=== PATIENT | female | born 1990 | race Caucasian/White ===

== ENCOUNTER 2024-09-04 14:05 | Emergency (ER) | payer OTHER, MEDICAID, SELFPAY ==
[2024-09-04 14:10] VITALS: BP 117/69; PULSE 92; RESP 18; TEMP 37.2; O2SAT 100; BMI 25.0
--- NOTE | 2024-09-04 14:12 | ED.RN ---
SPOKE WITH OB THEY SAID TO RULE OUT AND IF NEEDED SEND DOWN
--- NOTE | 2024-09-04 14:30 | EX.ED.DYSGE1 ---
HPI <JAZZY Early - Last Filed: 09/04/24 15:21> History of Present Illness Chief Complaint: Chest Other Narrative Narrative: Patient is a 34-year-old female with no significant medical history, patient is currently 28 weeks , this is her first . Patient states over the last week, she is having pain to the left upper abdomen. She did see her [facility] [employer] [employer] [facility] at [facility], they state that there was more of a muscle pain. Patient states there is pain with movement, coughing and sneezing. She states that when she puts pressure on her left upper abdomen she feels better. She is not having shortness of breath, chest pain, patient denies any abdominal pain, vaginal bleeding, she still feeling the baby move. [facility] <JAZZY Early - Last Filed: 09/04/24 15:21> [facility] Medical History (Updated 09/04/24 @ 15:20 by JAZZY Early) Adenocarcinoma Medical History no medical history Home Medications ?Medication ?Instructions ?Recorded ?Last Taken ?Type aspirin 81 mg tablet,delayed 81 mg PO DAILY 09/04/24 Unknown History release (Adult Aspirin Regimen) Allergy/AdvReac Type Severity Reaction Status Date / Time No Known Allergies Allergy Verified 09/04/24 14:10 Family History no significant family his Surgical History no surgical history Social History Smoking Status: Light Smoker (<10/day) ROS <JAZZY Early - Last Filed: 09/04/24 15:21> ROS ED ROS Narrative Constitutional: Negative for fever, chills, weight loss, weakness Eyes: Negative for vision loss, vision change, double vision ENT: Negative for any sore throat, ear pain, congestion Cardiovascular: Negative for any chest pain, tightness, palpitations Respiratory: Negative for any cough, sputum production, hemoptysis, dyspnea, dyspnea on exertion, orthopnea Gastrointestinal: Negative for any nausea, vomiting, diarrhea, constipation, blood in stool, blood in vomit. Positive for left upper abdominal pain : Negative for any urinary frequency, dysuria, retention, blood in urine Muscle skeletal: Negative for any neck pain, back pain Neurological: Negative for any headache, syncope, dizziness Skin: Negative for any rashes, itching, abrasions, lacerations Psychiatric: Negative for any depression, anxiety, stress, suicidal ideation, homicidal ideation Hematologic: Negative for any excessive bruising, easy bleeding EXAM <JAZZY Early - Last Filed: 09/04/24 15:21> Physical Exam Narrative Exam Narrative: Vital signs reviewed. HEET: Head normocephalic atraumatic, TMs clear bilaterally. Posterior pharynx is clear, moist mucous membranes. Nares clear bilaterally. Neck: Supple with no lymphadenopathy or tenderness. No signs of meningismus. Cardiac: Regular rate and rhythm no murmurs gallops or rubs, equal peripheral pulses bilaterally. Respiratory: Lungs clear to auscultation bilaterally. No chest tenderness. Abdomen: Soft, nontender, nondistended. No abdominal bruit or pulsatile masses. No hepatosplenomegaly Extremities: No peripheral edema, no signs of gross trauma or deformity. Active full range of motion of all extremities. Neuro: Cranial nerves II through XII intact, no focal neurological deficits. Skin: Clean dry and intact with no rash, purpura, petechiae, vesicles or pustules. Backs/flank: No CVA tenderness, no midline spinal tenderness, no deformity. Psych: Normal mood and affect. No SI, HI or acute psychosis. Const Vital Signs: 09/04/24 14:10 09/04/24 15:34 Temperature 98.9 F 98.9 F Temperature Source Oral Pulse Rate 92 92 Respiratory Rate 18 18 Blood Pressure 117/69 117/69 Blood Pressure Mean 85 85 Pulse Ox 100 100 Oxygen Delivery Method Room Air Positive well nourished and well developed General Appearance ED: well developed <Dr. Jeremy Resendiz DO - Last Filed: 09/04/24 15:49> Physical Exam Const Vital Signs: 09/04/24 14:10 09/04/24 15:34 Temperature 98.9 F 98.9 F Temperature Source Oral Pulse Rate 92 92 Respiratory Rate 18 18 Blood Pressure 117/69 117/69 Blood Pressure Mean 85 85 Pulse Ox 100 100 Oxygen Delivery Method Room Air MDM <JAZZY Early - Last Filed: 09/04/24 15:21> MDM Treatment and Re-Evaluation :: Differential diagnosis includes however is not limited to: Pneumonia, abdominal muscle wall strain, acute pancreatitis, chest wall strain Patient appears generally well, vital signs are stable, patient is nontoxic-appearing. Presenting to the emergency department for ongoing pain to her left upper abdomen just underneath left rib. Patient appears to be in no obvious distress. This seems to be more left upper abdomen than chest. Patient is no shortness of breath. heart tones will be obtained. heart tones within normal limits. At this time, patient be diagnosed with abdominal muscle strain. Patient continue using Tylenol, generally stretching, warm compresses. She is happy with the plan of care, she is happy to return for any worsening symptoms. All questions answered, stable for discharge <Dr. Jeremy Resendiz DO - Last Filed: 09/04/24 15:49> [facility] Treatment and Re-Evaluation :: Differential diagnosis includes however is not limited to: Pneumonia, abdominal muscle wall strain, acute pancreatitis, chest wall strain Patient appears generally well, vital signs are stable, patient is nontoxic-appearing. Presenting to the emergency department for ongoing pain to her left upper abdomen just underneath left rib. Patient appears to be in no obvious distress. This seems to be more left upper abdomen than chest. Patient is no shortness of breath. heart tones will be obtained. heart tones within normal limits. At this time, patient be diagnosed with abdominal muscle strain. Patient continue using Tylenol, generally stretching, warm compresses. She is happy with the plan of care, she is happy to return for any worsening symptoms. All questions answered, stable for discharge Attending note: I have personally performed a face to face assessment of the patient and have reviewed the [place] note. I personally made/approved the management plan and take responsibility for the patient management. I performed a substantive portion of the visit including all aspects of the following. My wagoner findings include: 28 weeks gestation presents evaluation 5-day history noting pain left upper abdomen worse when she gets up and moves around. Denies trauma. Denies nausea or vomiting. Denies any pain with fluids. Normal bowel moods. No urinary symptoms. No respiratory symptoms. She saw her OB team 4 days ago discussed musculoskeletal versus rib strain. Has been using Tylenol. Symptoms worsened today. Evaluation reproducible pain rectus abdominis muscle on the left side when I had patient perform half crunch. Exam consistent with musculoskeletal she is reassured. No symptoms with bowel movements no symptoms with meals. She will continue Tylenol she will monitor symptoms outpatient follow-up. heart tones obtained and normal at 140. Discharge Plan Triage Chief Complaint: Chest Other ED Midlevel Provider: Cameron Talavera ED Provider: Jeremy Resendiz Dx/Rx/DC Orders Clinical Impression: Third trimester , Strain of abdominal muscle Instructions: ED Muscle Strain, Abdomen Prescriptions: No Action aspirin [Adult Aspirin Regimen] 81 mg tablet,delayed release (DR/EC) 81 mg PO DAILY Primary Care Provider: Omid Grijalva Referrals: Omid Grijalva MD [Primary Care Provider] - Activity Restrictions/Additional Instructions: We believe you have a abdominal wall muscle strain. Please continue to perform gentle stretching, usual warm compress, Tylenol. Print Language: Bulgarian Disposition Disposition: Home, Self Care Discharge Date/Time: 09/04/24 15:45
[2024-09-04 15:34] VITALS: BP 117/69; PULSE 92; RESP 18; TEMP 37.2; O2SAT 100
== END 2024-09-04 15:45 | disposition home or self-care (01) ==
PROVIDERS: Emergency Provider Emergency Medicine; PCP Internal Medicine; Visit Provider Emergency Medicine
DX: O9A.213 Injury, poisoning and certain other consequences of external causes complicating pregnancy, third trimester (principal); O99.333 Smoking (tobacco) complicating pregnancy, third trimester; F17.200 Nicotine dependence, unspecified, uncomplicated; S39.011A Strain of muscle, fascia and tendon of abdomen, initial encounter; Z3A.28 28 weeks gestation of pregnancy; Z79.82 Long term (current) use of aspirin; X58.XXXA Exposure to other specified factors, initial encounter
CPT/HCPCS: 99282

== ENCOUNTER 2024-11-26 19:15 | Inpatient (IN) | payer OTHER, MEDICAID, SELFPAY ==
[2024-11-26 19:14] VITALS: BMI 27.2
[2024-11-26 19:40] VITALS: BP 111/66; PULSE 70; RESP 16; TEMP 36.7; O2SAT 98
--- OUTSIDE RECORDS SUMMARY | 2024-11-26 19:45 | XMS RPT_ITS | CCD ---
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 in ; Translations: [Unspecified infection of urinary tract in , unspecified trimester] Onset: 05-28-2024 05-28-2024 Episodic Other complications of (2 sources) Unspecified infection of urinary tract in , unspecified trimester; Translations: [UTI (urinary tract infection) in , antepartum (HCC)] Onset: 05-28-2024 Episodic Other complications of (1 source) Supervision of with insufficient care, second trimester; Translations: [Late care affecting in second trimester] Onset: 05-26-2024 Episodic Other complications of (1 source) Maternal care for other abnormalities of cervix, second trimester; Translations: [History of loop electrosurgical excision procedure (LEEP) of cervix affecting in second trimester] Onset: 05-26-2024 Episodic Other connective tissue disease (4 sources) Pain in left leg; Translations: [Pain in left leg] Onset: 07-14-2023 Episodic Other female genital disorders (11 sources) Dysplasia of cervix; Translations: [Dysplasia of cervix, unspecified] Onset: 07-14-2023 Resolved: 07-14-2023 07-14-2023 Episodic Other female genital disorders (1 source) Other specified noninflammatory disorders of cervix uteri; Translations: [Other specified noninflammatory disorders of cervix uteri] Onset: 05-17-2022 Episodic Other injuries and conditions due to external causes (4 sources) Personal history of (healed) traumatic fracture; Translations: [Personal history of (healed) traumatic fracture] Onset: 07-14-2023 Episodic Other and delivery including normal (9 sources) test positive; Translations: [Encounter for test, result positive] Onset: 04-02-2024 04-02-2024 Episodic Residual codes; unclassified (20 sources) Nicotine-filled electronic cigarette user; Translations: [Tobacco use] Onset: 05-26-2024 05-26-2024 Episodic Residual codes; unclassified (1 source) Other specified postprocedural states; Translations: [History of loop electrosurgical excision procedure (LEEP) of cervix affecting in second trimester] Onset: 05-26-2024 Episodic Residual codes; unclassified (1 source) Tobacco use; Translations: [Current every day nicotine vaping] Onset: 05-26-2024 Episodic Substance-related disorders (20 sources) Marijuana user; Translations: [Drug use complicating , unspecified trimester] Onset: 05-26-2024 05-26-2024 Episodic Unclassified (8 sources) Finding of menstrual bleeding; Translations: [Menstruation] Comment on above: Onset age 14 years; Unclassified (3 sources) Onset: 07-14-2023 07-14-2023 NEGATED: Highlighted row has been ruled out!Other infections; including parasitic (1 source) History of sexually transmitted disease; Translations: [Personal history of other infectious and parasitic diseases] Episodic Results Test Name Value Interpretation Reference Range Facility URINE OB DIP B/Oon 5 Glucose Ql (U) Negative Neg mg/dL [facility] Interpretation and review of laboratory results Normal [facility] Protein.monoclonal (U) [Mass/Vol] Negative Neg mg/dL [facility] URINE OB DIP B/Oon 5 Glucose Ql (U) Negative Neg mg/dL [facility] Interpretation and review of laboratory results Normal [facility] Protein.monoclonal (U) [Mass/Vol] Negative Neg mg/dL [facility] Examination level ultrasound on 11-02-2024 [facility] Radiology Study observation (narrative) [facility] ROUTINE, GROUP B ST REPTOCOCCUS BY PCRon 11-02-2024 ROUTINE, GROUP B STREPTOCOCCUS BY PCR Not detected Normal [facility] Comment on above: Performed By: #### G BPCR #### [facility] CLIA [id number] [address] [place] [address] [place] CBC panel Auto (Bld)on 10-21 Erythrocyte distribution width (RBC) [Ratio] 12.5 % Normal 11.5-15.0 [facility] Comment on above: Order Comment: Speci men Type: BLOOD SPECIMENOrdering Facility: [facility] Address: [address] [place] [address] Performed By: #### 5 8410-2 ####[facility] MILLWNCLIA [id number] [place] [address] [place] Hematocrit (Bld) [Volume fraction] 32.3 % Low 36.0-46.0 [facility] Comment on above: Order Comment: Speci men Type: BLOOD SPECIMENOrdering Facility: [facility] Address: [address] [place] [address] Performed By: #### 5 8410-2 ####[facility] [id number] [place] [address] [place] Hemoglobin (Bld) [Mass/Vol] 10.9 g/dL Low 11.5-15.5 [facility] Comment on above: Order Comment: Speci men Type: BLOOD SPECIMENOrdering Facility: [facility] Address: [address] [place] [address] Performed By: #### 5 8410-2 ####[facility]ITAL[facility] [id number] [place] [address] [place] MCH (RBC) [Entitic mass] 31.5 pg Normal 26.0-34.0 [facility] Comment on above: Order Comment: Speci men Type: BLOOD SPECIMENOrdering Facility: [facility] Address: [address] [place] [address] Performed By: #### 5 8410-2 ####[facility]ENTERLIA [id number] [place] [address] [place] MCHC (RBC) [Mass/Vol] 33.7 g/dL Normal 30.5-36.0 [facility] Comment on above: Order Comment: Speci men Type: BLOOD SPECIMENOrdering Facility: [facility] Address: [address] [place] [address] Performed By: #### 5 8410-2 ####[facility]ENTERLIA [id number] [place] [address] [place] MCV (RBC) [Entitic vol] 93.4 fL Normal 80.0-100.0 [facility] Comment on above: Order Comment: Speci men Type: BLOOD SPECIMENOrdering Facility: [facility] Address: [address] [place] [address] Performed By: #### 5 8410-2 ####[facility] HOSPITALIsidro [id number] [place] [address] [place] Nucleated RBC (Bld) [#/Vol] 10*3/uL Normal <0.01 [facility] Comment on above: Order Comment: Speci men Type: BLOOD SPECIMENOrdering Facility: [facility] Address: [address] [place] [address] Performed By: #### 5 8410-2 ####[facility]ITALNCUIN[facility] [id number] [place] [address] [place] Platelet mean volume (Bld) [Entitic vol] 9.5 fL Normal 9.0-12.7 [facility] Comment on above: Order Comment: Speci men Type: BLOOD SPECIMENOrdering Facility: [facility] Address: [address] [place] [address] Performed By: #### 5 8410-2 ####[facility]ITALNCLIA [id number] [place] [address] [place] Platelets (Bld) [#/Vol] 473 10*3/uL High 150-400 [facility] Comment on above: Order Comment: Speci men Type: BLOOD SPECIMENOrdering Facility: [facility] Address: [address] [place] [address] Performed By: #### 5 8410-2 ####[facility]ITALNCLIA [id number] [place] [address] [place] RBC (Bld) [#/Vol] 3.46 10*6/uL Low 3.90-5.20 [facility] Comment on above: Order Comment: Speci men Type: BLOOD SPECIMENOrdering Facility: [facility] Address: [address] [place] [address] Performed By: #### 5 8410-2 ####[facility] [id number] [place] [address] [place] WBC (Bld) [#/Vol] 14.21 10*3/uL High 3.70-11.00 [facility] Comment on above: Order Comment: Speci men Type: BLOOD SPECIMENOrdering Facility: [facility] Address: [address] [place] [address] Performed By: #### 5 8410-2 ####[facility]ITALNCUIN[facility] [id number] [place] [address] [place] URINE OB DIP B/Oon 5 Glucose Ql (U) Negative Neg mg/dL [facility] Interpretation and review of laboratory results Normal [facility] Protein.monoclonal (U) [Mass/Vol] Negative Neg mg/dL [facility] URINE OB DIP B/OOrdered By: Beatriz Mendez on 10-07-2024 Glucose Ql (U) Negative Neg mg/dL [facility] Interpretation and review of laboratory results Normal [facility] Protein.monoclonal (U) [Mass/Vol] trace Neg mg/dL [facility] Bacteria Ur Culton 5 Bacteria identified Cx Nom (U) ORGANISM ID: 1 10,000 -<50,000 CFU/ml Normal urogenital cecelia Normal [facility] Comment on above: Performed By: #### 6 30-4 ####[facility] LABCLIA [id number] [place] [address] [place] CBC W Auto Differential pane l (Bld)on 09-07-2024 Basophils (Bld) [#/Vol] 0.05 10*3/uL Normal <0.11 [facility] Comment on above: Order Comment: Speci men Type: BLOOD SPECIMENOrdering Facility: [facility] Address: [address] [place] [address] Performed By: #### 5 7021-8 ####[facility] MACIEJWNCLIA [id number] [place] [address] [place] Basophils/100 WBC (Bld) 0.3 % Normal [facility] Comment on above: Order Comment: Speci men Type: BLOOD SPECIMENOrdering Facility: [facility] Address: [address] [place] [address] Performed By: #### 5 7021-8 ####[facility]ITALNCLIA [id number] [place] [address] [place] Differential cell count method Nom (Bld) Auto Normal [facility] Comment on above: Order Comment: Speci men Type: BLOOD SPECIMENOrdering Facility: [facility] Address: [address] [place] [address] Performed By: #### 5 7021-8 ####[facility]ITALNCLIA [id number] [place] [address] [place] Eosinophils (Bld) [#/Vol] 0.19 10*3/uL Normal <0.46 [facility] Comment on above: Order Comment: Speci men Type: BLOOD SPECIMENOrdering Facility: [facility] Address: [address] [place] [address] Performed By: #### 5 7021-8 ####[facility] MILLTOWNCLIA [id number] [place] [address] [place] Eosinophils/100 WBC (Bld) 1.3 % Normal [facility] Comment on above: Order Comment: Speci men Type: BLOOD SPECIMENOrdering Facility: [facility] Address: [address] [place] [address] Performed By: #### 5 7021-8 ####[facility]ENTERLIA [id number] [place] [address] [place] Erythrocyte distribution width (RBC) [Ratio] 12.5 % Normal 11.5-15.0 [facility] Comment on above: Order Comment: Speci men Type: BLOOD SPECIMENOrdering Facility: [facility] Address: [address] [place] [address] Performed By: #### 5 7021-8 ####[facility]OSPITALMING [id number] [place] [address] [place] Hematocrit (Bld) [Volume fraction] 31.3 % Low 36.0-46.0 [facility] Comment on above: Order Comment: Speci men Type: BLOOD SPECIMENOrdering Facility: [facility] Address: [address] [place] [address] Performed By: #### 5 7021-8 ####[facility]ITALSTERLINGIsidro [id number] [place] [address] [place] Hemoglobin (Bld) [Mass/Vol] 10.4 g/dL Low 11.5-15.5 [facility] Comment on above: Order Comment: Speci men Type: BLOOD SPECIMENOrdering Facility: [facility] Address: [address] [place] [address] Performed By: #### 5 7021-8 ####[facility] MACIEJCOOKMING [id number] [place] [address] [place] Immature granulocytes (Bld) [#/Vol] 0.08 10*3/uL Normal <0.10 [facility] Comment on above: Order Comment: Speci men Type: BLOOD SPECIMENOrdering Facility: [facility] Address: [address] [place] [address] Performed By: #### 5 7021-8 ####[facility]ITALNCLI [id number] [place] [address] [place] Immature granulocytes/100 WBC (Bld) 0.6 % Normal [facility] Comment on above: Order Comment: Speci men Type: BLOOD SPECIMENOrdering Facility: [facility] Address: [address] [place] [address] Performed By: #### 5 7021-8 ####[facility]ITALNCUIN[facility] [id number] [place] [address] [place] Lymphocytes (Bld) [#/Vol] 1.50 10*3/uL Normal 1.00-4.00 [facility] Comment on above: Order Comment: Speci men Type: BLOOD SPECIMENOrdering Facility: [facility] Address: [address] [place] [address] Performed By: #### 5 7021-8 ####[facility] [id number] [place] [address] [place] Lymphocytes/100 WBC (Bld) 10.4 % Normal [facility] Comment on above: Order Comment: Speci men Type: BLOOD SPECIMENOrdering Facility: [facility] Address: [address] [place] [address] Performed By: #### 5 7021-8 ####[facility] [id number] [place] [address] [place] MCH (RBC) [Entitic mass] 31.2 pg Normal 26.0-34.0 [facility] Comment on above: Order Comment: Speci men Type: BLOOD SPECIMENOrdering Facility: [facility] Address: [address] [place] [address] Performed By: #### 5 7021-8 ####[facility] [id number] [place] [address] [place] MCHC (RBC) [Mass/Vol] 33.2 g/dL Normal 30.5-36.0 [facility] Comment on above: Order Comment: Speci men Type: BLOOD SPECIMENOrdering Facility: [facility] Address: [address] [place] [address] Performed By: #### 5 7021-8 ####[facility] MACIEJCOOKMING [id number] [place] [address] [place] MCV (RBC) [Entitic vol] 94.0 fL Normal 80.0-100.0 [facility] Comment on above: Order Comment: Speci men Type: BLOOD SPECIMENOrdering Facility: [facility] Address: [address] [place] [address] Performed By: #### 5 7021-8 ####[facility]OSPITALNCIsidro [id number] [place] [address] [place] Monocytes (Bld) [#/Vol] 0.65 10*3/uL Normal <0.87 [facility] Comment on above: Order Comment: Speci men Type: BLOOD SPECIMENOrdering Facility: [facility] Address: [address] [place] [address] Performed By: #### 5 7021-8 ####[facility] HOSPITALNCA [id number] [place] [address] [place] Monocytes/100 WBC (Bld) 4.5 % Normal [facility] Comment on above: Order Comment: Speci men Type: BLOOD SPECIMENOrdering Facility: [facility] Address: [address] [place] [address] Performed By: #### 5 7021-8 ####[facility]ITALNCLIA [id number] [place] [address] [place] Neutrophils (Bld) [#/Vol] 11.89 10*3/uL High 1.45-7.50 [facility] Comment on above: Order Comment: Speci men Type: BLOOD SPECIMENOrdering Facility: [facility] Address: [address] [place] [address] Performed By: #### 5 7021-8 ####[facility] MACIEJCOOKSTERLINGLIA [id number] [place] [address] [place] Neutrophils/100 WBC (Bld) 82.9 % Normal [facility] Comment on above: Order Comment: Speci men Type: BLOOD SPECIMENOrdering Facility: [facility] Address: [address] [place] [address] Performed By: #### 5 7021-8 ####[facility] [id number] [place] [address] [place] Nucleated RBC (Bld) [#/Vol] 10*3/uL Normal <0.01 [facility] Comment on above: Order Comment: Speci men Type: BLOOD SPECIMENOrdering Facility: [facility] Address: [address] [place] [address] Performed By: #### 5 7021-8 ####[facility] [id number] [place] [address] [place] Nucleated RBC/100 WBC (Bld) [Ratio] 0.0 /100 WBC Normal [facility] Comment on above: Order Comment: Speci men Type: BLOOD SPECIMENOrdering Facility: [facility] Address: [address] [place] [address] Performed By: #### 5 7021-8 ####[facility]ENTERLI [id number] [place] [address] [place] Platelet mean volume (Bld) [Entitic vol] 9.4 fL Normal 9.0-12.7 [facility] Comment on above: Order Comment: Speci men Type: BLOOD SPECIMENOrdering Facility: [facility] Address: [address] [place] [address] Performed By: #### 5 7021-8 ####[facility]ITALNCLI [id number] [place] [address] [place] Platelets (Bld) [#/Vol] 405 10*3/uL High 150-400 [facility] Comment on above: Order Comment: Speci men Type: BLOOD SPECIMENOrdering Facility: [facility] Address: [address] [place] [address] Performed By: #### 5 7021-8 ####[facility]ITALNCLIA [id number] [place] [address] [place] RBC (Bld) [#/Vol] 3.33 10*6/uL Low 3.90-5.20 [facility] Comment on above: Order Comment: Speci men Type: BLOOD SPECIMENOrdering Facility: [facility] Address: [address] [place] [address] Performed By: #### 5 7021-8 ####[facility] HOSPITALNCA [id number] [place] [address] [place] WBC (Bld) [#/Vol] 14.36 10*3/uL High 3.70-11.00 [facility] Comment on above: Order Comment: Speci men Type: BLOOD SPECIMENOrdering Facility: [facility] Address: [address] [place] [address] Performed By: #### 5 7021-8 ####[facility]ITALNCLIA [id number] [place] [address] [place] Ferritin SerPl-mCncon 2024 Ferritin [Mass/Vol] 44.5 ng/mL Normal 14.7-205.1 [facility] Comment on above: Order Comment: Speci men Type: BLOOD SPECIMENOrdering Facility: [facility] Address: [address] [place] [address] Performed By: #### 5 0190-8, 2276-4 ####[facility] LABCLIA [id number] [place] [address] [place] GESTATIONAL GLUCOSE SCREEN, 1-HOUR, 50 GRAM, NON-FASTINGon 09-07-2024 Glucose [Mass/Vol] 92 mg/dL Normal 74-134 [facility] Comment on above: Order Comment: Jaye barragan Type: BLOOD SPECIMENOrdering Facility: [facility] Address: [address] [place] [address] Result Comment: [facility] Congress of Obstetricians and Gynecologists (Chapo/Mari) guidelines state a gestational diabetes mellitus positive screen is made, in women not previously diagnosed with overt diabetes, when the 1 hr plasma glucose level is equal to or above 140 mg/dL. [facility] Continuous Mining Operator and [facility] recommends a 135 mg/dL cutoff. Performed By: #### G LTGST ####[facility] [id number] [place] [address] [place] Iron and Iron binding capaci ty panelon 09-07-2024 Iron [Mass/Vol] 46 ug/dL Normal 41-186 [facility] Comment on above: Order Comment: Jaye barragan Type: BLOOD SPECIMENOrdering Facility: [facility] Address: [address] [place] [address] Performed By: #### 5 0190-8, 6-4 ####[facility] LABIA [id number] [place] [address] [place] Iron binding capacity [Mass/Vol] 404 ug/dL High 232-386 [facility] Comment on above: Order Comment: Jaye barragan Type: BLOOD SPECIMENOrdering Facility: [facility] Address: [address] [place] [address] Performed By: #### 5 0190-8, 6-4 ####[facility] LABIA [id number] [place] [id number] [place] Iron/TIBC [Molar ratio] 11.4 % Low 15.0-57.0 [facility] Comment on above: Order Comment: Jaye barragan Type: BLOOD SPECIMENOrdering Facility: [facility] Address: [address] [place] [address] Performed By: #### 5 0190-8, 2276-4 ####[facility] LABIA [id number] [address] [place] Reagin and Treponema pallidu m IgG and IgM [Interp]on 09-07-2024 T. pallidum IgG+IgM IA Ql (S) Non-Reactive Normal Nonreactive [facility] Comment on above: Order Comment: Speci men Type: BLOOD SPECIMENOrdering Facility: [facility] Address: [address] [place] [address] Performed By: #### 7 3752-8 ####[facility]ENTERIA [id number] [address] [place] Reagin+T pallidum IgG+IgM Se rPl-Impon 09-07-2024 Reagin and Treponema pallidum IgG and IgM [Interp] Cannot exclude recent Treponemal infection if specimen collected within 7-10 days after appearance of suspect lesions or 2-3 weeks after an exposure. Clinical correlation is required. Normal [facility] Comment on above: Order Comment: Speci men Type: BLOOD SPECIMENOrdering Facility: [facility] Address: [address] [place] [address] Performed By: #### 7 3752-8 ####[facility] MEDICAL CENTERIA [id number] [address] OF [facility] CNPAbbie 09-06-2024 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 - aspirin, enteric coated (ECOTRIN LOW STRENGTH) 81 mg EC tablet Take 1 tablet by mouth once daily. - PNV no.95/ferrous fum/folic ac ( ORAL) Take by mouth. - acetaminophen (TYLENOL EXTRA STRENGTH) 500 mg tablet Take 2 tablets by mouth every 8 hours as needed for pain. Problem List As Of Date 09/06/2024 Noted Resolved Encounter for supervision of high risk pregnanc*05/26/2024 Late care affecting in secon*05/26/2024 History of loop electrosurgical excision proced*05/26/2024 Nausea and vomiting during [O21.9] 05/26/2024 Current every day nicotine vaping [Z72.0] 05/26/2024 Marijuana use during [O99.320, F12.90]05/26/2024 Anemia complicating , first trimester *05/27/2024 UTI (urinary tract infection) in , ant*05/28/2024 Encounter Status:Closed by ISABEL GRANADOS on 09/06/24 Normal [facility] Emergency Department Summary on 09-04-2024 Emergency Department Summary [facility] Medical Records Department [address] [place] [address] Emergency Department Summary 09/04/24 MR#: [id number] Acct: [id number] Name: PERLITA THAKKAR Rep #: [id number] : 1990 34 From: [place] [employer]ala[employer]OMOT[employer]SDori PCP: Dr. Omid Benites MD Status:DEP ER Location: ED HPI History of Present Illness Chief Complaint: Chest Other Narrative Narrative: Patient is a 34-year-old female with no significant medical history, patient is currently 28 weeks , this is her first . Patient states over the last week, she is having pain to the left upper abdomen. 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 Patient states there is pain with movement, coughing and sneezing. She states that when she puts pressure on her left upper abdomen she feels better. She is not having shortness of breath, chest pain, patient denies any abdominal pain, vaginal bleeding, she still feeling the baby move. [facility] Medical History (Updated 09/04/24 @ 15:20 by JAZZY Early) Adenocarcinoma Medical History no medical history Home Medications ???Medication ???Instructions ???Recorded ???Last Taken ???Type aspirin 81 mg tablet,delayed 81 mg PO DAILY 09/04/24 Unknown Hi story release (Adult Aspirin Regimen) Allergy/AdvReac Type Severity Reaction Status Date / Time No Known Allergies Allergy Verified 09/04/24 14:10 Family History no significant family his Surgical History no surgical history Social History Smoking Status: Light Smoker (<10/day) ROS ROS ED ROS Narrative Constitutional: Negative for fever, chills, weight loss, weakness Eyes: Negative for vision loss, vision change, double vision ENT: Negative for any sore throat, ear pain, congestion Cardiovascular: Negative for any chest pain, tightness, palpitations Respiratory: Negative for any cough, sputum production, hemoptysis, dyspnea, dyspnea on exertion, orthopnea Gastrointestinal: Negative for any nausea, vomiting, diarrhea, constipation, blood in stool, blood in vomit. Positive for left upper abdominal pain : Negative for any urinary frequency, dysuria, retention, blood in urine Muscle skeletal: Negative for any neck pain, back pain Neurological: Negative for any headache, syncope, dizziness Skin: Negative for any rashes, itching, abrasions, lacerations Psychiatric: Negative for any depression, anxiety, stress, suicidal ideation, homicidal ideation Hematologic: Negative for any excessive bruising, easy bleeding EXAM Physical Exam Narrative Exam Narrative: Vital signs reviewed. HEET: Head normocephalic atraumatic, TMs clear bilaterally. Posterior pharynx is clear, moist mucous membranes. Nares clear bilaterally. Neck: Supple with no lymphadenopathy or tenderness. No signs of meningismus. Cardiac: Regular rate and rhythm no murmurs gallops or rubs, equal peripheral pulses bilaterally. Respiratory: Lungs clear to auscultation bilaterally. No chest tenderness. Abdomen: Soft, nontender, nondistended. No abdominal bruit or pulsatile masses. No hepatosplenomegaly Extremities: No peripheral edema, no signs of gross trauma or deformity. Active full range of motion of all extremities. Neuro: Cranial nerves II through XII intact, no focal neurological deficits. Skin: Clean dry and intact with no rash, purpura, petechiae, vesicles or pustules. Backs/flank: No CVA tenderness, no midline spinal tenderness, no deformity. Psych: Normal mood and affect. No SI, HI or acute psychosis. Const Vital Signs: 09/04/24 14:10 09/04/24 15:34 Temperature 98.9 F 98.9 F Temperature Source Oral Pulse Rate 92 92 Respiratory Rate 18 18 Blood Pressure 117/69 117/69 Blood Pressure Mean 85 85 Pulse Ox 100 100 Oxygen Delivery Method Room Air Positive well nourished and well developed General Appearance ED: well developed Physical Exam Const Vital Signs: 09/04/24 14:10 09/04/24 15:34 Temperature 98.9 F 98.9 F Temperature Source Oral Pulse Rate 92 92 Respiratory Rate 18 18 Blood Pressure 117/69 117/69 Blood Pressure Mean 85 85 Pulse Ox 100 100 Oxygen Delivery Method Room Air [facility]DM [facility] Treatment and Re-Evaluation :: Differential diagnosis includes however is not limited to: Pneumonia, abdominal muscle wall strain, acute pancreatitis, chest wall strain Patient appears generally well, vital signs are stable, patient is nontoxic-appearing. Presenting to the emergency department for ongoing pain to her left upper abdomen just underneath left rib. Patient appears to be in no obvious distress. This seems to be more left upper abdomen than chest. Patient is no shortness of breath. heart tones will be obtained. hea (more content not included)... Normal [facility] 08-31-2024 [facility] Telephone (OBGYWM) PERLITA THAKKAR ([id number]) 1990 F Date Time Provider Department 08/31/24 MIGUELINA HERRERA During your visit today, we recorded the following information about you: Fe Hoffmann RN 08/31/2024 9:54 AM Signed Patient 27w4d calling with complaints of Left upper abdominal, directly under her breast pain. Pain has been occurring for 2 days now. Pain is a constant dull ache with an occasional sharp pain. Currently rates pain at a 6-7 out of 10. Pain improves when bending forward, but has not noticed that anything makes the pain worse. Patient did take Tylenol last night and this morning but has not noticed any improvement with the medication. Denies any abdominal cramping, bleeding or leaking of fluid. Baby is active. Last seen in the office on 08/10, next appointment on 09/07. Please advise. KIRSTEN rOozco Jennifer, MD 08/31/2024 10:56 AM Signed If she is having that much pain she needs to be seen Baldo Carvajal RN 08/31/2024 11:48 AM Signed This RN spoke to and no open appointment spots available today. Therefore, approved for Pt to be placed on RR schedule at 4pm today. Pt notified and scheduled. Advised Pt that if she begins with severe abdominal pain, vaginal bleeding, decreased movement to call office/or go to ER. Pt voiced understanding. Baldo Carvajal RN Allergies As of Date: 08/31/2024 (No Known Allergies) Date Reviewed: 08/10/2024 Reviewed by: Jalil Carmen MA - Fully Assessed Reason for Visit: OB-Abdominal pain [Other] Prescriptions as of 08/31/2024 - Ferrous Sulfate 134 mg (27 mg iron) tab - vitamin B comp and vit C no.6 (VITAMIN B COMP WITH VIT C NO.6 ORAL) Take by mouth. - aspirin, enteric coated (ECOTRIN LOW STRENGTH) 81 mg EC tablet Take 1 tablet by mouth once daily. - PNV no.95/ferrous fum/folic ac ( ORAL) Take by mouth. - acetaminophen (TYLENOL EXTRA STRENGTH) 500 mg tablet Take 2 tablets by mouth every 8 hours as needed for pain. Problem List As Of Date 08/31/2024 Noted Resolved Encounter for supervision of high risk pregnanc*05/26/2024 Late care affecting in secon*05/26/2024 History of loop electrosurgical excision proced*05/26/2024 Nausea and vomiting during [O21.9] 05/26/2024 Current every day nicotine vaping [Z72.0] 05/26/2024 Marijuana use during [O99.320, F12.90]05/26/2024 Anemia complicating , first trimester *05/27/2024 UTI (urinary tract infection) in , ant*05/28/2024 Encounter Status:Closed by BALDO CARVAJAL on 08/31/24 Normal [facility] CBC W Auto Differential pane l (Bld)on 08-04-2024 Basophils (Bld) [#/Vol] 0.03 10*3/uL Normal <0.11 [facility] Comment on above: Order Comment: Speci men Type: BLOOD SPECIMENOrdering Facility: [facility] Address: [address] [place] [address] Performed By: #### 6 30-4 #### [facility] CLIA [id number] [address] [place] [address] [place] Basophils/100 WBC (Bld) 0.2 % Normal [facility] Comment on above: Order Comment: Speci men Type: BLOOD SPECIMENOrdering Facility: [facility] Address: [address] [place] [address] Performed By: #### 6 30-4 #### [facility] CLIA [id number] [address] [place] [address] [place] Differential cell count method Nom (Bld) Auto Normal [facility] Comment on above: Order Comment: Speci men Type: BLOOD SPECIMENOrdering Facility: [facility] Address: [address] [place] [address] Performed By: #### 6 30-4 #### [facility] CLIA [id number] [address] [place] [address] [place] Eosinophils (Bld) [#/Vol] 0.17 10*3/uL Normal <0.46 [facility] Comment on above: Order Comment: Speci men Type: BLOOD SPECIMENOrdering Facility: [facility] Address: [address] [place] [address] Performed By: #### 6 30-4 #### [facility] CLIA [id number] [address] [place] [address] [place] Eosinophils/100 WBC (Bld) 1.3 % Normal [facility] Comment on above: Order Comment: Speci men Type: BLOOD SPECIMENOrdering Facility: [facility] Address: [address] [place] [address] Performed By: #### 6 30-4 #### [facility] CLIA [id number] [address] [place] [address] [place] Erythrocyte distribution width (RBC) [Ratio] 12.8 % Normal 11.5-15.0 [facility] Comment on above: Order Comment: Speci men Type: BLOOD SPECIMENOrdering Facility: [facility] Address: [address] [place] [address] Performed By: #### 6 30-4 #### [facility] CLIA [id number] [address] [place] [address] [place] Hematocrit (Bld) [Volume fraction] 32.5 % Low 36.0-46.0 [facility] Comment on above: Order Comment: Speci men Type: BLOOD SPECIMENOrdering Facility: [facility] Address: [address] [place] [address] Performed By: #### 6 30-4 #### [facility] CLIA [id number] [address] [place] [address] [place] Hemoglobin (Bld) [Mass/Vol] 11.0 g/dL Low 11.5-15.5 [facility] Comment on above: Order Comment: Speci men Type: BLOOD SPECIMENOrdering Facility: [facility] Address: [address] [place] [address] Performed By: #### 6 30-4 #### [facility] CLIA [id number] [address] [place] [address] [place] Immature granulocytes (Bld) [#/Vol] 0.18 10*3/uL High <0.10 [facility] Comment on above: Order Comment: Speci men Type: BLOOD SPECIMENOrdering Facility: [facility] Address: [address] [place] [address] Performed By: #### 6 30-4 #### [facility] CLIA [id number] [address] [place] [address] [place] Immature granulocytes/100 WBC (Bld) 1.4 % Normal [facility] Comment on above: Order Comment: Speci men Type: BLOOD SPECIMENOrdering Facility: [facility] Address: [address] [place] [address] Performed By: #### 6 30-4 #### [facility] CLIA [id number] [address] [place] [address] [place] Lymphocytes (Bld) [#/Vol] 2.41 10*3/uL Normal 1.00-4.00 [facility] Comment on above: Order Comment: Speci men Type: BLOOD SPECIMENOrdering Facility: [facility] Address: [address] [place] [address] Performed By: #### 6 30-4 #### [facility] CLIA [id number] [address] [place] [address] [place] Lymphocytes/100 WBC (Bld) 18.4 % Normal [facility] Comment on above: Order Comment: Speci men Type: BLOOD SPECIMENOrdering Facility: [facility] Address: [address] [place] [address] Performed By: #### 6 30-4 #### [facility] CLIA [id number] [address] [place] [address] [place] MCH (RBC) [Entitic mass] 31.5 pg Normal 26.0-34.0 [facility] Comment on above: Order Comment: Speci men Type: BLOOD SPECIMENOrdering Facility: [facility] Address: [address] [place] [address] Performed By: #### 6 30-4 #### [facility] CLIA [id number] [address] [place] [address] [place] MCHC (RBC) [Mass/Vol] 33.8 g/dL Normal 30.5-36.0 [facility] Comment on above: Order Comment: Speci men Type: BLOOD SPECIMENOrdering Facility: [facility] Address: [address] [place] [address] Performed By: #### 6 30-4 #### [facility] CLIA [id number] [address] [place] [address] [place] MCV (RBC) [Entitic vol] 93.1 fL Normal 80.0-100.0 [facility] Comment on above: Order Comment: Speci men Type: BLOOD SPECIMENOrdering Facility: [facility] Address: [address] [place] [address] Performed By: #### 6 30-4 #### [facility] CLIA [id number] [address] [place] [address] [place] Monocytes (Bld) [#/Vol] 0.57 10*3/uL Normal <0.87 [facility] Comment on above: Order Comment: Speci men Type: BLOOD SPECIMENOrdering Facility: [facility] Address: [address] [place] [address] Performed By: #### 6 30-4 #### [facility] CLIA [id number] [address] [place] [address] [place] Monocytes/100 WBC (Bld) 4.3 % Normal [facility] Comment on above: Order Comment: Speci men Type: BLOOD SPECIMENOrdering Facility: [facility] Address: [address] [place] [address] Performed By: #### 6 30-4 #### [facility] CLIA [id number] [address] [place] [address] [place] Neutrophils (Bld) [#/Vol] 9.75 10*3/uL High 1.45-7.50 [facility] Comment on above: Order Comment: Speci men Type: BLOOD SPECIMENOrdering Facility: [facility] Address: [address] [place] [address] Performed By: #### 6 30-4 #### [facility] CLIA [id number] [address] [place] [address] [place] Neutrophils/100 WBC (Bld) 74.4 % Normal [facility] Comment on above: Order Comment: Speci men Type: BLOOD SPECIMENOrdering Facility: [facility] Address: [address] [place] [address] Performed By: #### 6 30-4 #### [facility] CLIA [id number] [address] [place] [address] [place] Nucleated RBC (Bld) [#/Vol] 10*3/uL Normal <0.01 [facility] Comment on above: Order Comment: Speci men Type: BLOOD SPECIMENOrdering Facility: [facility] Address: [address] [place] [address] Performed By: #### 6 30-4 #### [facility] CLIA [id number] [address] [place] [address] [place] Nucleated RBC/100 WBC (Bld) [Ratio] 0.0 /100 WBC Normal [facility] Comment on above: Order Comment: Speci men Type: BLOOD SPECIMENOrdering Facility: [facility] Address: [address] [place] [address] Performed By: #### 6 30-4 #### [facility] CLIA [id number] [address] [place] [address] [place] Platelet mean volume (Bld) [Entitic vol] 9.0 fL Normal 9.0-12.7 [facility] Comment on above: Order Comment: Speci men Type: BLOOD SPECIMENOrdering Facility: [facility] Address: [address] [place] [address] Performed By: #### 6 30-4 #### [facility] CLIA [id number] [address] [place] [address] [place] Platelets (Bld) [#/Vol] 395 10*3/uL Normal 150-400 [facility] Comment on above: Order Comment: Speci men Type: BLOOD SPECIMENOrdering Facility: [facility] Address: [address] [place] [address] Performed By: #### 6 30-4 #### [facility] CLIA [id number] [address] [place] [address] [place] RBC (Bld) [#/Vol] 3.49 10*6/uL Low 3.90-5.20 [facility] Comment on above: Order Comment: Speci men Type: BLOOD SPECIMENOrdering Facility: [facility] Address: [address] [place] [address] Performed By: #### 6 30-4 #### [facility] CLIA [id number] [address] [place] [address] [place] WBC (Bld) [#/Vol] 13.11 10*3/uL High 3.70-11.00 [facility] Comment on above: Order Comment: Speci men Type: BLOOD SPECIMENOrdering Facility: [facility] Address: [address] [place] [address] Performed By: #### 6 30-4 #### [facility] CLIA [id number] [address] [place] [address] [place] Examination level ultrasound on 08-04-2024 Indication Hx LEEP Impression - The patient presents for TVS for cervical length measurement to assess the patient's risk for . - Single, live, intrauterine . - The cervical length measures 34 mm with no evidence of funneling or other dynamic changes. Recommendations Additional follow-up as clinically indicated. Maternal Assessment Height 160 cm Height (ft) 5 ft Height (in) 3 in Physical Exam Initial weight (lb) 125 lb Initial BMI 22.14 kg/m Growth Overview Exam date GA BPD (mm) HC (mm) AC (mm) FL (mm) HL (mm) EFW (g) 06/21/2024 17w 3d 38.1 59% 141.1 43% 118.4 53% 23.9 51% 23.8 57% 191 38% 07/12/2024 20w 3d 48.3 57% 176.5 41% 156.5 57% 32.8 57% 30.5 37% 356 46% Method Transabdominal and transvaginal ultrasound examination Maher . Number of fetuses: 1 Dating LMP on: 02/20/2024 GA by LMP 23 w + 5 d THA by LMP: 11/26/2024 GA by prior assessment 23 w + 5 d THA by prior assessment: 11/26/2024 Assigned: based on stated THA, selected on 07/12/2024 Assigned GA 23 w + 5 d Assigned THA: 11/26/2024 General Evaluation Cardiac activity present. FHR 145 bpm. movements: present. Presentation: oblique Placenta: Placental site: anterior, fundal Umbilical cord: Cord vessels: 3 vessel cord Amniotic fluid: Amount of AF: normal amount. MVP 5.2 cm Maternal Structures Uterus / Cervix Cervix: Visualized Approach: Transvaginal Cervical length 34.0 mm Performed By: Wen Pacheco RDMS Read By: Munira Gomez M.D. MATERNAL MEDICINE [facility] Radiology Study observation (narrative) [facility] Ferritin SerPl-mCncon 2024 Ferritin [Mass/Vol] 94.5 ng/mL Normal 14.7-205.1 [facility] Comment on above: Order Comment: Speci men Type: BLOOD SPECIMENOrdering Facility: [facility] Address: [address] [place] [id number] Performed By: #### 2 276-4, 01088-7 ####[facility]ORYCLIA [id number] [place] [id number] [facility] Iron and Iron binding capaci ty panelon 08-04-2024 Iron [Mass/Vol] 140 ug/dL Normal 41-186 [facility] Comment on above: Order Comment: Speci men Type: BLOOD SPECIMENOrdering Facility: [facility] Address: [address] [place] [address] Performed By: #### 2 276-4, 48878-2 ####[facility]ORYCLIA [id number] [address] Iron binding capacity [Mass/Vol] 378 ug/dL Normal 232-386 [facility] Comment on above: Order Comment: Speci men Type: BLOOD SPECIMENOrdering Facility: [facility] Address: [facility] [place] [address] Performed By: #### 2 276-4, 11094-7 ####[facility]ORYCLIA [id number] [address] Iron saturation [Mass fraction] 37.0 % Normal 15.0-57.0 [facility] Comment on above: Order Comment: Speci men Type: BLOOD SPECIMENOrdering Facility: [facility] Address: [address] [place] [address] Performed By: #### 2 276-4, 64710-8 ####[facility]ORYCLIA [id number] [address] CNPAbbie 07-13-2024 CNPN Telephone ([facility]WE) PERLITA [id number]) 1990 F Date Time Provider Department 07/13/24 NURSE [employer]ARD [employer] [facility] [facility] During your visit today, we recorded the following information about you: Isabel Granados, RN 07/13/2024 8:38 AM Signed 2nd risk assessment form submitted 07/13/24 Isabel Granados RN Allergies As of Date: 07/13/2024 (No Known Allergies) Date Reviewed: 07/12/2024 Reviewed by: Fam Krause MA - Fully Assessed Reason for Visit: PRAF [4193] Prescriptions as of 07/13/2024 - aspirin, enteric coated (ECOTRIN LOW STRENGTH) 81 mg EC tablet Take 1 tablet by mouth once daily. - PNV no.95/ferrous fum/folic ac ( ORAL) Take by mouth. - acetaminophen (TYLENOL EXTRA STRENGTH) 500 mg tablet Take 2 tablets by mouth every 8 hours as needed for pain. Problem List As Of Date 07/13/2024 Noted Resolved Encounter for supervision of high risk pregnanc*05/26/2024 Late care affecting in secon*05/26/2024 History of loop electrosurgical excision proced*05/26/2024 Nausea and vomiting during [O21.9] 05/26/2024 Current every day nicotine vaping [Z72.0] 05/26/2024 Marijuana use during [O99.320, F12.90]05/26/2024 Anemia complicating , first trimester *05/27/2024 UTI (urinary tract infection) in , ant*05/28/2024 Encounter Status:Closed by ISABEL GRANADOS on 07/13/24 Normal [facility] Bacteria Ur Culton Bacteria identified Cx Nom (U) ORGANISM ID: 1 10,000 -<50,000 CFU/ml Normal urogenital cecelia Normal [facility] Comment on above: Performed By: #### 6 30-4 ####[facility] LAB[facility]IA [id number] [place] [address] [place] Examination level ultrasound on 07-12-2024 Indication anatomic survey Late care, History of LEEP Impression REMOTE READ The patient is referred for a standard anatomic survey. - Single, live, intrauterine . - biometry is consistent with the established gestational age. - No malformations were visualized on a complete standard anatomic survey. - The amniotic fluid volume is normal amount. - The placenta is anterior, fundal. - The Transvaginal cervical length measures 32.3 mm with no evidence of funneling or other dynamic changes. - Not all structural malformations can be detected by ultrasound examination. Recommendations Additional follow-up as clinically indicated. Maternal Assessment Height 160 cm Height (ft) 5 ft Height (in) 3 in Physical Exam Initial weight (lb) 125 lb Initial BMI 22.14 kg/m Maternal assessment other: 1 Para 0 Method Transabdominal and transvaginal ultrasound examination. View: Adequate visualization Maher . Number of fetuses: 1 Dating GA by prior assessment 20 w + 3 d THA by prior assessment: 11/26/2024 Ultrasound examination on: 07/12/2024 GA by U/S based upon: AC, BPD, Femur, HC GA by U/S 20 w + 4 d THA by U/S: 11/25/2024 Assigned: based on stated THA, selected on 07/12/2024 Assigned GA 20 w + 3 d Assigned THA: 11/26/2024 General Evaluation Cardiac activity present. FHR 139 bpm. movements: present. Presentation: cephalic Placenta: Placental site: anterior, fundal Umbilical cord: Cord vessels: 3 vessel cord Amniotic fluid: Amount of AF: normal amount. MVP 4.6 cm Growth Overview Exam date GA BPD (mm) HC (mm) AC (mm) FL (mm) HL (mm) EFW (g) 06/21/2024 17w 3d 38.1 59% 141.1 43% 118.4 53% 23.9 51% 23.8 57% 191 38% 07/12/2024 20w 3d 48.3 57% 176.5 41% 156.5 57% 32.8 57% 30.5 37% 356 46% Biometry Standard BPD 48.3 mm 20w 4d 57% Hadlock OFD 61.5 mm 19w 6d 42% Nicolaides HC 176.5 mm 20w 1d 41% Dustin Cerebellum tr 20.3 mm 19w 3d 36% Hill Nuchal fold 3.0 mm AC 156.5 mm 20w 6d 57% Hadlock Femur 32.8 mm 20w 3d 57% Dustin Humerus 30.5 mm 20w 0d 37% Dustin EFW 356 g 20w 3d 46% Hadlock EFW (lb) 0 lb EFW (oz) 13 oz EFW by: Hadlock (HC-AC-FL) Extended Java Engineer 5.2 mm CM 4.3 mm 23% Nicolaides Extremities / Bony Struc FL / HC 0.19 55% Hadlock Other Structures FHR 139 bpm Anatomy Cranium: normal Lateral ventricles: normal Choroid plexus: normal Midline falx: normal Cavum septi pellucidi: normal Cerebellum: normal Cisterna magna: normal Head / Neck Vermis: normal Neck: normal Nuchal fold: normal Lips: normal Profile: normal Nose: normal Face Maxilla: normal Mandible: normal Orbits: normal Lens: normal 4-chamber view: normal RVOT view: normal LVOT view: normal 3-vessel view: normal [id number] view: normal Heart / Thorax Situs: situs solitus (normal) Aortic arch view: normal SVC: normal IVC: normal Cardiac axis: normal Rt lung: normal Lt lung: normal Diaphragm: normal Cord insertion: normal Stomach: normal Kidneys: normal Bladder: normal Genitals: normal Abdomen Abdom. wall: normal Cervical spine: normal Thoracic spine: normal Lumbar spine: normal Sacral spine: normal Arms: normal Legs: normal Rt upper arm: normal Rt forearm: normal Rt hand: normal Rt fingers: normal Lt upper arm: normal Lt forearm: normal Lt hand: normal Lt fingers: normal Rt upper leg: normal Rt lower leg: normal Rt foot: normal Lt upper leg: normal Lt lower leg: normal Lt foot: normal sex: female Wants to know sex: yes Maternal Structures Uterus / Cervix Uterus: Visualized Cervix: Visualized Approach: Transvaginal Cervical length 32.3 mm Ovaries / Tubes / Adnexa Rt ovary: Not visualized Lt ovary: Visualized Performed By: Fe Hernandez RDMS, RVT Read By: Munira Gomez M.D. MATERNAL MEDICINE [facility] Radiology Study observation (narrative) [facility] Examination level ultrasound on 06-21-2024 Indication Early anatomic survey, Cervical length late care, dating, History of LEEP Impression REMOTE READ The patient is referred for an early anatomic survey because of identified risk factors. - Single, live, intrauterine . - biometry is consistent with the established gestational age. - No malformations were visualized on a complete early anatomic assessment. - The amniotic fluid volume is normal amount. - The placenta is anterior. - A detailed anatomic survey at 20 weeks is indicated secondary to increased risk. - Not all structural malformations can be detected by ultrasound examination. -The cervical length measures 35.1 mm with no evidence of funneling or other dynamic changes. Recommendations - Serial biweekly TVS cervical length measurements starting at 16 week until 23w6d. - A detailed exam at 20 weeks for increased risk. Maternal Assessment Height 160 cm Height (ft) 5 ft Height (in) 3 in Physical Exam Initial weight (lb) 125 lb Initial BMI 22.14 kg/m Maternal assessment other: 1 Para 0 Method Transabdominal and transvaginal ultrasound examination Maher . Number of fetuses: 1 Dating GA by prior assessment 17 w + 3 d THA by prior assessment: 11/26/2024 Ultrasound examination on: 06/21/2024 GA by U/S based upon: AC, BPD, Femur, HC GA by U/S 17 w + 3 d THA by U/S: 11/26/2024 Assigned: based on stated THA, selected on 06/21/2024 Assigned GA 17 w + 3 d Assigned THA: 11/26/2024 General Evaluation Cardiac activity present. FHR 141 bpm. movements: present. Presentation: cephalic Placenta: Placental site: anterior Umbilical cord: Cord vessels: 3 vessel cord Amniotic fluid: Amount of AF: normal amount Biometry Standard BPD 38.1 mm 17w 4d 59% Hadlock OFD 48.9 mm 16w 5d 37% Nicolaides HC 141.1 mm 17w 2d 43% Dustin Cerebellum tr 17.7 mm 17w 5d 61% Hill Nuchal fold 2.5 mm AC 118.4 mm 17w 4d 53% Hadlock Femur 23.9 mm 17w 2d 51% Dustin Humerus 23.8 mm 17w 3d 57% Dustin EFW 191 g 17w 2d 38% Hadlock EFW (lb) 0 lb EFW (oz) 7 oz EFW by: Hadlock (HC-AC-FL) Extended Java Engineer 6.1 mm CM 3.2 mm 14% Nicolaides Extremities / Bony Struc FL / HC 0.17 44% Hadlock Other Structures FHR 141 bpm Anatomy Cranium: normal Lateral ventricles: normal Choroid plexus: normal Midline falx: normal Cavum septi pellucidi: normal Cerebellum: normal Cisterna magna: normal Lips: normal 4-chamber view: normal RVOT view: normal LVOT view: normal 3-vessel view: normal 5-xhznaf-tgpzhco view: normal Heart / Thorax Situs: situs solitus (normal) Diaphragm: normal Cord insertion: normal Stomach: normal Kidneys: normal Bladder: normal Cervical spine: normal Thoracic spine: normal Lumbar spine: normal Sacral spine: normal Arms: normal Legs: normal Rt upper arm: normal Rt forearm: normal Rt hand: normal Lt upper arm: normal Lt forearm: normal Lt hand: normal Rt upper leg: normal Rt lower leg: normal Rt foot: normal Lt upper leg: normal Lt lower leg: normal Lt foot: normal sex: female Wants to know sex: yes Maternal Structures Uterus / Cervix Uterus: Visualized Approach: Transvaginal Cervical length 35.1 mm Ovaries / Tubes / Adnexa Rt ovary: Not visualized Lt ovary: Visualized Performed By: Fe Hernandez RDMS, RVT Read By: Arley Byrd M.D. MATERNAL MEDICINE [facility] Radiology Study observation (narrative) [facility] aHile 05-28-2024 CNPSydnie Telephone (OBGYWM) PERLITA THAKKAR ([id number]) 1990 F Date Time Provider Department 05/28/24 ISMAEL ARCINIEGA OBMILY During your visit today, we recorded the following information about you: Ismael Arciniega APRN.CASE FINISHER 05/28/2024 6:59 AM Signed Please notify patient: + UTI Rx for Keflex sent Push fluids To notify if symptoms worsening/not improving Ismael Arciniega APRN.Beth Gee RN 05/28/2024 10:09 AM Signed Patient notified. Beth Samaniego RN The following approved medication requests have been transmitted electronically. Requested Prescriptions Signed Prescriptions Disp Refills cephALEXin (KEFLEX) 500 mg capsule 28 capsule 0 Sig: Take 1 capsule by mouth four times daily for 7 days. Authorizing Provider: ISMAEL ARCINIEGA Pharmacy Information Pharmacy Address Telephone [facility] [address] [place] [address] Allergies As of Date: 05/28/2024 (No Known Allergies) Date Reviewed: 05/26/2024 Reviewed by: Ismael Arciniega APRN.CASE FINISHER - Fully Assessed Reason for Visit: Results [95] Primary Visit Diagnosis:UTI (urinary tract infection) in , antepartum [O23.40] Order(s):cephALEXin (KEFLEX) 500 mg capsuleTake 1 capsule by mouth four times daily for 7 days.Disp: 28 capsuleRfl: 0 Prescriptions as of 05/28/2024 - cephALEXin (KEFLEX) 500 mg capsule Take 1 capsule by mouth four times daily for 7 days. - aspirin, enteric coated (ECOTRIN LOW STRENGTH) 81 mg EC tablet Take 1 tablet by mouth once daily. - PNV no.95/ferrous fum/folic ac ( ORAL) Take by mouth. - acetaminophen (TYLENOL EXTRA STRENGTH) 500 mg tablet Take 2 tablets by mouth every 8 hours as needed for pain. Problem List As Of Date 05/28/2024 Noted Resolved Encounter for supervision of high risk pregnanc*05/26/2024 Late care affecting in secon*05/26/2024 History of loop electrosurgical excision proced*05/26/2024 Nausea and vomiting during [O21.9] 05/26/2024 Current every day nicotine vaping [Z72.0] 05/26/2024 Marijuana use during [O99.320, F12.90]05/26/2024 Anemia complicating , first trimester *05/27/2024 UTI (urinary tract infection) in , ant*05/28/2024 Prescriptions ordered this encounter Disp Refills Start End CEPHALEXIN 500 MG CAPSULE 28 c* 0 05/28/2024 06/04/2024 Route: ORAL Sig: Take 1 capsule by mouth four times daily for 7 days. Encounter Status:Closed by BETH SAMANIEGO on 05/28/24 [facility] CNPN Telephone (OGFVWE) TEAGANPERLITA ([id number]) 1990 F Date Time Provider Department 05/27/24 MIGUELINA ESTRADA OGFVWE During your visit today, we recorded the following information about you: Miguelina Estrada RN 05/27/2024 3:20 PM Signed 1st risk assessment form submitted 06/06/2024. 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 - PNV no.95/ferrous fum/folic ac ( ORAL) Take by mouth. - acetaminophen (TYLENOL EXTRA STRENGTH) 500 mg tablet Take 2 tablets by mouth every 8 hours as needed for pain. Problem List As Of Date 05/27/2024 Noted Resolved Encounter for supervision of high risk pregnanc*05/26/2024 Late care affecting in secon*05/26/2024 History of loop electrosurgical excision proced*05/26/2024 Nausea and vomiting during [O21.9] 05/26/2024 Current every day nicotine vaping [Z72.0] 05/26/2024 Marijuana use during [O99.320, F12.90]05/26/2024 Anemia complicating , first trimester *05/27/2024 Encounter Status:Closed by MIGUELINA ESTRADA on 05/27/24 Normal [facility] Bacteria Ur Culton 4 Bacteria identified Cx Nom (U) ORGANISM ID: 1 >=100,000 CFU/ml Escherichia coli ORGANISM ID: 1 (ESCHERICHIA COLI) --------- ANTIBIOTIC INTERPRETATION AASHISH STATUS REFERENCE RANGE --------- Ampicillin S <=2 F Susceptible <=8 , Intermediate >8 , Resistant >16 Cefazolin S <=4 F Susceptible 0-16 , Intermediate <0 or >16 , Resistant >16 For uncomplicated urinary tract infections, cefazolin results can be used to predict susceptibility or resistance to cephalexin. Ceftriaxone S <=1 F Susceptible <=1 , Intermediate >1 , Resistant >=4 Cefepime S <=1 F Susceptible <=2 , Susceptible-Dose Dependent >2 , Resistant >=16 Ertapenem S <=0.5 F Susceptible <=0.5 , Intermediate >.5 , Resistant >1 Meropenem S <=0.25 F Susceptible <=1 , Intermediate >1 , Resistant >2 Ampicillin/Sulbact S <=2 F Susceptible <=8 , Intermediate >8 , Resistant >16 Piperacillin/Tazobac S <=4 F Susceptible <16 , Susceptible-Dose Dependent >=16 , Resistant >=32 Gentamicin S <=1 F Susceptible <=2 , Intermediate >2 , Resistant >=8 Tobramycin S <=1 F Susceptible <4 , Intermediate >=4 , Resistant >=8 Trimeth sulfameth S <=20 F Susceptible <=40 , Resistant >40 Ciprofloxacin R >=4 F Susceptible <0.5 , Intermediate >=.5 , Resistant >=1 Nitrofurantoin I 64 F Susceptible <=32 , Intermediate >32 , Resistant >64 Abnormal [facility] Comment on above: Performed By: #### 6 30-4 #### [facility] CLIA [id number] [address] [place] [address] [place] C. trachomatis+N. gonorrhoea e DNA CHRIS+probe Ql (Unsp spec)on 05-26-2024 C. trachomatis rRNA CHRIS+probe Ql (Unsp spec) Not detected Normal Not detected [facility] Comment on above: Order Comment: Speci men Type: SWABOrdering Facility: [facility] Address: [address] [place] [address] Performed By: #### 3 6902-5 ####[facility] [id number] [address] [place] N. gonorrhoeae rRNA CHRIS+probe Ql (Unsp spec) Not detected Normal Not detected [facility] Comment on above: Order Comment: Speci men Type: SWABOrdering Facility: [facility] Address: [address] [place] [address] Performed By: #### 3 6902-5 ####[facility] [id number] [place] [address] [place] CARRIER SCREEN, STANDARDon 1 07-27-2023 CARRIER SCREEN RESULTS View results in Scanned Documents link when available. Normal [facility] Comment on above: Order Comment: Speci men Type: BLOOD SPECIMENOrdering Facility: [facility] Address: [address] [place] [address] Performed By: #### C RRSCN ####[facility] [id number] [place] [address] CBC W Auto Diff Bldon 2023 Erythrocyte distribution width (RBC) [Ratio] 12.3 % Normal 11.5-15.0 [facility] Comment on above: Order Comment: Speci men Type: BLOOD SPECIMENOrdering Facility: [facility] Address: [address] [place] [address] Performed By: #### 6 30-4 #### [facility] CLIA [id number] [address] [place] [address] [place] Performed By: #### L [id number] ####[facility] [id number] [place] [address] [place] CBC W Auto Differential pane l (Bld)on 05-26-2024 Basophils (Bld) [#/Vol] 0.03 10*3/uL Normal <0.11 [facility] Comment on above: Order Comment: Speci men Type: BLOOD SPECIMENOrdering Facility: [facility] Address: [address] [place] [address] Performed By: #### 6 30-4 #### [facility] CLIA [id number] [address] [place] [address] [place] Basophils/100 WBC (Bld) 0.4 % Normal [facility] Comment on above: Order Comment: Speci men Type: BLOOD SPECIMENOrdering Facility: [facility] Address: [address] [place] [address] Performed By: #### 6 30-4 #### [facility] CLIA [id number] [address] [place] [address] [place] Differential cell count method Nom (Bld) Auto Normal [facility] Comment on above: Order Comment: Speci men Type: BLOOD SPECIMENOrdering Facility: [facility] Address: [address] [place] [address] Performed By: #### 6 30-4 #### [facility] CLIA [id number] [address] [place] [address] [place] Eosinophils (Bld) [#/Vol] 0.11 10*3/uL Normal <0.46 [facility] Comment on above: Order Comment: Speci men Type: BLOOD SPECIMENOrdering Facility: [facility] Address: [address] [place] [address] Performed By: #### 6 30-4 #### [facility] CLIA [id number] [address] [place] [address] [place] Eosinophils/100 WBC (Bld) 1.4 % Normal [facility] Comment on above: Order Comment: Speci men Type: BLOOD SPECIMENOrdering Facility: [facility] Address: [address] [place] [address] Performed By: #### 6 30-4 #### [facility] CLIA [id number] [address] [place] [address] [place] Hematocrit (Bld) [Volume fraction] 32.4 % Low 36.0-46.0 [facility] Comment on above: Order Comment: Speci men Type: BLOOD SPECIMENOrdering Facility: [facility] Address: [address] [place] [address] Performed By: #### 6 30-4 #### [facility] CLIA [id number] [address] [place] [address] [place] Hemoglobin (Bld) [Mass/Vol] 11.0 g/dL Low 11.5-15.5 [facility] Comment on above: Order Comment: Speci men Type: BLOOD SPECIMENOrdering Facility: [facility] Address: [address] [place] [address] Performed By: #### 6 30-4 #### [facility] CLIA [id number] [address] [place] [address] [place] Immature granulocytes (Bld) [#/Vol] 0.04 10*3/uL Normal <0.10 [facility] Comment on above: Order Comment: Speci men Type: BLOOD SPECIMENOrdering Facility: [facility] Address: [address] [place] [address] Performed By: #### 6 30-4 #### [facility] CLIA [id number] [address] [place] [address] [place] Immature granulocytes/100 WBC (Bld) 0.5 % Normal [facility] Comment on above: Order Comment: Speci men Type: BLOOD SPECIMENOrdering Facility: [facility] Address: [address] [place] [address] Performed By: #### 6 30-4 #### [facility] CLIA [id number] [address] [place] [address] [place] Lymphocytes (Bld) [#/Vol] 1.01 10*3/uL Normal 1.00-4.00 [facility] Comment on above: Order Comment: Speci men Type: BLOOD SPECIMENOrdering Facility: [facility] Address: [address] [place] [address] Performed By: #### 6 30-4 #### [facility] CLIA [id number] [address] [place] [address] [place] Lymphocytes/100 WBC (Bld) 12.5 % Normal [facility] Comment on above: Order Comment: Speci men Type: BLOOD SPECIMENOrdering Facility: [facility] Address: [address] [place] [address] Performed By: #### 6 30-4 #### [facility] CLIA [id number] [address] [place] [address] [place] MCH (RBC) [Entitic mass] 31.3 pg Normal 26.0-34.0 [facility] Comment on above: Order Comment: Speci men Type: BLOOD SPECIMENOrdering Facility: [facility] Address: [address] [place] [address] Performed By: #### 6 30-4 #### [facility] CLIA [id number] [address] [place] [address] [place] MCHC (RBC) [Mass/Vol] 34.0 g/dL Normal 30.5-36.0 [facility] Comment on above: Order Comment: Speci men Type: BLOOD SPECIMENOrdering Facility: [facility] Address: [address] [place] [address] Performed By: #### 6 30-4 #### [facility] CLIA [id number] [address] [place] [address] [place] MCV (RBC) [Entitic vol] 92.3 fL Normal 80.0-100.0 [facility] Comment on above: Order Comment: Speci men Type: BLOOD SPECIMENOrdering Facility: [facility] Address: [address] [place] [address] Performed By: #### 6 30-4 #### [facility] CLIA [id number] [address] [place] [address] [place] Monocytes (Bld) [#/Vol] 0.77 10*3/uL Normal <0.87 [facility] Comment on above: Order Comment: Speci men Type: BLOOD SPECIMENOrdering Facility: [facility] Address: [address] [place] [address] Performed By: #### 6 30-4 #### [facility] CLIA [id number] [address] [place] [address] [place] Monocytes/100 WBC (Bld) 9.6 % Normal [facility] Comment on above: Order Comment: Speci men Type: BLOOD SPECIMENOrdering Facility: [facility] Address: [address] [place] [address] Performed By: #### 6 30-4 #### [facility] CLIA [id number] [address] [place] [address] [place] Neutrophils (Bld) [#/Vol] 6.10 10*3/uL Normal 1.45-7.50 [facility] Comment on above: Order Comment: Speci men Type: BLOOD SPECIMENOrdering Facility: [facility] Address: [address] [place] [address] Performed By: #### 6 30-4 #### [facility] CLIA [id number] [address] [place] [address] [place] Neutrophils/100 WBC (Bld) 75.6 % Normal [facility] Comment on above: Order Comment: Speci men Type: BLOOD SPECIMENOrdering Facility: [facility] Address: [address] [place] [address] Performed By: #### 6 30-4 #### [facility] CLIA [id number] [address] [place] [address] [place] Nucleated RBC (Bld) [#/Vol] 10*3/uL Normal <0.01 [facility] Comment on above: Order Comment: Speci men Type: BLOOD SPECIMENOrdering Facility: [facility] Address: [address] [place] [address] Performed By: #### 6 30-4 #### [facility] CLIA [id number] [address] [place] [address] [place] Nucleated RBC/100 WBC (Bld) [Ratio] 0.0 /100 WBC Normal [facility] Comment on above: Order Comment: Speci men Type: BLOOD SPECIMENOrdering Facility: [facility] Address: [address] [place] [address] Performed By: #### 6 30-4 #### [facility] CLIA [id number] [address] [place] [address] [place] Platelet mean volume (Bld) [Entitic vol] 9.7 fL Normal 9.0-12.7 [facility] Comment on above: Order Comment: Speci men Type: BLOOD SPECIMENOrdering Facility: [facility] Address: [address] [place] [address] Performed By: #### 6 30-4 #### [facility] CLIA [id number] [address] [place] [address] [place] Platelets (Bld) [#/Vol] 311 10*3/uL Normal 150-400 [facility] Comment on above: Order Comment: Speci men Type: BLOOD SPECIMENOrdering Facility: [facility] Address: [address] [place] [address] Performed By: #### 6 30-4 #### [facility] CLIA [id number] [address] [place] [address] [place] RBC (Bld) [#/Vol] 3.51 10*6/uL Low 3.90-5.20 [facility] Comment on above: Order Comment: Speci men Type: BLOOD SPECIMENOrdering Facility: [facility] Address: [address] [place] [address] Performed By: #### 6 30-4 #### [facility] CLIA [id number] [address] [place] [address] [place] WBC (Bld) [#/Vol] 8.06 10*3/uL Normal 3.70-11.00 [facility] Comment on above: Order Comment: Speci men Type: BLOOD SPECIMENOrdering Facility: [facility] Address: [address] [place] [address] Performed By: #### 6 30-4 #### [facility] CLIA [id number] [address] [place] [address] [place] HBV surface Ag Ser Qlon 05-09 HBV surface Ag Ql (S) Negative Normal Negative [facility] Comment on above: Order Comment: Speci men Type: BLOOD SPECIMENOrdering Facility: [facility] Address: [address] [place] [address] Performed By: #### 6 30-4 #### [facility] CLIA [id number] [address] [place] [address] [place] HCV Ab Ser Qlon 05-26-2024 HCV Ab Ql (S) Negative Normal Negative [facility] Comment on above: Order Comment: Speci men Type: BLOOD SPECIMENOrdering Facility: [facility] Address: [address] [place] [address] Result Comment: The result suggests no evidence of active infection with Hepatitis C virus. Should recent infection be suspected, repeat testing may be considered 4-6 weeks after this draw. Performed By: #### 1 6128-1 ####[facility] [id number] [place] [address] [place] HGB ELECTROPHORESIS FOR EVAL (LAB ORDER)on 05-26-2024 Hemoglobin A (Bld) [Mass fraction] 97.2 % Normal 96.2-98.0 [facility] Comment on above: Order Comment: Speci men Type: BLOOD SPECIMENOrdering Facility: [facility] Address: [address] [place] [address] Performed By: #### L [id number], HGBELEV ####[facility] [id number] [place] [address] [place] Hemoglobin A2 (Bld) [Mass fraction] 2.8 % Normal 2.0-3.1 [facility] Comment on above: Order Comment: Speci men Type: BLOOD SPECIMENOrdering Facility: [facility] Address: [address] [place] [address] Performed By: #### L [id number], HGBELEV ####[facility] [id number] [place] [address] [place] Hemoglobin Unsp Elph (Bld) [Mass fraction] No abnormal hemoglobin identified. Normal No abnormal hemoglobin identified. [facility] Comment on above: Order Comment: Speci men Type: BLOOD SPECIMENOrdering Facility: [facility] Address: [address] [place] [address] Performed By: #### L [id number], HGBELEV ####[facility] [id number] [place] [address] [place] HGB EVALUATION CASCADE INTER Mick 05-26-2024 Hemoglobin pattern (Bld) [Interp] Reviewed by Kiersten López MD Normal [facility] Comment on above: Order Comment: Speci men Type: BLOOD SPECIMENOrdering Facility: [facility] Address: [address] [place] [address] Performed By: #### L [id number], HGBELEV ####[facility] [id number] [place] [address] [place] INTERPRETATION (HGB EVAL) Normal [facility] Comment on above: Order Comment: Speci men Type: BLOOD SPECIMENOrdering Facility: [facility] Address: [address] [place] [address] Result Comment: Hemo globins were analyzed by capillary electrophoresis and CBC red cell parameters were reviewed. No abnormal hemoglobin is identified. There is a normal hemoglobin capillary electrophoresis pattern. Performed By: #### L [id number], HGBELEV ####[facility] [id number] [place] [address] [place] HIGH RISK HUMAN P[place] HANNAH (HPV), PCR FOR DETECTION AND GENOTYPINGon 05-26-2024 HPV 16 Ag Ql (Unsp spec) Not detected Normal Not detected [facility] Comment on above: Order Comment: Speci men Type: FLUID SPECIMENOrdering Facility: [facility] Address: [address] [place] [address] Performed By: #### 6 30-4 #### [facility] CLIA [id number] [address] [place] [address] [place] HPV 18 Ag Ql (Unsp spec) Not detected Normal Not detected [facility] Comment on above: Order Comment: Speci men Type: FLUID SPECIMENOrdering Facility: [facility] Address: [address] [place] [address] Performed By: #### 6 30-4 #### [facility] CLIA [id number] [address] [place] [address] [place] HPV 31+33+35+39+45+51+ 52+56+58+59+66+68 DNA CHRIS+probe Ql (Cvx) Not detected Normal Not detected [facility] Comment on above: Order Comment: Speci men Type: FLUID SPECIMENOrdering Facility: [facility] Address: [address] [place] [address] Result Comment: High Risk HPV Other Type includes HPV types 31, 33, 35, 39, 45, 51, 52, 56, 58, 59, 66 and 68. Performed By: #### 6 30-4 #### [facility] CLIA [id number] [address] [place] [address] [place] HIV 1+2 Ab IA Qlon 4 HIV 1 and 2 Ab IA.rapid Nom (S/P/Bld) Normal [facility] Comment on above: Order Comment: Speci men Type: BLOOD SPECIMENOrdering Facility: [facility] Address: [address] [place] [address] Result Comment: Test not indicated. Performed By: #### 6 30-4 #### [facility] CLIA [id number] [address] [place] [address] [place] HIV 1+2 Ab+HIV1 p24 Ag IA Ql Non-Reactive Normal Nonreactive [facility] Comment on above: Order Comment: Speci men Type: BLOOD SPECIMENOrdering Facility: [facility] Address: [address] [place] [address] Performed By: #### 6 30-4 #### [facility] CLIA [id number] [address] [place] [address] [place] HIV immunoassay testing algorithm interpretation (S/P/Bld) [Interp] Normal [facility] Comment on above: Order Comment: Speci men Type: BLOOD SPECIMENOrdering Facility: [facility] Address: [address] [place] [address] Result Comment: No e vidence of HIV-1 or HIV-2 infection. Should recent infection be suspected, repeat testing may be considered 2-3 weeks after this draw. [place] Rev. Code 3701.243(E): This information has been disclosed to you from confidential records protected from disclosure by state law. ???You shall make no further disclosure of this information without the specific, written, and informed release of the individual to whom it pertains or as otherwise permitted by state law. A general authorization for the release of medical or other information is not sufficient for the purpose of the release of HIV test results or diagnoses. Performed By: #### 6 30-4 #### [facility] CLIA [id number] [address] [place] [address] [place] HbA1c (Bld)on 05-26-2024 Average glucose Estimated from glycated hemoglobin (Bld) [Mass/Vol] 94 mg/dL Normal [facility] Comment on above: Order Comment: Speci men Type: BLOOD SPECIMENOrdering Facility: [facility] Address: [address] [place] [address] Result Comment: eAG: (Estimated average glucose) is a calculated value from HgbA1c and is career services representative of the average blood glucose level in the last 2-3 month period. Performed By: #### 6 30-4 #### [facility] CLIA [id number] [address] [place] [address] [place] HbA1c (Bld) [Mass fraction] 4.9 % Normal 4.3-5.6 [facility] Comment on above: Order Comment: Speci men Type: BLOOD SPECIMENOrdering Facility: [facility] Address: [address] [place] [address] Result Comment: Amer ican Diabetes Association guidelines indicate that patients with HgbA1c in the range 5.7-6.4% are at increased risk for development of diabetes, and intervention by lifestyle modification may be beneficial. HgbA1c greater or equal to 6.5% is considered diagnostic of diabetes. Performed By: #### 6 30-4 #### [facility] CLIA [id number] [address] [place] [address] [place] [id number] PLUSon 05-26-2024 Cell-free DNA./Cell-sulema e DNA.total Dosage of chromosome-specifi c cfDNA (cfDNA) [Molar fraction] 29% Normal [facility] Comment on above: Order Comment: Speci men Type: BLOOD SPECIMENOrdering Facility: [facility] Address: [address] [place] [address] Performed By: #### 6 30-4 #### [facility] CLIA [id number] [address] [place] [address] [place] Chr 13+18+21+X+Y aneuploidy Dosage of chromosome-specifi c cfDNA Ql (cfDNA) Negative Normal [facility] Comment on above: Order Comment: Speci men Type: BLOOD SPECIMENOrdering Facility: [facility] Address: [address] [place] [address] Performed By: #### 6 30-4 #### [facility] CLIA [id number] [address] [place] [address] [place] Chr 21 trisomy Dosage of chromosome-specifi c cfDNA Ql (cfDNA) Negative Normal [facility] Comment on above: Order Comment: Speci men Type: BLOOD SPECIMENOrdering Facility: [facility] Address: [address] [place] [address] Performed By: #### 6 30-4 #### [facility] CLIA [id number] [address] [place] [address] [place] Chr X and Y aneuploidy risk Sequencing Ql (cfDNA) [Interp] Not detected Normal [facility] Comment on above: Order Comment: Speci men Type: BLOOD SPECIMENOrdering Facility: [facility] Address: [address] [place] [address] Result Comment: Not Detected Not Detected Performed By: #### 6 30-4 #### [facility] CLIA [id number] [address] [place] [address] [place] Citation Chandra (Reference lab test) Comment Normal [facility] Comment on above: Order Comment: Speci men Type: BLOOD SPECIMENOrdering Facility: [facility] Address: [address] [place] [address] Result Comment: 1. P gertrudis HAMMONDS, et al. Alexa Med. 2012;14(3):296-305. 2. Demarcus SOLOMON, et al. Prenat Diag. 2013;33(6):591-597. 3. Velazco C, et al. Clin Chem. 2015 Apr;61(4):608-616. 4. Sterling HAMMONDS et al. Alexa Med. 2011;13(11):913-920. 5. ACOG/[facility] Practice Bulletin No. 226, Mar 2020. Performed By: #### 6 30-4 #### [facility] CLIA [id number] [address] [place] [address] [place] Gestational age Estimated from conception date Maher Normal [facility] Comment on above: Order Comment: Speci men Type: BLOOD SPECIMENOrdering Facility: [facility] Address: [address] [place] [address] Performed By: #### 6 30-4 #### [facility] CLIA [id number] [address] [place] [address] OF [facility] GESTATIONALAGE AGE > OR = 9W Yes Normal [facility] Comment on above: Order Comment: Speci men Type: BLOOD SPECIMENOrdering Facility: [facility] Address: [address] [place] [address] Performed By: #### 6 30-4 #### [facility] CLIA [id number] [address] [place] [address] [place] Laboratory comment Chandra (Report) Comment Normal [facility] Comment on above: Order Comment: Speci men Type: BLOOD SPECIMENOrdering Facility: [facility] Address: [address] [place] [address] Result Comment: The MaterniT(R) 21 PLUS laboratory-developed test (LDT) analyzes circulating cell-free DNA from a maternal blood sample. This test is used for screening purposes and not diagnostic. Clinical correlation is recommended. Validation data on twin pregnancies is limited and the ability of this test to detect aneuploidy in higher multiple gestations has not yet been validated. Performed By: #### 6 30-4 #### [facility] CLIA [id number] [address] [place] [address] [place] director of business continuity name Nom (Provider) Comment Normal [facility] Comment on above: Order Comment: Speci men Type: BLOOD SPECIMENOrdering Facility: [facility] Address: [address] [place] [address] Result Comment: This specimen showed an expected representation of chromosome 21, 18 and 13 material. Clinical correlation is suggested. Comment Mt Johnson MD, PhD, Director, [employer] Performed By: #### 6 30-4 #### [facility] CLIA [id number] [address] [place] [address] OF [facility] LIMITATIONS OF THE TEST Comment Normal [facility] Comment on above: Order Comment: Speci laurel Type: BLOOD SPECIMENOrdering Facility: [facility] Address: [address] [place] [address] Result Comment: Margi harris the results of these tests are highly reliable, discordant results, including inaccurate sex prediction, may occur due to placental, maternal, or mosaicism or neoplasm; vanishing twin; prior maternal organ transplant; or other causes. These tests are screening tests and not diagnostic; they do not replace the accuracy and precision of diagnosis with CVS or amniocentesis. A patient with a positive test result should be referred for genetic counseling and offered invasive diagnosis for confirmation of test results.[5] The results of this testing, including the benefits and limitations, should be discussed with a qualified healthcare provider. management decisions, including termination of the , should not be based on the results of these tests alone. The healthcare provider is responsible for the use of this information in the management of their patient. Sex chromosomal aneuploidies are not reportable for known multiple gestations. A negative result does not ensure an unaffected nor does it exclude the possibility of other chromosomal abnormalities or defects which are not a part of these tests. An uninformative result may be reported, the causes of which may include, but are not limited to, insufficient sequencing coverage, noise or artifacts in the region, amplification or sequencing bias, or insufficient fraction. These tests are not intended to identify pregnancies at risk for neural tube defects or ventral wall defects. Testing for whole chromosome abnormalities (including sex chromosomes) and for subchromosomal abnormalities could lead to the potential discovery of both and maternal genomic abnormalities that could have major, minor, or no, clinical significance. Evaluating the significance of a positive or a non-reportable result may involve both invasive testing and additional studies on the mother. Such investigations may lead to a diagnosis of maternal chromosomal or subchromosomal abnormalities, which on occasion may be associated with benign or malignant maternal neoplasms. These tests may not accurately identify triploidy, balanced rearrangements, or the precise location of subchromosomal duplications or deletions; these may be detected by diagnosis with CVS or amniocentesis. The ability to report results may be impacted by maternal BMI, maternal weight, maternal systemic lupus erythematosus (SLE) and/or by certain pharmaceutical agents such as low molecular weight heparin (for example: Lovenox(R), Xaparin(R), Clexane(R) and Fragmin(R)). Performed By: #### 6 30-4 #### [facility] CLIA [id number] [address] [place] [address] Monosomy X risk Dosage of chromosome-specifi c cfDNA Ql (Plasma cell-free+WBC DNA) [Interp] Not detected Normal [facility] Comment on above: Order Comment: Speci men Type: BLOOD SPECIMENOrdering Facility: [facility] Address: [address] [place] [address] Performed By: #### 6 30-4 #### [facility] CLIA [id number] [address] [place] [address] STATES [facility] NEGATIVE PREDICTIVE VALUE Note Normal [facility] Comment on above: Order Comment: Jaye barragan Type: BLOOD SPECIMENOrdering Facility: [facility] Address: [address] [place] [address] Result Comment: The Negative Predictive Value (NPV) for trisomy 21, 18, and 13 is greater than 99%. The NPV for SCA and ESS cannot be calculated as SCA and ESS are only reported when an abnormality is detected. Performed By: #### 6 30-4 #### [facility] CLIA [id number] [address] [place] [address] [place] NOTE Comment Normal [facility] Comment on above: Order Comment: Jaye men Type: BLOOD SPECIMENOrdering Facility: [facility] Address: [address] [place] [address] Result Comment: See Notes [employer] is a subsidiary of [employer], using the brand [employer]. This test was developed and its performance characteristics determined by [employer]. It has not been cleared or approved by the Food and Drug Administration. This laboratory is certified under the Clinical Laboratory Improvement Amendments (CLIA) as qualified to perform high complexity clinical laboratory testing and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 Erythrocyte distribution width (RBC) [Ratio] 12.6 % Normal 11.5-14.5 [facility] Comment on above: Performed By: #### 5 7021-8 #### ELGIN Bell ([id number]) [facility] ([facility]) [address] [place] [address] 61084 Hematocrit (Bld) [Volume fraction] 42.9 % Normal 36.0-46.0 [facility] Comment on above: Performed By: #### 5 7021-8 #### ELGIN Bell ([id number]) [facility] ([facility]) [address] [place] [address] 65836 Hemoglobin (Bld) [Mass/Vol] 14.7 g/dL Normal 12.0-16.0 [facility] Comment on above: Performed By: #### 5 7021-8 #### ELGIN Bell ([id number]) [facility] ([facility]) [address] [place] [address] 20491 Immature granulocytes (Bld) [#/Vol] 0.04 x10*3/uL Normal 0.00-0.70 [facility] Comment on above: Performed By: #### 5 7021-8 #### ELGIN Bell ([id number]) [facility] ([facility]) [address] [place] [address] 94687 Immature granulocytes/100 WBC (Bld) 0.3 % Normal 0.0-0.9 [facility] Comment on above: Result Comment: Denise ture Granulocyte Count (IG) includes promyelocytes, myelocytes and metamyelocytes but does not include bands. Percent differential counts (%) should be interpreted in the context of the absolute cell counts (cells/UL). Performed By: #### 5 7021-8 #### ELGIN Bell ([id number]) [facility] ([facility]) [address] [place] [address] 31196 Lymphocytes (Bld) [#/Vol] 2.27 x10*3/uL Normal 1.20-4.80 [facility] Comment on above: Performed By: #### 5 7021-8 #### ELGIN Bell ([id number]) [facility] ([facility]) [address] [place] [address] 07232 Lymphocytes/100 WBC (Bld) 19.4 % Normal 13.0-44.0 [facility] Comment on above: Performed By: #### 5 7021-8 #### ELGIN Bell ([id number]) [facility] ([facility]) [address] [place] [address] 82879 MCH (RBC) [Entitic mass] 32.8 pg Normal 26.0-34.0 [facility] Comment on above: Performed By: #### 5 7021-8 #### ELGIN Bell ([id number]) [facility] ([facility]) [address] [place] [address] 17834 MCHC (RBC) [Mass/Vol] 34.3 g/dL Normal 32.0-36.0 [facility] Comment on above: Performed By: #### 5 7021-8 #### ELGIN Bell ([id number]) [facility] ([facility]) [address] [place] [address] 06116 MCV (RBC) [Entitic vol] 96 fL Normal 80-100 [facility] Comment on above: Performed By: #### 5 7021-8 #### ELGIN Bell ([id number]) [facility] ([facility]) [address] [place] [address] 87815 Monocytes (Bld) [#/Vol] 0.69 x10*3/uL Normal 0.10-1.00 [facility] Comment on above: Performed By: #### 5 7021-8 #### ELGIN Bell ([id number]) [facility] ([facility]) [address] [place] [address] 97594 Monocytes/100 WBC (Bld) 5.9 % Normal 2.0-10.0 [facility] Comment on above: Performed By: #### 5 7021-8 #### ELGIN Bell ([id number]) [facility] ([facility]) [address] [place] [address] 29694 Neutrophils (Bld) [#/Vol] 8.25 x10*3/uL High 1.20-7.70 [facility] Comment on above: Result Comment: Perc ent differential counts (%) should be interpreted in the context of the absolute cell counts (cells/uL). Performed By: #### 5 7021-8 #### ELGIN Bell ([id number]) [facility] ([facility]) [address] [place] [address] 71566 Neutrophils/100 WBC (Bld) 70.6 % Normal 40.0-80.0 [facility] Comment on above: Performed By: #### 5 7021-8 #### ELGIN Bell ([id number]) [facility] ([facility]) [address] [place] [address] 49440 Nucleated RBC/100 WBC (Bld) [Ratio] 0.0 /100 WBCs Normal 0.0-0.0 [facility] Comment on above: Performed By: #### 5 7021-8 #### ELGIN Bell ([id number]) [facility] ([facility]) [address] [place] [address] 86006 Platelets (Bld) [#/Vol] 413 x10*3/uL Normal 150-450 [facility] Comment on above: Performed By: #### 5 7021-8 #### ELGIN Bell ([id number]) [facility] ([facility]) [address] [place] [address] 70392 RBC (Bld) [#/Vol] 4.48 x10*6/uL Normal 4.00-5.20 [facility] Comment on above: Performed By: #### 5 7021-8 #### ELGIN Bell ([id number]) [facility] ([facility]) [address] [place], [place] [address] WBC (Bld) [#/Vol] 11.7 x10*3/uL High 4.4-11.3 [facility] Comment on above: Performed By: #### 5 7021-8 #### ELGIN Bell ([id number]) [facility] ([facility]) [address] [place], [place] [address] Cobalaminson 07-15-2023 Cobalamin (Vitamin B12) [Mass/Vol] 175 pg/mL Low 211-911 [facility] Comment on above: Performed By: #### 2 132-9 #### ELGIN Bell ([id number]) [facility] ([facility]) [address] [place], [place] [address] Comprehensive metabolic 2000 panelon 07-15-2023 Albumin BCP dye [Mass/Vol] 4.5 g/dL Normal 3.4-5.0 [facility] Comment on above: Performed By: #### 2 4323-8 #### ELGIN Bell (94309) [facility] ([facility]) [address] [place] [address] 67654 ALP [Catalytic activity/Vol] 55 U/L Normal 33-110 [facility] Comment on above: Performed By: #### 2 4323-8 #### ELGIN Bell ([id number]) [facility] ([facility]) [address] [place] [address] 41998 ALT With P-5'-P [Catalytic activity/Vol] 8 U/L Normal 7-45 [facility] Comment on above: Result Comment: Altagracia ents treated with Sulfasalazine may generate falsely decreased results for ALT. Performed By: #### 2 4323-8 #### ELGIN Bell ([id number]) [facility] ([facility]) [address] [place] [address] 16978 Anion gap [Moles/Vol] 12 mmol/L Normal 10-20 [facility] Comment on above: Performed By: #### 2 4323-8 #### ELGIN Bell ([id number]) [facility] ([facility]) [address] [place] [address] AST With P-5'-P [Catalytic activity/Vol] 10 U/L Normal 9-39 [facility] Comment on above: Performed By: #### 2 4323-8 #### ELGIN Bell ([id number]) [facility] ([facility]) [address] [place] [address] 59517 Bilirubin [Mass/Vol] 0.4 mg/dL Normal 0.0-1.2 [facility] Comment on above: Performed By: #### 2 4323-8 #### ELGIN Bell (97214) [facility] ([facility]) [address] [place] [address] 36343 Calcium [Mass/Vol] 9.7 mg/dL Normal 8.6-10.6 [facility] Comment on above: Performed By: #### 2 4323-8 #### ELGIN Bell ([id number]) [facility] ([facility]) [address] [place] [address] 70607 Chloride [Moles/Vol] 103 mmol/L Normal 98-107 [facility] Comment on above: Performed By: #### 2 4323-8 #### ELGIN Bell ([id number]) [facility] ([facility]) [address] [place] [address] 04481 CO2 [Moles/Vol] 30 mmol/L Normal 21-[address] [facility] Comment on above: Performed By: #### 2 4323-8 #### ELGIN Bell (92832) [facility] ([facility]) [address] [place] [address] 23126 Creatinine [Mass/Vol] 0.80 mg/dL Normal 0.50-1.05 [facility] Comment on above: Performed By: #### 2 4323-8 #### ELGIN Bell (99900) [facility] ([facility]) [address] [place] [address] 56183 GFR/1.73 sq M.predicted MDRD (S/P/Bld) [Vol rate/Area] mL/min/{1.73_m2} Normal >60 [facility] Comment on above: Result Comment: Calc ulations of estimated GFR are performed using the 2020 CKD-EPI Study Refit equation without the race variable for the IDMS-Traceable creatinine methods. https://jasn.asnjournals.org/content/early/ASN.169666863 8 Performed By: #### 2 4323-8 #### ELGIN Bell (36645) [facility] ([facility]) [address] [place] [address] 36328 Glucose [Mass/Vol] 99 mg/dL Normal 74-99 [facility] Comment on above: Performed By: #### 2 4323-8 #### ELGIN QUESADA L ([id number]) [facility] ([facility]) [address] [place] [address] 11888 Potassium [Moles/Vol] 4.0 mmol/L Normal 3.5-5.3 [facility] Comment on above: Performed By: #### 2 4323-8 #### ELGIN QUESADA L ([id number]) [facility] ([facility]) [address] [place] [address] 22268 Protein [Mass/Vol] 6.6 g/dL Normal 6.4-8.2 [facility] Comment on above: Performed By: #### 2 4323-8 #### ELGIN QUESADA L (60462) [facility] ([facility]) [address] [place] [address] 39592 Sodium [Moles/Vol] 141 mmol/L Normal 136-145 [facility] Comment on above: Performed By: #### 2 4323-8 #### ELGIN QUESADA L ([id number]) [facility] ([facility]) [address] [place] [address] [place] [address] Urea nitrogen [Mass/Vol] 9 mg/dL Normal 6-23 [facility] Comment on above: Performed By: #### 2 4323-8 #### ELGIN Bell ([id number]) [facility] ([facility]) [address] [place] [address] 46027 Ferritinon 07-15-2023 Ferritin [Mass/Vol] 44 ng/mL Normal 8-150 [facility] Comment on above: Performed By: #### 2 276-4 #### ELGIN Bell (71072) [facility] ([facility]) [address] [place] [address] 36705 Folateon 07-15-2023 Folate [Mass/Vol] 15.6 ng/mL Normal >5.0 [facility] Comment on above: Order Comment: Low < 3.4 Borderline 3.4-5.0 Normal >5.0 Patients receiving more than 5 mg/day of biotin may have interference in test results. A sample should be taken no sooner than eight hours after previous dose. Contact the testing laboratory for additional information. Performed By: #### 2 284-8 #### ELGIN Bell (03460) [facility] ([facility]) [address] [place] [address] 78087 Iron and Iron binding capaci ty panelon 07-15-2023 Iron [Mass/Vol] 69 ug/dL Normal 35-[address] [facility] Comment on above: Performed By: #### 5 0190-8 #### ELGIN Bell (19586) [facility] ([facility]) [address] [place] [address] 47931 Iron binding capacity [Mass/Vol] 310 ug/dL Normal 240-445 [facility] Comment on above: Performed By: #### 5 0190-8 #### ELGIN Bell ([id number]) [facility] ([facility]) [address] [place] [address] Iron binding capacity.unsaturat ed [Mass/Vol] 241 ug/dL Normal 110-370 [facility] Comment on above: Performed By: #### 5 0190-8 #### ELGIN Bell ([id number]) [facility] ([facility]) [address] [place] [address] Iron saturation [Mass fraction] 22 % Low 25-45 [facility] Comment on above: Performed By: #### 5 0190-8 #### ELGIN Bell ([id number]) [facility] ([facility]) [id number] [place] [address] Lipid 1996 panelon 4 Cholesterol [Mass/Vol] 135 mg/dL Normal 0-199 [facility] Comment on above: Result Comment: Age Desirable Borderline High High 0-19 Y 0 - 169 170 - 199 >/= 200 20-24 Y 0 - 189 190 - 224 >/= 225 >24 Y 0 - 199 200 - 239 >/= 240 All ranges are based on fasting samples. Specific therapeutic targets will vary based on patient-specific cardiac risk. Pediatric guidelines reference:Pediatrics 2011, 128(S5).Adult guidelines reference: NCEP ATPIII Guidelines,MOLLY 2001, 258:2486-97 Venipuncture immediately after or during the administration of Metamizole may lead to falsely low results. Testing should be performed immediately prior to Metamizole dosing. Performed By: #### 2 4331-1 #### ELGIN Bell ([id number]) [facility] ([facility]) [address] [place] [address]25 Cholesterol in HDL [Mass/Vol] 45.3 mg/dL Normal [facility] Comment on above: Result Comment: Age Very Low Low Normal High 0-19 Y < 35 < 40 40-45 ---- 20-24 Y ---- < 40 >45 ---- >24 Y ---- < 40 40-60 >60 Performed By: #### 2 4331-1 #### ELGIN Bell ([id number]) [facility] ([facility]) [address] [place] [address] Cholesterol in LDL [Mass/Vol] 77 mg/dL Normal <=99 [facility] Comment on above: Result Comment: Near Borderline AGE Desirable Optimal High High Very High 0-19 Y 0 - 109 --- 110-129 >/= 130 ---- 20-24 Y 0 - 119 --- 120-159 >/= 160 ---- >24 Y 0 - 99 100-129 130-159 160-189 >/=190 Performed By: #### 2 4331-1 #### ELGIN Bell ([id number]) [facility] ([facility]) [address] [place] [address]53 Cholesterol in VLDL [Mass/Vol] 13 mg/dL Normal 0-40 [facility] Comment on above: Performed By: #### 2 4331-1 #### ELGIN Bell ([id number]) [facility] ([facility]) [id number] [place] [address]12[address] CHOLESTEROL/HDL RATIO 3.0 Normal [facility] Comment on above: Result Comment: Ref Values Desirable < 3.4 High Risk > 5.0 Performed By: #### 2 4331-1 #### ELGIN Bell ([id number]) [facility] ([facility]) [id number] [place] [address] 63853 NON HDL CHOLESTEROL 90 mg/dL Normal 0-149 [facility] Comment on above: Result Comment: Age Desirable Borderline High High Very High 0-19 Y 0 - 119 120 - 144 >/= 145 >/= 160 20-24 Y 0 - 149 150 - 189 >/= 190 ---- >24 Y 30 mg/dL above LDL Cholesterol goal Performed By: #### 2 4331-1 #### ELGIN Bell ([id number]) [facility] ([facility]) [address] [place] [address]304 Triglyceride [Mass/Vol] 66 mg/dL Normal 0-149 [facility] Comment on above: Result Comment: Age Desirable Borderline High High Very High 0 D-90 D 19 - 174 ---- ---- ---- 91 D- 9 Y 0 - 74 75 - 99 >/= 100 ---- 10-19 Y 0 - 89 90 - 129 >/= 130 ---- 20-24 Y 0 - 114 115 - 149 >/= 150 ---- >24 Y 0 - 149 150 - 199 200- 499 >/= 500 Venipuncture immediately after or during the administration of Metamizole may lead to falsely low results. Testing should be performed immediately prior to Metamizole dosing. Performed By: #### 2 4331-1 #### ELGIN Bell ([id number]) [facility] ([facility]) [address] [place] [address] Methylmalonateon 07-15-2023 Methylmalonate [Moles/Vol] 0.14 umol/L Normal 0.00-0.40 [facility] Comment on above: Result Comment: INTE RPRETIVE INFORMATION: MMA Serum/Plasma, Vitamin B12 Status This test was developed and its performance characteristics determined by [employer]. It has not been cleared or approved by the US Food and Drug Administration. This test was performed in a CLIA certified laboratory and is intended for clinical purposes. Performed By: [employer] [address] [place] [address] Water Resources Technical Officer: Shawn Gonzalez MD, PhD CLIA Number: [id number] Performed By: #### T HYDS #### ELGIN Bell ([id number]) [facility] ([facility]) [address] [place] [address] 93484 TSH WITH REFLEX TO FREE T4 I F ABNORMALon 07-15-2023 TSH Qn 0.37 m[IU]/L Low 0.44-3.98 [facility] Comment on above: Order Comment: TSH t esting is performed using different testing methodology at [facility] than at other [facility]. Direct result comparisons should only be made within the same method. Performed By: #### T HYDS #### ELGIN Bell ([id number]) [facility] ([facility]) [address] [place] [address]35 Thyroxine.freeon 07-15-2023 Free T4 [Mass/Vol] 1.13 ng/dL Normal 0.78-1.48 [facility] Comment on above: Order Comment: Thyro xine Free testing is performed using different testing methodology at [facility] than at other [facility]. Direct result comparisons should only be made within the same method. Performed By: #### 3 024-7 #### ELGIN Bell ([id number]) [facility] ([facility]) [address] [place] [address] XR TIBIA FIBULA LEFT 2 VIEWS on 07-15-2023 XR TIBIA FIBULA LEFT 2 VIEWS Interpreted By: Serjio Mcleod, STUDY: XR TIBIA FIBULA LEFT 2 VIEWS; ; 07/15/2023 10:31 am INDICATION: Signs/Symptoms:PAIN. COMPARISON: May 31, 2014 radiographs ACCESSION NUMBER(S): [id number] ORDERING CLINICIAN: OMID BENITES FINDINGS: Two views are submitted. The patient is status post intramedullary deepak for tibial fracture with interval fracture healing with residual proximal tibial bony deformity. There is chronic deformity involving the fibula compatible with old healed fracture. Perihardware lucency along the his borderline prominent along the 2nd proximal screw lateral view. No stress response or new bone formation identified. No acute fracture. Joint spaces are preserved. IMPRESSION: Borderline prominent perihardware lucency along the proximal 2nd screw. Attention to this region recommended on clinical assessment. Otherwise expected postoperative appearance with residual proximal tibial and fibular deformities. MACRO: None Signed by: Serjio Mcleod 07/16/2023 11:23 AM Dictation workstation: [id number] [facility] XR Tibia and Fibula - left 2 Viewson 07-15-2023 Radiology Study observation (narrative) [facility] Work Phone: Phone Note - Heme Onc-test r esultson 12-03-2022 Phone Note - Heme Onc-test results Phone Call Information: Patient Demographics: Name: PERLITA THAKKAR Date: 1990 Address: [address] [place] [address] Caller Information: call to Call To: patient Primary Phone Number: [phone] Reason for Call: Reason for Calltest results Message: Message: 12/03/22 @ 1150: Call to pt regarding neg PAP/ECC/HPV. Left VM on identified VM with results and recommendation for f/u in 6m to repeat PAP/colpo. Coordinators to call with appt details. Outpatient Medication Profile: * No Current Medications as of 17-May-2022 13:21 documented in Structured Notes Allergies: No Known Allergies: Lab Results: Results CBC date/time WBC HGB HCT PLT Neut 30-Nov-2021 14:29 10.3 11.8(L) 33.9(L) 333 8.10(H) BMP date/time NA K CL CO2 BUN CREAT 30-Nov-2021 14:29 137 3.9 107 N/A 9 0.75 Hepatic date/time T Pro T Bili AST ALT ALKP ALB 30-Nov-2021 14:29 6.8 0.4 N/A 134(H) 124(H) 4.1 Electronic Signatures: Viry Carson (RN) (Signed 03-Dec-2022 11:51) Authored: Phone Call Information, Allergies, Results Last Updated: 03-Dec-2022 11:51 by Viry Carson (KIRSTEN) [facility] 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 Cervical cancer screening history as below: LEEP for High grade dysplasia in 2018 with no report of follow up 08/2021 - LSIL 09/2021 - Colposcopy with AIS on ECC and CIN2-3 on 10 o'clock biopsy AIS Treatment history: 10/15/2021 - CKC with findings of AIS in all four quadrants and close margin of less than 1.5mm at the deep margin from 12-3 and 9-12 oclock, along with 1.5mm endocervical margin 12-3 oclock and ectocervical margin of 3mm at 12-3 oclock. 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 Current smoker (1 ppd/10yrs). Occasional EtOH use. Denie drug use. FAMHx: Denies any family history of breast, ovary, uterine, or colon cancer Screening: -Pap as above -Mammo: NA -[place]: NA Allergies and Outpatient Medication Profile: Allergies: No Known Allergies: Active Outpatient Medication Profile: * No Current Medications as of 17-May-2022 13:21 documented in Structured Notes Interval History, ROS and Problem List: Interval History and ROS: Interval History and ROS Overall feeling well, no concerns or complaints. Has not been sexually active since 05/2022. Did have some irregular spotting with her menstrual cycle in 06/2022 and 07/2022 but all subsequent menstrual cycles were normal. No intermenstrual bleeding, improved pain. Not currently using contraception. She denies vaginal bleeding, fever, chills, chest pain, SOB, nausea, vomiting, diarrhea, constipation, dysuria, or any other concerning signs or symptoms. A >10 point review of systems was performed and was negative unless mentioned in the Interval History above.. Problem List: Medical History: Encounter for smoking cessation counseling: ICD-10: Z71.6, Status: Active Smoker: ICD-10: F17.200, Status: Active Carcinoma in situ of cervix: ICD-10: D06.9, Status: Active Physical Exam: Constitutional: Well developed, AAOx3, NAD Here alone Eyes: PERRL, EOMI, clear sclera ENMT: mucous membranes moist Head/Neck: NC/AT Respiratory/Thorax: Normal effort ORA, symmetric chest expansion, CTAB Cardiovascular: RRR no murmurs Gastrointestinal: Abdomen soft, nontender, nondistended Genitourinary: Normal external female genitalia without lesions or masses Speculum exam: smooth vagina, normal appearing cervix with significant scarring of external cervical os c/w history of CKC and difficult to penetrate with the ECC Colpo: A speculum was inserted in the vagina. HPV test was performed. A 3 to 5% acetic acid solution was applied to the cervix The transformation zone could not be visualized secondary to scarring. No cetowhite lesions noted. No punctation, white, or other concerning findings. Hemostasis was achieved with pressure. ECC was performed A moderate amount of force was applied to break the scar tissue, and when the currette was inserted a moderate amount of old blood and mucous was noted to pass from the cervix. The patient tolerated the procedure well. Musculoskeletal: Strength grossly intact Extremities: Warm and well perfused, no lesions Neurological: alert and oriented x3, normal strength Psychological: Appropriate mood and behavior Skin: Warm and dry, no lesions or rashes noted Social History: Smoking: Smoking Statuscurrent smoker (smoked within past 30 days) Number of cigarettes per pxz10-10 Use of other tobacco/nicotine productsnone Currently living with another [place] Tobacco Cessation Counseling Givenyes Time spent counseling>10 minutes Living Environment: Lives with: alone Living Environment: house Transportation: car, family or friend will provide Social: Substance History Alcohol Use: occasionally Drug Use: denies Results: Lab Results: Lab Results: Results: CBC date/time WBC HGB HCT PLT Neut 30-Nov-2021 14:29 10.3 11.8(L) 33.9(L) 333 8.10(H) BMP date/time NA K CL CO2 BUN CREAT 30-Nov-2021 14:29 137 3.9 107 N/A 9 0.75 Hepatic date/time T Pro T Bili AST ALT ALKP ALB 30-Nov-2021 14:29 6.8 0.4 N/A 134(H) 124(H) 4.1 (more content not included)... Normal [facility] Clinic Note - Intakeon 11-22 Clinic Note - Intake Patient Visit Information: Visit TypeFollow Up Visit Source of Informationpatient Admission Information: Admission Since Last VisitNo Vital Signs: Temp (degrees C)36.4 degrees C Temperatureskin Heart Rate (beats/min)80 beats per minute BP Systolic (mm Hg)110 mmHg BP Diastolic (mm Hg)71 mmHg BP Mean (mm Hg)84 mmHg Height in cm161.1 centimeter(s) Heightstanding Weight in kg67 kilogram(s) Weightstanding BMI (kg/m2)25.8 kg/M2 BSA (m2)1.73 M2 Pain Screening: Patient States Painno (0) Transaction Coordinator for intimate exam offered to patient: Patient hasdeclined Allergies: No Known Allergies: Active Outpatient Medication Profile: * No Current Medications as of 17-May-2022 13:21 documented in Structured Notes Notification: NotificationsAll annual screens currently due. Travel History: COVID-19 Screening Completedno exposure or symptoms Travel or ExposureNO travel to International locations in the past 30 days Falls: Have you fallen in the last 6 monthsno Do you have a fear of fallingno Do you feel you need assistanceno Is the patient using an assistive deviceno Spiritual/Procedural: Spiritual/cultural/religiou s practices important for us to knowno Adv Dir: Living Willno Healthcare POAno Declaration of Mental Health Treatmentno Living Will Formsdeclines more information Healthcare POA Formsdeclined more information Mental Health Formsdeclines more information Violence: Are you or have you been threatened or abused physically,emotionally or sexually abused by anyoneno Do you feel UNSAFE going back to the place you are livingno Depression: Past 2 wks: [place] down, depressed or hopelessno Past 2 wks: [place] little interest/pleasure doing thingsno Any Thoughts of Harming Othersno In the Past Month: Have you wished you were or could go to sleep and not wake upno In the Past Month: Have you had any actual thoughts of killing yourselfno Lifetime: Have you ever done, started to do, or prepared to do anything to end your lifeno Substance: How many times in the past year have you had 4 or more drinks within 24 hours0 How many times in past year have you used recreational or prescription drugs for non-medical reasons0 Nutrition/Learning: In the past month, was there any day when you or anyone in your family went hungry because you didn't have enough foodno Primary LanguageEnglish Do you, or others today, need extra help due to problems with hearing,speaking, seeing, moving around or learningno Electronic Signatures: Kelsie Avila) (Signed 22-Nov-2022 13:08) Authored: Patient Visit Information, Vital Signs, Transaction Coordinator, Allergies, Notification, Travel History, Falls, Spiritual/Procedural, Adv Dir, Violence, Depression, Substance, Nutrition/Learning Last Updated: 22-Nov-2022 13:08 by Kelsie Avila (CARLOS) Normal [facility] Surgical Pathology Depar tmenton 11-22-2022 [facility] Surgical Pathology Department Name PERLITA THAKKAR Pathologist: KODI REINA M.D. Date of Procedure: 11/22/2022 Date Received: 11/22/2022 Date Reported 12/02/2022 Submitting Physician: JONAS WOLFF MD Location: [facility] Copy To/Referring/Attending: MIGUELINA VILLAVICENCIO MD Other External # FINAL DIAGNOSIS A. ENDOCERVIX, CURETTAGE: -- SCANT CYTOLOGICALLY NORMAL SQUAMOUS AND GLANDULAR EPITHELIUM IN A BACKGROUND OF MUCUS WITH ABUNDANT NEUTROPHILS Electronically Signed Out By KODI REINA M.D./SXA By the signature on this report, the individual or group listed as making the Final Interpretation/Diagnosis certifies that they have reviewed this case. Diagnostic interpretation performed at [place] [address] Clinical History: AIS Specimens Submitted As: A: CERVICAL ECC Gross Description: Received in formalin on a brush, labeled with the patient's name and hospital number, is a scant amount of mucus, blood, and soft tissue aggregating to 0.8 x 0.4 x 0.1 cm. The specimen is submitted in toto in one cassette. The specimen may not survive processing. AE aey/11/27/2022 [facility] Department of Pathology [address] [place] [address] Normal [facility] Comment on above: Performed By: #### [facility] #### [facility] Surgical Pathology Department [address] [place] [address] Phone Note - Heme Onc-test r esultson 05-27-2022 Phone Note - Heme Onc-test results Phone Call Information: Patient Demographics: Name: PERLITA THAKKAR Date: 1990 Address: [address] [place] [address] Caller Information: call to Call To: patient Primary Phone Number: [phone] Reason for Call: Reason for Calltest results Message: Caller Informed Of: Pt notified of neg PAP/HPV. Dr Spivey recommends 6m f/u. Coordinators to call for scheduling. Pt aware Outpatient Medication Profile: * No Current Medications as of 17-May-2022 13:21 documented in Structured Notes Allergies: No Known Allergies: Lab Results: Results CBC date/time WBC HGB HCT PLT Neut 30-Nov-2021 14:29 10.3 11.8(L) 33.9(L) 333 8.10(H) BMP date/time NA K CL CO2 BUN CREAT 30-Nov-2021 14:29 137 3.9 107 N/A 9 0.75 Hepatic date/time T Pro T Bili AST ALT ALKP ALB 30-Nov-2021 14:29 6.8 0.4 N/A 134(H) 124(H) 4.1 Electronic Signatures: Viry Carson (RN) (Signed 27-May-2022 13:31) Authored: Phone Call Information, Allergies, Results Last Updated: 27-May-2022 13:31 by Viry Carson (KIRSTEN) [facility] Clinic 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 Cervical cancer screening history as below: LEEP for High grade dysplasia in 2018 with no report of follow up 08/2021 - LSIL 09/2021 - Colposcopy with AIS on ECC and CIN2-3 on 10 o'clock biopsy AIS Treatment history: 10/15/2021 - CKC with findings of AIS in all four quadrants and close margin of less than 1.5mm at the deep margin from 12-3 and 9-12 oclock, along with 1.5mm endocervical margin 12-3 oclock and ectocervical margin of 3mm at 12-3 oclock. 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 Current smoker (1 ppd/10yrs). Occasional EtOH use. Denie drug use. FAMHx: Denies any family history of breast, ovary, uterine, or colon cancer Screening: -Pap as above -Mammo: NA -[place]: NA Allergies and Outpatient Medication Profile: Allergies: No Known Allergies: Active Outpatient Medication Profile: * Patient Currently Takes Medications as of 01-Feb-2022 09:15 documented in Structured Notes benzonatate 100 mg oral capsule: 1-2 cap(s) orally every 8 hours, As Needed for cough, Start Date: 01-Feb-2022 albuterol 90 mcg/inh inhalation aerosol: 2 puff(s) inhaled every 4 hours, As Needed for wheezing or shortness of breath, Start Date: 31-Jan-2022 Interval History, ROS and Problem List: Problem List: Medical History: Encounter for smoking cessation counseling: ICD-10: Z71.6, Status: Active Smoker: ICD-10: F17.200, Status: Active Carcinoma in situ of cervix: ICD-10: D06.9, Status: Active Family History: Family History: No Family History items are recorded in the problem list. Physical Exam: Constitutional: Well developed, AAOx3, NAD Here alone Eyes: PERRL, EOMI, clear sclera ENMT: mucous membranes moist Head/Neck: NC/AT Respiratory/Thorax: Normal effort ORA, symmetric chest expansion, CTAB Cardiovascular: RRR no murmurs Gastrointestinal: Abdomen soft, nontender, nondistended Genitourinary: Normal external female genitalia without lesions or masses Speculum exam: smooth vagina, normal appearing cervix with scarring of external cervical os c/w history of CKC, Colpo: A speculum was inserted in the vagina. HPV test was performed. A 3 to 5% acetic acid solution was applied to the cervix The transformation zone could not be visualized secondary to scarring. A 4mm acetowhite lesion was noted at 2 o'clock and was biopsied. No other cites of punctation, white, or other concerning findings. Hemostasis was achieved with pressure. ECC was performed (UPT neg prior) by grasping the anterior lip of the cervix with a single tooth tenaculum and inserting the currette. A moderate amount of force was applied to break the scar tissue, and when the currette was inserted a moderate amount of old blood was noted to pass from the cervix. Tenaculum was removed. The patient tolerated the procedure well. Musculoskeletal: Strength grossly intact Extremities: Warm and well perfused, no lesions Neurological: alert and oriented x3, normal strength Psychological: Appropriate mood and behavior Skin: Warm and dry, no lesions or rashes noted Social History: Smoking: Smoking Statuscurrent smoker (smoked within past 30 days) Number of cigarettes per [id number] Use of other tobacco/nicotine productsnone Currently living with another [place] Tobacco Cessation Counseling Givenyes Time spent counseling>10 minutes Living Environment: Lives with: alone Living Environment: house Transportation: car, family or friend will provide Social: Substance History Alcohol Use: occasionally Drug Use: denies Results: Lab Results: Lab Results: Results: CBC date/time WBC HGB HCT PLT Neut 30-Nov-2021 14:29 10.3 11.8(L) 33.9(L) 333 8.10(H) BMP date/time NA K CL CO2 BUN CREAT 30-Nov-2021 14:29 137 3.9 107 N/A 9 0.75 Hepatic date/time T Pro T Bili AST ALT ALKP ALB 30-Nov-2021 14:29 6.8 0.4 N/A 134(H) 124(H) 4.1 Pathology Results: Results Surgical Pathology [Oct 26 2021 1:58PM] ([id number]) Specimens: CERVICAL COLD KNIFE CONE BIOPSY STITCH AT 12:00 /ECC (more content not included)... Normal [facility] Clinic Note - Intakeon 05-17 Clinic Note - Intake Patient Visit Information: Visit TypeFollow Up Visit Source of Informationpatient Admission Information: Admission Since Last VisitNo Vital Signs: Temp (degrees C)36.5 degrees C Temperatureskin Heart Rate (beats/min)90 beats per minute BP Systolic (mm Hg)104 mmHg BP Diastolic (mm Hg)71 mmHg BP Mean (mm Hg)82 mmHg Height in cm161.1 centimeter(s) Heightstanding Weight in kg60.5 kilogram(s) Weightstanding BMI (kg/m2)23.3 kg/M2 BSA (m2)1.64 M2 SpO2 (%)97 % SpO2 Patient Onroom air Pain Screening: Patient States Painno (0) Transaction Coordinator for intimate exam offered to patient: Patient hasdeclined Allergies: No Known Allergies: Active Outpatient Medication Profile: * No Current Medications as of 17-May-2022 13:21 documented in Structured Notes Notification: NotificationsAnnual Screens Due Dates ___ Advanced Directives: Sep 28, 2022 Family Violence: Sep 28, 2022 Depression (Due every 6 months for ONC only; all others use Annual date): Mar 27, 2022 Substance Use - Alcohol: Sep 28, 2022 Substance Use - Drugs: Sep 28, 2022 Nutrition: Sep 28, 2022 Learning: Sep 28, 2022 Travel History: COVID-19 Screening Completedno exposure or symptoms Travel or ExposureNO travel to International locations in the past 30 days Falls: Have you fallen in the last 6 monthsno Do you have a fear of fallingno Do you feel you need assistanceno Is the patient using an assistive deviceno Electronic Signatures: Kelsie Avila) (Signed 17-May-2022 13:24) Authored: Patient Visit Information, Vital Signs, Transaction Coordinator, Allergies, Notification, Travel History, Falls Last Updated: 17-May-2022 13:24 by Kelsie Avila) Normal [facility] Surgical Pathology Depar tmenton 05-17-2022 [facility] Surgical Pathology Department Name PERLITA THAKKAR Pathologist: NAHID CHACON MD Date of Procedure: 05/17/2022 Date Received: 05/17/2022 Date Reported 05/27/2022 Submitting Physician: AMARILYS SHERIFF MD Location: [facility] Copy To/Referring/Attending: MIGUELINA VILLAVICENCIO MD Other External # FINAL DIAGNOSIS A. CERVIX, 2 O'CLOCK, BIOPSY: -- SQUAMOUS MUCOSA WITH ACUTE AND CHRONIC INFLAMMATION. -- NO ENDOCERVICAL MUCOSA IDENTIFIED. B. ENDOCERVIX, CURETTAGE: -- FRAGMENTS OF BENIGN SQUAMOUS AND ENDOCERVICAL EPITHELIUM AND LOWER UTERINE SEGMENT ENDOMETRIUM. Electronically Signed Out By NAHID CHACON MD/SXR By the signature on this report, the individual or group listed as making the Final Interpretation/Diagnosis certifies that they have reviewed this case. Diagnostic interpretation performed at [address] [place] [address] Clinical History: History of AIS sp [facility] 10/2021 Specimens Submitted As: A: CERVIX BIOPSY AT 2 OCLOCK B: ENDOCERVICAL CURETTAGE Gross Description: A: Received in formalin, labeled with the patient's name and hospital number and A, is a crescent shaped fragment of mucosa covered soft tissue, measuring 0.3 x 0.2 x 0.2 cm. The specimen is submitted in toto in one cassette. SBS B: Received in formalin, labeled with the patient's name and hospital number and B, are multiple fragments of soft tissue admixed with mucus, aggregating to 0.7 x 0.6 x 0.2 cm. The specimen is submitted in toto in one cassette. The specimen may not survive processing. [facility]/05/20/2022 [facility] Department of Pathology [address] [place] [address] Normal [facility] Comment on above: Performed By: #### U [facility] #### [facility] Surgical Pathology Department [address] [place] [address] CORONAVIRUS 2019 BY PCRon SARS-CoV-2 (COVID-19) RNA CHRIS+probe Ql (Unsp spec) Detected Abnormal Not Detected [facility] Comment on above: Result Comment: . This assay is designed to detect the N, ORF1ab and/or S genes of SARS-CoV-2 via nucleic acid amplification. A Negative (NOT DETECTED) result does not preclude 2019-nCoV infection since the adequacy of sample collection and/or low viral burden may result in presence of viral nucleic acids below the clinical sensitivity of this test method. Negative (NOT DETECTED) result should not be used as the sole basis for treatment or other patient management decisions. Rather negative results should be combined with clinical observations, patient history, and epidemiological information to make patient management decisions. Fact sheet for providers: https://www.fda.gov/media/873920/download Fact sheet for patients: https://www.fda.gov/media/642818/download This test has received FDA Emergency Use Authorization (EUA) and has been verified by [facility] ([facility]). This test is only authorized for the duration of time that circumstances exist to justify the authorization of the emergency use of in vitro diagnostic tests for the detection of SARS-CoV-2 virus and/or diagnosis of COVID-19 infection under section 564(b)(1) of the Act, 21 U.S.C. 360bbb-3(b)(1), unless the authorization is terminated or revoked sooner. [facility] is certified under CLIA-88 as qualified to perform high complexity testing. Testing is performed in the [facility] laboratories located at [address] [place] [address]. Performed By: #### C #### [facility] Cytology [address] [place] [address] Covid 19 Resultson 2 SARS-CoV-2 (COVID-19) RNA CHRIS+probe Ql (Unsp spec) POSITIVE COVID-19 Test Coronaviruses are common world-wide and are the cause of many common colds. SARS-COV2 is a new coronavirus that began circulating worldwide in 2019 so we are calling it COVID-19. It has been estimated that four out of five patients with COVID-19 will recover at home without the need for medical attention. Symptoms of COVID-19 may include cough, fever, shortness of breath, loss of taste or smell and other flu-like symptoms including chills, sore muscles, sore throat, and headache. Severe illness is more common in older people and people with other health problems such as high blood pressure, obesity, and immune system problems. If the test is positive, you have COVID-19. You will be contacted by the ordering physicians office and instructed to remain on home isolation, in accordance with CDC guidelines. You may also be contacted by the [facility] to see if any of your close contacts may have been exposed to the virus and need to quarantine. If the test is negative, you likely do not have COVID-19 at this time, but you still may have a different illness that can spread to other people (like Influenza, or the Flu) and could still be at risk for getting COVID-19. We recommend that you stay away from other people to limit the spread of illness until your symptoms are improving and you are fever-free for 24 hours without the use of fever lowering medications such as acetaminophen or ibuprofen. No test is 100% accurate so if you are still concerned you may have COVID-19, talk to your doctor about the need to continue to stay away from others. Medicines Unless your provider told you not to use the following: Acetaminophen (Tylenol and others) is generally safe. Anti-inflammatory medications, such as Ibuprofen (Advil or Motrin) or Naproxen (Aleve) can also be used. Nhqk-kif-eyombzg cough and cold medicines can be used according to the instructions on the package. Some jtor-why-aaajklw medicines also contain acetaminophen. Make sure you are not taking more than your recommended dose. For those not hospitalized, there is no specific treatment available for this illness. Antibiotics do not treat Coronaviruses. Follow-Up Follow up with your doctor by scheduling a virtual visit or consider follow-up at one of our urgent care fever clinics. If you are having difficulty breathing, or are very weak and having difficulty standing, this is a medical emergency. Call 911 or have someone take you to the nearest emergency room immediately. If possible, wear a facemask. Additional guidance from the CDC for patients who tested POSITIVE for COVID-19 How to isolate: Isolate yourself in a specific room at home and limit your contact with others. Use a separate bathroom from other members of the household, when possible. Leave home only to get essential medical care. Do not go to work, school or public areas. Avoid using public transportation, ride-sharing, or taxis. Restrict contact with pets and other animals. If you must care for your pet or be around animals while you are sick, wash your hands before and after your interaction and wear a facemask. Make sure that shared spaces in the home have good airflow, such as by an air conditioner or an opened window, weather permitting. Personal Hygiene Procedures: Wear a face mask when in the same room as other people or pets. If a face mask interferes with your breathing, others should wear a mask when sharing space with you. Frequent hand-washing: wash your hands with soap and water for at least 20 seconds. If soap and water are not available, use alcohol-based hand seat installer. Avoid touching your eyes, nose, and mouth with unwashed hands. Household Hygiene Procedures: Avoid sharing personal household items such as dishes, glassware, cups, eating utensils, towels or bedding with other people or pets in your home. After use, these items should be washed with soap and hot water. Disinfect all high-touch surfaces every day with antibacterial cleaning solutions such as Lysol wipes, bleach, cleansers, etc. High-touch surfaces include tabletops, doorknobs, bathroom fixtures, toilets, phones, keyboards, tablets and bedside tables. Immediately clean any surfaces that may have blood, poop or body fluids on them, using antibacterial cleaning solutions such as Lysol wipes, bleach, cleansers, etc. If clothing or bedding come into contact with blood, poop or body fluids, they should be washed immediately. Follow the directions on the laundry detergent and clothing labels but hot water is recommended when possible. Stopping home isolation precautions: If possible, consult your doctor before stopping home isolation precautions. According to the CDC, you can discontinue home isolation precautions when you have met both of these criteria: Your fever and respiratory symptoms have been gone for 24 america (more content not included)... Normal [facility] CORONAVIRUS 2019 BY PCRon Lab Specimen Source Nasal, Nasopharyngeal Normal [facility] Comment on above: Performed By: #### C #### [facility] Cytology [address] [address] [place] [place] [facility] [address] Provider Note - ED v3on 01-08 Provider Note - ED v3 Provider Note: Chart Review HISTORY OF PRESENTING ILLNESS PERLITA is a 31 year old Female and was seen by me at 31-Jan-2022 10:34. The historian is the patient. Triage Information: Most recent Vital Sign Value Date PAST MEDICAL HISTORY ALLERGIES/INTOLERANCES: No Known Allergies HEALTH HISTORY: Medical History Name:Carcinoma in situ of cervix Code:D06.9 Name:Smoker Code:F17.200 Name:Encounter for smoking cessation counseling Code:Z71.6 No other known health issues. Has history of C. Diff with antibiotic use. Family history: no pertinent history. Social history: current smoker (1 PPD). Currently employed - works at [employer]. OUTPATIENT MEDICATIONS: Home Medications Review Status for Reconciliation: Complete Med Status: Patient Currently Takes Medications Drug Name: albuterol 90 mcg/inh inhalation aerosol Instructions: 2 puff(s) inhaled every 4 hours, As Needed for wheezing or shortness of breath SIGNIFICANT EVENTS: Clinical Events Description:Surgical Procedure Additional Notes:1. cervical cold knife cone biopsy Past Medical History Description:cervical cancer Has history of c-diff with antibiotic use. No other known significant events or other known past surgical history. AIR GUN OPERATOR: Is : no CRITICAL CARE RESULTS: Recent Lab Results: POCT urinalysis today showed small bili, 15 mg/dL ketones, trace blood, 30 mg/dL protein. SG 1.025. See flowsheet. Patient states has not had anything to eat for >24 hours. VITAL SIGNS: T PRBP SpO2O2(LPM) %FiO2 Method 31-Jan-2022 10:25:[id number]/56 99 MDM MDM/ED COURSE: This note was generated with voice recognition software and may contain errors including spelling, grammar, syntax, and misrecognization of what was dictated CHIEF COMPLAINT body aches, fever/chills HISTORY OF PRESENT ILLNESS Patient presents today with complaints of body aches, fevers/chills/sweats (Tmax 100.3f), and cold symptoms - sxs started yesterday AM. She reports also has fatigue, a stuffy nose (clear drainage), a scratchy throat, a dry cough with wheezing, and mild headaches. Reports she had a UTI ~1 month ago after a Cone procedure for treatment of precancerous cells on her cervix; reports she took antibiotics and sxs completely resolved without any further urinary or vaginal symptoms, but she googled this morning and is worried that maybe she now has a kidney infection d/t the body aches. She denies sinus tenderness, ear pain, abdominal pain, chest pain, shortness of breath, rashes, urinary/vaginal symptoms, nausea/vomiting, and diarrhea. Denies any lightheadedness or dizziness; no changes in mental status. No swelling in legs. Appetite is poor but is able to drink fluids without difficulty; denies any loss of sense of taste/smell. Reports feels like symptoms are getting a little worse since onset. Has been taking Ibuprofen without much relief (last dose was >6 hours ago); no other qshl-vfy-jsllzre medications or home remedies for symptom management. 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 Is a current smoker; no history of asthma. REVIEW OF SYSTEMS 10 systems reviewed negative with exception of history of present illness listed above PHYSICAL EXAMINATION General: Mildly ill-appearing, well nourished female; alert and oriented; in no acute distress. Sitting comfortably on exam table. Non-dyspneic. Eyes: Pupils equal, round and reactive to light. No conjunctival erythema; no scleral icterus. No photophobia. HENT: No frontal or maxillary sinus tenderness; + audible nasal congestion. Airway patent, TMs and ear canals clear bilaterally. Nasal mucosa mildly injected and edematous. Oral mucosa moist. Posterior pharynx pink but without vesicles or oropharyngeal exudate aside from PND. Uvula is midline. Managing oral secretions without difficulty. Neck: Supple. Mildly tender, mobile anterior cervical lymphadenopathy bilat. Trachea is midline. Respiratory: Respirations easy and unlabored, Breath sounds equal. Lungs are clear to auscultation; no wheezes, rhonchi, or rales; has good air movement throughout. Harsh, junky but non-productive cough noted. Non-dyspneic with ambulation; able to maintain SpO2. Cardiovascular: Normal rate, Regular rhythm. Normal S1S2. No m/r/g. No peripheral edema. Gastrointestinal: Soft, non-tender, non-distended; no palpable masses or organomegaly. Bowel sounds normoactive. mild L CVA tenderness. No suprapubic tenderness. Musculoskeletal: Grossly normal; appropriate for age. Ambulates and changes positions easily and without limitation. Integumentary: Oaks, warm, dry, and intact. No rashes or skin discoloration appreciated. Good skin turgor. Neurologic: Alert and oriented, no gross deficits. No meningeal signs. Cognition and Speech: (more content not included)... Normal [facility] URINE CULTURE,[facility] URINE CULTURE,BACTERIAL PATIENT: PERLITA THAKKAR LOCATION: [facility] BILL#: [id number] : 89 AGE: SEX: F ORDERED BY: LUCI SOLIS SOURCE: URINE COLLECTED: 01/31/22 11:10 ANTIBIOTICS AT ION.: RECEIVED : 02/01/22 00:20 SITE: Clean Catch/Voided R E S U L T S URINE CULTURE,BACTERIAL FINAL 02/01/22 16:47 NO SIGNIFICANT GROWTH. Normal [facility] Comment on above: Performed By: #### C #### [facility] Cytology [address] [address] [facility] [address] AIR GUN OPERATOR - Office Visiton 12-07 AIR GUN OPERATOR - Office Visit Diagnoses/Problems Assessed Adenocarcinoma of cervix (180.9) (C53.9) History of Cervical conization Encounter for preconception consultation (V26.49) (Z31.69) History of Loop electrosurgical excision procedure 01/10/2012 No illicit drug use Always uses seat belt Pets/Animals: Cat Tobacco use (305.1) (Z72.0) 1/2 pack per day Provider Impressions We discussed that women with a prior cold knife cone biopsy are at some increased risk for delivery and cervical insufficiency, as well as cervical stenosis, but there is no uniform recommendation for management in subsequent pregnancies. Women with a prior LEEP are at increased risk for late . I encouraged her to discuss with Dr. Stern, but I do not think there is any plan for radiation or chemo at this point, and no plan to remove her ovaries. She is aware that there is about a 13-15% chance of AIS recurrence and a 2% chance of malignancy if she does not have a hysterectomy now. The risks should be lowered with close surveillance as planned every 6 months. We discussed that a normal cervix is 2.5 to 6 cm in length so she should have residual cervical tissue remaining and there is a fair chance that she can successfully carry a . Would consider serial cervical length screening and a cerclage for a shortened cervix in a future . All questions were answered. Thank you for the referral. Chief Complaint An interactive audio and video telecommunication system which permits real time communications between the patient (at the originating site) and provider (at the distant site) was utilized to provide this telehealth service. MFM consult at the request of Dr. Saul and Dr. 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 She recently had a CKC that showed AIS with clear margins. The pathology on the cone specimen showed that it was 1.2 cm deep. She has also had a LEEP in the past. She is trying to decide whether to have a hysterectomy now and freeze her eggs and use a surrogate in the future or do close surveillance and have a hysterectomy after childbearing. She is not currently in a relationship. Active Problems Problems Adenocarcinoma of cervix (180.9) (C53.9) ASCUS with positive high risk HPV cervical (795.01,795.05) (R87.610,R87.810) Atypical glandular cells of undetermined significance (OTTO) on cervical Pap smear (795.00) (R87.619) Breast thickening (611.79) (N64.59) Cervical dysplasia (622.10) (N87.9) Current smoker (305.1) (F17.200) Encounter for preconception consultation (V26.49) (Z31.69) Fertility testing (V26.21) (Z31.41) Pap test, as part of routine gynecological examination (V76.2) (Z01.419) Screening for cervical cancer (V76.2) (Z12.4) Urine test negative (V72.41) (Z32.02) Past Medical History Problems Denied: History of sexually transmitted disease History of Menstruation Onset age 14 years Surgical History Problems History of Cervical conization History of Loop electrosurgical excision procedure 01/10/2012 Family History Mother No pertinent family history Father No pertinent family history Grandmother Family history of diabetes mellitus (V18.0) (Z83.3) Family history of malignant neoplasm of skin (V16.8) (Z80.8) Grandfather Family history of lung cancer (V16.1) (Z80.1) Social History Problems Always uses seat belt Consumes alcohol occasionally (V49.89) (Z78.9) Current smoker (305.1) (F17.200) No illicit drug use Pets/Animals: Cat Sexually active Tobacco use (305.1) (Z72.0) 1/2 pack per day Allergies Medication No Known Drug Allergies Recorded By: Miguelina Hernández; 08/17/2021 10:39:44 AM Current Meds Medication NameInstruction Varenicline Tartrate 0.5 MG Oral TabletTAKE 1 TABLET Daily Take 1 tablet daily on day 1 2 and 3. Take 1 tablet twice a day on day 4,5, 6 and 7 Varenicline Tartrate 1 MG Oral TabletTAKE 1 TABLET TWICE DAILY. Time Time spent with patient: 20 minutes of which greater than 50 percent was spent counseling and or coordinating care. Signatures Electronically signed by : Perlita Monsivais MD; Dec 24 2021 9:46AM EST (Author) Normal LOG607 BASIC METABOLIC PANELon - Anion gap [Moles/Vol] 10 mmol/L Normal 10 - 20 [facility] Comment on above: Performed By: #### B MP #### [address] [address] Calcium [Mass/Vol] 8.9 mg/dL Normal 8.6 - 10.3 [facility] Comment on above: Performed By: #### B MP #### [address] [address] Chloride [Moles/Vol] 107 mmol/L Normal 98 - 107 [facility] Comment on above: Performed By: #### B MP #### [address] [address] Creatinine [Mass/Vol] 0.75 mg/dL Normal 0.50 - 1.05 [facility] Comment on above: Performed By: #### B MP #### [address] [address] eGFR FEMALE >90 Normal >90 [facility] Comment on above: Result Comment: CALC ULATIONS OF ESTIMATED GFR ARE PERFORMED USING THE 2020 CKD-EPI STUDY REFIT EQUATION WITHOUT THE RACE VARIABLE FOR THE IDMS-TRACEABLE CREATININE METHODS. https://jasn.asnjournals.org/content//ASN.125651374 8 Performed By: #### B MP #### [address] [address] Glucose [Mass/Vol] 93 mg/dL Normal 74 - 99 [facility] Comment on above: Performed By: #### B MP #### [address] [address] HCO3 (Bld) [Moles/Vol] 24 mmol/L Normal 21 - 32 [facility] Comment on above: Performed By: #### B MP #### [address] [address] Potassium [Moles/Vol] 3.9 mmol/L Normal 3.5 - 5.3 [facility] Comment on above: Result Comment: MILD HEMOLYSIS DETECTED. The result may be falsely elevated due to hemolysis or other interferents. Clinical correlation is recommended. Repeat testing may be considered. Performed By: #### B MP #### [address] [address] Sodium [Moles/Vol] 137 mmol/L Normal 136 - 145 [facility] Comment on above: Performed By: #### B MP #### [address] [address] Urea nitrogen [Mass/Vol] 9 mg/dL Normal 6 - 23 [facility] Comment on above: Performed By: #### B MP #### [address] [address] CBC AND DIFFERENTIALon 11-30 Basophils (Bld) [#/Vol] 0.10 10*3/uL Normal 0.00 - 0.10 [facility] Comment on above: Performed By: #### C BCDF #### [address] [address] Basophils/100 WBC (Bld) 0.5 % Normal 0.0 - 2.0 [facility] Comment on above: Performed By: #### C BCDF #### [address] [address] Eosinophils (Bld) [#/Vol] 0.20 10*3/uL Normal 0.00 - 0.70 [facility] Comment on above: Performed By: #### C BCDF #### [address] [address] Eosinophils/100 WBC (Bld) 1.9 % Normal 0.0 - 6.0 [facility] Comment on above: Performed By: #### C BCDF #### [address] [address] Erythrocyte distribution width (RBC) [Ratio] 12.5 % Normal 11.5 - 14.5 [facility] Comment on above: Performed By: #### C BCDF #### [address] [address] Hematocrit (Bld) [Volume fraction] 33.9 % Low 36.0 - 46.0 [facility] Comment on above: Performed By: #### C BCDF #### [address] [address] Hemoglobin (Bld) [Mass/Vol] 11.8 g/dL Low 12.0 - 16.0 [facility] Comment on above: Performed By: #### C BCDF #### [address] [address] Lymphocytes (Bld) [#/Vol] 1.40 10*3/uL Normal 1.20 - 4.80 [facility] Comment on above: Performed By: #### C BCDF #### [address] [address] Lymphocytes/100 WBC (Bld) 13.5 % Normal 13.0 - 44.0 [facility] Comment on above: Performed By: #### C BCDF #### [address] [address] MCHC (RBC) [Mass/Vol] 34.9 g/dL Normal 32.0 - 36.0 [facility] Comment on above: Performed By: #### C BCDF #### [address] [address] MCV (RBC) [Entitic vol] 89 fL Normal 80 - 100 [facility] Comment on above: Performed By: #### C BCDF #### [address] [address] Monocytes (Bld) [#/Vol] 0.60 10*3/uL Normal 0.10 - 1.00 [facility] Comment on above: Performed By: #### C BCDF #### [address] [address] Monocytes/100 WBC (Bld) 5.9 % Normal 2.0 - 10.0 [facility] Comment on above: Performed By: #### C BCDF #### [address] [address] Neutrophils (Bld) [#/Vol] 8.10 10*3/uL High 1.20 - 7.70 [facility] Comment on above: Result Comment: Perc ent differential counts (%) should be interpreted in the context of the absolute cell counts (cells/L). Performed By: #### C BCDF #### [address] [address] Neutrophils/100 WBC (Bld) 78.2 % Normal 40.0 - 80.0 [facility] Comment on above: Performed By: #### C BCDF #### [address] [address] Platelets (Bld) [#/Vol] 333 10*3/uL Normal 150 - 450 [facility] Comment on above: Performed By: #### C BCDF #### [address] [address] RBC 3.79 x10E12/L Low 4.00 - 5.20 [facility] Comment on above: Performed By: #### C BCDF #### [address] [address] WBC (Bld) [#/Vol] 10.3 10*3/uL Normal 4.4 - 11.3 [facility] Comment on above: Performed By: #### C BCDF #### [address] [address] [address] ABDOMEN AND PELVIS W IV C [facility] 11-30-2021 CT ABDOMEN AND PELVIS W IV CONTRAST Patient Name: PERLITA THAKKAR STUDY: CT ABDOMEN AND PELVIS W IV CONTRAST; 11/30/2021 3:32 pm INDICATION: Lower abdominal pain. Diarrhea. Reported cold knife cone of the cervix in October 2021. COMPARISON: CT abdomen pelvis dated 12/24/2011. ACCESSION NUMBER(S): [id number] ORDERING CLINICIAN: NICKIE GALO TECHNIQUE: CT of the abdomen and pelvis was performed following administration of intravenous contrast medium. Standard contiguous axial images were obtained at 3 mm slice thickness through the abdomen and pelvis. Coronal and sagittal reconstructions at 3 mm slice thickness were performed. A total of 85 mL Omnipaque 350 intravenous contrast was administered. FINDINGS: LOWER CHEST: Lung bases are clear. ABDOMEN: LIVER: The liver is normal in size without evidence of focal liver lesions. BILE DUCTS: The intrahepatic and extrahepatic ducts are not dilated. GALLBLADDER: No calcified stones. No wall thickening. PANCREAS: The pancreas appears unremarkable without evidence of ductal dilatation or masses. SPLEEN: The spleen is normal in size without focal lesions. ADRENAL GLANDS: Bilateral adrenal glands appear normal. KIDNEYS AND URETERS: The kidneys are normal in size and enhance symmetrically. No hydroureteronephrosis or nephroureterolithiasis is identified. PELVIS: BLADDER: Within normal limits. REPRODUCTIVE ORGANS: Hypodensity within the uterine cavity is nonspecific and could reflect cyclical endometrial thickening or fluid. Ovaries are unremarkable for age. BOWEL: There is mild wall thickening and mucosal hyperenhancement within the rectal region (series 2, image 118, for example) that may reflect a component of proctitis. Sigmoid colonic diverticulosis with no evidence to suggest acute diverticulitis. The stomach and small bowel are normal in caliber and appearance. No evidence of obstruction. Normal appendix. VESSELS: The aorta and IVC appear normal. There are 2 retroaortic left renal veins. PERITONEUM/RETROPERITONEUM/ LYMPH NODES: Small amount of free fluid within the pelvis. No focal fluid collection. No pneumoperitoneum. No lymphadenopathy. BONES AND ABDOMINAL WALL: No suspicious osseous lesions are identified. No acute osseous abnormality. The abdominal wall soft tissues appear normal. IMPRESSION: Findings suggestive of proctitis, likely infectious/inflammatory in nature. Small amount of free fluid within the pelvis, likely reactive. There is indeterminate hypodensity/fluid within the uterine cavity; cervical stenosis cannot be excluded. Colonic diverticulosis. Electronically signed by: NOY SETH MD [facility] CT Abdomen and Pelvis with I V Contraston 11-30-2021 CT Abdomen and Pelvis W contrast IV Normal [facility] Work Phone: Complete Blood Count + Diffe rentialon 11-30-2021 Basophils/100 WBC (Bld) 0.5 % 0.0 - 2.0 [facility] Work Phone: Erythrocyte distribution width (RBC) [Ratio] 12.5 % See Below [facility] Work Phone: Comment on above: Reference Range: 11. 5 - 14.5 Hematocrit (Bld) [Volume fraction] 33.9 % below low threshold See Below [facility] Work Phone: Comment on above: Reference Range: 36. 0 - 46.0 Hemoglobin (Bld) [Mass/Vol] 11.8 g/dL below low threshold See Below [facility] Work Phone: Comment on above: Reference Range: 12. 0 - 16.0 Lymphocytes/100 WBC (Bld) 13.5 % See Below [facility] Work Phone: Comment on above: Reference Range: 13. 0 - 44.0 MCHC (RBC) [Mass/Vol] 34.9 g/dL See Below [facility] Work Phone: Comment on above: Reference Range: 32. 0 - 36.0 MCV (RBC) [Entitic vol] 89 fL 80 - 100 [facility] Work Phone: Monocytes/100 WBC (Bld) 5.9 % 2.0 - 10.0 [facility] Work Phone: Neutrophils/100 WBC (Bld) 78.2 % See Below [facility] Work Phone: Comment on above: Reference Range: 40. 0 - 80.0 Platelets (Bld) [#/Vol] 333 10*3/uL 150 - 450 [facility] Work Phone: RBC (Bld) [#/Vol] 3.79 {x10E12/L} below low threshold See Below [facility] Work Phone: Comment on above: Reference Range: 4.0 0 - 5.20 WBC (Bld) [#/Vol] 10.3 10*3/uL 4.4 - 11.3 [facility] Work Phone: Complete Blood Count + Differential 0.10 {x10E9/L} See Below [facility] Work Phone: Comment on above: Reference Range: 0.0 0 - 0.10 Complete Blood Count + Differential 0.20 {x10E9/L} See Below [facility] Work Phone: Comment on above: Reference Range: 0.0 0 - 0.70 Complete Blood Count + Differential 0.60 {x10E9/L} See Below [facility] Work Phone: Comment on above: Reference Range: 0.1 0 - 1.00 Complete Blood Count + Differential 1.40 {x10E9/L} See Below [facility] Work Phone: Comment on above: Reference Range: 1.2 0 - 4.80 Complete Blood Count + Differential 8.10 {x10E9/L} above high threshold See Below [facility] Work Phone: Comment on above: Reference Range: 1.2 0 - 7.70 Percent differential counts (%) should be interpreted in the context of the absolute cell counts (cells/L). Complete Blood Count + Differential 1.9 % 0.0 - 6.0 [facility] Work Phone: Cult, Urineon 11-30-2021 Bacteria identified Cx Nom (U) [facility] Work Phone: HCG,URINEon 11-30-2021 Beta HCG ( test) Ql (U) Negative Normal Negative [facility] Comment on above: Performed By: #### H CGU #### [place] [id number] HEPATIC FUNCTION PANELon Albumin [Mass/Vol] 4.1 g/dL Normal 3.4 - 5.0 [facility] Comment on above: Performed By: #### H EPFP ####[place] [id number] ALP [Catalytic activity/Vol] 124 U/L High 33 - 110 [facility] Comment on above: Performed By: #### H EPFP ####[address] [address] ALT [Catalytic activity/Vol] 134 U/L High 7 - 45 [facility] Comment on above: Result Comment: Altagracia ents treated with Sulfasalazine may generate falsely decreased results for ALT. Performed By: #### H EPFP ####[address] [address] AST [Catalytic activity/Vol] 72 U/L High 9 - 39 [facility] Comment on above: Result Comment: MILD HEMOLYSIS DETECTED. The result may be falsely elevated due to hemolysis or other interferents. Clinical correlation is recommended. Repeat testing may be considered. Performed By: #### H EPFP ####[address] [address] Bilirubin [Mass/Vol] 0.4 mg/dL Normal 0.0 - 1.2 [facility] Comment on above: Performed By: #### H EPFP ####[address] [address] Bilirubin.indirect [Mass/Vol] 0.1 mg/dL Normal 0.0 - 0.3 [facility] Comment on above: Result Comment: MILD HEMOLYSIS DETECTED. The result may be falsely decreased due to hemolysis or other interferents. Clinical correlation is recommended. Repeat testing may be considered. Performed By: #### H EPFP ####[place] [address] [place] [address] Protein [Mass/Vol] 6.8 g/dL Normal 6.4 - 8.2 [facility] Comment on above: Performed By: #### H EPFP ####[address] [address] Hepatic Function Panelon Albumin BCP dye [Mass/Vol] 4.1 g/dL 3.4 - 5.0 [facility] Work Phone: ALP [Catalytic activity/Vol] 124 U/L above high threshold 33 - 110 [facility] Work Phone: ALT With P-5'-P [Catalytic activity/Vol] 134 U/L above high threshold 7 - 45 [facility] Work Phone: Comment on above: Patients treated wit h Sulfasalazine may generate falsely decreased results for ALT. AST With P-5'-P [Catalytic activity/Vol] 72 U/L above high threshold 9 - 39 [facility] Work Phone: Comment on above: MILD HEMOLYSIS DETEC HAMIDA. The result may be falsely elevated due tohemolysis or other interferents. Clinical correlation is recommended.Repeat testing may be considered. Bilirubin [Mass/Vol] 0.4 mg/dL 0.0 - 1.2 [facility] Work Phone: Bilirubin.direct [Mass/Vol] 0.1 mg/dL 0.0 - 0.3 [facility] Work Phone: Comment on above: MILD HEMOLYSIS DETEC HAMIDA. The result may be falsely decreased due tohemolysis or other interferents. Clinical correlation is recommended.Repeat testing may be considered. Protein [Mass/Vol] 6.8 g/dL 6.4 - 8.2 [facility] Work Phone: LACTATEon 11-30-2021 Lactate [Moles/Vol] 0.7 mmol/L Normal 0.4 - 2.0 [facility] Comment on above: Result Comment: Agatha puncture immediately after or during the administration of Metamizole may lead to falsely low results. Testing should be performed immediately prior to Metamizole dosing. Performed By: #### L ACT #### [address] [address] LIPASEon 11-30-2021 Lipase [Catalytic activity/Vol] 16 U/L Normal 9 - 82 [facility] Comment on above: Result Comment: Agatha puncture immediately after or during the administration of Metamizole may lead to falsely low results. Testing should be performed immediately prior to Metamizole dosing. N-epzxex-v-benzoquinone imine (metabolite of Acetaminophen) will generate erroneously low results in samples for patients that have taken toxic doses of acetaminophen. Performed By: #### L IPAS #### [address] [address] Laboratory - Chemistry and C hemistry - challengeon 11-30-2021 Anion gap [Moles/Vol] 10 mmol/L 10 - 20 [facility] Work Phone: Calcium [Mass/Vol] 8.9 mg/dL 8.6 - 10.3 [facility] Work Phone: Chloride [Moles/Vol] 107 mmol/L 98 - 107 [facility] Work Phone: CO2 [Moles/Vol] 24 mmol/L 21 - 32 [facility] Work Phone: Creatinine [Mass/Vol] 0.75 mg/dL See Below [facility] Work Phone: Comment on above: Reference Range: 0.5 0 - 1.05 Glucose [Mass/Vol] 93 mg/dL 74 - 99 [facility] Work Phone: Potassium [Moles/Vol] 3.9 mmol/L 3.5 - 5.3 [facility] Work Phone: Comment on above: MILD HEMOLYSIS DETEC HAMIDA. The result may be falsely elevated due tohemolysis or other interferents. Clinical correlation is recommended.Repeat testing may be considered. Sodium [Moles/Vol] 137 mmol/L 136 - 145 [facility] Work Phone: Urea nitrogen [Mass/Vol] 9 mg/dL 6 - 23 [facility] Work Phone: Lactate, Levelon 11-30-2021 Lactate [Moles/Vol] 0.7 mmol/L 0.4 - 2.0 [facility] Work Phone: Comment on above: Venipuncture immedia tely after or during the administration of Metamizole may lead to falsely low results. Testing should be performed immediately prior to Metamizole dosing. Lipase, Serumon 11-30-2021 Lipase [Catalytic activity/Vol] 16 U/L 9 - 82 [facility] Work Phone: Comment on above: Venipuncture immedia tely after or during the administration of Metamizole may lead to falsely low results. Testing should be performed immediately prior to Metamizole dosing. Q-ujlvab-z-benzoquinone imine (metabolite of Acetaminophen) will generate erroneously low results in samples for patients that have taken toxic doses of acetaminophen. No Panel Informationon 11-30 >90 >90 [facility] Work Phone: Comment on above: CALCULATIONS OF EDWARD MATED GFR ARE PERFORMED USING THE 2020 CKD-EPI STUDY REFIT EQUATION WITHOUT THE RACE VARIABLE FOR THE IDMS-TRACEABLE CREATININE METHODS.https://jasn.asnjournals.org/content//ASN.2 274341177 Provider Note - ED v3on 11-08 Provider Note - ED v3 Provider Note: Chart Review: ED NOTES ED NOTES: ====HPI==== Patient is a 31-year-old female who presents to the emergency department for chief complaint of bilateral lower abdominal pain. She states that her symptoms started 2 days ago. She states that she woke up this morning and the pain has progressively worsened. She reports diarrhea. No nausea vomiting or fever. No urinary complaints. Patient recently had a cone procedure on October 18 for cervical cancer at [facility]. She denies any abnormal vaginal bleeding or discharge. PMHX: Denies Social HX: Denies TOBACCO Denies ETOH Denies DRUGS ====Review of Systems==== 10 point system review is negative except for those specifically mentioned in history of present illness ====Physical Exam==== Constitutional/General: Alert and oriented x3, well appearing, nontoxic, and in NAD. Head: Normocephalic and atraumatic. Eyes: PERRL, EOMI, conjunctive normal, sclera nonicteric, subconjunctival layer is pink. Mouth: Oropharynx clear, handling secretions, no trismus, no asymmetry of the posterior oropharynx or uvular edema Neck: Supple, full ROM, non tender to palpation in the midline, no stridor, no crepitus, no meningeal signs. Trachea at midline. Respiratory: Lungs clear to auscultation bilaterally, no wheezes, rales, or rhonchi, not in respiratory distress. Cardiovascular: Regular rate, regular rhythm, no murmurs, gallops, or rubs, 2+ distal pulses. Chest: normal chest wall movement GI: Abdomen soft, bilateral lower abdominal tenderness, nondistended, no organomegaly, no palpable masses, no rebound, guarding, or rigidity. Musculoskeletal: Moves all extremities x4, warm and well perfused, no clubbing, cyanosis, or edema, cap refill <3 seconds Integument: Skin warm and dry, no rashes. Neurologic: No focal deficits Psychiatric: Normal affect. ====ED Course and Medical Decision Making==== See MDM section for review of findings & plan of care. Portions of this note were dictated by speech recognition. An attempt at proof reading was made to minimize errors. Minor errors in life coach may be present. Please call if questions.. HISTORY OF PRESENTING ILLNESS PERLITA is a 31 year old Female and was seen by me at 30-Nov-2021 12:58 for a chief complaint of abdominal pain (patient had a comb procedure october 18 at [facility] for cervical cancer. Patient developed lower abdominal pain on friday that has continued. Patient spoke with who advised her to come in . Patient reports diarrhea, denies N/V/fever or any urinary difficulties. Finished antibiotics for kidney infection on friday. Has had history of c diff)(1). Triage Information: Most recent Vital Sign Value Date Temp (F): 98.6 11-30-2021 12:32 Temp (C): 37 11-30-2021 12:32 Heart Rate (beats/min): 104 11-30-2021 12:32 Respirations (breaths/min): 16 11-30-2021 12:32 SpO2 (%): 98 11-30-2021 12:32 BP Systolic (mm Hg): 123 11-30-2021 12:32 BP Diastolic (mm Hg): 75 11-30-2021 12:32 PAST MEDICAL HISTORY ALLERGIES/INTOLERANCES: No Known Allergies HEALTH HISTORY: Medical History Name:Carcinoma in situ of cervix Code:D06.9 Name:Smoker Code:F17.200 Name:Encounter for smoking cessation counseling Code:Z71.6 OUTPATIENT MEDICATIONS: Home Medications Review Status for Reconciliation: Complete Med Status: No Current Medications SIGNIFICANT EVENTS: Clinical Events Description:Surgical Procedure Additional Notes:1. cervical cold knife cone biopsy Past Medical History Description:cervical cancer CRITICAL CARE RESULTS: Recent Lab Results: I have reviewed these laboratory results: Urinalysis with Culture if Indicated 30-Nov-2021 14:30:00 ResultValue Color, Urine Yellow Reference Range: STRAW,YELLOW Appearance, Urine HAZY Specific [place], Urine 1.016 pH, Urine 5.0 Protein, Urine NEGATIVE Glucose, Urine NEGATIVE Blood, Urine SMALL(1+) A Ketones, Urine NEGATIVE Bilirubin, Urine NEGATIVE Urobilinogen, Urine <2.0 Nitrite, Urine Negative Leukocyte Esterase, Urine LARGE(3+) A Urinalysis, Microscopic 30-Nov-2021 14:30:00 ResultValue White Cells 3 Red Blood Cells 1 Epithelial Cells, Squamous 6 Bacteria, Urine 2+ A Mucous 1+ Hepatic Function Panel 30-Nov-2021 14:29:00 ResultValue Aspartate Transaminase, Serum 72 H ALB 4.1 T Bili 0.4 Bilirubin, Serum Direct - Conjugated 0.1 ALKP 124 H Alanine Aminotransferase, Serum 134 H T Pro 6.8 Complete Blood Count + Differential 30-Nov-2021 14:29:00 ResultValue White Blood Cell Count 10.3 Red Blood Cell Count 3.79 L HGB 11.8 L HCT 33.9 L MCV 89 MCHC 34.9 PLT 333 RDW-CV 12.5 Neutrophil % 78.2 Lymphocyte % 13.5 Monocyte % 5.9 Eosinophil % 1.9 Basophil % 0.5 Neutrophil Count 8.10 H Lymphocyte Count 1.40 Monocyte Count 0.60 Eosinophil Count 0.20 Basophil Count 0.10 Basic (more content not included)... Normal [facility] Risk Screen - Adult Emergenc yon 11-30-2021 Risk Screen - Adult Emergency Preferred Language: Preferred Language: Preferred Language for Discussing Health Care (patient/designee)Lithuanian Advanced Directives: Advance Directive/DNRno Family Violence Adult: Abuse Screen: Are you or have you been threatened or abused physically, emotionally, or sexually by anyoneno Learning Assessment (Patient): Learning Assessment (Patient): Patient is Able to be Assessed for Learningyes Factors Influencing Readiness to Learnnone Factors that Impact Ability to Learnnone Devices/Methods Used to Communicatenone Learning Preferenceswritten material; verbal instruction Cultural Considerationsnone Developmental Considerationsnone Advent Considerationsnone Learning Assessment (Other Learner): Learning Assessment (Other Learner): Other learner availableno Pressure Injury/TB/Substance: Pressure Injury: Do you have a coughno Smoking Statusheavy user (uses >30 cig/day, OR >1.5 ppd, OR >3 cans/pouches loose leaf tobacco per week, OR >1.5 vape pods per day) Tobacco Cessation Education (provide if tobacco use within the last 12 mos) patient declined Alcohol Useoccasionally Drug Usedenies Admission Risk Screen: Significant IndicatorsComplete CAGE: CAGE: Is this an injured patient at a Trauma Center ([facility]/[place]): no Electronic Signatures: Karol Piña (SUPV) (Signed 30-Nov-2021 12:38) Authored: Preferred Language, Advanced Directives, Family Violence Adult, Learning Assessment (Patient), Learning Assessment (Other Learner), Pressure Injury/TB/Substance, Pressure Injury, CAGE Last Updated: 30-Nov-2021 12:38 by Karol Piña (SUPV) [facility] Triage - EDon 11-30-2021 Triage - ED Quick Triage: Are You no Are You Currently Breastfeedingno Chart Review: ARRIVAL INFORMATION Mode of Arrival: private vehicle CHIEF COMPLAINT PERLITA THAKKAR is a Female patient with a chief complaint of abdominal pain (patient had a comb procedure october 18 at [facility] for cervical cancer. Patient developed lower abdominal pain on friday that has continued. Patient spoke with who advised her to come in . Patient reports diarrhea, denies N/V/fever or any urinary difficulties. Finished antibiotics for kidney infection on friday. Has had history of c diff). Triage Date/Time: 30-Nov-2021 12:32 CECILIA: 3 Pain Rating (0-10): 8 = Severe Pain location: abd Vital Signs: Temperature: 98.6F ( 37.0C) taken temporal Blood Pressure: 123/75 Mean: Heart Rate: 104 Respiratory Rate: 16 Pulse Oximetry: 98% on room air, no respiratory support. Height: 5 feet 4.00 inches. 162.5 CM Weight: 126.3 pounds. Calculated 57.3 kg. (stated) Calculated BMI (kg/m2): 21.699 Calculated BSA (m2) 1.61 Lelo Coma Scale: Best Eye Response: (E4) spontaneous Best Motor Response: (M6) obeys commands Best Verbal Response: (V5) oriented Lelo Score: 15 Allergies: no Last menstrual period: 24-Sep-2021 Patient has homicidal thoughts: no Symptoms Are POSITIVE For: diarrhea. Symptoms Are Negative For: anorexia, constipation, diaphoresis, distention, fever, nausea, rectal blood and vomiting. Risk Screens Suicide Risk Screen In the Past Month: Have you wished you were or wished you could go to sleep and not wake up no In the Past Month: Have you had any actual thoughts of killing yourself no In Your Lifetime: Have you ever done anything, started to do anything, or prepared to do anything to end your life no Astudillo Fall Scale Screening Has the patient fallen before (or is the patient in the ED as a result of a fall) has not had a fall Does the patient have an impaired gait does not have impaired gait Is the patient cognitively impaired not cognitively impaired Interventions: Astudillo Fall Interventions: LOW INTERVENTIONS: *patient oriented to surroundings and call system, * patient/family falls education completed and documented, *patients fall status communicated during bedside handoff, *whiteboard updated, *mode of toileting discussed with patient, *bed in low position with brakes locked, *call light in reach, * non-skid footwear TRAVEL HISTORY Travel History Coronavirus Screening: no exposure or symptoms Travel Exposure History: NO travel to International locations in the past 30 days PAIN Pain Scale Used: SAVITA Pain Rating (0-10): 8 = Severe Past Medical History: Past Medical History Reviewedyes cervical cancer: Past Medical History, Active Electronic Signatures: Karol Piña (SUPV) (Signed 30-Nov-2021 12:37) Entered: Risk Screens, Pain, Travel History, Chart Review, Scores, Past Medical History Authored: Quick Triage, Risk Screens, Pain, Travel History, Chart Review, Scores, Past Medical History Last Updated: 30-Nov-2021 12:37 by Karol Piña (SUPV) Normal [facility] UA MICROSCOPICon 11-30-2021 BACTERIA 2+ /HPF Abnormal [facility] Comment on above: Performed By: #### U AMIC ####[place] [address] Mucus Ql (Urine sed) 1+ /LPF Normal [facility] Comment on above: Performed By: #### U AMIC ####[place] [address] RBC 1 /HPF Normal 0-5 [facility] Comment on above: Performed By: #### U AMIC ####[place] [address] SQUAMOUS EPITH. CELLS 6 /HPF Normal [facility] Comment on above: Performed By: #### U AMIC ####[place] [address] WBC 3 /HPF Normal 0-5 [facility] Comment on above: Performed By: #### U AMIC ####[address] [address] URINALYSIS WITH CULTURE IF I NDICATEDon 11-30-2021 Appearance (U) HAZY Normal CLEAR [facility] Comment on above: Performed By: #### U ARFX #### [place] [address] Bilirubin Ql (U) Negative Normal NEGATIVE [facility] Comment on above: Performed By: #### U ARFX #### [place] [address] Color (U) Yellow Normal STRAW,YELLOW [facility] Comment on above: Performed By: #### U ARFX #### [place] [address] Glucose Ql (U) Negative Normal NEGATIVE [facility] Comment on above: Performed By: #### U ARFX #### [place] [address] Hemoglobin Ql (U) SMALL(1+) Abnormal NEGATIVE [facility] Comment on above: Performed By: #### U ARFX #### [place] [id number] Ketones Ql (U) Negative Normal NEGATIVE [facility] Comment on above: Performed By: #### U ARFX #### [place] [address] Leukocyte esterase Test strip Ql (U) LARGE(3+) Abnormal NEGATIVE [facility] Comment on above: Performed By: #### U ARFX #### [address] [address] Nitrite Ql (U) Negative Normal NEGATIVE [facility] Comment on above: Performed By: #### U ARFX #### [place] [id number] pH (U) 5.0 [pH] Normal 5.0 - 8.0 [facility] Comment on above: Performed By: #### U ARFX #### [address] [address] Protein Ql (U) Negative Normal NEGATIVE [facility] Comment on above: Performed By: #### U ARFX #### [address] [address] Specific gravity (U) [Rel density] 1.016 Normal 1.005 - 1.035 [facility] Comment on above: Performed By: #### U ARFX #### [address] [address] Urobilinogen (U) [Mass/Vol] mg/dL Normal 0.0 - 1.9 [facility] Comment on above: Performed By: #### U ARFX #### [place] [id number] Color (U) Yellow See Below [facility] Work Phone: Comment on above: Reference Range: STR AW,YELLOW Glucose Ql (U) Negative NEGATIVE [facility] Work Phone: Ketones Ql (U) Negative NEGATIVE [facility] Work Phone: Leukocyte esterase Test strip Ql (U) LARGE(3+) Abnormal NEGATIVE [facility] Work Phone: pH (U) 5.0 [pH] 5.0 - 8.0 [facility] Work Phone: Protein (U) [Mass/Vol] Negative NEGATIVE [facility] [facility] Work Phone: RBC (U) [#/Vol] SMALL(1+) Abnormal NEGATIVE [facility] Work Phone: Specific gravity (U) [Rel density] 1.016 1 See Below [facility] Work Phone: Comment on above: Reference Range: 1.0 05 - 1.035 URINALYSIS WITH CULTURE IF INDICATED Negative NEGATIVE [facility] Work Phone: URINALYSIS WITH CULTURE IF INDICATED <2.0 0.0 - 1.9 [facility] Work Phone: URINALYSIS WITH CULTURE IF INDICATED HAZY CLEAR [facility] Work Phone: URINE CULTURE,BACTERIALon URINE CULTURE,BACTERIAL PATIENT: PERLITA THAKKAR LOCATION[facility] [id number] : 89 AGE: SEX: F ORDERED BY: NICKIE GALO SOURCE: URINE COLLECTED: 11/30/21 14:30 ANTIBIOTICS AT ION.: RECEIVED : 12/01/21 17:48 SITE: R E S U L T S URINE CULTURE,BACTERIAL FINAL 12/02/21 10:05 NO GROWTH Normal [facility] Comment on above: Performed By: #### U [facility] #### [facility] [address] [place] [address] Urinalysis, Microscopicon Urinalysis, Microscopic 1+ [facility] Work Phone: Urinalysis, Microscopic 2+ Abnormal [facility] Work Phone: Urinalysis, Microscopic 6 {/HPF} [facility] Work Phone: Urinalysis, Microscopic 1 {/HPF} 0-5 [facility] Work Phone: Urinalysis, Microscopic 3 {/HPF} 0-5 [facility] Work Phone: Urine Teston 11-30 HCG ( test) Ql (U) Negative Negative [facility] Work Phone: Antithyroid Perox. Abon 11-07 TPO Ab Qn [IU]/mL [facility] [address] [place] Work Phone: [phone] Comment on above: Negative: <=60 U/mLP ositive: >60 U/mL Complete Blood Count + Diffe rentialon 11-19-2021 Basophils/100 WBC (Bld) 0.5 % 0.0 - 2.0 [facility] Work Phone: [phone] Erythrocyte distribution width (RBC) [Ratio] 12.5 % See Below [facility] Work Phone: [phone] Comment on above: Reference Range: 11. 5 - 14.5 Hematocrit (Bld) [Volume fraction] 36.6 % See Below [facility] Work Phone: [phone] Comment on above: Reference Range: 36. 0 - 46.0 Hemoglobin (Bld) [Mass/Vol] 12.1 g/dL See Below [facility] Work Phone: [phone] Comment on above: Reference Range: 12. 0 - 16.0 Lymphocytes/100 WBC (Bld) 28.6 % See Below [facility] Work Phone: [phone] Comment on above: Reference Range: 13. 0 - 44.0 MCHC (RBC) [Mass/Vol] 33.0 g/dL See Below [facility] Work Phone: [phone] Comment on above: Reference Range: 32. 0 - 36.0 MCV (RBC) [Entitic vol] 91 fL 80 - 100 [facility] Work Phone: [phone] Monocytes/100 WBC (Bld) 5.5 % 2.0 - 10.0 [facility] Work Phone: [phone] Neutrophils/100 WBC (Bld) 60.5 % See Below [facility] Work Phone: [phone] Comment on above: Reference Range: 40. 0 - 80.0 Platelets (Bld) [#/Vol] 343 10*3/uL 150 - 450 [facility] Work Phone: [phone] RBC (Bld) [#/Vol] 4.02 {x10E12/L} See Below [facility] Work Phone: [phone] Comment on above: Reference Range: 4.0 0 - 5.20 WBC (Bld) [#/Vol] 8.2 10*3/uL 4.4 - 11.3 [facility] Work Phone: [phone] Complete Blood Count + Differential 0.00 {x10E9/L} See Below [facility] Work Phone: [phone] Comment on above: Reference Range: 0.0 0 - 0.10 Complete Blood Count + Differential 0.40 {x10E9/L} See Below [facility] Work Phone: [phone] Comment on above: Reference Range: 0.0 0 - 0.70 Reference Range: 0.1 0 - 1.00 Complete Blood Count + Differential 2.40 {x10E9/L} See Below [facility] Work Phone: [phone] Comment on above: Reference Range: 1.2 0 - 4.80 Complete Blood Count + Differential 5.00 {x10E9/L} See Below [facility] Work Phone: [phone] Comment on above: Reference Range: 1.2 0 - 7.70 Percent differential counts (%) should be interpreted in the context of the absolute cell counts (cells/L). Complete Blood Count + Differential 4.9 % 0.0 - 6.0 [facility] Work Phone: [phone] Complete Blood Count + Differential 0.2 {/100_WBC} [facility] Work Phone: [phone] GC + Chlamydia By Amplified Detectionon 11-19-2021 C. trachomatis rRNA CHRIS+probe Ql (Unsp spec) Negative Negative [facility] [address] [place] Work Phone: Comment on above: The APTIMA Combo 2 a ssay is FDA-approved for Chlamydia trachomatis and Neisseria gonorrhoeae testing on female endocervical and vaginal swabs, ThinPrep liquid pap samples, male urine samples and urethral swabs. Performance characteristics for Chlamydia trachomatis and Neisseria gonorrhoeae testing on specific tde-SJK-wqszmzwy sample types (female urine samples) have been validated by [facility]. This laboratory is certified by CLIA to perform high complexity testing. Samples from all other sites are not validated for this method. N. gonorrhoeae rRNA CHRIS+probe Ql (Unsp spec) Negative Negative [facility] [address] [place] Work Phone: Comment on above: SOURCE: Urine The AP JAVAN Combo 2 assay is FDA-approved for Chlamydia trachomatis and Neisseria gonorrhoeae testing on female endocervical and vaginal swabs, ThinPrep liquid pap samples, male urine samples and urethral swabs. Performance characteristics for Chlamydia trachomatis and Neisseria gonorrhoeae testing on specific giz-LPE-issxphfv sample types (female urine samples) have been validated by [facility]. This laboratory is certified by CLIA to perform high complexity testing. Samples from all other sites are not validated for this method. HIV 1/2 ANTIGEN/ANTIBODY SCR EEN WITH REFLEX TO CONFIRMATIONon 11-19-2021 HIV 1+2 Ab Qn (S) Non-Reactive See Below [employer] TENDER-[facility] [address] [place] Work Phone: Comment on above: SOURCE: Reference Ra nge: NONREACTIVE HIV Ag/Ab screen is performed using the [employer] HIV Ag/Ab Combo assay which detects the presence of HIV p24 antigen as well as antibodies to HIV-1 (Group M and O) and HIV-2..No laboratory evidence of HIV infection. If acute HIV infection is suspected, consider testing for HIV RNA by PCR (viral load). Hepatitis B Surface Antigeno n 11-19-2021 Hepatitis B Surface Antigen Non-Reactive See Below [facility] [address] [place] Work Phone: Comment on above: Reference Range: NON REACTIVE Biotin interference may cause falsely decreased results. Patients taking a Biotin dose of up to 5 mg/day should refrain from taking Biotin for 24 hours before sample collection. Providers may contact their local laboratory for further information. Reference Range: NON REACTIVE Results from patients taking biotin supplements or receiving high-dose biotin therapy should be interpreted with caution due to possible interference with this test. Providers may contact their local laboratory for further information. Laboratory - Blood bankon ABO group Nom (Bld) A [facility] [address] [place] Work Phone: [phone] Blood group antibody screen Ql Negative [facility] [address] [place] Work Phone: [phone] Rh immune globulin screen (Bld) [Interp] Positive [facility] [address] [place] Work Phone: [phone] ABO group Nom (Bld) Canceled [facility] Work Phone: [phone] Blood group antibody screen Ql Canceled [facility] Work Phone: [phone] Rh immune globulin screen (Bld) [Interp] Canceled [facility] Work Phone: [phone] Laboratory - Chemistry and C hemistry - challengeon 11-19-2021 Albumin BCP dye [Mass/Vol] 4.1 g/dL 3.4 - 5.0 [facility] [address] [place] Work Phone: [phone] ALP [Catalytic activity/Vol] 60 U/L 33 - 110 [facility] [address] [place] Work Phone: [phone] ALT With P-5'-P [Catalytic activity/Vol] 8 U/L 7 - 45 [facility] [address] [place] Work Phone: [phone] Comment on above: Patients treated wit h Sulfasalazine may generate falsely decreased results for ALT. Anion gap [Moles/Vol] 9 mmol/L below low threshold 10 - 20 [facility] [address] [place] Work Phone: [phone] AST With P-5'-P [Catalytic activity/Vol] 11 U/L 9 - 39 [facility] [address] [place] Work Phone: Bilirubin [Mass/Vol] 0.3 mg/dL 0.0 - 1.2 [facility] [address] [place] Work Phone: [phone] Calcium [Mass/Vol] 8.6 mg/dL 8.6 - 10.3 [facility]N-[facility] [address] [place] Work Phone: Chloride [Moles/Vol] 109 mmol/L above high threshold 98 - 107 [facility] [address] [place] Work Phone: CO2 [Moles/Vol] 24 mmol/L 21 - 32 [facility] [address] [place] Work Phone: Creatinine [Mass/Vol] 0.82 mg/dL See Below [facility] [address] [place] Work Phone: Comment on above: Reference Range: 0.5 0 - 1.05 Glucose [Mass/Vol] 102 mg/dL above high threshold 74 - 99 [facility] [address] [place] Work Phone: Mullerian inhibiting substance [Mass/Vol] 2.31 ng/mL [facility] Work Phone: Comment on above: For assays employing antibodies, the possibility exists forinterference by heterophile antibodies in the samples.11.Abe [place] Interferences in Immunoassays - still a threat. Clin. Chem. 2000; 46: 8833-2370.This test was developed and its performance characteristicsdetermined by [employer]. It has not been cleared or approvedby the Food and Drug Administration.Reference Range:Females 31 - 35y: 0.66 - 8.75Median 3.00AMH concentrations of >= 1.06 ng/mL is correlated with abetter response to ovarian stimulation, produced moreretrievable oocytes and higher odds of live accordingto Eliot edward al. Fertility and Sterility. 2010:94:6665-3716. The current AMH test method correlates withthe study method with a slope of 0.94.Females at risk of ovarian hyperstimulation syndrome orpolycystic ovarian syndrome (PCOS) may exhibit elevatedserum AMH concentrations. AMH levels from PCOS patientsmay be 2 to 5 fold higher than age-appropriate referenceinterval values.Granulosa cell tumors of the ovary may secrete AMH alongwith other tumor markers. Elevated AMH is not specific formalignancy, and the assay should not be used exclusively todiagnose or exclude an AMH-secreting ovarian tumor. Potassium [Moles/Vol] 3.6 mmol/L 3.5 - 5.3 [facility] [address] [place] Work Phone: Protein [Mass/Vol] 6.7 g/dL 6.4 - 8.2 [facility] YN-[facility] [address] [place] Work Phone: Sodium [Moles/Vol] 138 mmol/L 136 - 145 [facility] YN-[facility] [address] [place] Work Phone: TSH Qn 0.64 m[IU]/L See Below [facility] [address] [place] Work Phone: Comment on above: Reference Range: 0.4 4 - 3.98 TSH testing is performed using different testing methodology at [facility] than at other [facility]. Direct result comparisons should only be made within the same method. Urea nitrogen [Mass/Vol] 16 mg/dL 6 - 23 [facility] [address] [place] Work Phone: No Panel Informationon 11-19 >90 >90 [facility] [address] [place] Work Phone: Comment on above: CALCULATIONS OF EDWARD MATED GFR ARE PERFORMED USING THE 2020 CKD-EPI STUDY REFIT EQUATION WITHOUT THE RACE VARIABLE FOR THE IDMS-TRACEABLE CREATININE METHODS.https://jasn.asnjournals.org/content//ASN.2 399424802 SYPHILIS SCREENING WITH REFL EXon 11-19-2021 T. pallidum IgG+IgM IA Ql (S) Non-Reactive See Below [facility] [address] [place] Work Phone: Comment on above: SOURCE: Reference Ra nge: NONREACTIVENo significant level of Treponema pallidum antibody detected. Repeat testing in 2 to 4 weeks may be considered if early infection or incubating syphilis infection is suspected. TYPE + SCREENon 11-19-2021 ABO TYPE A Normal [facility] Comment on above: Performed By: #### T +S #### [address] [address] RH TYPE Positive Normal [facility] Comment on above: Performed By: #### T +S #### [address] [address] AIR GUN OPERATOR - Office Visiton AIR GUN OPERATOR - Office Visit Diagnoses/Problems Assessed Fertility testing (V26.21) (Z31.41) Adenocarcinoma of cervix (180.9) (C53.9) Orders Maternal Medicine Referral Evaluation and Treatment Evaluate AND Treat Status: Hold For - Scheduling Requested for: 15Nov2021 Anti Mullerian Hormone; Status:Active; Requested for:15Nov2021; Antithyroid Perox. Ab; Status:Active; Requested for:15Nov2021; Complete Blood Count + Differential; Status:Active; Requested for:15Nov2021; Comprehensive Metabolic Panel; Status:Active; Requested for:15Nov2021; GC + Chlamydia By Amplified Detection; Status:Active; Requested for:15Nov2021; Hepatitis B Surface Antigen; Status:Active; Requested for:15Nov2021; Hepatitis C Antibody Test; Status:Active; Requested for:15Nov2021; HIV 1/2 ANTIGEN/ANTIBODY SCREEN WITH REFLEX TO CONFIRMATION; Status:Active; Requested for:15Nov2021; IO Ultrasound, pelvic complete; Status:Hold For - Scheduling; Requested for:15Nov2021; Radiologist to Determine Optimal Study : Y What are the patient's signs and symptoms? : fert test SYPHILIS SCREENING WITH REFLEX; Status:Active; Requested for:15Nov2021; TSH WITH REFLEX TO FREE T4 IF ABNORMAL; Status:Active; Requested for:15Nov2021; Type and Screen; Status:Active; Requested for:15Nov2021; Patient Discussion/Summary Perlita is a 31-year-old female who is referred today for fertility preservation counseling. 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 Counseling: The patient's history and proposed treatment plan were discussed at length, and all questions were answered to her and her partner's satisfaction. The impact on fertility of the proposed treatments were discussed at length, and she understands that this impact may be significant. Regarding treatment options, the risks, benefits, and details of oocyte and embryo freezing were discussed. She understands that on average, patients are given gonadotropins to stimulate follicular growth for approximately 10 to 12 days. Following this, oocyte retrieval is performed and there is no reason to delay moving onto treatment of her malignancy once this has occurred. The risks of this procedure were once again reviewed including risks of hyperstimulation, failure to stimulate or retrieve eggs, expected 4 to 10% chance of live per egg retrieved, risks of the retrieval itself (bleeding, infection, damage to abdominal/pelvic organs, risks of anesthesia), and risks associated with ICSI if egg cryopreservation is performed (potential association with epispadias and imprinting disorders). Additionally, pros and cons of cryopreservation of eggs versus embryos was discussed at length. The patient understands that the quality of any embryos or eggs that are frozen are expected to correlate with the age of the patient when the retrieval was performed. As such, we would expect any retrieved eggs to be of 31 year-old quality, regardless of when she desires to utilize them. The age-related decline in fertility was also briefly discussed at this point. Additionally, the patient does understand that malignancy can have a negative effect on a quality and the patient's ability to produce eggs during an IVF cycle as well. At this point, pelvic radiation may not be something that is expected to be a portion of this patient's treatment regimen, though it is possible that it may be necessary in the future. If this is the case, then the possibility of proceeding with ovarian transposition was discussed. If the patient proceeds with hysterectomy, and is expected for the ovaries to be left in situ, it would be reasonable for this to be performed at the time of that procedure. Risks, benefits, and details of ovarian transposition were reviewed at length. Should the patient's ovaries remain in situ and chemotherapy necessary in the future, the option of giving Depo-Lupron was also discussed. She understand that the data surrounding Lupron's ability to preserve fertility is quite controversial. Ovarian tissue cryopreservation was also briefly discussed, and the patient understands that this is an newer technique with limited data, and it is not offered at this facility. If the patient would like to proceed with ovarian tissue cryopreservation, we can make a referral to a facility that provides this service. Should the patient's ovaries be removed during her treatment, the risks of premature surgical menopause were discussed at length. She understands the patient is to get her menopause at an early age or at significant increased risk for early onset osteoporosis and heart disease. As such, the possibility of proceeding with hormone replacement therapy was briefly discussed. If the patient proceeds with hysterectomy prior to proceeding with childbearing, then the possibility of using her oocytes with a gestational carrier was reviewed. Gestational carrier process was briefly discussed, and all questions were answered (more content not included)... Normal LOG607 Tobacco Screening.on 022 Fall risk assessment a) No falls within the last year [facility] Work Phone: Last menstrual period start date 18Oct2021 [facility] Work Phone: [phone] Tobacco use status CPHS b) No [facility] Work Phone: [phone] Cult, Urineon 11-09-2021 Bacteria identified Cx Nom (U) Abnormal [facility] Work Phone: Urinalysison 11-09-2021 Color (U) YELLOW See Below [facility] Work Phone: [phone] Comment on above: Reference Range: STR AW,YELLOW Glucose Ql (U) Negative NEGATIVE [facility] Work Phone: [phone] Ketones Ql (U) Negative NEGATIVE [facility] Work Phone: [phone] Leukocyte esterase Test strip Ql (U) LARGE (3+) Abnormal NEGATIVE [facility] Work Phone: pH (U) 7.0 [pH] 5.0 - 8.0 [facility] Work Phone: [phone] Protein (U) [Mass/Vol] Negative NEGATIVE [facility] Work Phone: [phone] RBC (U) [#/Vol] SMALL (1+) Abnormal NEGATIVE [facility]- [facility] Work Phone: [phone] Specific gravity (U) [Rel density] 1.018 1 See Below [facility] Work Phone: [phone] Comment on above: Reference Range: 1.0 05 - 1.035 Urinalysis Negative NEGATIVE [facility] Work Phone: [phone] Urinalysis <2.0 0.0 - 1.9 [facility] Work Phone: [phone] Urinalysis HAZY CLEAR [facility] Work Phone: [phone] Urinalysis, Microscopicon Urinalysis, Microscopic 1+ [facility] Work Phone: [phone] Urinalysis, Microscopic 2+ Abnormal [facility] Work Phone: [phone] Urinalysis, Microscopic 9 {/HPF} [facility] Work Phone: [phone] Urinalysis, Microscopic 2 {/HPF} 0-5 [facility] Work Phone: [phone] Urinalysis, Microscopic 5 {/HPF} 0-5 [facility] Work Phone: [phone] IO HCG, Urine Test on 09-11-2021 HCG ( test) Ql (U) Negative Normal [employer] Work Phone: No Panel Informationon 09-11 [employer] Work Phone: AIR GUN OPERATOR - Procedure Visiton 0 09-11-2021 AIR GUN OPERATOR - Procedure Visit Diagnoses/Problems ASCUS with positive high risk HPV cervical (795.01,795.05) (R87.610,R87.810) Atypical glandular cells of undetermined significance (OTTO) on cervical Pap smear (795.00) (R87.619) Current smoker (305.1) (F17.200) Orders SocHx: Current smoker Start: Varenicline Tartrate 0.5 MG Oral Tablet; TAKE 1 TABLET Daily Take 1 tablet daily on day 1 2 and 3. Take 1 tablet twice a day on day 4,5, 6 and 7 Tobacco Use Screening; Status:Complete; Done: 11Sep2021 Start: Varenicline Tartrate 1 MG Oral Tablet; TAKE 1 TABLET TWICE DAILY Urine test negative IO HCG, Urine Test; Status:Complete; Done: 11Sep2021 09:51AM Provider Impressions Patient is a 31-year-old who comes in for an endometrial biopsy and a colposcopy secondary to an abnormal Pap smear. Biopsies were done. Suspect less than or equal to mild dysplasia. Will call patient with test results and confirm follow-up as indicated. Extensive discussion about her long history of cervical dysplasia. Discussed risk factors and lifestyle modifications. Discussed indications for treatment and treatment options. Patient is interested in quitting smoking will start chantix1 1 Amended By: Shwetha Mosher; Sep 11 2021 10:26 AM ESTChief Complaint Pt here today for Colpo and EMB. Pt has no questions at this time. History of Present IllnessPatient is a 31-year-old with a long history of cervical dysplasia. Patient has had a LEEP in the past. Patient is coming in for colposcopy secondary to low-grade SHAWANDA and atypical glandular cells on Pap. Patient does not use any contraception last coitus was 9 days ago. Active Problems Problems Breast thickening (611.79) (N64.59) Cervical dysplasia (622.10) (N87.9) Pap test, as part of routine gynecological examination (V76.2) (Z01.419) Screening for cervical cancer (V76.2) (Z12.4) Past Medical History Problems History of Menstruation Onset age 14 years Surgical History Problems History of Loop electrosurgical excision procedure 01/10/2012 Family History Mother No pertinent family history Father No pertinent family history Grandmother Family history of diabetes mellitus (V18.0) (Z83.3) Family history of malignant neoplasm of skin (V16.8) (Z80.8) Grandfather Family history of lung cancer (V16.1) (Z80.1) Social History Problems Consumes alcohol occasionally (V49.89) (Z78.9) Current smoker (305.1) (F17.200) No illicit drug use Sexually active Tobacco use (305.1) (Z72.0) 1/2 pack per day Allergies Medication No Known Drug Allergies Recorded By: Miguelina Hernández; 08/17/2021 10:39:44 AM Current Meds Medication NameInstruction No Reported Medications Vitals Vital Signs Recorded: 11Sep2021 09:49AM [id number] Eppnblokk42 Height5 ft 5 in Rkfued453 lb 0.62 oz BMI Izcoerkztr60.31 kg/m2 BSA Calculated1.67 Results/Data IO HCG, Urine [id number] 09:51AMShwetha Mosher MEDLINE HCG LOT [id number] EXP 2023-01-06 Test NameResultFlagReference IO Urine hCGNegative Procedure The patient was placed in the dorsolithotomy position the anterior lip of the cervix was grasped with a single-tooth tenaculum after the cervix had been cleaned with Betadine. The endometrial Pipelle was inserted into the uterus. 2 passes were done and retrieved endometrial tissue. We then removed the tenaculum from the anterior lip of the cervix. We then applied acetic acid to the cervix. There was mosaicism present at the 12 o'clock position. There were acetowhite changes at the 10 o'clock position. Application of Lugol's solution confirm the abnormalities previously noted. Biopsies were done at 12 and 10:00. Endocervical curettage was also done. Monsel solution was then applied and there was good hemostasis instruments were then removed from the patient's cervix and vagina Signatures Electronically signed by : Shwetha Mosher DO; Sep 11 2021 10:27AM EST (Author) Normal LOG607 DIGITAL DIAG MAMM BILAT WITH TOMOon 08-22-2021 DIGITAL DIAG MAMM BILAT WITH JERICHO Patient Name: PERLITA THAKKAR STUDY: Digital diagnostic mammogram bilateral with jericho; 08/22/2021 9:01 am ACCESSION NUMBER(S): [id number] ORDERING CLINICIAN: SHWETHA MOSHER INDICATION: Diagnostic mammogram. Breast thickening COMPARISON: No prior studies are available for comparison FINDINGS: CC and MLO 2D digital mammograms and digital breast tomosynthesis images were obtained of the bilateral breasts. 3-D volume images were reconstructed in 4 views at an independent workstation as 1 mm slices through the breasts in both the CC and MLO projections. The breast tissue is heterogeneously dense, which may obscure small masses. No discrete mass or focal asymmetry is identified. No suspicious microcalcifications or foci of architectural distortion are seen. This study was interpreted with CAD. IMPRESSION: No mammographic evidence of malignancy. BI-RADS CATEGORY: Category: 1 - Negative. Recommendation: 1 Year Screening. Electronically signed by: SERENITY SOMMERS MD [facility] Radiologyon 08-22-2021 MG Breast Diagnostic Normal [employer] [facility] [place] Work Phone: LMPon 08-17-2021 Last menstrual period start date 10Aug2021 [employer] [facility] [place] Work Phone: Laboratory - Cytologyon 08-07 Cytology report Cyto stain.thin prep Doc (Cvx/Vag) [facility] [place] Work Phone: AIR GUN OPERATOR - Office Visiton 08-07 AIR GUN OPERATOR - Office Visit Diagnoses/Problems Assessed Breast thickening (611.79) (N64.59) Cervical dysplasia (622.10) (N87.9) Pap test, as part of routine gynecological examination (V76.2) (Z01.419) Orders Mamm - Digital Diagnostic Mammogram Bilateral w/ Tomosynthesis; Status:Hold For - Scheduling; Requested for:17Aug2021; Radiologist to Determine Optimal Study : Y What are the patient's signs and symptoms? 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 Patient with a significant history of moderate dysplasia without follow-up. Pap smear with cotesting done today and will need to follow-up in 1 year Right breast thickening we will get a diagnostic mammogram. Contraception declined and will continue using condoms Chief Complaint Patient here today for yearly exam. She has no concerns. Last pap: more than 5 years ago. 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 Patient reports that she had cervical dysplasia with a LEEP in 2018 and has not had follow-up. Patient reports her periods are regular. Patient denies any abnormal discharge or bleeding. Patient is sexually active and only uses condoms. Review of Systems Constitutional: Denies any change in weight or temperature tolerance. Cardiovascular: Denies any chest pain or palpitations. Respiratory: Denies any shortness of breath or cough. Gastrointestinal: Denies any changes in bowel habits or abdominal pain. Genitourinary: as noted in HPI. Psychiatric: Denies any significant change in mood or her sleeping pattern. Active Problems Problems Breast thickening (611.79) (N64.59) Cervical dysplasia (622.10) (N87.9) Pap test, as part of routine gynecological examination (V76.2) (Z01.419) Past Medical History Problems History of Menstruation Onset age 14 years Surgical History Problems History of Loop electrosurgical excision procedure 01/10/2012 Family History Mother No pertinent family history Father No pertinent family history Grandmother Family history of diabetes mellitus (V18.0) (Z83.3) Family history of malignant neoplasm of skin (V16.8) (Z80.8) Grandfather Family history of lung cancer (V16.1) (Z80.1) Social History Problems Consumes alcohol occasionally (V49.89) (Z78.9) No illicit drug use Sexually active Tobacco use (305.1) (Z72.0) 1/2 pack per day Allergies Medication No Known Drug Allergies Recorded By: Miguelina Hernández; 08/17/2021 10:39:44 AM Current Meds Medication NameInstruction No Reported Medications Vitals Vital Signs Recorded: 17Aug2021 10:49AM [id number] Tlchmbgkw71 Height5 ft 5 in Gacyuw981 lb 2 oz BMI Szmwxlhwbv28.65 kg/m2 BSA Calculated1.68 [id number] Physical Exam Constitutional: Healthy-appearing female in no distress. Head and Face: No obvious lesions. Neck: Supple without adenopathy and no masses. Cardiovascular: Regular rate and rhythm. Pulmonary: Clear to auscultation. Chest: Right breast showed thickening in the lower aspect around the 6 o'clock position. Otherwise the breasts were symmetrical no discrete masses skin changes or abnormal discharge. Abdomen: Soft nontender no masses. External genitalia revealed no lesions the vagina had a thick brown benign-appearing discharge the cervix was nonfriable uterus and adnexa were normal size nontender Musculoskeletal: Good mobility of all extremities. Psychiatric: Appropriately oriented with normal mood and affect. Signatures Electronically signed by : Shwetha Mosher DO; Aug 17 2021 11:13AM EST (Author) Normal [id number] Provider Note - ED v3on 12-0 Provider Note - ED v3 Provider Note: Chart Review ED NOTES ED NOTES: Presents for evaluation of URI. Symptoms including cough, congestion, body aches, malaise, and headache have been present for the past 2 days and refractory to OTC meds. No fever, chills, loss of taste/smell, nausea, vomiting, abdominal pain, CP, or SOB. Time and acitivity are the only exacerbating factors. Pt states she tested positive No known COVID 19 exposure. HISTORY OF PRESENTING ILLNESS PERLITA is a 31 year old Female and was seen by me at 10-May-2021 12:07. Triage Information: Most recent Vital Sign Value Date PAST MEDICAL HISTORY ALLERGIES/INTOLERANCES: No Known Allergies HEALTH HISTORY: No documented data. OUTPATIENT MEDICATIONS: Home Medications Review Status for Reconciliation: Complete Med Status: Patient Currently Takes Medications Drug Name: dexamethasone 6 mg oral tablet Instructions: 1 tab(s) orally once a day Drug Name: albuterol 90 mcg/inh inhalation aerosol Instructions: 2 puff(s) inhaled 2 times a day as needed for cough SIGNIFICANT EVENTS: No documented data. AIR GUN OPERATOR: Is : no Is : no PHYSICAL EXAM CONSTITUTIONAL: Well appearing, well nourished, awake, alert, oriented to person, place, time/situation and in no apparent distress. HENMT: Airway patent, ears with clear tympanic membranes bilaterally. Nasal mucosa clear. Mouth with normal mucosa. Throat has no vesicles, no oropharyngeal exudates and uvula is midline. Face with no lymph node enlargement. EYES: Clear bilaterally, pupils equal, round and reactive to light. CARDIOVASCULAR: Normal rate, regular rhythm. Heart sounds S1, S2. No murmurs, rubs or gallops. PMI non-displaced. RESPIRATORY: Wheezes bilaterally NEUROLOGICAL: Alert and oriented, no focal deficits, no motor or sensory deficits. SKIN: Skin normal color for race, warm, dry and intact. No evidence of trauma. PSYCHIATRIC: Alert and oriented to person, place, time/situation. normal mood and affect. No apparent risk to self or others. CRITICAL CARE VITAL SIGNS: T PRBP SpO2O2(LPM) %FiO2 Method 10-May-2021 12:04:[id number]/75 97 MDM MDM/ED COURSE: Rx dexamethasone and albuterol inhaler. Nasal swab obtained for COVID 19 and influenza A&B. Advised to quarantine until results received . Patient's clinical presentation is otherwise unremarkable at this time. Patient is discharged with instructions to follow-up with primary care or seek emergency medical attention for worsening symptoms or any new concerns. DISPOSITION Diagnosis/Annotation: ED Dx Name:Acute upper respiratory infection Code:J06.9 Disposition: discharged Type: home CONSULT CRITICAL CARE TIME Is this a critically ill patient: no Electronic Signatures for Addendum Section: Karol Shields (CARLOS II) (Signed Addendum 11-May-2021 09:30) left message to return call for results Electronic Signatures: Fam Holt (WIRELESS CELLULAR TECHNICIAN-CASE FINISHER) (Signed 10-May-2021 12:34) Authored: ED Notes, HPI, PMH, PE, Results/Vital Signs, MDM/ED Course, Clinical Impression, Attestation, Chart Review, Scores Last Updated: 11-May-2021 09:30 by Karol Shields (CARLOS II) [facility] Vital Signs Date Time Vital Sign Value Performing Clinician Facility 11-23-2024 11:19-0400 Body mass index (BMI) [Ratio] 26.77 kg/m2 Gus Way MD Work Phone: [facility] 11-23-2024 11:19-0400 Body weight 69.[address] MD Work Phone: [facility] 11-23-2024 11:19-0400 Diastolic blood pressure 58 mm[Hg] Gus Way MD Work Phone: [facility] 11-23-2024 11:19-0400 Systolic blood pressure 100 mm[Hg] Gus Way MD Work Phone: [facility] 11-19-2024 11:06-0400 Body mass index (BMI) [Ratio] 26.6 kg/m2 Cristy Jain WIRELESS CELLULAR TECHNICIAN.CNM Work Phone: [facility] 11-19-2024 11:06-0400 Body weight 68.95 kg Cristy Jain WIRELESS CELLULAR TECHNICIAN.CNM Work Phone: [facility] 11-19-2024 11:06-0400 Diastolic blood pressure 60 mm[Hg] Cristy Jain WIRELESS CELLULAR TECHNICIAN.CNM Work Phone: [facility] 11-19-2024 11:06-0400 Systolic blood pressure 98 mm[Hg] Cristy Jain WIRELESS CELLULAR TECHNICIAN.CNM Work Phone: [facility] 11-11-2024 08:03-0400 Body mass index (BMI) [Ratio] 26.77 kg/m2 Brea Mirza WIRELESS CELLULAR TECHNICIAN.CNM Work Phone: [facility] 11-11-2024 08:03-0400 Body weight 69.4 kg Brea Mirza WIRELESS CELLULAR TECHNICIAN.CNM Work Phone: [facility] 11-11-2024 08:03-0400 Diastolic blood pressure 64 mm[Hg] Brea Plotts WIRELESS CELLULAR TECHNICIAN.CNM Work Phone: [facility] 11-11-2024 08:03-0400 Systolic blood pressure 108 mm[Hg] Brea Plotts WIRELESS CELLULAR TECHNICIAN.CNM Work Phone: [facility] 11-02-2024 13:42-0400 Body mass index (BMI) [Ratio] 27.3 kg/m2 Miguelina Herrera MD Work Phone: [facility] 11-02-2024 13:42-0400 Body weight 70.76 kg Miguelina Herrera MD Work Phone: [facility] 11-02-2024 13:42-0400 Diastolic blood pressure 60 mm[Hg] Miguelina Herrera MD Work Phone: [facility] 11-02-2024 13:42-0400 Systolic blood pressure 98 mm[Hg] Miguelina Herrera MD Work Phone: [facility] 10-21-2024 07:59-0400 Body mass index (BMI) [Ratio] 26.95 kg/m2 Brea Plotts WIRELESS CELLULAR TECHNICIAN.CNM Work Phone: [facility] 10-21-2024 07:59-0400 Body weight 69.85 kg Brea Plotts WIRELESS CELLULAR TECHNICIAN.CNM Work Phone: [facility] 10-21-2024 07:59-0400 Diastolic blood pressure 68 mm[Hg] Brea Plotts WIRELESS CELLULAR TECHNICIAN.CNM Work Phone: [facility] 10-21-2024 07:59-0400 Systolic blood pressure 104 mm[Hg] Brea Plotts WIRELESS CELLULAR TECHNICIAN.CNM Work Phone: [facility] 10-07-2024 07:59-0400 Body mass index (BMI) [Ratio] 26.07 kg/m2 Brea Plotts WIRELESS CELLULAR TECHNICIAN.CNM Work Phone: [facility] 10-07-2024 07:59-0400 Body weight 67.59 kg Brea Plotts WIRELESS CELLULAR TECHNICIAN.CNM Work Phone: [facility] 10-07-2024 07:59-0400 Diastolic blood pressure 62 mm[Hg] Brea Plotts WIRELESS CELLULAR TECHNICIAN.CNM Work Phone: [facility] 10-07-2024 07:59-0400 Systolic blood pressure 102 mm[Hg] Brea Plotts WIRELESS CELLULAR TECHNICIAN.CNM Work Phone: [facility] 09-22-2024 07:50-0400 Body mass index (BMI) [Ratio] 25.72 kg/m2 Brea Plotts WIRELESS CELLULAR TECHNICIAN.CNM Work Phone: [facility] 09-22-2024 07:50-0400 Body weight 66.68 kg Brea Plotts WIRELESS CELLULAR TECHNICIAN.CNM Work Phone: [facility] 09-22-2024 07:50-0400 Diastolic blood pressure 68 mm[Hg] Brea Plotts WIRELESS CELLULAR TECHNICIAN.CNM Work Phone: [facility] 09-22-2024 07:50-0400 Systolic blood pressure 104 mm[Hg] Brea Mirza APRN.CNM Work Phone: [facility] 09-07-2024 08:16-0400 Body mass index (BMI) [Ratio] 26.07 kg/m2 Annalee Blanc MD Work Phone: [facility] 09-07-2024 08:16-0400 Body weight 67.59 kg Annalee Blanc MD Work Phone: [facility] 09-07-2024 08:16-0400 Diastolic blood pressure 64 mm[Hg] Annalee Blanc MD Work Phone: [facility] 09-07-2024 08:16-0400 Systolic blood pressure 102 mm[Hg] Annalee Blacn MD Work Phone: [facility] 09-04-2024 15:34-0400 Body temperature 98.9 [degF] Dr. Omid Benites MD Work Phone: [facility] 09-04-2024 15:34-0400 Diastolic blood pressure 69 mm[Hg] Dr. Omid Benites MD Work Phone: [facility] 09-04-2024 15:34-0400 Heart rate 92 /min Dr. Omid Benites MD Work Phone: [facility] 09-04-2024 15:34-0400 Respiratory rate 18 /min Dr. Omid Benites MD Work Phone: [facility] 09-04-2024 15:34-0400 SaO2% (BldA) [Mass fraction] 100 % Dr. Omid Benites MD Work Phone: [facility] 09-04-2024 15:34-0400 Systolic blood pressure 117 mm[Hg] Dr. Omid Benites MD Work Phone: [facility] 09-04-2024 14:10-0400 Body height 162.[address] Omid Benites MD Work Phone: [facility] 09-04-2024 14:10-0400 Body mass index (BMI) [Ratio] 25 kg/m2 Dr. Omid Benites MD Work Phone: [facility] 09-04-2024 14:10-0400 Body weight 66.[address] Omid Benites MD Work Phone: [facility] 08-31-2024 15:59-0400 Body mass index (BMI) [Ratio] 25.69 kg/m2 Gus Way MD Work Phone: [facility] 08-31-2024 15:59-0400 Body weight 66.[address] MD Work Phone: [facility] 08-31-2024 15:59-0400 Diastolic blood pressure 60 mm[Hg] Gus Way MD Work Phone: [facility] 08-31-2024 15:59-0400 Systolic blood pressure 100 mm[Hg] Gus Way MD Work Phone: [facility] 08-10-2024 08:35-0500 Body mass index (BMI) [Ratio] 25.55 kg/m2 Annalee Blanc MD Work Phone: [facility] 08-10-2024 08:35-0500 Body weight 66.22 kg Annalee Blanc MD Work Phone: [facility] 08-10-2024 08:35-0500 Diastolic blood pressure 60 mm[Hg] Annalee Blanc MD Work Phone: [facility] 08-10-2024 08:35-0500 Systolic blood pressure 104 mm[Hg] Annalee Blanc MD Work Phone: [facility] 07-12-2024 09:34-0500 Body mass index (BMI) [Ratio] 24.85 kg/m2 Cristy Jain WIRELESS CELLULAR TECHNICIAN.CNM Work Phone: [facility] 07-12-2024 09:34-0500 Body weight 64.41 kg Cristy Jain WIRELESS CELLULAR TECHNICIAN.CNM Work Phone: [facility] 07-12-2024 09:34-0500 Diastolic blood pressure 60 mm[Hg] Cristy Jain WIRELESS CELLULAR TECHNICIAN.CNM Work Phone: [facility] 07-12-2024 09:34-0500 Systolic blood pressure 114 mm[Hg] Cristy Jain WIRELESS CELLULAR TECHNICIAN.CNM Work Phone: [facility] 06-21-2024 15:59-0500 Body mass index (BMI) [Ratio] 22.75 kg/m2 Rufina Albert MD Work Phone: [facility] 06-21-2024 15:59-0500 Body weight 58.97 kg Rufina Albert MD Work Phone: [facility] 06-21-2024 15:59-0500 Diastolic blood pressure 60 mm[Hg] Rufina Albert MD Work Phone: [facility] 06-21-2024 15:59-0500 Systolic blood pressure 100 mm[Hg] Rufina Albert MD Work Phone: [facility] 05-26-2024 13:51-0500 Body height 161 cm Ismael Arciniega APRN.CASE FINISHER Work Phone: [facility] 05-26-2024 13:51-0500 Body mass index (BMI) [Ratio] 21.87 kg/m2 Ismael Halaura WIRELESS CELLULAR TECHNICIAN.CASE FINISHER Work Phone: [facility] 05-26-2024 13:51-0500 Body weight 56.7 kg Ismael Arciniega WIRELESS CELLULAR TECHNICIAN.CASE FINISHER Work Phone: [facility] 05-26-2024 13:51-0500 Diastolic blood pressure 60 mm[Hg] Ismael Haury WIRELESS CELLULAR TECHNICIAN.CASE FINISHER Work Phone: [facility] 05-26-2024 13:51-0500 Systolic blood pressure 102 mm[Hg] Ismael Arciniega GEORGI Work Phone: [facility] 04-02-2024 14:53-0400 Body height 162.6 cm Jonas Wolff MD Work Phone: [facility] 04-02-2024 14:53-0400 Body mass index (BMI) [Ratio] 21.03 kg/m2 Jonas Wolff MD Work Phone: [facility] 04-02-2024 14:53-0400 Body temperature 98.6 [degF] Jonas Wolff MD Work Phone: [facility] 04-02-2024 14:53-0400 Body weight 55.6 kg Jonas Wolff MD Work Phone: [facility] 04-02-2024 14:53-0400 Diastolic blood pressure 68 mm[Hg] Jonas Wolff MD Work Phone: [facility] 04-02-2024 14:53-0400 Heart rate 83 /min Jonas Wolff MD Work Phone: [facility] 04-02-2024 14:53-0400 Respiratory rate 18 /min Jonas Wolff MD Work Phone: [facility] 04-02-2024 14:53-0400 SaO2% (BldA) [Mass fraction] 97 % Jonas Wolff MD Work Phone: [facility] 04-02-2024 14:53-0400 Systolic blood pressure 110 mm[Hg] Jonas Wolff MD Work Phone: [facility] 07-14-2023 16:09-0500 Body height 162.6 cm Omid Benites MD Work Phone: [facility] 07-14-2023 16:09-0500 Body mass index (BMI) [Ratio] 23.17 kg/m2 Omid Benites MD Work Phone: [facility] 07-14-2023 16:09-0500 Body weight 61.24 kg Omid Benites MD Work Phone: [facility] 07-14-2023 16:09-0500 Diastolic blood pressure 74 mm[Hg] Omid Benites MD Work Phone: [facility] 07-14-2023 16:09-0500 Heart rate 84 /min Omid Benites MD Work Phone: [facility] 07-14-2023 16:09-0500 Systolic blood pressure 115 mm[Hg] Omid Benites MD Work Phone: [facility] 01-31-2022 12:25-0400 Body height 162 cm No Pcp Required [facility] 01-31-2022 12:25-0400 Body temperature 98.06 [degF] No Pcp Required [facility] 01-31-2022 12:25-0400 Diastolic blood pressure 56 mm[Hg] No Pcp Required [facility] 01-31-2022 12:25-0400 Heart rate 95 /min No Pcp Required [facility] 01-31-2022 12:25-0400 SaO2% (BldA) [Mass fraction] 99 % No Pcp Required [facility] 01-31-2022 12:25-0400 Systolic blood pressure 117 mm[Hg] No Pcp Required [facility] 11-30-2021 20:17-0400 Diastolic blood pressure 67 mm[Hg] No Pcp Required [facility] 11-30-2021 20:17-0400 Heart rate 76 /min No Pcp Required [facility] 11-30-2021 20:17-0400 Respiratory rate 18 /min No Pcp Required [facility] 11-30-2021 20:17-0400 SaO2% (BldA) [Mass fraction] 98 % No Pcp Required [facility] 11-30-2021 20:17-0400 Systolic blood pressure 115 mm[Hg] No Pcp Required [facility] 11-30-2021 14:32-0400 Body height 162.5 cm No Pcp Required [facility] 11-30-2021 14:32-0400 Body temperature 98.6 [degF] No Pcp Required [facility] 11-30-2021 14:32-0400 Body weight 57.3 kg No Pcp Required [facility] 11-15-2021 10:14-0400 Body height 165.1 cm No PCP None [id number] [address] [facility] Work Phone: 11-15-2021 10:14-0400 Body mass index (BMI) [Ratio] 22.3 kg/m2 No PCP None [id number]-Mguczh [address] [facility] Work Phone: 11-15-2021 10:14-0400 Body surface area Derived from formula 1.67 m2 No PCP None XO-GBPUD-Tuxjqv [address] [facility] Work Phone: 11-15-2021 10:14-0400 Body weight 60.78 kg No PCP None SS-TRYDA-Bcfxff [address] [facility] Work Phone: 11-15-2021 10:140400 0 1 No PCP None DG-DYRYH-Pgjhfq 310 IVF Work Phone: Comment on above: [facility] 09-11-2021 09:49-0400 Body height 165.1 cm No PCP None [facility] [address] Work Phone: 09-11-2021 09:49-0400 Body mass index (BMI) [Ratio] 22.31 kg/m2 No PCP None [facility] [address] Work Phone: 09-11-2021 09:49-0400 Body surface area Derived from formula 1.67 m2 No PCP None [facility] [address] Work Phone: 09-11-2021 09:49-0400 Body weight 60.8 kg No PCP None [facility] [address] Work Phone: 09-11-2021 09:49-0400 Diastolic blood pressure 70 mm[Hg] No PCP None Don Diehl [address] Work Phone: 09-11-2021 09:49-0400 Systolic blood pressure 102 mm[Hg] No PCP None Don Diehl [place] Work Phone: 08-17-2021 10:49-0500 Body height 165.1 cm No PCP None Tammie Diehl [place] Work Phone: 08-17-2021 10:49-0500 Body mass index (BMI) [Ratio] 22.65 kg/m2 No PCP None Don Diehl [place] Work Phone: 08-17-2021 10:49-0500 Body surface area Derived from formula 1.68 m2 No PCP None Don Diehl [place] Work Phone: 08-17-2021 10:49-0500 Body weight 61.75 kg No PCP None Tammie Diehl [place] Work Phone: 08-17-2021 10:49-0500 Diastolic blood pressure 78 mm[Hg] No PCP None Don Diehl [place] Work Phone: 08-17-2021 10:49-0500 Systolic blood pressure 118 mm[Hg] No PCP None Don Diehl [place] Work Phone: 05-10-2021 14:04-0500 Body height 162.5 cm No Pcp Required [facility] 05-10-2021 14:04-0500 Body temperature 98.42 [degF] No Pcp Required [facility] 05-10-2021 14:04-0500 Diastolic blood pressure 75 mm[Hg] No Pcp Required [facility] 05-10-2021 14:04-0500 Heart rate 105 /min No Pcp Required [facility] 05-10-2021 14:04-0500 SaO2% (BldA) [Mass fraction] 97 % No Pcp Required [facility] 05-10-2021 14:04-0500 Systolic blood pressure 129 mm[Hg] No Pcp Required [facility] Encounters Encounter Date Encounter Type Care Provider Facility Start: 11-23-2024 End: 11-23-[address] MD Work Phone: OB/Gynecology Comment on above: Supervision of high risk in third trimester (HCC) (Primary Dx); Anemia complicating , third trimester (HCC); 39 weeks gestation of (HCC); Tinea versicolor; AMA (advanced maternal age) multigravida 35+, third trimester (HCC) Start: 11-23-2024 End: 11-23-2024 ambulatory OMID BENITES Facility:[facility] Start: 11-19-2024 End: 11-19-2024 Patient encounter procedure Cristy Jain APRN.CNM Work Phone: OB/Gynecology Comment on above: Supervision of high risk in third trimester (HCC) (Primary Dx); Anemia complicating , third trimester (HCC); 39 weeks gestation of (HCC); Tinea versicolor Start: 11-19-2024 End: 11-19-2024 ambulatory OMID BENITES Facility:[facility] Start: 11-12-2024 End: 11-12-2024 ambulatory Virginia Mark MA [facility] Start: 11-12-2024 End: 11-12-2024 Patient encounter procedure Virginia Mark MA [facility] Comment on above: Population Health Na vigation Outreach (Ob/peds) Start: 11-11-2024 End: 11-11-2024 Patient encounter procedure Brea Mirza APRN.CNM Work Phone: OB/Gynecology Comment on above: Uterine size-date di screpancy, third trimester (HCC) (Primary Dx); 37 weeks gestation of (HCC); Supervision of high risk in third trimester (HCC); Anemia complicating , third trimester (HCC); Heartburn during in third trimester (HCC); AMA (advanced maternal age) multigravida 35+, third trimester (HCC) Start: 11-11-2024 End: 11-11-2024 ambulatory OMIDBREE MERCHANTALLAEE Facility:[facility] Start: 11-02-2024 End: 11-02-2024 Patient encounter procedure i Tech 2 Showroom Salesperson [facility] Comment on above: Encounter for ultras ound to check growth (HCC) (Primary Dx); Uterine size-date discrepancy, third trimester (HCC); 36 weeks gestation of (HCC) Supervision of high risk in third trimester (HCC) (Primary Dx); Anemia complicating , third trimester (HCC); Heartburn during in third trimester (HCC); Uterine size-date discrepancy, third trimester (HCC); AMA (advanced maternal age) multigravida 35+, third trimester (HCC); 36 weeks gestation of (HCC) Start: 11-02-2024 End: 11-02-2024 ambulatory OMID OCHOAE Facility:[facility] Start: 10-21-2024 End: 10-21-2024 Patient encounter procedure Brea Mirza APRN.NEREYDA Work Phone: OB/Gynecology Comment on above: Supervision of high risk in third trimester (HCC) (Primary Dx); Anemia complicating , third trimester (HCC); 34 weeks gestation of (HCC); Heartburn during in third trimester (HCC); Uterine size-date discrepancy, third trimester (HCC) Start: 10-21-2024 End: 10-21-2024 ambulatory OMID OCHOAE Facility:[facility] Start: 10-07-2024 End: 10-07-2024 Patient encounter procedure Brea Mirza WIRELESS CELLULAR TECHNICIAN.NEREYDA Work Phone: OB/Gynecology Comment on above: Supervision of high risk in third trimester (HCC) (Primary Dx); Anemia complicating , third trimester (HCC); Nausea and vomiting, unspecified vomiting type; Heartburn during in third trimester (HCC); 32 weeks gestation of (HCC) Start: 10-07-2024 ambulatory OMID BENITES Fac ility:[facility] Start: 09-22-2024 End: 09-22-2024 Patient encounter procedure Brea Mirza WIRELESS CELLULAR TECHNICIAN.CNM Work Phone: OB/Gynecology Comment on above: Supervision of high risk in third trimester (HCC) (Primary Dx); Anemia complicating , third trimester (HCC); 30 weeks gestation of (HCC); AMA (advanced maternal age) multigravida 35+, third trimester (HCC); Nausea and vomiting, unspecified vomiting type; Heartburn during in third trimester (HCC); Anemia complicating , first trimester (HCC) Start: 09-22-2024 End: 09-22-2024 ambulatory OMID BENITES Facility:[facility] Start: 09-09-2024 End: 11-09-2024 Follow-up encounter Rufina Albert MD Work Phone: OB/Gynecology Start: 09-08-2024 End: 11-08-2024 Follow-up encounter Annalee Blanc MD Work Phone: OB/Gynecology Start: 09-07-2024 End: 09-07-2024 Patient encounter procedure Annalee Blanc MD Work Phone: OB/Gynecology Comment on above: Supervision of high risk in third trimester (HCC) (Primary Dx); Anemia complicating , third trimester (HCC); Need for vaccination; 28 weeks gestation of (HCC) Start: 09-07-2024 End: 09-07-2024 ambulatory OMID BENITES Facility:[facility] Start: 09-06-2024 End: 09-06-2024 Telephone encounter Nurse Showroom Salesperson Anisa Leary Work Phone: Obstetrics/Gynecology Comment on above: PRAF Start: 09-04-2024 End: 09-04-2024 Emergency department patient visit Dr. Omid Benites MD Work Phone: -Emergency Department Work Phone: Start: 08-31-2024 End: 08-31-2024 ambulatory OMID BENITES Facility:[facility] Start: 08-31-2024 End: 08-31-[address] procedure Gus [address] MD Work Phone: OB/Gynecology Comment on above: 27 weeks gestation o f (Primary Dx); Supervision of high risk in second trimester; Rib pain on left side Start: 08-31-2024 End: 08-31-2024 Telephone encounter Miguelina Herrera MD Work Phone: OB/Gynecology Comment on above: OB-Abdominal pain Start: 08-10-2024 End: 08-10-2024 ambulatory OMID M TAVALLAEE Facility:[facility] Start: 08-10-2024 End: 08-10-2024 Patient encounter procedure Annalee Blanc MD Work Phone: OB/Gynecology Comment on above: Supervision of high risk in second trimester (Primary Dx); 24 weeks gestation of ; Screening for diabetes mellitus Start: 08-04-2024 End: 08-05-2024 Follow-up encounter Cristy Jain APRN.CNM Work Phone: OB/Gynecology Start: 08-04-2024 End: 08-04-2024 ambulatory OMID M TAVALLAEE Facility:[facility] Start: 08-04-2024 End: 08-04-2024 Patient encounter procedure Whi Tech 1 Showroom Salesperson Mfm Wstr [facility] Maternal Medicine Comment on above: History of loop elec trosurgical excision procedure (LEEP) of cervix affecting in second trimester (Primary Dx); 23 weeks gestation of Start: 07-13-2024 End: 07-13-2024 Telephone encounter Nurse Showroom Salesperson Anisa Leary Work Phone: Obstetrics/Gynecology Comment on above: PRAF Start: 07-12-2024 End: 07-12-2024 ambulatory OMID M TAVALLAEE Facility:[facility] Start: 07-12-2024 End: 07-12-2024 Patient encounter procedure Whi Tech 1 Showroom Salesperson [facility] Maternal Medicine Comment on above: Encounter for anatomic survey (Primary Dx); 20 weeks gestation of ; History of loop electrosurgical excision procedure (LEEP) of cervix affecting in second trimester Supervision of high risk in second trimester (Primary Dx); 20 weeks gestation of ; Anemia complicating , first trimester; Current every day nicotine vaping; Marijuana use during ; UTI (urinary tract infection) in , antepartum; History of loop electrosurgical excision procedure (LEEP) of cervix affecting in second trimester Start: 06-21-2024 End: 06-21-2024 Patient encounter procedure Whi Tech 1 Showroom Salesperson M[facility] Maternal Medicine Comment on above: History of loop elec trosurgical excision procedure (LEEP) of cervix affecting in second trimester (Primary Dx); Supervision of high risk in second trimester; with uncertain dates in second trimester; 17 weeks gestation of Supervision of high risk in second trimester (Primary Dx); 17 weeks gestation of ; UTI (urinary tract infection) in , antepartum Start: 06-21-2024 End: 06-21-2024 ambulatory [facility] Facility:[facility] Start: 06-12-2024 End: 06-12-2024 Letter encounter [facility] Start: 05-28-2024 End: 05-28-2024 Telephone encounter Ismael Arciniega APRN.CNP Work Phone: OB/Gynecology Comment on above: Results Start: 05-27-2024 End: 05-27-2024 Telephone encounter Miguelina Estrada RN Obstetrics/Gynecolog y Comment on above: Wine Pasteurizer - O ther (PRAF) Start: 05-26-2024 End: 05-26-2024 ambulatory [facility] Facility:[facility] Start: 05-26-2024 End: 05-26-2024 Patient encounter procedure Ismael Arciniega APRN.CNP Work Phone: OB/Gynecology Comment on above: Supervision of high risk in second trimester (Primary Dx); with uncertain dates in second trimester; Late care affecting in second trimester; History of loop electrosurgical excision procedure (LEEP) of cervix affecting in second trimester; Nausea and vomiting during ; Marijuana use during ; Current every day nicotine vaping Start: 04-02-2024 End: 04-02-2024 Office outpatient visit 25 minutes Jonas Wolff MD Work Phone: [facility] Comment on above: 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); Current smoker; Positive test ([facility]) Start: 04-02-2024 End: 04-02-2024 ambulatory JONAS WOLFF [facility] Start: 03-07-2024 End: 03-07-2024 Letter encounter [facility] Start: 07-17-2023 End: 07-17-2023 Emergency department patient visit OMID BENITES Facility:[facility] Start: 07-15-2023 End: 07-15-2023 Encounter for general adult medical examination without abnormal findings [facility] Start: 07-15-2023 End: 07-15-2023 Subsequent hospital visit by physician Iliana Quintana103 X-Ray [facility] Comment on above: Left leg pain Start: 07-15-2023 End: 07-15-2023 ambulatory [facility] Start: 07-14-2023 End: 07-14-2023 ambulatory [facility] Start: 07-14-2023 End: 07-14-2023 Encounter for general adult medical examination without abnormal findings [facility] Start: 07-14-2023 End: 07-14-2023 Office outpatient new 45 minutes Omid Benites MD Work Phone: [facility] Internal Medicine Comment on above: Anemia, unspecified type (Primary Dx); Abnormal LFTs; Left leg pain; H/O fracture of tibia; Healthcare maintenance Start: 07-14-2023 End: 07-14-2023 Patient encounter status Omid Benites MD Work Phone: [facility] Work Phone: Start: 11-22-2022 ambulatory MD JONAS WOLFF Facility:[facility] Start: 11-22-2022 ambulatory MD JONAS WOLFF Facility:[facility] Start: 06-10-2022 Letter encounter Trish andrade Start: 05-17-[address] Amarilys Sheriff Facility:[facility] Start: 05-17-[address] Miguelina Villavicencio Fac ility:[facility] Start: 01-31-2022 End: 01-31-2022 Emergency department patient visit Luci Solis [facility] Start: 12-19-2021 Patient encounter procedure No PCP None [id number]-Copogdp 206B Imaging Work Phone: Start: 12-19-2021 Phys/qhp telephone evaluation 11-20 min No PCP None [id number] 1200 IMG Work Phone: Start: 12-19-[address] Perlita santos August Facility:[facility] Start: 11-30-2021 End: 11-30-2021 Emergency department patient visit Nickie Galo [facility] Emergency 05 Start: 11-21-2021 Chart Update No PCP None [facility]-OBGYN-M AC 1200 [place] Work Phone: Start: 11-19-2021 Chart Update No PCP None MG-OBGYN-R isman 310 IVF Work Phone: Start: 11-15-2021 Patient encounter procedure No PCP None VJ-XOCPR-Xravbk 310 IVF Work Phone: Start: 09-17-2021 AUDIT No PCP None [facility] [address] Work Phone: Start: 08-28-2021 Chart Update No PCP None [facility] [address] Work Phone: Start: 08-22-2021 Chart Update No PCP None [facility] [address] Work Phone: Start: 05-10-2021 End: 05-10-2021 Emergency department patient visit Fam Holt [facility] Start: 09-10-2020 End: 09-10-2020 Letter encounter [facility] Start: 03-05-2020 End: 03-05-2020 Letter encounter [facility] Encounter for gynecological examination (general) (routine) without abnormal findings No PCP None [facility] [address] Work Phone: Procedures Date Procedure Procedure Detail Performing Clinician Start: 11-19-2024 Urnls dip stick/tabl et rgnt non-auto w/o micrscp Cristy Jain WIRELESS CELLULAR TECHNICIAN.CNM Work Phone: Start: 11-11-2024 Urnls dip stick/tabl et rgnt non-auto w/o micrscp Brea Plotvinay WIRELESS CELLULAR TECHNICIAN.CNM Work Phone: Start: 11-02-2024 Us preg uterus after 1st trimest 1/1st gestation Brea Frederickvinay WIRELESS CELLULAR TECHNICIAN.CNM Work Phone: Start: 10-21-2024 Urnls dip stick/tabl et rgnt non-auto w/o micrscp Brea Plotviany WIRELESS CELLULAR TECHNICIAN.CNM Work Phone: Start: 10-07-2024 Urnls dip stick/tabl et rgnt non-auto w/o micrscp Brea Plotts WIRELESS CELLULAR TECHNICIAN.CNM Work Phone: Start: 08-04-2024 Us preg uterus after 1st trimest 1/1st gestation Cristy Jain WIRELESS CELLULAR TECHNICIAN.CNM Work Phone: Start: 07-12-2024 Us preg uterus after 1st trimest 1/1st gestation Rufina Albert MD Work Phone: Start: 06-21-2024 Us preg uterus after 1st trimest /1st gestation Ismael Arciniega WIRELESS CELLULAR TECHNICIAN.CASE FINISHER Work Phone: Start: 05-26-2024 Antibody screen OMID BENITES Comment on above: Order Comment: Speci men Type: BLOOD SPECIMENOrdering Facility: [facility] Address: [address] [place] [address] Performed By: #### T SPN ####CC MAIN BLOOD BANKCLIA [id number] [place] [address] [place] Start: 07-15-2023 CBC W Auto Different ial panel - Blood OMID BENITES Start: 07-15-2023 Comprehensive metabo lic 2000 panel - Serum or Plasma OMID TAVALLAEE Start: 07-15-2023 Cyanocobalamin vitamin b-12 OMID TAVALLAEE Start: 07-15-2023 Ferritin [Mass/volum e] in Serum or Plasma OMID TAVALLAEE Start: 07-15-2023 FOLATE OMID TA VALLAEE Start: 07-15-2023 IRON AND TIBC OMID T AVALLAEE Start: 07-15-2023 Lipid panel OMID TA VALLAEE Start: 07-15-2023 METHYLMALONIC ACID HUBER DAD TAVALLAEE Start: 07-15-2023 THYROXINE, FREE OMID TAVALLAEE Start: 07-15-2023 TSH WITH REFLEX TO F REE T4 IF ABNORMAL OMID TAVALLAEE Start: 07-15-2023 XR TIBIA FIBULA LEFT 2 VIEWS OMID TAVALLAEE Start: 07-15-2023 Radiologic examinati on tibia & fibula 2 views Omid Benites MD Work Phone: Start: 07-15-2023 Lipid 1996 panel - S bruno or Plasma [facility] Start: 11-22-2022 Microscopic observat ion [Identifier] in Cervix by Cyto stain Omid Benites MD Work Phone: Start: 11-19-2021 Antibody screen Comment on above: Performed By: #### T +S #### [place] [address] Cone biopsy of cervix No PCP None Loop electrosurgical excision procedure No PCP None Comment on above: 01/10/2012; Plan of Treatment Date Care Activity Detail Author Start: 2040 Shingles (RZV) Vacci ne (1 of 2) Shingles (RZV) Vaccine (1 of 2) [facility] Start: 2040 Zoster Vaccines (1 of 2) Zoste r Vaccines (1 of 2) [facility] Start: 09-07-2034 Urine microalbumin profile [facility] Start: 05-26-2029 Screening for malign ant neoplasm of cervix Cervical Cancer Screening [facility] Start: 02-06-2029 Lipid panel Lipid Panel [facility] Start: 11-22-2025 Screening for malign ant neoplasm of cervix [facility] Start: 02-07-2025 Influenza vaccination Influenz a Vaccine (Season Ended) [facility] Start: 01-13-2025 End: 01-13-2025 Patient encounter procedure 01/13/2025 10:10 AM EDT Office Visit OB/Gynecology [address] [place] [address] Rufina Albert MD [address] [place] [address] Post OB/Gynecology Comment on above: Post Start: 12-03-2024 End: 12-03-2024 Patient encounter procedure 12/03/2024 11:10 AM EDT Office Visit OB/Gynecology [address] [place] [address] Miguelina Herrera MD [address] [place] [address] Post OB/Gynecology Comment on above: Post Start: 11-23-2024 End: 11-23-2024 Patient encounter procedure 11/23/2024 11:10 AM EDT Routine Office Visit OB/Gynecology [address] [place] [address] MD [address] [place] [address] OB OB/Gynecology Comment on above: OB Start: 11-18-2024 End: 11-18-2024 Patient encounter procedure 11/18/2024 8:30 AM EDT Routine Office Visit OB/Gynecology [address] [place] [address] Rufina Albert MD [address] [place] [address] OB Routine OB/Gynecology Comment on above: OB Routine Start: 11-11-2024 End: 11-11-2024 Patient encounter procedure 11/11/2024 8:00 AM EDT Routine Office Visit OB/Gynecology [address] [place] [address] Brea Mirza APRN.CN [address] [place] [address] OB Routine OB/Gynecology Comment on above: OB Routine Start: 11-04-2024 End: 11-04-2024 Patient encounter procedure 11/04/2024 9:00 AM EDT Routine Office Visit OB/Gynecology [address] [place] [address] MD [address] [place] [address] OB Routine OB/Gynecology Comment on above: OB Routine Start: 11-02-2024 End: 11-02-2024 Patient encounter procedure Maternal Medicine Comment on above: Growth Growth/OB Start: 10-21-2024 End: 10-21-2024 Patient encounter procedure 10/21/2024 8:00 AM EDT Routine Office Visit OB/Gynecology [address] [place] [address] Brea Mirza APRN.CN [address] [place] [address] OB Routine OB/Gynecology Comment on above: OB Routine Start: 10-07-2024 End: 01-06-2025 CBC panel - Blood by Automated count COMPLETE BLOOD COUNT Lab Routine Anemia complicating , third trimester (HCC) Expected: 10/07/2024, Expires: 01/06/2025 [facility] Work Phone: Comment on above: Expected: 10/07/2024 , Expires: 01/06/2025 Start: 10-07-2024 End: 10-07-2024 Patient encounter procedure 10/07/2024 8:00 AM EDT Routine Office Visit OB/Gynecology [address] [place] [address] Brea Mirza APRN.CNM [address] [place] [address] OB Routine OB/Gynecology Comment on above: OB Routine Start: 09-22-2024 End: 09-22-2024 Patient encounter procedure 09/22/2024 8:00 AM EDT Routine Office Visit OB/Gynecology [address] [place] [address] Brea Mirza APRN.CNM [address] [place] [address] ob OB/Gynecology Comment on above: ob Start: 09-10-2024 End: 12-10-2024 ANEMIA REFLEX PANEL ANEMIA REFLEX PANEL Lab Routine Supervision of high risk in second trimester Expected: 09/10/2024, Expires: 12/10/2024 [facility] Comment on above: Expected: 09/10/2024 , Expires: 12/10/2024 Start: 09-10-2024 End: 08-10-2025 GESTATIONAL GLUCOSE SCREEN, 1-HOUR, 50 GRAM, NON-FASTING GESTATIONAL GLUCOSE SCREEN, 1-HOUR, 50 GRAM, NON-FASTING Lab Routine Screening for diabetes mellitus Expected: 09/10/2024, Expires: 08/10/2025 [facility] Work Phone: Comment on above: Expected: 09/10/2024 , Expires: 08/10/2025 Start: 09-10-2024 End: 08-10-2025 SYPHILIS TREPONEMAL W/REFLEX SYPHILIS TREPONEMAL W/REFLEX Lab Routine Supervision of high risk in second trimester Expected: 09/10/2024, Expires: 08/10/2025 [facility] Comment on above: Expected: 09/10/2024 , Expires: 08/10/2025 Start: 09-07-2024 End: 09-07-2024 Patient encounter procedure 09/07/2024 8:40 AM EDT Routine Office Visit OB/Gynecology [address] [place] [address] Annalee Jenkins MD [address] [place] [address] Glucose Test/OB OB/Gynecology Comment on above: Glucose Test/OB Start: 09-07-2024 End: 09-07-2024 ambulatory 09/07/2024 8:30 AM EDT Results Only [facility] [address] [place] [address] Glucose Test [facility] Comment on above: Glucose Test Start: 09-04-2024 [facility] Start: 08-10-2024 End: 08-10-2024 Patient encounter procedure Maternal Medicine Comment on above: CL OB Start: 07-27-2024 End: 07-27-2024 Patient encounter procedure 07/27/2024 8:30 AM EST Routine Office Visit Maternal Medicine [address] [place] [address] CL Maternal Medicine Comment on above: CL Start: 07-12-2024 End: 10-11-2024 CBC W Auto Differential panel - Blood COMPLETE BLOOD COUNT AND DIFFERENTIAL Lab Routine Anemia complicating , first trimester Expected: 07/12/2024, Expires: 10/11/2024 [facility] Comment on above: Expected: 07/12/2024 , Expires: 10/11/2024 Start: 07-12-2024 End: 10-11-2024 Ferritin [Mass/volume] in Serum or Plasma FERRITIN Lab Routine Anemia complicating , first trimester Expected: 07/12/2024, Expires: 10/11/2024 [facility] Comment on above: Expected: 07/12/2024 , Expires: 10/11/2024 Start: 07-12-2024 End: 10-11-2024 Iron and Iron binding capacity panel - Serum or Plasma IRON AND TIBC Lab Routine Anemia complicating , first trimester Expected: 07/12/2024, Expires: 10/11/2024 [facility] Comment on above: Expected: 07/12/2024 , Expires: 10/11/2024 Start: 07-12-2024 End: 07-12-2024 Patient encounter procedure Maternal Medicine Comment on above: follow up anatomy OB Start: 06-24-2024 End: 06-24-2024 Patient encounter procedure 06/24/2024 10:00 AM EST Routine Office Visit OB/Gynecology [address] [place] [place], [place] [address] Ana Cee MD [address] [employer], [place] [id number] ob LMP ?? referrred from [facility] pt has paperwork OB/Gynecology Comment on above: ob LMP ?? referrred from [facility] pt has paperwork Start: 06-21-2024 End: 06-21-2024 Patient encounter procedure Maternal Medicine Comment on above: Early anatomy anatomy/OB anatomy/OB - needs u rine ANGELA Start: 06-21-2024 End: 09-20-2024 Bacteria identified in Urine by Culture BACTERIAL CULTURE, URINE Microbiology Routine 17 weeks gestation of Supervision of high risk in second trimester UTI (urinary tract infection) in , antepartum Expected: 06/21/2024, Expires: 09/20/2024 [facility] Work Phone: Comment on above: Expected: 06/21/2024 , Expires: 09/20/2024 Start: 06-21-2024 End: 06-21-2025 OBSTETRIC ULTRASOUND WHI OBSTETRIC ULTRASOUND WHI Anc Imaging Routine 17 weeks gestation of Supervision of high risk in second trimester UTI (urinary tract infection) in , antepartum Expected: 06/21/2024, Expires: 06/21/2025 [facility] Comment on above: Expected: 06/21/2024 , Expires: 06/21/2025 Start: 05-26-2024 End: 08-25-2024 ANEMIA REFLEX PANEL [facility] Work Phone: Comment on above: Expected: 05/26/2024 , Expires: 08/25/2024 Start: 05-26-2024 End: 08-25-2024 CARRIER SCREEN, STANDARD [facility] Comment on above: Expected: 05/26/2024 , Expires: 08/25/2024 Start: 05-26-2024 End: 08-25-2024 Chromosome 21 trisomy [Presence] in Blood or Tissue by Cytogenetics [facility] Comment on above: Expected: 05/26/2024 , Expires: 08/25/2024 Start: 05-26-2024 End: 08-25-2024 Hemoglobin A1c in Blood [facility] Comment on above: Expected: 05/26/2024 , Expires: 08/25/2024 Start: 05-26-2024 End: 08-25-2024 HEMOGLOBIN EVALUATION CASCADE [facility] Comment on above: Expected: 05/26/2024 , Expires: 08/25/2024 Start: 05-26-2024 End: 08-25-2024 Hepatitis B virus surface Ag [Presence] in Serum [facility] Comment on above: Expected: 05/26/2024 , Expires: 08/25/2024 Start: 05-26-2024 End: 08-25-2024 Hepatitis C virus Ab [Presence] in Serum [facility] Comment on above: Expected: 05/26/2024 , Expires: 08/25/2024 Start: 05-26-2024 End: 08-25-2024 HIV 1+2 Ab [Presence] in Serum or Plasma by Immunoassay [facility] Comment on above: Expected: 05/26/2024 , Expires: 08/25/2024 Start: 05-26-2024 End: 05-26-2025 OBSTETRIC ULTRASOUND WHI OBSTETRIC ULTRASOUND WHI Anc Imaging Routine Supervision of high risk in second trimester with uncertain dates in second trimester Expected: 05/26/2024, Expires: 05/26/2025 [facility] Comment on above: Expected: 05/26/2024 , Expires: 05/26/2025 Start: 05-26-2024 End: 08-25-2024 RUBELLA IGG ANTIBODY [facility] Comment on above: Expected: 05/26/2024 , Expires: 08/25/2024 Start: 05-26-2024 End: 08-25-2024 SYPHILIS TREPONEMAL W/REFLEX [facility] Comment on above: Expected: 05/26/2024 , Expires: 08/25/2024 Start: 05-26-2024 End: 08-25-2024 Thyrotropin [Units/volume] in Serum or Plasma [facility] Comment on above: Expected: 05/26/2024 , Expires: 08/25/2024 Start: 05-26-2024 End: 08-25-2024 TYPE + SCREEN [facility] Comment on above: Expected: 05/26/2024 , Expires: 08/25/2024 Start: 04-02-2024 End: 04-02-2025 US Pelvis US pelvis Imaging Routine Positive test ([facility]) Expected: 04/02/2024, Expires: 04/02/2025 [facility] Service Area Work Phone: Comment on above: Expected: 04/02/2024 , Expires: 04/02/2025 Start: 02-08-2024 COVID-19 Vaccine ( season) COVID-19 Vaccine ( season) [facility] Start: 02-08-2024 COVID-19 Vaccine ( season) COVID-19 Vaccine ( season) [facility] Start: 02-08-2024 Covid-19 Vaccine ( season) Covid-19 Vaccine () [facility] Start: 02-08-2024 Influenza vaccination Influenza Vacc ine (#1) [facility] Start: 07-23-2023 End: 07-23-2023 Patient encounter procedure 07/23/2023 5:00 PM EST Office Visit [facility] Medicine [address] [place] [id number] Omid Benites MD [address] [place] [address] [facility] Start: 07-18-2023 End: 07-18-2023 Patient encounter procedure 07/18/2023 2:40 PM EST Office Visit [facility] [address] [place] [address] [facility] Start: 07-14-2023 End: 07-14-2024 CBC W Auto Differential panel - Blood CBC and Auto Differential Lab Routine Anemia, unspecified type Abnormal LFTs Left leg pain H/O fracture of tibia Healthcare maintenance Expected: 07/14/2023 (Approximate), Expires: 07/14/2024 [facility] Work Phone: Comment on above: Expected: 07/14/2023 (Approximate), Expires: 07/14/2024 Start: 07-14-2023 End: 07-14-2024 Cobalamin (Vitamin B12) [Mass/volume] in Serum or Plasma Vitamin B12 Lab Routine Anemia, unspecified type Expected: 07/14/2023 (Approximate), Expires: 07/14/2024 [facility] Work Phone: Comment on above: Expected: 07/14/2023 (Approximate), Expires: 07/14/2024 Start: 07-14-2023 End: 07-14-2024 Comprehensive metabolic 2000 panel - Serum or Plasma Comprehensive Metabolic Panel Lab Routine Anemia, unspecified type Abnormal LFTs Left leg pain H/O fracture of tibia Expected: 07/14/2023 (Approximate), Expires: 07/14/2024 [facility] Service Area Work Phone: Comment on above: Expected: 07/14/2023 (Approximate), Expires: 07/14/2024 Start: 07-14-2023 End: 07-14-2024 Ferritin [Mass/volume] in Serum or Plasma Ferritin Lab Routine Anemia, unspecified type Expected: 07/14/2023 (Approximate), Expires: 07/14/2024 [facility] Work Phone: Comment on above: Expected: 07/14/2023 (Approximate), Expires: 07/14/2024 Start: 07-14-2023 End: 07-14-2024 Folate [Mass/volume] in Serum or Plasma Folate Lab Routine Anemia, unspecified type Expected: 07/14/2023 (Approximate), Expires: 07/14/2024 [facility] Work Phone: Comment on above: Expected: 07/14/2023 (Approximate), Expires: 07/14/2024 Start: 07-14-2023 End: 07-14-2024 Iron and Iron binding capacity panel - Serum or Plasma Iron and TIBC Lab Routine Anemia, unspecified type Expected: 07/14/2023 (Approximate), Expires: 07/14/2024 [facility] Work Phone: Comment on above: Expected: 07/14/2023 (Approximate), Expires: 07/14/2024 Start: 07-14-2023 End: 07-14-2024 Lipid 1996 panel - Serum or Plasma Lipid Panel Lab Routine Healthcare maintenance Expected: 07/14/2023 (Approximate), Expires: 07/14/2024 [facility] Work Phone: Comment on above: Expected: 07/14/2023 (Approximate), Expires: 07/14/2024 Start: 07-14-2023 End: 07-14-2024 Methylmalonate [Moles/volume] in Serum or Plasma Methylmalonic Acid Lab Routine Anemia, unspecified type Expected: 07/14/2023 (Approximate), Expires: 07/14/2024 [facility] Work Phone: Comment on above: Expected: 07/14/2023 (Approximate), Expires: 07/14/2024 Start: 07-14-2023 End: 07-14-2024 TSH with reflex to Free T4 if abnormal TSH with reflex to Free T4 if abnormal Lab Routine Anemia, unspecified type Expected: 07/14/2023 (Approximate), Expires: 07/14/2024 [facility] Work Phone: Comment on above: Expected: 07/14/2023 (Approximate), Expires: 07/14/2024 Start: 07-14-2023 End: 07-14-2024 XR Tibia and Fibula - left 2 Views XR tibia fibula left 2 views Imaging Routine Left leg pain Expected: 07/14/2023, Expires: 07/14/2024 [facility] Work Phone: Comment on above: Expected: 07/14/2023 , Expires: 07/14/2024 Start: 02-07-2023 Influenza vaccination Influenza Vacc ine (#1) [facility] Start: 08-19-2022 Patient encounter procedure [facility] Start: 05-17-2022 Patient encounter procedure [facility] Start: 03-09-2022 Influenza vaccination Influenza Vacc ine (#1) [facility] Start: 12-19-2021 Patient encounter procedure [facility] [employer] Start: 03-09-2020 Influenza vaccination Influenza Vacc ine (#1) [facility] Start: 2017 HPV Vaccine (optiona l start 27-45 years) HPV Vaccine (optional start 27-45 years) [facility] Start: 2012 DTaP/Tdap/Td Vaccine s (1 - Tdap) DTaP/Tdap/Td Vaccines (1 - Tdap) [facility] Start: 2011 Screening for malign ant neoplasm of cervix [facility] Start: 2009 Hepatitis A (HAV) Vaccine (optional start 19+ years) Hepatitis A (HAV) Vaccine (optional start 19+ years) [facility] Start: 2009 Hepatitis B vaccination Hepati tis B (HBV) Vaccine (1 of 3 - 19+ 3-dose series) [facility] Start: 2009 Hepatitis B Vaccine (1 of 3 - 19+ 3-dose series) Hepatitis B Vaccine (1 of 3 - 19+ 3-dose series) [facility] Start: 2009 Hepatitis B Vaccines (1 of 3 - 19+ 3-dose series) Hepatitis B Vaccines (1 of 3 - 19+ 3-dose series) [facility] Start: 2009 Pneumococcal vaccination Pneum ococcal Vaccine (1 of 2 - PCV) [facility] Start: 2009 Urine microalbumin profile DTaP,Tdap,Td Vaccine (1 - Tdap) [facility] Start: 2008 Anxiety Screening Anxiety Screening [facility] Start: 2008 Depression Screening Depression Scre ening [facility] Start: 2008 Hepatitis C antibody , confirmatory test Hepatitis C Antibody [facility] Start: 2008 Hepatitis C screening Hepatitis C [facility] Start: 2008 HIV screening HIV Screening [facility] Start: 2008 Tetanus + diphtheria + acellular pertussis vaccine (product) Tdap Booster [facility] Start: 2005 HIV screening HIV Test [facility] Start: 2003 Varicella vaccination Varicell a Vaccines (1 of 2 - 13+ 2-dose series) [facility] Start: 02-22-2002 Hepatitis B Vaccine (2 of 3 - 3-dose series) Hepatitis B Vaccine (2 of 3 - 3-dose series) [facility] Start: 1996 Pneumococcal Vaccine : Pediatrics (0 to 5 Years) and At-Risk Patients (6 to 64 Years) (1 - PCV) Pneumococcal Vaccine: Pediatrics (0 to 5 Years) and At-Risk Patients (6 to 64 Years) (1 - PCV) [facility] Start: 1996 Pneumococcal Vaccine : Pediatrics (0 to 5 Years) and At-Risk Patients (6 to 64 Years) (1 of 2 - PCV) Pneumococcal Vaccine: Pediatrics (0 to 5 Years) and At-Risk Patients (6 to 64 Years) (1 of 2 - PCV) [facility] Start: 1991 MMR Vaccines (1 of 1 - Standard series) MMR Vaccines (1 of 1 - Standard series) [facility] Start: 1991 Varicella vaccination Varicell a Vaccines (1 of 2 - 2-dose childhood series) [facility] Start: 1990 COVID-19 Vaccine (#1) COVID-19 Vacci ne (#1) [facility] Start: 1990 Hepatitis B Vaccines (1 of 3 - 3-dose series) Hepatitis B Vaccines (1 of 3 - 3-dose series) [facility] Start: 1990 Lipid panel Lipid Panel [facility] Start: 1990 Yearly Adult Physical Yearly Adult P hysical [facility] Bacteria identified in Urine by Culture URINE CULTURE Microbiology Routine Supervision of high risk in second trimester with uncertain dates in second trimester 05/26/2024 2:44 PM [facility] Bacteria identified in Urine by Culture BACTERIAL CULTURE, URINE Microbiology Routine Supervision of high risk in second trimester 07/12/2024 9:54 AM [facility] Chlamydia trachomatis+Neisseria gonorrhoeae DNA [Presence] in Unspecified specimen by CHRIS with probe detection GONORRHEA/CHLAMYDIA NAAT Lab Routine Supervision of high risk in second trimester with uncertain dates in second trimester 05/26/2024 2:44 PM [facility] End: 10-05-2024 OBSTETRIC ULTRASOUND WHI OBSTETRIC ULTRASOUND WHI Anc Imaging Routine Supervision of high risk in second trimester Every other week for 2 Occurrences starting 07/12/2024 until 10/05/2024 [facility] Work Phone: Comment on above: Every other week for 2 Occurrences starting 07/12/2024 until 10/05/2024 End: 04-19-2025 OBSTETRIC ULTRASOUND WHI OBSTETRIC ULTRASOUND WHI Anc Imaging Routine Supervision of high risk in third trimester ([facility]) 34 weeks gestation of ([facility]) Uterine size-date discrepancy, third trimester ([facility]) Once per month for 5 Occurrences starting 10/21/2024 until 04/19/2025 [facility] Work Phone: Comment on above: Once per month for 5 Occurrences starting 10/21/2024 until 04/19/2025 PAP TEST PAP TEST Lab Hallie stewart Supervision of high risk in second trimester with uncertain dates in second trimester 05/26/2024 2:44 PM [facility] Patient Education ED Muscle Stra in, Abdomen [facility] Work Phone: Patient referral [facility] Work Phone: ROUTINE, GR OUP B STREPTOCOCCUS BY PCR ROUTINE, GROUP B STREPTOCOCCUS BY PCR Microbiology Routine Supervision of high risk in third trimester (HCC) Ordered: 11/02/2024 [facility] Comment on above: Ordered: 11/02/2024 URINE OB DIP B/O URINE OB DIP B/ O Lab Routine Supervision of high risk in third trimester (HCC) Anemia complicating , third trimester ([facility]) Heartburn during in third trimester (HCC) Uterine size-date discrepancy, third trimester ([facility]) AMA (advanced maternal age) multigravida 35+, third trimester ([facility]) 36 weeks gestation of (HCC) Ordered: 11/02/2024 [facility] Work Phone: Comment on above: Ordered: 11/02/2024 URINE OB DIP B/O URINE OB DIP B/ O Lab Routine Supervision of high risk in third trimester (HCC) Anemia complicating , third trimester (HCC) 39 weeks gestation of (HCC) Tinea versicolor AMA (advanced maternal age) multigravida 35+, third trimester (HCC) Ordered: 11/23/2024 [facility] Work Phone: Comment on above: Ordered: 11/23/2024 Immunizations Immunization Date Immunization Notes Care Provider Fa cheryl 09-07-2024 tetanus toxoid, redu margie diphtheria toxoid, and acellular pertussis vaccine, adsorbed Annalee Blanc MD Work Phone: [facility] Payers Date Payer Category Payer Self-pay 2024 Private Health Insurance [id number] 2024 Medicaid [id number] 2024 Unknown [id number] 2024 Managed Care (Private) [facility] [id number] 2024 Unknown [id number] 2023 Unknown [id number] 2023 Unknown 2023 Unknown [id number] 2014 Commercial Managed C [facility] [id number] 2014 Private Health Insurance [facility] HMO/POS [id number] 2014-Present HMO [id number] 2014 Private Health Insurance [id number] 1990 Unknown [id number] 356 1990 Unknown [id number]. 356 1990 Unknown [id number] 356 1990 Unknown [id number]. 356 1990 Unknown [id number] 356 1990 Unknown [id number] 1244 1990 Unknown [id number] [id number] 1244 1990 Unknown [id number]. 1245 1990 Unknown [id number]. 124 1990 Unknown [id number] 1245 Private Health Insurance KIRT PERES [id number] Unknown [id number] Unknown [id number] 462 Social History Date Type Detail Facility Start: 10-04-2014 End: 11-01-2014 Tobacco smoking status [facility]IS [facility] Start: 11-01-2014 End: 05-26-2024 Cigarettes smoked current (pack per day) - Reported [facility] Comment on above: 1/2 pack per day; Start: 11-01-2014 End: 05-26-2024 Tobacco use and exposure Never used [facility] Start: 10-04-2014 Tobacco Comment [facility] Start: 1990 Sex Assigned At Not [facility] Tobacco smoking consumption unknown [facility] History of tobacco use Current smoker [facility] Start: 07-14-2023 End: 05-26-2024 Tobacco smoking status [facility] Smokes tobacco daily [facility] Work Phone: History of tobacco use Passive smoker [facility] Work Phone: Start: 07-14-2023 End: 04-02-2024 Alcohol intake Current drinker of alcohol (finding) [facility] Work Phone: Start: 07-14-2023 End: 05-26-2024 Gender identity Not on file [facility] Work Phone: Start: 07-04-2023 End: 04-02-2024 Exposure to SARS-CoV-2 (event) Not sure [facility] Start: 05-26-2024 End: 11-23-2024 Alcoholic beverage intake Ex-drinker (finding) [facility] National Score (1-100), lower number is lower risk 64 [facility] Start: 03-05-2024 [facility] Start: 05-31-2014 End: 09-04-2024 Sex Female (finding) [facility] Start: 09-04-2024 [facility] Start: 1990 Sex Assigned At Female W [facility] Medical Equipment Procedure Code Equipment Code Equipment Origin al Text Equipment Identifier Dates Nail 10 X 315mm Cannulated Tibial Proximal Bend Expert Ti 04.034.443s - [id number] Start: 05-31-2014 Screw 5.0 X 54mm Self-Tapping Full Thread Locking T25 Star T 04.005.544 - [id number] Start: 05-31-2014 Screw 5.0 X 68mm Self-Tapping Full Thread Locking T25 Star T 04.005.558 - [id number] Start: 05-31-2014 Screw 5.0 X 74mm Self-Tapping Full Thread Locking T25 Star T 04.005.564 - [id number] Start: 05-31-2014 Screw 5.0 X 44mm Self-Tapping Full Thread Locking T25 Star T 04.005.534 - [id number] Start: 05-31-2014 Screw 5.0 X 40mm Self-Tapping Full Thread Locking T25 Star T 04.005.530 - [id number] Start: 05-31-2014 Goals Date Patient Goal Desired Activity /State Personal health goal Functional Status Date Assessment Result Facility 05-31-2014 Are you deaf, or do you have serious difficulty hearing No 05/31/2014 8:38 PM Miguelina Thrasher RN No [facility] 05-31-2014 Are you blind, or do you have serious difficulty seeing, even when wearing glasses No 05/31/2014 8:38 PM Miguelina Thrasher RN No [facility] 05-31-2014 Do you have serious difficulty walking or climbing stairs No 05/31/2014 8:38 PM Miguelina Thrasher RN No [facility] 05-31-2014 Do you have difficul ty dressing or bathing No 05/31/2014 8:38 PM Miguelina Thrasher RN No [facility] 05-31-2014 Because of a physica l, mental, or emotional condition, do you have difficulty doing errands alone such as visiting a physician's office or shopping No 05/31/2014 8:38 PM Miguelina Thrasher, RN No [facility] Mental Status Date Assessment Result Facility 09-04-2024 Cognitive function Voice/Name [facility] Work Phone: 05-31-2014 Because of a physica l, mental, or emotional condition, do you have serious difficulty concentrating, remembering, or making decisions No 05/31/2014 8:38 PM Miguelina Thrasher, KIRSTEN No [facility] Clinical Notes 11-15-2021 to 11-23-2024 Quick Notes - Gus Way MD - 11/23/2024 11:38 AM EDTPrenatal Quick Notes - Gus Way MD - 11/23/2024 11:38 AM EDTPatient InstructionsPatient Instructions Note Date & Type Note Facility 11-23-2024 Progress note Formatting of t his note might be different from the original. Attending Note I evaluated the patient and personally participated in the wagoner components. I agree with the resident's findings and plan as documented and have discussed the case and management of the patient's care with the resident. I saw patient and we discussed r/b/a to induction and would like to proceed. Signature: Gus Way MD Date: 11/23/2024 Time: 11:38 AM [facility] 11-23-2024 Miscellaneous Notes Attending Note I evaluated the patient and personally participated in the wagoner components. I agree with the resident's findings and plan as documented and have discussed the case and management of the patient's care with the resident. I saw patient and we discussed r/b/a to induction and would like to proceed. Signature: Gus Way MD Date: 11/23/2024 Time: 11:38 AM S: Denies leakage of fluid, vaginal bleeding, She reports good movement. Reports occasional contractions, pelvic cramping. Desires cervical exam O: BP 100/58 Wt 69.4 kg (153 lb) LMP 02/20/2024 BMI 26.77 kg/m BMI 26.77 kg/(m^2) See flowsheet for FH, FHR Participation of a fellow, resident, medical student, or advanced practice provider student in performing the sensitive examination was discussed with the patient or authorized career services representative. The patient or authorized career services representative has agreed to proceed with the sensitive examination. A/P: Perlita Thakkar is a 34 year old at 39w4d ASSESSMENT/PLAN: 1. Supervision of high risk in third trimester ([facility]) - ICD9: V23.9, ICD10: O09.93 (primary diagnosis) GBS negative Desires induction at 40 weeks if no spontaneous labor - URINE OB DIP B/O 2. Anemia complicating , third trimester ([facility]) - ICD9: 648.23, 285.9, ICD10: O99.013 Last hgb 10/21 10.9 On oral iron - URINE OB DIP B/O 3. 39 weeks gestation of ([facility]) - ICD9: V22.2, ICD10: Z3A.39 - URINE OB DIP B/O 6. AMA (advanced maternal age) multigravida 35+, third trimester ([facility]) - ICD9: 659.63, ICD10: O09.523 - URINE OB DIP B/O Ismael Foote MD 11/23/2024 11:25 AM documented in this encounter [facility] 11-23-2024 Progress note Formatting of t his note might be different from the original. S: Denies leakage of fluid, vaginal bleeding, She reports good movement. Reports occasional contractions, pelvic cramping. Desires cervical exam O: BP 100/58 Wt 69.4 kg (153 lb) LMP 02/20/2024 BMI 26.77 kg/m BMI 26.77 kg/(m^2) See flowsheet for FH, FHR Participation of a fellow, resident, medical student, or advanced practice provider student in performing the sensitive examination was discussed with the patient or authorized career services representative. The patient or authorized career services representative has agreed to proceed with the sensitive examination. A/P: Perlita Thakkar is a 34 year old at 39w4d ASSESSMENT/PLAN: 1. Supervision of high risk in third trimester ([facility]) - ICD9: V23.9, ICD10: O09.93 (primary diagnosis) GBS negative Desires induction at 40 weeks if no spontaneous labor - URINE OB DIP B/O 2. Anemia complicating , third trimester ([facility]) - ICD9: 648.23, 285.9, ICD10: O99.013 Last hgb 10/21 10.9 On oral iron - URINE OB DIP B/O 3. 39 weeks gestation of ([facility]) - ICD9: V22.2, ICD10: Z3A.39 - URINE OB DIP B/O 6. AMA (advanced maternal age) multigravida 35+, third trimester ([facility]) - ICD9: 659.63, ICD10: O09.523 - URINE OB DIP B/O Ismael Foote MD 11/23/2024 11:25 AM [facility] Work Phone: 11-23-2024 Instructions Anais Guerrero MA - 11/23/2024 11:12 AM EDT SEQUENTIAL SCREENINGS The [facility] offers sequential screenings for women who are interested in screenings for chromosomal abnormalities and certain defects during a . The sequential screen combines ultrasound and blood tests to determine the risk of chromosomal abnormalities, including Down's Syndrome (Trisomy 21) and Trisomy 18, as well as open neural tube defects including spina bifida. Ultrasound examination is performed between 11 weeks and 13 weeks gestational age. Blood tests are drawn after the ultrasound and again later in the between 15 and 21 weeks gestational age. Please let your physician know if you are interested in this testing. It will require an appointment with our industrial ecology technician. This is not an ultrasound performed by a physician in our office during a routine visit. SIGNS AND SYMPTOMS OF LABOR 1. Contractions every 10 minutes or more often 2. Clear, pink, or brownish fluid (water) leaking from vagina 3. Feeling that baby is pushing down, pressure 4. Low, dull backache 5. Cramps that feel like a period 6. Cramps with or without diarrhea If you notice any of the above symptoms, contact our office at [phone] and ask to speak with a nurse. After hours, you can call doctors registry at [phone] OR call [facility] at [phone] and ask to have the doctor cotton dispatcher paged. If you consider this an emergency, dial [phone]- or go to your nearest emergency department. NEED HELP? Are you dealing with a violent or abusive relationship? Are you a victim of rape or sexual assult? Call [facility] ([place]) 24 hour Crisis Hotline: 326.340.7394 or 885-019-9603. MANUAL Your Guide to a Healthy manual is now on-line. Visit [email or web address] ancyGuide to download your free copy documented in this encounter [facility] 11-19-2024 Miscellaneous Notes ANDREY-S: Perlita Thakkar is a 34 year old female who presents at 39w0d with THA: 11/26/2024, by Last Menstrual Period for a routine visit. Denies headache, visual changes, chest pain, shortness of breath, vaginal bleeding, leakage of fluid, or dysuria. Over the past week noticed a rash to upper chest, abdomen, shoulders. Does not itch and no complaints. Denies any new creams, lotions, or soaps. O: See flow sheet Gen: No apparent distress Abd: Gravid, nontender Rash to abdomen, chest, shoulders, upper back. Oaks/white patches, not raised ASSESSMENT/PLAN: 1. Supervision of high risk in second trimester 2. 39 weeks gestation of -Continue PNV and ASA 3. Anemia complicating , first trimester - Continue PO iron supplement 4. Current every day nicotine vaping - ICD9: 305.1, ICD10: Z72.0 - Cessation encouraged and reviewed risk to baby 5. Marijuana use during - ICD9: 648.40, 305.20, ICD10: O99.320, F12.90 - Recommend cessation and risk to baby 6. History of loop electrosurgical excision procedure (LEEP) of cervix affecting in second trimester 7. Tinea versicolor -Reviewed treatment with Selsun Blue and clotrimazole. Information in AVS PTL precautions reviewed and when to call RTO in 1 weeks Cristy Jain APRN.CNM documented in this encounter [facility] 11-19-2024 Progress note Formatting of t his note might be different from the original. ANDREY-S: Perlita Thakkar is a 34 year old female who presents at 39w0d with THA: 11/26/2024, by Last Menstrual Period for a routine visit. Denies headache, visual changes, chest pain, shortness of breath, vaginal bleeding, leakage of fluid, or dysuria. Over the past week noticed a rash to upper chest, abdomen, shoulders. Does not itch and no complaints. Denies any new creams, lotions, or soaps. O: See flow sheet Gen: No apparent distress Abd: Gravid, nontender Rash to abdomen, chest, shoulders, upper back. Oaks/white patches, not raised ASSESSMENT/PLAN: 1. Supervision of high risk in second trimester 2. 39 weeks gestation of -Continue PNV and ASA 3. Anemia complicating , first trimester - Continue PO iron supplement 4. Current every day nicotine vaping - ICD9: 305.1, ICD10: Z72.0 - Cessation encouraged and reviewed risk to baby 5. Marijuana use during - ICD9: 648.40, 305.20, ICD10: O99.320, F12.90 - Recommend cessation and risk to baby 6. History of loop electrosurgical excision procedure (LEEP) of cervix affecting in second trimester 7. Tinea versicolor -Reviewed treatment with Selsun Blue and clotrimazole. Information in AVS PTL precautions reviewed and when to call RTO in 1 weeks Cristy Jain APRN.CNM [facility] 11-19-2024 Instructions Cristy Jain APRN.CNM - 11/19/2024 11:09 AM EDT I have provided information below for treatment of tinea vesicolor. You can get this over the counter: Treatment Instructions 1. Apply Selsun (2.5% Selenium sulfide) shampoo as a lotion to your skin from the neck to the waist and arms. Leave on for about 20 minutes, and then take a shower. Shampoo your scalp with Selsun and leave lather on for 5 minutes. 2. Repeat #1 daily for one week. 3. Repeat #1 weekly during hot summer months to prevent recurrence. Repeat #1 monthly during cooler seasons. After shower or before bed you can also apply over the counter cream twice daily for 2 weeks to the areas where the rash is visible Clotrimazole (Lotrimin AF) cream or lotion SIGNS AND SYMPTOMS OF LABOR 1. Contractions every 10 minutes or more often 2. Clear, pink, or brownish fluid (water) leaking from vagina 3. Feeling that baby is pushing down, pressure 4. Low, dull backache 5. Cramps that feel like a period 6. Cramps with or without diarrhea If you notice any of the above symptoms, contact our office at [phone] and ask to speak with a nurse. After hours, you can call doctors registry at [phone] OR call [facility] at [phone] and ask to have the doctor cotton dispatcher paged. If you consider this an emergency, dial 9-1-1 or go to your nearest emergency department. NEED HELP? Are you dealing with a violent or abusive relationship? Are you a victim of rape or sexual assult? Call [facility] ([facility] 24 hour Crisis Hotline: 931.544.9800 or 525-420-1733. MANUAL Your Guide to a Healthy manual is now on-line. Visit [email or web address] ancyGuide to download your free copy Tinea versicolor Tinea versicolor is a common fungal infection of the skin. The fungus interferes with the normal pigmentation of the skin, resulting in small, discolored patches. These patches may be field health officer or darker in color than the surrounding skin and most commonly affect the trunk and shoulders. Tinea versicolor (TIN-ee-uh svq-qr-CHW-ur), occurs most frequently in teens and young adults. Sun exposure may make tinea versicolor more apparent. Tinea versicolor, which is also called pityriasis versicolor, is not painful or contagious. But it can lead to emotional distress or self-consciousness. Antifungal creams, lotions or shampoos can help treat tinea versicolor. But even after successful treatment, skin color may remain uneven for several weeks or months. Tinea versicolor often recurs, especially in warm, humid weather. Tinea versicolor signs and symptoms include: Patches of skin discoloration, usually on the back, chest, neck and upper arms, which may appear field health officer or darker than usual Mild itching Scaling When to see a doctor See your doctor if: Your skin doesn't improve with self-care measures The fungal infection returns The patches cover large areas of your body The fungus that causes tinea versicolor can be found on healthy skin. It only starts causing problems when the fungus overgrows. A number of factors may trigger this growth, including: Hot, humid weather Oily skin Hormonal changes Weakened immune system You're likely to start by first seeing your family doctor or a general practitioner. He or she may treat you or refer you to a specialist in skin disorders (paper reclaiming machine operator). What you can do Preparing a list of questions beforehand can help you make the most of your time with your doctor. For tinea versicolor, some basic questions to ask your doctor include: How did I get tinea versicolor? What are other possible causes? Do I need any tests? Is tinea versicolor temporary or long lasting? What treatments are available, and which do you recommend? What side effects can I expect from treatment? How long will it take for my skin to return to normal? Can I do anything to help, such as avoid the sun at certain times or wear a specific sunscreen? I have other health conditions. How can I best manage them together? Is there a generic alternative to the medicine you're prescribing me? Do you have brochures or other printed material I can take home? What websites do you recommend? What to expect from your doctor Your doctor is likely to ask you a number of questions, such as: How long have you had these discolored areas on your skin? Have your symptoms been continuous or occasional? Have you had this or a similar condition in the past? Do the affected areas itch? Does anything seem to improve your symptoms? What, if anything, appears to worsen your symptoms? Your doctor can diagnose tinea versicolor by looking at it. If there's any doubt, he or she may take skin scrapings from the infected area and view them under a microscope. If tinea versicolor is severe or doesn't respond to rkti-wfj-ufvjbli antifungal medicine, you may need a prescription-strength medication. Some of these medications are topical preparations that you rub on your skin. Others are drugs that you swallow. Examples include: Ciclopirox (Loprox, Penlac) cream, gel or shampoo Fluconazole (Diflucan) tablets or oral solution Itraconazole (Onmel, Sporanox) tablets, capsules or oral solution Ketoconazole (Ketoconazole, Nizoral, others) cream, gel or shampoo Even after successful treatment, your skin color may remain uneven for several weeks, or even months. Also, the infection may return in hot, humid weather. In persistent cases, you may need to take a medication once or twice a month to prevent the infection from recurring. For a mild case of tinea versicolor, you can apply an jiyt-yfs-yzahsqd antifungal lotion, cream, ointment or shampoo. Most fungal infections respond well to these topical agents, which include: Clotrimazole (Lotrimin AF) cream or lotion Miconazole (Micaderm) cream Selenium sulfide (Selsun Blue) 1 percent lotion Terbinafine (Lamisil AT) cream or gel Zinc pyrithione soap When using creams, ointments or lotions, wash and dry the affected area. Then apply a thin layer of the product once or twice a day for at least two weeks. If you're using shampoo, rinse it off after waiting five to 10 minutes. If you don't see an improvement after four weeks, see your doctor. You may need a stronger medication. It also helps to protect your skin from the sun and artificial sources of UV light. Usually, the skin tone evens out eventually. To help prevent tinea versicolor from returning, your doctor can prescribe a skin or oral treatment that you use once or twice a month. You may need to use these just during warm and humid months. Preventive treatments include: Selenium sulfide (Selsun) 2.5 percent lotion or shampoo Ketoconazole (Ketoconazole, Nizoral, others) cream, gel, shampoo Itraconazole (Onmel, Sporanox) tablets, capsules or oral solution Fluconazole (Diflucan) tablets or oral solution References 1.Trena CELAYA. Tinea versicolor. In: Trena's Clinical Advisor 2015: 5 Books in 1. Santhosh Tao.: [place] [employer]; 2015. https://www.Blueleaf. Accessed August 15, 2014. 2.Jose Antonio KIMBROUGH et al., eds. Yeast infections: Candidiasis, tinea (pityriasis) versicolor and malassezia (pityrosporum) folliculitis. In: Ade's Dermatology in General Medicine. 8th ed. [place] [employer]; 2011. http://www.[employer]. Accessed August 15, 2014. 3.Lucas Gonzalez et al. Interventions for the treatment of pityriasis versicolor. [employer]ero Database of Systematic Reviews. http://ovidsp.Wordinaire.ovid.com/sp-3.1 4.0b/ovidweb.cgi. Accessed August 15, 2014. 4.AskMayoExpert. Superficial fungal infections. [facility].: [employer] Education and Research; 2011. 5.Tinea versicolor. [employer]ermatology. www.aad.org/pmyjnlgmqxi-z-cn-z/d wulcrae-fmo-rnezskprff/q---t/tin ea-versicolor. Accessed August 15, 2014. 6.Tinea versicolor. The [employer] Manual Professional Edition. http://www.[employer].Capital Access Network/prof essional/dermatologic_disorders/ fungal_skin_infections/tinea_ver sicolor.html. Accessed August 15, 2014. Tinea versicolor is a superficial infection of the skin caused by a fungus that lives in the skin and hair follicles. Heat, humidity and sweating help the fungus to grow and spread. The fungus interferes with normal pigmentation of the skin. It will take many months for the normal pigment to return after the treatment is completed. documented in this encounter [facility] 11-18-2024 Note HNO ID: [id number] Author: VIRGINIA MARK MA Service: ? Author Type: Home Security Alarm Installer Type: Progress Notes Filed: 11/18/2024 15:16 Note Text: POPULATION HEALTH NAVIGATION OUTREACH Action/FYI Manufacturer Agent updated per MC response. Reason for Outreach Medicaid OB/Peds Care Gaps due: N/A Patient Contacted: Spoke to patient/parent/or legal guardian Patient identified by name and : Yes Medicaid OB/Peds actions taken: /Manufacturer Agent added Navigation Signature: Virginia Durand MA November 18, 2024 3:14 PM [facility] 11-12-2024 Note HNO ID: [id number] Author: VIRGINIA MARK MA Service: ? Author Type: Home Security Alarm Installer Type: Progress Notes Filed: 11/12/2024 14:35 Note Text: POPULATION HEALTH NAVIGATION OUTREACH Action/FYI Called and spoke with pt and states she will outreach back via . MC message sent. Reason for Outreach Medicaid OB/Peds Care Gaps due: N/A Patient Contacted: Spoke to patient/parent/or legal guardian Patient identified by name and : Yes Medicaid OB/Peds actions taken: Patient declined: Patient requested call back from navigator/ will call navigator back Navigation Signature: Virginia Durand MA November 12, 2024 12:55 PM [facility] 11-12-2024 History of Present illness Narrative POPULATION HEALTH NAVIGATION OUTREACH Action/FYI Called and spoke with pt and states she will outreach back via . MC message sent. Reason for Outreach Medicaid OB/Peds Care Gaps due: N/A Patient Contacted: Spoke to patient/parent/or legal guardian Patient identified by name and : Yes Medicaid OB/Peds actions taken: Patient declined: Patient requested call back from navigator/ will call navigator back Navigation Signature: Virginia Durand MA November 12, 2024 12:55 PM documented in this encounter [facility] 11-12-2024 Note Patient Outreach (MARY TEEAV) TEAGANPERLITA Jose ([id number]) 1990 F Date Time Provider Department 11/12/24 VIRGINIA MARK During your visit today, we recorded the following information about you: Virginia Mark MA 11/12/2024 2:35 PM Signed POPULATION HEALTH NAVIGATION OUTREACH Action/FYI Called and spoke with pt and states she will outreach back via . message sent. Reason for Outreach Medicaid OB/Peds Care Gaps due: N/A Patient Contacted: Spoke to patient/parent/or legal guardian Patient identified by name and : Yes Medicaid OB/Peds actions taken: Patient declined: Patient requested call back from navigator/ will call navigator back Navigation Signature: Virginia Durand MA November 12, 2024 12:55 PM Virginia Mark MA 11/18/2024 3:16 PM Signed POPULATION HEALTH NAVIGATION OUTREACH Action/FYI Manufacturer Agent updated per response. Reason for Outreach Medicaid OB/Peds Care Gaps due: N/A Patient Contacted: Spoke to patient/parent/or legal guardian Patient identified by name and : Yes Medicaid OB/Peds actions taken: /Manufacturer Agent added Navigation Signature: Virginia Durand MA November 18, 2024 3:14 PM Allergies As of Date: 11/12/2024 (No Known Allergies) Date Reviewed: 11/11/2024 Reviewed by: Fam Krause MA - Fully Assessed Reason for Visit: Population Health Navigation Outreach [3910] Cmt: Ob/peds Prescriptions as of 11/18/2024 - famotidine (PEPCID) 20 mg tablet Take 1 tablet by mouth two times a day. - ondansetron (ZOFRAN) 4 mg tablet Take 1 tablet by mouth every 8 hours as needed for nausea/vomiting. - Ferrous Sulfate 134 mg (27 mg iron) tab - vitamin B comp and vit C no.6 (VITAMIN B COMP WITH VIT C NO.6 ORAL) Take by mouth. - aspirin, enteric coated (ECOTRIN LOW STRENGTH) 81 mg EC tablet Take 1 tablet by mouth once daily. - PNV no.95/ferrous fum/folic ac ( ORAL) Take by mouth. - acetaminophen (TYLENOL EXTRA STRENGTH) 500 mg tablet Take 2 tablets by mouth every 8 hours as needed for pain. Problem List As Of Date 11/12/2024 Noted Resolved Late care affecting in secon*05/26/2024 History of loop electrosurgical excision proced*05/26/2024 Nausea and vomiting during [O21.9] 05/26/2024 Current every day nicotine vaping [Z72.0] 05/26/2024 Marijuana use during [O99.320, F12.90]05/26/2024 Anemia complicating , first trimester *05/27/2024 UTI (urinary tract infection) in , ant*05/28/2024 Heartburn during in third trimester (*09/22/2024 Uterine size-date discrepancy, third trimester *10/21/2024 Encounter Status:Closed by VIRGINIA MARK on 11/12/24 [facility] 11-11-2024 Progress note Formatting of t his note might be different from the original. S: Perlita Thakkar is a 34 year old female who presents at 37 weeks gestation for a routine visit. Denies headache, visual changes, chest pain, shortness of breath, vaginal bleeding, leakage of fluid, or dysuria. Feeling well, no complaints. Positive movements and occasional evgeny child contractions. O: See flow sheet Gen: No apparent distress Abd: Gravid, nontender ASSESSMENT/PLAN: 1. Uterine size-date discrepancy, third trimester 2. 37 weeks gestation of 3. Supervision of high risk in third trimester 4. Anemia complicating , third trimester 5. Heartburn during in third trimester 6. AMA (advanced maternal age) multigravida 35+, third trimester - GBS negative - Continue iron supplementation daily - Continue ASA/PNV daily - Reviewed timing of contractions and when to call office - RTO weekly visits Brea Plotts, WIRELESS CELLULAR TECHNICIAN.CNM [facility] 11-11-2024 Miscellaneous Notes S: Perlita Thakkar is a 34 year old female who presents at 37 weeks gestation for a routine visit. Denies headache, visual changes, chest pain, shortness of breath, vaginal bleeding, leakage of fluid, or dysuria. Feeling well, no complaints. Positive movements and occasional evgeny child contractions. O: See flow sheet Gen: No apparent distress Abd: Gravid, nontender ASSESSMENT/PLAN: 1. Uterine size-date discrepancy, third trimester 2. 37 weeks gestation of 3. Supervision of high risk in third trimester 4. Anemia complicating , third trimester 5. Heartburn during in third trimester 6. AMA (advanced maternal age) multigravida 35+, third trimester - GBS negative - Continue iron supplementation daily - Continue ASA/PNV daily - Reviewed timing of contractions and when to call office - RTO weekly visits Brea Mirza APRN.CNM documented in this encounter [facility] 11-11-2024 Instructions Fam Krause MA - 11/11/2024 7:59 AM EDT SEQUENTIAL SCREENINGS The [facility] offers sequential screenings for women who are interested in screenings for chromosomal abnormalities and certain defects during a . The sequential screen combines ultrasound and blood tests to determine the risk of chromosomal abnormalities, including Down's Syndrome (Trisomy 21) and Trisomy 18, as well as open neural tube defects including spina bifida. Ultrasound examination is performed between 11 weeks and 13 weeks gestational age. Blood tests are drawn after the ultrasound and again later in the between 15 and 21 weeks gestational age. Please let your physician know if you are interested in this testing. It will require an appointment with our industrial ecology technician. This is not an ultrasound performed by a physician in our office during a routine visit. SIGNS AND SYMPTOMS OF LABOR 1. Contractions every 10 minutes or more often 2. Clear, pink, or brownish fluid (water) leaking from vagina 3. Feeling that baby is pushing down, pressure 4. Low, dull backache 5. Cramps that feel like a period 6. Cramps with or without diarrhea If you notice any of the above symptoms, contact our office at [phone] and ask to speak with a nurse. After hours, you can call doctors registry at [phone] OR call [facility] at [phone] and ask to have the doctor cotton dispatcher paged. If you consider this an emergency, dial 91-0 or go to your nearest emergency department. NEED HELP? Are you dealing with a violent or abusive relationship? Are you a victim of rape or sexual assult? Call [facility] ([place]) 24 hour Crisis Hotline: 709.914.8025 or 389-697-8223. MANUAL Your Guide to a Healthy manual is now on-line. Visit [email or web address] ancyGuide to download your free copy documented in this encounter [facility] 11-02-2024 Progress note Formatting of t his note might be different from the original. S: Perlita Thakkar is a 34 year old female who presents at 11/26/2024, by Last Menstrual Period for a routine visit. Denies headache, visual changes, chest pain, shortness of breath, vaginal bleeding, leakage of fluid, or dysuria. Feeling well, no complaints. Good movement, No contractions O: See flow sheet Gen: No apparent distress Abd: Gravid, nontender EFW 40% MICHAEL 13.9 VTX ASSESSMENT/PLAN: 1. Supervision of high risk in third trimester ([facility]) - ICD9: V23.9, ICD10: O09.93 (primary diagnosis) - URINE OB DIP B/O - ROUTINE, GROUP B STREPTOCOCCUS BY PCR 2. Anemia complicating , third trimester ([facility]) - ICD9: 648.23, 285.9, ICD10: O99.013 Taking oral iron - URINE OB DIP B/O 3. Heartburn during in third trimester ([facility]) - ICD9: 646.83, 787.1, ICD10: O26.893, R12 pepcid - URINE OB DIP B/O 4. Uterine size-date discrepancy, third trimester ([facility]) - ICD9: 649.63, ICD10: O26.843 EFW 40% - URINE OB DIP B/O 5. AMA (advanced maternal age) multigravida 35+, third trimester ([facility]) - ICD9: 659.63, ICD10: O09.523 - URINE OB DIP B/O 6. 36 weeks gestation of ([facility]) - ICD9: V22.2, ICD10: Z3A.36 GBS today - URINE OB DIP B/O Miguelina Herrera MD [facility] 11-02-2024 Miscellaneous Notes S: Perlita Thakkar is a 34 year old female who presents at 11/26/2024, by Last Menstrual Period for a routine visit. Denies headache, visual changes, chest pain, shortness of breath, vaginal bleeding, leakage of fluid, or dysuria. Feeling well, no complaints. Good movement, No contractions O: See flow sheet Gen: No apparent distress Abd: Gravid, nontender EFW 40% MICHAEL 13.9 VTX ASSESSMENT/PLAN: 1. Supervision of high risk in third trimester ([facility]) - ICD9: V23.9, ICD10: O09.93 (primary diagnosis) - URINE OB DIP B/O - ROUTINE, GROUP B STREPTOCOCCUS BY PCR 2. Anemia complicating , third trimester ([facility]) - ICD9: 648.23, 285.9, ICD10: O99.013 Taking oral iron - URINE OB DIP B/O 3. Heartburn during in third trimester ([facility]) - ICD9: 646.83, 787.1, ICD10: O26.893, R12 pepcid - URINE OB DIP B/O 4. Uterine size-date discrepancy, third trimester ([facility]) - ICD9: 649.63, ICD10: O26.843 EFW 40% - URINE OB DIP B/O 5. AMA (advanced maternal age) multigravida 35+, third trimester ([facility]) - ICD9: 659.63, ICD10: O09.523 - URINE OB DIP B/O 6. 36 weeks gestation of ([facility]) - ICD9: V22.2, ICD10: Z3A.36 GBS today - URINE OB DIP B/O Miguelina Herrera MD documented in this encounter [facility] 11-02-2024 Note Indication Evaluation of growth. Discrepancy between uterine size and clinical dates. Hx LEEP Impression - Single, live, intrauterine . - presentation is cephalic. - The biometry is consistent with the assigned gestational dating. - The EFW is 2841 g, at the 40%. AC is at the 69%. - The amniotic fluid volume is normal amount with an MVP of 5.1 cm and an MICHAEL of 13.9 cm. - The placenta is anterior. - No malformations visualized on a limited survey as detailed below. Recommendations Additional follow-up as clinically indicated. Maternal Assessment Height 160 cm Height (ft) 5 ft Height (in) 3 in Physical Exam Initial weight (lb) 125 lb Initial BMI 22.14 kg/m Maternal assessment other: 1 Para 0 Method Transabdominal ultrasound examination, Color Doppler examination. View: Suboptimal view: limited by position Maher . Number of fetuses: 1 Dating LMP on: 02/20/2024 GA by LMP 36 w + 4 d THA by LMP: 11/26/2024 GA by prior assessment 36 w + 4 d THA by prior assessment: 11/26/2024 Ultrasound examination on: 11/02/2024 GA by U/S based upon: AC, BPD, Femur, HC GA by U/S 35 w + 1 d THA by U/S: 12/06/2024 Assigned: based on stated THA, selected on 07/12/2024 Assigned GA 36 w + 4 d Assigned THA: 11/26/2024 General Evaluation Cardiac activity present. FHR 136 bpm. movements: present. Presentation: cephalic Placenta: Placental site: anterior. Enlarged placenta Umbilical cord: Cord vessels: 3 vessel cord Amniotic fluid: Amount of AF: normal amount. MVP 5.1 cm. MICHAEL 13.9 cm. Q1 5.1 cm, Q2 4.0 cm, Q3 3.1 cm, Q4 1.8 cm Growth Overview Exam date GA BPD (mm) HC (mm) AC (mm) FL (mm) HL (mm) EFW (g) 06/21/2024 17w 3d 38.1 59% 141.1 43% 118.4 53% 23.9 51% 23.8 57% 191 38% 07/12/2024 20w 3d 48.3 57% 176.5 41% 156.5 57% 32.8 57% 30.5 37% 356 46% 11/02/2024 36w 4d 85.1 8% 319.2 28% 328.9 69% 68 34% 2841 40% Biometry Standard BPD 85.1 mm 34w 2d 8% Hadlock OFD 112.0 mm 34w 0d 31% Nicolaides HC 319.2 mm 35w 0d 28% Dustin AC 328.9 mm 36w 6d 69% Hadlock Femur 68.0 mm 34w 4d 34% Dustin EFW 2,841 g 36w 1d 40% Hadlock EFW (lb) 6 lb EFW (oz) 4 oz EFW by: Hadlock (HC-AC-FL) Extended Java Engineer 2.0 mm Extremities / Bony Struc FL / HC 0.21 Other Structures FHR 136 bpm Anatomy Lateral ventricles: normal Cavum septi pellucidi: normal Cerebellum: suboptimally visualized Cisterna magna: suboptimally visualized 4-chamber view: suboptimally visualized RVOT view: suboptimally visualized LVOT view: suboptimally visualized 3-vessel view: normal Heart / Thorax Situs: situs solitus (normal) Diaphragm: normal Stomach: normal Kidneys: normal Bladder: normal sex: female Wants to know sex: yes Performed By: Tahira Mancera RDMS Read By: Munira Gomez M.D. [facility] 11-02-2024 Instructions Jalil Carmen MA - 11/02/2024 1:14 PM EDT SEQUENTIAL SCREENINGS The [facility] offers sequential screenings for women who are interested in screenings for chromosomal abnormalities and certain defects during a . The sequential screen combines ultrasound and blood tests to determine the risk of chromosomal abnormalities, including Down's Syndrome (Trisomy 21) and Trisomy 18, as well as open neural tube defects including spina bifida. Ultrasound examination is performed between 11 weeks and 13 weeks gestational age. Blood tests are drawn after the ultrasound and again later in the between 15 and 21 weeks gestational age. Please let your physician know if you are interested in this testing. It will require an appointment with our industrial ecology technician. This is not an ultrasound performed by a physician in our office during a routine visit. SIGNS AND SYMPTOMS OF LABOR 1. Contractions every 10 minutes or more often 2. Clear, pink, or brownish fluid (water) leaking from vagina 3. Feeling that baby is pushing down, pressure 4. Low, dull backache 5. Cramps that feel like a period 6. Cramps with or without diarrhea If you notice any of the above symptoms, contact our office at [phone] and ask to speak with a nurse. After hours, you can call doctors registry at [phone] OR call [facility] at [phone] and ask to have the doctor cotton dispatcher paged. If you consider this an emergency, dial 9-6- or go to your nearest emergency department. NEED HELP? Are you dealing with a violent or abusive relationship? Are you a victim of rape or sexual assult? Call [facility] ([place]) 24 hour Crisis Hotline: 338.391.7422 or 460-772-4708. MANUAL Your Guide to a Healthy manual is now on-line. Visit [email or web address] ancyGuide to download your free copy documented in this encounter [facility] 10-21-2024 Progress note Formatting of t his note might be different from the original. S: Perlita Thakkar is a 34 year old female who presents at 34 weeks gestation for a routine visit. Positive movements. Denies headache, visual changes, chest pain, shortness of breath, vaginal bleeding, leakage of fluid, or dysuria. Feeling well, no complaints. O: See flow sheet Gen: No apparent distress Abd: Gravid, nontender S ASSESSMENT/PLAN: 1. Supervision of high risk in third trimester 2. Anemia complicating , third trimester 3. 34 weeks gestation of 4. Heartburn during in third trimester 5. Uterine size discrepancy SGrowth US ordered Repeat CBC today Continue Pepcid 20 mg PO BID Continue oral iron daily PTL precautions and kick counts reviewed RTO 2 weeks Brea Mirza APRN.CNM [facility] 10-21-2024 Miscellaneous Notes S: Perlita Thakkar is a 34 year old female who presents at 34 weeks gestation for a routine visit. Positive movements. Denies headache, visual changes, chest pain, shortness of breath, vaginal bleeding, leakage of fluid, or dysuria. Feeling well, no complaints. O: See flow sheet Gen: No apparent distress Abd: Gravid, nontender S<D, measuring 3 weeks behind ASSESSMENT/PLAN: 1. Supervision of high risk in third trimester 2. Anemia complicating , third trimester 3. 34 weeks gestation of 4. Heartburn during in third trimester 5. Uterine size discrepancy S<D, measuring 3 weeks behind Growth US ordered Repeat CBC today Continue Pepcid 20 mg PO BID Continue oral iron daily PTL precautions and kick counts reviewed RTO 2 weeks Brea Mirza APRN.CNM documented in this encounter [facility] 10-21-2024 Instructions Anais Guerrero MA - 10/21/2024 7:51 AM EDT SEQUENTIAL SCREENINGS The [facility] offers sequential screenings for women who are interested in screenings for chromosomal abnormalities and certain defects during a . The sequential screen combines ultrasound and blood tests to determine the risk of chromosomal abnormalities, including Down's Syndrome (Trisomy 21) and Trisomy 18, as well as open neural tube defects including spina bifida. Ultrasound examination is performed between 11 weeks and 13 weeks gestational age. Blood tests are drawn after the ultrasound and again later in the between 15 and 21 weeks gestational age. Please let your physician know if you are interested in this testing. It will require an appointment with our industrial ecology technician. This is not an ultrasound performed by a physician in our office during a routine visit. SIGNS AND SYMPTOMS OF LABOR 1. Contractions every 10 minutes or more often 2. Clear, pink, or brownish fluid (water) leaking from vagina 3. Feeling that baby is pushing down, pressure 4. Low, dull backache 5. Cramps that feel like a period 6. Cramps with or without diarrhea If you notice any of the above symptoms, contact our office at [phone] and ask to speak with a nurse. After hours, you can call doctors registry at [phone] OR call [facility] at [phone] and ask to have the doctor cotton dispatcher paged. If you consider this an emergency, dial 9-0-8 or go to your nearest emergency department. NEED HELP? Are you dealing with a violent or abusive relationship? Are you a victim of rape or sexual assult? Call [facility] ([place]) 24 hour Crisis Hotline: 589.592.8815 or 353-816-7921. MANUAL Your Guide to a Healthy manual is now on-line. Visit [email or web address] to download your free copy documented in this encounter [facility] 10-07-2024 Beatriz Aguilera LPN - 10/07/2024 7:58 AM EDT SEQUENTIAL SCREENINGS The [facility] offers sequential screenings for women who are interested in screenings for chromosomal abnormalities and certain defects during a . The sequential screen combines ultrasound and blood tests to determine the risk of chromosomal abnormalities, including Down's Syndrome (Trisomy 21) and Trisomy 18, as well as open neural tube defects including spina bifida. Ultrasound examination is performed between 11 weeks and 13 weeks gestational age. Blood tests are drawn after the ultrasound and again later in the between 15 and 21 weeks gestational age. Please let your physician know if you are interested in this testing. It will require an appointment with our industrial ecology technician. This is not an ultrasound performed by a physician in our office during a routine visit. SIGNS AND SYMPTOMS OF LABOR 1. Contractions every 10 minutes or more often 2. Clear, pink, or brownish fluid (water) leaking from vagina 3. Feeling that baby is pushing down, pressure 4. Low, dull backache 5. Cramps that feel like a period 6. Cramps with or without diarrhea If you notice any of the above symptoms, contact our office at [phone] and ask to speak with a nurse. After hours, you can call doctors registry at [phone] OR call [facility] at [phone] and ask to have the doctor cotton dispatcher paged. If you consider this an emergency, dial 91- or go to your nearest emergency department. NEED HELP? Are you dealing with a violent or abusive relationship? Are you a victim of rape or sexual assult? Call [facility] ([place]) 24 hour Crisis Hotline: 825.187.3834 or 344-587-9195. MANUAL Your Guide to a Healthy manual is now on-line. Visit [email or web address] to download your free copy documented in this encounter [facility] 10-07-2024 Progress note Formatting of t his note might be different from the original. S: Perlita Thakkar is a 34 year old female who presents at 32 weeks gestation for a routine visit. Denies headache, visual changes, chest pain, shortness of breath, vaginal bleeding, leakage of fluid, or dysuria. Heartburn improved with medications and no further nausea when taking Zofran. O: See flow sheet Gen: No apparent distress Abd: Gravid, non tender S ASSESSMENT/PLAN: 1. Supervision of high risk in third trimester 2. Anemia complicating , third trimester 3. Nausea and vomiting, unspecified vomiting type 4. Heartburn during in third trimester 5. 32 weeks gestation of - Continue Zofran 4 mg PO PRN - Continue Pepcid 20 mg PO BID - Oral Iron supplementation - Continue ASA nightly - Repeat CBC next visit - Watch growth- measuring 2 weeks behind - RTO 2 weeks or sooner if needed Brea Mirza APRN.CNM [facility] 10-07-2024 Miscellaneous Notes S: Perlita Thakkar is a 34 year old female who presents at 32 weeks gestation for a routine visit. Denies headache, visual changes, chest pain, shortness of breath, vaginal bleeding, leakage of fluid, or dysuria. Heartburn improved with medications and no further nausea when taking Zofran. O: See flow sheet Gen: No apparent distress Abd: Gravid, non tender S<D- measuring 2 weeks behind ASSESSMENT/PLAN: 1. Supervision of high risk in third trimester 2. Anemia complicating , third trimester 3. Nausea and vomiting, unspecified vomiting type 4. Heartburn during in third trimester 5. 32 weeks gestation of - Continue Zofran 4 mg PO PRN - Continue Pepcid 20 mg PO BID - Oral Iron supplementation - Continue ASA nightly - Repeat CBC next visit - Watch growth- measuring 2 weeks behind - RTO 2 weeks or sooner if needed Brea Mirza APRN.CNM documented in this encounter [facility] 09-22-2024 Progress note Formatting of t his note might be different from the original. S: Perlita Thakkar is a 34 year old female who presents at 30 weeks gestation for a routine visit. C/O nausea and vomiting for the past couple of days. Only able to sip on fluids. Increase acid reflux. Positive movements. Denies headache, visual changes, chest pain, shortness of breath, vaginal bleeding, leakage of fluid, or dysuria. O: See flow sheet Gen: No apparent distress Abd: Gravid, non tender ASSESSMENT/PLAN: 1. Supervision of high risk in third trimester 2. Anemia complicating , third trimester 3. 30 weeks gestation of 4. AMA (advanced maternal age) multigravida 35+, third trimester 5. Nausea and vomiting, unspecified vomiting type 6. Heartburn during in third trimester 7. Anemia complicating , first trimester - Rx Pepcid 20 mg PO BID - RX Zofran 4 mg PO PRN - Continue oral iron, vitamin and ASA - Patient to notify office if unable to keep any food/liquids down for >24 hours - PTL precautions and kick counts reviewed - RTO 2 weeks Brea Mirza APRN.CNM [facility] 09-22-2024 Miscellaneous Notes S: Perlita Thakkar is a 34 year old female who presents at 30 weeks gestation for a routine visit. C/O nausea and vomiting for the past couple of days. Only able to sip on fluids. Increase acid reflux. Positive movements. Denies headache, visual changes, chest pain, shortness of breath, vaginal bleeding, leakage of fluid, or dysuria. O: See flow sheet Gen: No apparent distress Abd: Gravid, non tender ASSESSMENT/PLAN: 1. Supervision of high risk in third trimester 2. Anemia complicating , third trimester 3. 30 weeks gestation of 4. AMA (advanced maternal age) multigravida 35+, third trimester 5. Nausea and vomiting, unspecified vomiting type 6. Heartburn during in third trimester 7. Anemia complicating , first trimester - Rx Pepcid 20 mg PO BID - RX Zofran 4 mg PO PRN - Continue oral iron, vitamin and ASA - Patient to notify office if unable to keep any food/liquids down for >24 hours - PTL precautions and kick counts reviewed - RTO 2 weeks Brea Mirza APRN.CNM documented in this encounter [facility] 09-07-2024 Note HNO ID: [id number] Author: ANNALEE JENKINS MD Service: ? Author Type: Physician Type: Progress Notes Filed: 09/07/2024 08:49 Note Text: DM-Pt doing well. Denies vaginal Bleeding, Leaking fluid, or regular Contractions. Pt reports good movement Physical Exam: Gen: female in no apparent distress Abd: soft, Gravid. Non tender to palpation. See flow sheet @ 28.4weeks Assessment AND Plan Supervision of high risk in third trimester (HCC) Anemia complicating , third trimester (HCC) Continue PO iron Need for vaccination Orders: TDAP VACCINE, AGE 7+ YR (ADACEL, BOOSTRIX) 28 weeks gestation of (HCC) Orders: TDAP VACCINE, AGE 7+ YR (ADACEL, BOOSTRIX) LARC form signed- NEXPLANON accepted 28 week labs today Kick counts reviewed RTO 2 wks Annalee Srinivasan MD [facility] 09-07-2024 History of Present illness Narrative DM-Pt doing well. Denies vaginal Bleeding, Leaking fluid, or regular Contractions. Pt reports good movement Physical Exam: Gen: female in no apparent distress Abd: soft, Gravid. Non tender to palpation. See flow sheet @ 28.4weeks Assessment & Plan Supervision of high risk in third trimester (HCC) Anemia complicating , third trimester (HCC) Continue PO iron Need for vaccination Orders: TDAP VACCINE, AGE 7+ YR (ADACEL, BOOSTRIX) 28 weeks gestation of (HCC) Orders: TDAP VACCINE, AGE 7+ YR (ADACEL, BOOSTRIX) LARC form signed- NEXPLANON accepted 28 week labs today Kick counts reviewed RTO 2 wks Annalee Srinivasan MD Patient identified by name and date of . Perlita Thakkar presents today for a vaccination of Tdap. Patient denies an allergy to latex: yes Patient denies a severe (life-threatening) allergy to a previous dose of Tdap, DTP, DTaP, DT or Td vaccine. Yes Patient denies history of epilepsy or neurological problems: Yes Patient is afebrile and denies being moderately or severely ill: Yes Patient denies history of Guillain-Sondheimer Syndrome (a severe paralytic illness): Yes Tdap Adacel injection was given without incident. See immunizations for details of immunizations administered today. VIS sheet provided: Yes Provider Jayashree was present in office at time of injection. Jalil Carmen MA documented in this encounter [facility] 09-07-2024 Note HNO ID: [id number] Author: JALIL CARMEN MA Service: ? 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 Perlita Thakkar presents today for a vaccination of Tdap. Patient denies an allergy to latex: yes Patient denies a severe (life-threatening) allergy to a previous dose of Tdap, DTP, DTaP, DT or Td vaccine. Yes Patient denies history of epilepsy or neurological problems: Yes Patient is afebrile and denies being moderately or severely ill: Yes Patient denies history of Guillain-Sondheimer Syndrome (a severe paralytic illness): Yes Tdap Adacel injection was given without incident. See immunizations for details of immunizations administered today. VIS sheet provided: Yes Provider Jayashree was present in office at time of injection. Jalil Carmen MA [facility] 09-07-2024 Instructions Jalil Carmen MA - 09/07/2024 8:12 AM EDT SEQUENTIAL SCREENINGS The [facility] offers sequential screenings for women who are interested in screenings for chromosomal abnormalities and certain defects during a . The sequential screen combines ultrasound and blood tests to determine the risk of chromosomal abnormalities, including Down's Syndrome (Trisomy 21) and Trisomy 18, as well as open neural tube defects including spina bifida. Ultrasound examination is performed between 11 weeks and 13 weeks gestational age. Blood tests are drawn after the ultrasound and again later in the between 15 and 21 weeks gestational age. Please let your physician know if you are interested in this testing. It will require an appointment with our industrial ecology technician. This is not an ultrasound performed by a physician in our office during a routine visit. SIGNS AND SYMPTOMS OF LABOR 1. Contractions every 10 minutes or more often 2. Clear, pink, or brownish fluid (water) leaking from vagina 3. Feeling that baby is pushing down, pressure 4. Low, dull backache 5. Cramps that feel like a period 6. Cramps with or without diarrhea If you notice any of the above symptoms, contact our office at [phone] and ask to speak with a nurse. After hours, you can call doctors registry at [phone] OR call [facility] at [phone] and ask to have the doctor cotton dispatcher paged. If you consider this an emergency, dial 9--1 or go to your nearest emergency department. NEED HELP? Are you dealing with a violent or abusive relationship? Are you a victim of rape or sexual assult? Call [facility] ([place]) 24 hour Crisis Hotline: 547.779.8821 or 897-288-9327. MANUAL Your Guide to a Healthy manual is now on-line. Visit [email or web address] to download your free copy documented in this encounter [facility] 09-06-2024 Telephone encounter Note 3rd risk assessment form submitted 09/06/24 Isabel Granados RN [facility] 09-06-2024 Miscellaneous Notes 3rd risk assessment form submitted 09/06/24 Isabel Granados RN documented in this encounter [facility] 08-31-2024 Progress note Formatting of t his note might be different from the original. RR- VB No. LOF No. CTXS No. Movement: present. Other c/o: LLQ pain started 2 days ago. Achy and occas sharp. Was able to sleep last night. Went to work and bothered her intermittently and made it difficult to work. :Pushing on it or changing position helps to take some pressure off of it. No trauma to area but feels like a pulled muscle. Does hurt worse when coughs or sneezes. Radiates through her back. No change w/ BM or PO in take. No nausea or emesis. When pain increases has mild nausea. No diarrhea or constipation. No fever/chills. No pain w/ urination. no h/o kidney stones. Medication list reviewed. SENSITIVE EXAM: Sensitive exam not performed. Physical Exam See Flow Sheet Abd: soft, nontender, gravid, no hernia, no rebound or guarding. No CVA tenderness, no fundal tenderness, tender more over lowest rib than under it Ext: edema: no A/P 27w4d Estimated Date of Delivery: 11/26/24 Assessment & Plan 27 weeks gestation of Supervision of high risk in second trimester Rib pain on left side d/w her symptomatic measures. if fever or other concern notify office, otherwise f/u next week for 28 week labs and visit Gus [address] M.D. [facility] 08-31-2024 Miscellaneous Notes RR- VB No. LOF No. CTXS No. Movement: present. Other c/o: LLQ pain started 2 days ago. Achy and occas sharp. Was able to sleep last night. Went to work and bothered her intermittently and made it difficult to work. :Pushing on it or changing position helps to take some pressure off of it. No trauma to area but feels like a pulled muscle. Does hurt worse when coughs or sneezes. Radiates through her back. No change w/ BM or PO in take. No nausea or emesis. When pain increases has mild nausea. No diarrhea or constipation. No fever/chills. No pain w/ urination. no h/o kidney stones. Medication list reviewed. SENSITIVE EXAM: Sensitive exam not performed. Physical Exam See Flow Sheet Abd: soft, nontender, gravid, no hernia, no rebound or guarding. No CVA tenderness, no fundal tenderness, tender more over lowest rib than under it Ext: edema: no A/P 27w4d Estimated Date of Delivery: 11/26/24 Assessment & Plan 27 weeks gestation of Supervision of high risk in second trimester Rib pain on left side d/w her symptomatic measures. if fever or other concern notify office, otherwise f/u next week for 28 week labs and visit Gus [address] M.D. documented in this encounter [facility] 08-31-2024 Instructions Virginia Ocampo MA - 08/31/2024 3:58 PM EDT SEQUENTIAL SCREENINGS The [facility] offers sequential screenings for women who are interested in screenings for chromosomal abnormalities and certain defects during a . The sequential screen combines ultrasound and blood tests to determine the risk of chromosomal abnormalities, including Down's Syndrome (Trisomy 21) and Trisomy 18, as well as open neural tube defects including spina bifida. Ultrasound examination is performed between 11 weeks and 13 weeks gestational age. Blood tests are drawn after the ultrasound and again later in the between 15 and 21 weeks gestational age. Please let your physician know if you are interested in this testing. It will require an appointment with our industrial ecology technician. This is not an ultrasound performed by a physician in our office during a routine visit. SIGNS AND SYMPTOMS OF LABOR 1. Contractions every 10 minutes or more often 2. Clear, pink, or brownish fluid (water) leaking from vagina 3. Feeling that baby is pushing down, pressure 4. Low, dull backache 5. Cramps that feel like a period 6. Cramps with or without diarrhea If you notice any of the above symptoms, contact our office at [phone] and ask to speak with a nurse. After hours, you can call doctors registry at [phone] OR call [facility] at [phone] and ask to have the doctor cotton dispatcher paged. If you consider this an emergency, dial 2-1-5 or go to your nearest emergency department. NEED HELP? Are you dealing with a violent or abusive relationship? Are you a victim of rape or sexual assult? Call [facility] ([facility] 24 hour Crisis Hotline: 333.183.5004 or 047-279-7516. MANUAL Your Guide to a Healthy manual is now on-line. Visit [email or web address] to download your free copy documented in this encounter [facility] 08-31-2024 Telephone encounter Note This RN spoke to and no open appointment spots available today. Therefore, approved for Pt to be placed on RR schedule at 4pm today. Pt notified and scheduled. Advised Pt that if she begins with severe abdominal pain, vaginal bleeding, decreased movement to call office/or go to ER. Pt voiced understanding. Baldo Carvajal RN [facility] 08-31-2024 Miscellaneous Notes This RN spoke to and no open appointment spots available today. Therefore, approved for Pt to be placed on RR schedule at 4pm today. Pt notified and scheduled. Advised Pt that if she begins with severe abdominal pain, vaginal bleeding, decreased movement to call office/or go to ER. Pt voiced understanding. Baldo Carvajal RN If she is having that much pain she needs to be seen Patient 27w4d calling with complaints of Left upper abdominal, directly under her breast pain. Pain has been occurring for 2 days now. Pain is a constant dull ache with an occasional sharp pain. Currently rates pain at a 6-7 out of 10. Pain improves when bending forward, but has not noticed that anything makes the pain worse. Patient did take Tylenol last night and this morning but has not noticed any improvement with the medication. Denies any abdominal cramping, bleeding or leaking of fluid. Baby is active. Last seen in the office on 08/10, next appointment on 09/07. Please advise. Fe Hoffmann RN documented in this encounter [facility] 08-31-2024 Telephone encounter Note If she is having that much pain she needs to be seen [facility] Work Phone: 08-31-2024 Telephone encounter Note Patient 27w4d calling with complaints of Left upper abdominal, directly under her breast pain. Pain has been occurring for 2 days now. Pain is a constant dull ache with an occasional sharp pain. Currently rates pain at a 6-7 out of 10. Pain improves when bending forward, but has not noticed that anything makes the pain worse. Patient did take Tylenol last night and this morning but has not noticed any improvement with the medication. Denies any abdominal cramping, bleeding or leaking of fluid. Baby is active. Last seen in the office on 08/10, next appointment on 09/07. Please advise. Fe Hoffmann RN [facility] 08-10-2024 Progress note Formatting of t his note might be different from the original. DM-Pt doing well. Denies vaginal Bleeding, Leaking fluid, or regular Contractions. Pt reports good movement Physical Exam: Gen: female in no apparent distress Abd: soft, Gravid. Non tender to palpation. See flow sheet @ 24.4 WEEKS Assessment & Plan Supervision of high risk in second trimester Orders: SYPHILIS TREPONEMAL W/REFLEX; Future ANEMIA REFLEX PANEL; Future 24 weeks gestation of Screening for diabetes mellitus Orders: GESTATIONAL GLUCOSE SCREEN, 1-HOUR, 50 GRAM, NON-FASTING; Future rto 4 WEEKS Annalee Srinivasan MD [facility] Work Phone: 08-10-2024 Miscellaneous Notes DM-Pt doing well. Denies vaginal Bleeding, Leaking fluid, or regular Contractions. Pt reports good movement Physical Exam: Gen: female in no apparent distress Abd: soft, Gravid. Non tender to palpation. See flow sheet @ 24.4 WEEKS Assessment & Plan Supervision of high risk in second trimester Orders: SYPHILIS TREPONEMAL W/REFLEX; Future ANEMIA REFLEX PANEL; Future 24 weeks gestation of Screening for diabetes mellitus Orders: GESTATIONAL GLUCOSE SCREEN, 1-HOUR, 50 GRAM, NON-FASTING; Future rto 4 WEEKS Annalee Srinivasan MD documented in this encounter [facility] 08-10-2024 Instructions Jalil Carmen MA - 08/10/2024 8:28 AM EST SEQUENTIAL SCREENINGS The [facility] offers sequential screenings for women who are interested in screenings for chromosomal abnormalities and certain defects during a . The sequential screen combines ultrasound and blood tests to determine the risk of chromosomal abnormalities, including Down's Syndrome (Trisomy 21) and Trisomy 18, as well as open neural tube defects including spina bifida. Ultrasound examination is performed between 11 weeks and 13 weeks gestational age. Blood tests are drawn after the ultrasound and again later in the between 15 and 21 weeks gestational age. Please let your physician know if you are interested in this testing. It will require an appointment with our industrial ecology technician. This is not an ultrasound performed by a physician in our office during a routine visit. SIGNS AND SYMPTOMS OF LABOR 1. Contractions every 10 minutes or more often 2. Clear, pink, or brownish fluid (water) leaking from vagina 3. Feeling that baby is pushing down, pressure 4. Low, dull backache 5. Cramps that feel like a period 6. Cramps with or without diarrhea If you notice any of the above symptoms, contact our office at [phone] and ask to speak with a nurse. After hours, you can call doctors registry at [phone] OR call [facility] at [phone] and ask to have the doctor cotton dispatcher paged. If you consider this an emergency, dial -[phone] or go to your nearest emergency department. NEED HELP? Are you dealing with a violent or abusive relationship? Are you a victim of rape or sexual assult? Call [facility] ([facility] 24 hour Crisis Hotline: 760.266.2331 or 102-898-7035. MANUAL Your Guide to a Healthy manual is now on-line. Visit [email or web address] to download your free copy documented in this encounter [facility] 08-05-2024 Telephone encounter Note Patient notified and u/s canceled. Beth Samaniego RN [facility] 08-05-2024 Miscellaneous Notes Patient notified and u/s canceled. Beth Samaniego RN Left message to call office ----- Message from Cristy Jain APRN.NEREYDA sent at 08/04/2024 4:49 PM EST ----- US normal, no further follow up needed. Can cancel her next CL. Thank you. Cristy Jain APRN.CNM documented in this encounter [facility] 08-04-2024 Telephone encounter Note Left message to call office [facility] 08-04-2024 Telephone encounter Note ----- Message from Cristy Jain APRN.NEREYDA sent at 08/04/2024 4:49 PM EST ----- US normal, no further follow up needed. Can cancel her next CL. Thank you. Cristy Jain APRN.CNM [facility] 07-13-2024 Telephone encounter Note 2nd risk assessment form submitted 07/13/24 Isabel Granados RN [facility] 07-13-2024 Miscellaneous Notes 2nd risk assessment form submitted 07/13/24 Isabel Granados RN documented in this encounter [facility] 07-12-2024 Progress note Formatting of t his note might be different from the original. ANDREY-S: Perlita Thakkar is a 34 year old female who presents at 20w3d with THA:11/26/2024, by Last Menstrual Period for a routine visit. Denies headache, visual changes, chest pain, shortness of breath, vaginal bleeding, leakage of fluid, or dysuria. Feeling well, no complaints. O: See flow sheet Gen: No apparent distress Abd: Gravid, nontender ASSESSMENT/PLAN: 1. Supervision of high risk in second trimester - OBSTETRIC ULTRASOUND WHI 2. 20 weeks gestation of -Continue PNV and ASA 3. Anemia complicating , first trimester - Continue PO iron supplement - COMPLETE BLOOD COUNT AND DIFFERENTIAL - IRON AND TIBC - FERRITIN 4. Current every day nicotine vaping - ICD9: 305.1, ICD10: Z72.0 - Cessation encouraged and reviewed risk to baby 5. Marijuana use during - ICD9: 648.40, 305.20, ICD10: O99.320, F12.90 - Recommend cessation and risk to baby 6. UTI (urinary tract infection) in , antepartum - ICD9: 646.63, 599.0, ICD10: O23.40 -Completed antibiotics, repeat urine culture today 7. History of loop electrosurgical excision procedure (LEEP) of cervix affecting in second trimester -CL every 2wk till 23w6d PTL precautions reviewed and when to call RTO in 4 weeks Cristy Jain APRN.CNM [facility] 07-12-2024 Miscellaneous Notes ANDREY-S: Perlita Thakkar is a 34 year old female who presents at 20w3d with THA:11/26/2024, by Last Menstrual Period for a routine visit. Denies headache, visual changes, chest pain, shortness of breath, vaginal bleeding, leakage of fluid, or dysuria. Feeling well, no complaints. O: See flow sheet Gen: No apparent distress Abd: Gravid, nontender ASSESSMENT/PLAN: 1. Supervision of high risk in second trimester - OBSTETRIC ULTRASOUND WHI 2. 20 weeks gestation of -Continue PNV and ASA 3. Anemia complicating , first trimester - Continue PO iron supplement - COMPLETE BLOOD COUNT AND DIFFERENTIAL - IRON AND TIBC - FERRITIN 4. Current every day nicotine vaping - ICD9: 305.1, ICD10: Z72.0 - Cessation encouraged and reviewed risk to baby 5. Marijuana use during - ICD9: 648.40, 305.20, ICD10: O99.320, F12.90 - Recommend cessation and risk to baby 6. UTI (urinary tract infection) in , antepartum - ICD9: 646.63, 599.0, ICD10: O23.40 -Completed antibiotics, repeat urine culture today 7. History of loop electrosurgical excision procedure (LEEP) of cervix affecting in second trimester -CL every 2wk till 23w6d PTL precautions reviewed and when to call RTO in 4 weeks Cristy Jain APRN.CNM documented in this encounter [facility] 07-12-2024 Fam Le MA - 07/12/2024 9:34 AM EST SEQUENTIAL SCREENINGS The [facility] offers sequential screenings for women who are interested in screenings for chromosomal abnormalities and certain defects during a . The sequential screen combines ultrasound and blood tests to determine the risk of chromosomal abnormalities, including Down's Syndrome (Trisomy 21) and Trisomy 18, as well as open neural tube defects including spina bifida. Ultrasound examination is performed between 11 weeks and 13 weeks gestational age. Blood tests are drawn after the ultrasound and again later in the between 15 and 21 weeks gestational age. Please let your physician know if you are interested in this testing. It will require an appointment with our industrial ecology technician. This is not an ultrasound performed by a physician in our office during a routine visit. SIGNS AND SYMPTOMS OF LABOR 1. Contractions every 10 minutes or more often 2. Clear, pink, or brownish fluid (water) leaking from vagina 3. Feeling that baby is pushing down, pressure 4. Low, dull backache 5. Cramps that feel like a period 6. Cramps with or without diarrhea If you notice any of the above symptoms, contact our office at [phone] and ask to speak with a nurse. After hours, you can call doctors registry at [phone] OR call [facility] at [phone] and ask to have the doctor cotton dispatcher paged. If you consider this an emergency, dial 9-1-6 or go to your nearest emergency department. NEED HELP? Are you dealing with a violent or abusive relationship? Are you a victim of rape or sexual assult? Call [facility] ([place]) 24 hour Crisis Hotline: 132.850.5840 or 240-598-0541. MANUAL Your Guide to a Healthy manual is now on-line. Visit [email or web address] to download your free copy documented in this encounter [facility] 06-21-2024 Progress note Formatting of t his note might be different from the original. SW- Nausea improving. No pain, vb, lof PE: Gen- NAD, well appearing See flowsheet A/p 17 wk gestation - Anatomy US today and final report pending. Follow up anatomy US ordered - UTI: Completed antibiotic course. Order placed for urine [facility] - Encouraged to quit vaping - RTO 4 wks Rufina Albert DO [facility] 06-21-2024 Miscellaneous Notes SW- Nausea improving. No pain, vb, lof PE: Gen- NAD, well appearing See flowsheet A/p 17 wk gestation - Anatomy US today and final report pending. Follow up anatomy US ordered - UTI: Completed antibiotic course. Order placed for urine [facility] - Encouraged to quit vaping - RTO 4 wks Rufina Albert DO documented in this encounter [facility] 06-21-2024 Instructions Virginia Ocampo MA - 06/21/2024 3:49 PM EST SEQUENTIAL SCREENINGS The [facility] offers sequential screenings for women who are interested in screenings for chromosomal abnormalities and certain defects during a . The sequential screen combines ultrasound and blood tests to determine the risk of chromosomal abnormalities, including Down's Syndrome (Trisomy 21) and Trisomy 18, as well as open neural tube defects including spina bifida. Ultrasound examination is performed between 11 weeks and 13 weeks gestational age. Blood tests are drawn after the ultrasound and again later in the between 15 and 21 weeks gestational age. Please let your physician know if you are interested in this testing. It will require an appointment with our industrial ecology technician. This is not an ultrasound performed by a physician in our office during a routine visit. SIGNS AND SYMPTOMS OF LABOR 1. Contractions every 10 minutes or more often 2. Clear, pink, or brownish fluid (water) leaking from vagina 3. Feeling that baby is pushing down, pressure 4. Low, dull backache 5. Cramps that feel like a period 6. Cramps with or without diarrhea If you notice any of the above symptoms, contact our office at [phone] and ask to speak with a nurse. After hours, you can call doctors registry at [phone] OR call [facility] at [phone] and ask to have the doctor cotton dispatcher paged. If you consider this an emergency, dial 9-1 or go to your nearest emergency department. NEED HELP? Are you dealing with a violent or abusive relationship? Are you a victim of rape or sexual assult? Call [facility] ([place]) 24 hour Crisis Hotline: 668.136.4728 or 292-394-6698. MANUAL Your Guide to a Healthy manual is now on-line. Visit [email or web address] to download your free copy documented in this encounter [facility] 05-28-2024 Telephone encounter Note Patient notified. Beth Samaniego RN The following approved medication requests have been transmitted electronically. Requested Prescriptions Signed Prescriptions Disp Refills cephALEXin (KEFLEX) 500 mg capsule 28 capsule 0 Sig: Take 1 capsule by mouth four times daily for 7 days. Authorizing Provider: ISMAEL ARCINIEGA Pharmacy Information [place] [address] [facility] 05-28-2024 Miscellaneous Notes Patient notified. Beth Samaniego RN The following approved medication requests have been transmitted electronically. Requested Prescriptions Signed Prescriptions Disp Refills cephALEXin (KEFLEX) 500 mg capsule 28 capsule 0 Sig: Take 1 capsule by mouth four times daily for 7 days. Authorizing Provider: ISMAEL ARCINIEGA Pharmacy Information [place] [address] Please notify patient: + UTI Rx for Keflex sent Push fluids To notify if symptoms worsening/not improving Ismael Arciniega APRN.CNP documented in this encounter [facility] 05-28-2024 Telephone encounter Note Please notify patient: + UTI Rx for Keflex sent Push fluids To notify if symptoms worsening/not improving Ismael Arciniega APRN.CNP [facility] 05-27-2024 Telephone encounter Note 1st risk assessment form submitted 06/06/2024. Miguelina Estrada RN [facility] 05-27-2024 Miscellaneous Notes 1st risk assessment form submitted 06/06/2024. Miguelina Estrada RN documented in this encounter [facility] 05-26-2024 Instructions Ismael Arciniega APRN.CASE FINISHER - 05/26/2024 1:30 PM EST Please select the following link to access the [facility] Your Guide to a Healthy . [email or web address] e MORNING SICKNESS IN by Candy Harding M.D. for [employer] As you may already know, morning sickness can often be more appropriately called evening sickness or cnrcc-fxsacg-hh-the-day sickness. While there are the alina few, most women (50-90%) experience some degree of nausea, some have vomiting, and a few develop a severe form of vomiting during called hyperemesis gravidarum. What causes the nausea and vomiting of ? We can't explain why some people feel fine and others are green for months. Even the same woman may feel vastly different in each . There is some relationship between nausea and the level of the hormone hCG. In twin pregnancies, and in other situations where the hCG is greater than expected, nausea and vomiting tend to be worse. In a destined for miscarriage, hCG levels tend to be low, and nausea is often less severe. This being said, a lack of nausea doesn't guarantee that the is destined for miscarriage. The fact that nausea and vomiting are often signs of a healthy can offer a silver lining in the dark cloud of miserable nausea. How long will the nausea last? Fortunately, for most women, nausea and vomiting are a first trimester event, peaking at week 9-10 and waning by week 14-16. When you are feeling bad the weeks can go by slowly but most moms do feel tremendously better by the middle of the . Whether morning sickness is a brief experience or lasts through most of the , there are treatments that can make the weeks or months more tolerable. What can you do about it? Diet: See what works for you. Try eating bland dry foods, and avoid fatty or spicy foods. It is okay to eat a less than perfectly balanced diet in the first trimester. Have your liquids separately from dry foods. Try sports drinks, water, clear juices, Rock-aid, or non-caffeinated tea. Avoid carbonated beverages that fill up your stomach. Try eating lots of little meals. If you tend to feel sick when you first wake up, leave crackers next to the bed for a quick snack before rising. Keeping healthy snacks with you all day to nibble when you feel queasy can sometimes even prevent nausea from starting. vitamins and nausea: Pre-veronica vitamins can sometimes worsen nausea in . While folate is necessary, especially early in the , it comes as a smaller pill that many people find more tolerable than the complete vitamin pill. Ask your practitioner if it is okay to temporarily replace vitamins and iron with just a folate pill if you find a significant worsening in the level of your nausea from the vitamins. Alternative therapies: Acupressure may be used to treat nausea in , and is not known to have any risks for the fetus. Wristbands (marketed for seasickness) that put pressure on an acupressure point at the wrist are often available at drugstores or travel stores. Ejnnifer root is used for nausea in many traditional cultures. Some women take fresh grated jennifer or jennifer tablets. It is possible that the pill form contains other ingredients or contaminants, so you may want to try fresh jennifer first. Medications: Emetrol is the only nausea medication approved for use in . It is available over the counter and is soothing to the stomach. A prescription medication called Bendectin was available in the 1970s-1980's and was shown to be safe in , but the company stopped marketing it in the [place] due to the costs of liability coverage. Bendectin contained 10 milligrams of vitamin B6 and 10 milligrams of Doxylamine. Two tablets were given at bedtime and a total of up to 4 tablets could be used in a 24-hour period. Interestingly, Unisom , which contains a higher dose (25 mg.) of the same medication, Doxylamine, is currently marketed as an ldru-luo-lvuovnp sleeping pill. Ask your practitioner if creating a vitamin B6/Doxylamine combination with tqmm-kdx-fxvisvz medications would be safe for you. Prescription medications like Compazine and Phenergan can be used if the benefits outweigh possible risks, but these have not been clearly shown to be safe in . Zofran , an expensive anti-nausea medication often used to treat nausea from chemotherapy, can also be used. Can I throw up so much it harms the baby? The act of vomiting cannot hurt your fetus, which is protected inside the uterus. If you get dehydrated or develop a metabolic imbalance, this can be unhealthy. As long as you can keep down liquids, you and your baby will generally do all right. Eat when you feel able. If you are unable to keep anything down, or if you notice potential signs of dehydration such as lightheadedness, or concentrated and/or infrequent urination, call your practitioner. Some women need brief hospital admission for intravenous fluids and anti-nausea medications if their condition becomes severe. This severe form of nausea and vomiting is called Hyperemesis Gravidarum. As with many symptoms of , remind yourself that this, too, shall pass, and you'll have a wonderful baby to show for it! TREATMENT OPTIONS, SHORT VERSION: Frequent small meals Hydrate throughout day [employer] wrist pressure point applicators Jennifer root (powdered, in capsules) 250mg four times a day Vitamin B6 25 mg tablet three times a day Also may be taken with half a tablet of Unisom three times a day (Doxylamine 12.5 mg) If severe (weight loss, dehydration), call us and come in for IV hydration and possible medication in the form of injections. Prescription medications such as Phenergan, Compazine, Reglan How SMOKING Affects Your and Your Baby During Smoking during affects you and your baby's health before, during and after your baby is born. The nicotine (the addictive substance in cigarettes), carbon monoxide and numerous other poisons you inhale from a cigarette are carried through your bloodstream and go directly to your baby. Smoking while will: Lower the amount of oxygen available to you and your growing baby Increase your baby's heart rate Increase the chances of miscarriage and stillbirth Increase the risk that your baby is born prematurely and/or born with low weight Increase your baby's risk of developing respiratory problems The more cigarettes you smoke per day, the greater your baby's chances of developing these and other health problems. There is no safe level of smoking for your baby's health. How does secondhand smoke affect me and my baby? Second-hand smoke (also called passive smoke or environmental tobacco smoke) is the combination of smoke from a burning cigarette and smoke exhaled by a smoker. The smoke that franklin off the end of a cigarette or cigar contains more harmful substances ( tar, carbon monoxide, nicotine and others) than the smoke inhaled by the smoker. If you are regularly exposed to second-hand smoke, you increase your and your baby's risk of developing lung cancer, heart disease, emphysema, allergies, asthma and other health problems. Babies exposed to second-hand smoke may also develop reduced lung capacity and are at higher risk for sudden infant syndrome (SIDS). What happens if I keep smoking after my baby is born? If you continue to smoke after your baby is born, you increase his or her chance of developing certain illnesses and problems, such as: Frequent colds Bronchitis and pneumonia Asthma Chronic coughs Ear infections High blood pressure Learning and behavior problems later in childhood Why should I quit smoking? Smoking is the leading cause of preventable in the [place] By quitting you can: Prolong your life Lower your risk of heart disease Lower your risk of developing lung, throat, mouth, pancreatic and bladder cancer Lower your risk of developing breathing problems such as chronic obstructive pulmonary disease (COPD), asthma and emphysema Lower your risk of developing allergies Raise your energy level Improve your appearance; your skin will wrinkle less and look better, and your fingers and teeth will not be yellow Improve your sense of smell and taste Feel healthier overall, with improved self-esteem Save a lot of money (the average smoker spends $740 a year for cigarettes!) How can I quit smoking? There is no one way to quit smoking that works for everyone, since each person has different smoking habits. Here are some tips: Hide your matches, lighters, and ashtrays. Take a deep breath and hold it for five to ten seconds whenever you get the urge to smoke. Designate your home a non-smoking area. Ask people who smoke not to smoke around you. Drink less caffeinated beverages; caffeine may stimulate your urge to smoke. Also avoid alcohol, as it also may increase your urge to smoke and can be harmful to your baby. Change your habits connected with smoking. If you smoked while driving or when feeling stressed, try other activities to replace smoking. Keep mints or gum (preferably sugarless) on hand for those times when you get the urge to smoke. Stay active to keep your mind off smoking and help relieve tension: take a walk, exercise, read a book or try a new a hobby. Look for support from others. Join a support group or smoking cessation program, such as the [facility] Smoking Cessation Program. For more information, please call . Do not go places where many people are smoking such as bars or clubs, and smoking sections of restaurants. Should I use a nicotine replacement to help me quit? Nicotine gum and patches release nicotine into the bloodstream of the smoker who is trying to quit. Although these products can reduce withdrawal symptoms and decrease cravings in smokers who are trying to quit, nicotine is quite toxic and potentially harmful to the fetus (as well as to the infant who is ). Therefore, these and any other products containing nicotine are not always ecommended for the woman who is trying to quit smoking. They may be prescribed in indivdual cases. How will I feel when I quit? The benefits of not smoking start within days of quitting. After you quit, you and your baby's heart beat will return to normal, and your baby will be less likely to develop breathing problems. You may have symptoms of withdrawal because your body is used to nicotine, the addictive substance in cigarettes. You may crave cigarettes, be irritable, feel very hungry, cough often, get headaches or have difficulty concentrating. The withdrawal symptoms are only temporary. They are strongest when you first quit but will go away within 10 to 14 days. When withdrawal symptoms occur, stay in control. Think about your reasons for quitting. Remind yourself that these are signs that your body is healing and getting used to being without cigarettes. Remember that withdrawal symptoms are easier to treat than the major diseases that smoking can cause. Even after the withdrawal is over, expect periodic urges to smoke. However, these cravings are generally short-lived and will go away whether you smoke or not. Don't Smoke! If you smoke again (called a relapse) do not lose hope. Seventy-five percent of those who quit relapse. Most smokers quit three times before they are successful. If you relapse, don't give up! Plan ahead and think about what you will do next time you get the urge to smoke. (This information is provided by the [facility] and is not intended to replace the medical advice of your doctor or health care provider. Please consult your health care provider for advice about a specific medical condition. For additional written health information, please call the Cancer Answer Line at [facility] [place] Friday - Friday 8-4:30 for assistance: [phone]. Or visit [email or web address]/) [facility] s Smoking Cessation Program The [facility] Smoking Cessation Program is a comprehensive, multifaceted program that can be tailored to your individual needs. We offer a variety of services designed to help you throughout the process, including office visits, distance health visits (virtual or telephone), and the eCoach program or pharmacy consultations. To schedule, call [phone] Appointments: An office visit: This is a one-on-one approach where you go to an office and meet with the provider to discuss your options for quitting. Distance health visits: This type of visit can be completed via virtual visit or telephone visit. Virtual visits require a smartphone, tablet or computer with access to a webcam, microphone and Internet connection. You will need to sign up for Viroblockhart prior to your virtual visit. Telephone visits can be completed via audio only if patient does not have access to the above Pharmacotherapy Nicotine replacement therapy (patches, gum, lozenges, inhalers or nasal spray) Bupropion (Wellbutrin) Chantix Integrative and Lifestyle Medicine Services: Acupuncture Holistic Psychotherapy Meditation Yoga And more The eCoach program Expert tips tailored to you Behavioral replacements Recognizing individual triggers On your schedule Pharmacy consultation You can meet with a pharmacist (either online or in person) to discuss smoking cessation medications, including: Nicotine replacement therapy: gum, patches, lozenges, inhalers or nasal spray Bupropion SR Varenicline (Chantix ) The [place] (ACS) has a section devoted to quitting tobacco with information on where to get help, interactive tools, the relationship of tobacco and cancer, how to keep your kids smoke-free, smoke-free communities and the ACS s annual Great [place] Smokeout. Visit this link for more info: https://www.cancer.org/cancer/ri sk-prevention/tobacco/guide-quit ting-smoking.html The [place] has tools, tips, support and fact sheets to help you stop smoking or to help a loved one quit. There s also more information about [place] From Smoking , the program we use in our smoking classes at [facility]. Visit this link for more info: https://www.lung.org/quit-smokin g/ggxt-scuzosy-pqdl-smoking The National Cancer [place] s site, Smokefree.gov, has an abundance of free and accurate resources to encourage smokers to stop: Smokefree apps for your smartphone offer individualized guidance once you input your information You can sign up for the Smokefree[employer] text messaging program, which sends you daily text messages with encouragement, tips and advice to help making quitting easier Create a personalized Quit Plan by choosing a quit date and answering seven questions Take a quiz on your withdrawal symptoms See how you can prepare to quit -NOW is the national portal to a network of state quitlines. Quitlines offer evidence-based support--like counseling, referrals to local programs, and free medication--to people who want to quit tobacco. Marijuana (Cannabis) April 09, 2019 This sheet talks about exposure to marijuana in and while . This information should not take the place of medical care and advice from your health care provider. What is marijuana? Marijuana, also called pot, weed, or cannabis, is a drug that comes from a plant called cannabis. Marijuana can either be smoked (inhaled) or eaten (edibles). Marijuana is an illegal substance in parts of the [place]. However, some states allow marijuana use by prescription for medical purposes, and some states allow the sale of marijuana for recreational use. The main active chemical in marijuana is fbftf-5-hdwsfmammicsgqcyalpc (THC), which is what causes you to feel high. Another major component of marijuana is cannabidiol (CBD). The [place].S. Food and Drug Administration (FDA) advises against the use of CBD, THC, and marijuana in any form during a or while . What do we know about cannabidiol (CBD)? CBD use is becoming popular in [place] society and can be found in many products ranging from coffee and chocolate, to supplements and tinctures, cosmetics, lotions, suppositories, and bath salts. Studies on THC free products find that many actually contain a measurable amount of THC. Unfortunately there are no studies looking at the use of CBD during or while at this time. How much is known about the effects of marijuana on a ? It is difficult to study marijuana use during . Marijuana contains about 400 different chemicals, and some marijuana preparations can be contaminated with other drugs, pesticides, and/or fungi. Most of the older studies focus on women who inhale marijuana, not ingest (eat) it. Taking edibles might lead to higher levels of marijuana in the body. We also know that the THC in marijuana has become more potent (stronger) over the years. Therefore, studies done years ago on marijuana with lower THC levels may not accurately reflect the possible risks for current marijuana users. Some women who use marijuana during may have other risk factors such as use of alcohol, tobacco, or other drugs, medical conditions, and/or lack of care. Finally, information on the amount used and how much is used can be difficult for researchers to accurately collect. All of these factors explain why studies looking at marijuana use during sometimes find different results. I am using marijuana, but I would like to stop before becoming . How long could it stay in my body? People eliminate drugs at different rates. This is particularly true for marijuana and its metabolites (breakdown products). The way you use marijuana (inhale, ingest, topical) and how often you use it and how much you take can affect how long its metabolites can stay in your body. For some people, it might take up to 30 days for the THC metabolite to be gone from the body. I use marijuana. Can it make it harder for me to become ? Long-term use of marijuana might affect the menstrual cycle, which could make it more difficult to get . The effects on fertility appear to go away when marijuana use is stopped, or once a woman develops tolerance to the drug. Does using marijuana increase the risk for miscarriage? Miscarriage can occur in any . One study found that women who used marijuana were at an increased risk of having a miscarriage. Other studies have not confirmed this finding. Does using marijuana in the first trimester increase the chance of defects? In every , a woman starts with a 3-5% chance of having a baby with a defect. This is called her background risk. Most studies have not found an increase in the chance for defects among babies prenatally exposed to occasional marijuana use. A few studies have suggested a small increase in the chance for gastroschisis (a rare defect in which the infants intestines stick out of an opening in the abdominal wall). However, it can be difficult to draw conclusions from these studies because of the limitations outlined above. While most studies are reassuring regarding defects, without good studies among heavy marijuana users, the fact that marijuana is thought to be more potent now, and because of other potential complications it is best to avoid marijuana during . Could using marijuana in the second or third trimester cause other complications? Possibly. Similar to what is seen with cigarette smoking, smoking marijuana may increase carbon monoxide levels in the blood, which can decrease the amount of oxygen the baby receives. Some studies have suggested that among women who smoke marijuana regularly, there is an increased chance for complications such as premature , low weight, small length, small head size, and stillbirth. Babies that are born prematurely or with low weight can have higher rates of learning problems or other disabilities. In some studies, a dose-response relationship was seen, meaning the more a woman smoked, the higher her risk for these complications to occur. More research is needed to confirm if these complications are caused by the marijuana use itself, or if the women in these studies may have had other risk factors (such as smoking cigarettes). Both THC and CBD might affect how the placenta works. The placenta is the organ that grows during a and controls what can pass from mother to baby and baby to mother. Studies have also shown that THC can cross the placenta during and reach the baby s system. If I smoke marijuana in the third trimester, can it cause my baby to go through withdrawal after ? Some newborns exposed to marijuana have been reported to have temporary withdrawal-like symptoms, such as increased tremors, changes in sleeping patterns, and crying. These symptoms usually go away within 30 days. Does using marijuana in cause long-term problems in behavior or learning for the baby? Possibly. Three studies have followed children prenatally exposed to marijuana, and found that they are at higher risk for problems such as impaired executive functioning (the ability to plan, focus, remember, and multi task), impulsivity, hyperactivity, aggression, depression, and anxiety. These children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 Referral ID Status Reason Start Date Expiration Date Visits Requested Visits Authorized [id number] Authorized Auto-Generat ed Referral 05/26/2025 1 1 [facility] for referral (narrative)* Diagnostic Procedure Only (Routine) - Authorized Specialty Diagnoses / Procedures Referred By Contac t Referred To Contact [facility] Diagnoses 17 weeks gestation of Supervision of high risk in second trimester UTI (urinary tract infection) in , antepartum Procedures OBSTETRIC ULTRASOUND WHI US PREG UTERUS AFTER 1ST TRIMEST GESTATION Rufina Albert MD [address] [place] [address] [id number] [place] [address] Referral ID Status Reason Start Date Expiration Date Visits Requested Visits Authorized [id number] Authorized Auto-Generat ed Referral 06/21/2024 06/21/2025 1 1 [facility] for referral (narrative)* Diagnostic Procedure Only (Routine) - Authorized Specialty Diagnoses / Procedures Referred By Contac t Referred To Contact [facility] Diagnoses Supervision of high risk in second trimester Procedures OBSTETRIC ULTRASOUND WHI US PREG UTERUS AFTER 1ST TRIMEST GESTATION Cristy Jain APRN.CNM [address] [place] [address] [address] [address] [place] [address] Referral ID Status Reason Start Date Expiration Date Visits Requested Visits Authorized [id number] Authorized Auto-Generat ed Referral 07/12/2024 07/12/2025 2 1 [facility] for referral (narrative)No reason for referral information availableW[facility] Work Phone: Advance Directives No Advanced Directives Records FoundLatest Code Status on File Code Status Date Activated Date Inactivated Comments Full Code 05/31/2014 8:41 PM 06/02/2014 12:52 PM Date Activated Date Inactivated Comments 05/31/2014 8:41 PM 06/02/2014 12:52 PM Advance Directive Response Recorded Date/ Time Living Will No September 04, 2024 2:17pm Do you have a Healthcare Power of Software Systems Analyst? No September 04, 2024 2:17pm Family History No Family History Records FoundUnknown Family Member Name Dates Details No pertinent family history: Mother, Father(V49.89, Z78.9) Status:Active Family history of diabetes m ellitus: Grandmother(V18.0, Z83.3) Status:Active Family history of malignant neoplasm of skin: Grandmother(V16.8, Z80.8) Status:Active Family history of lung cance r: Grandfather(V16.1, Z80.1) Status:Active Unknown Family Member Name Dates Details No pertinent family history: Mother, Father(V49.89, Z78.9) Status:Active Family history of diabetes m ellitus: Grandmother(V18.0, Z83.3) Status:Active Family history of malignant neoplasm of skin: Grandmother(V16.8, Z80.8) Status:Active Family history of lung cance r: Grandfather(V16.1, Z80.1) Status:Active Unknown Family Member Name Dates Details No pertinent family history: Mother, Father(V49.89, Z78.9) Status:Active Family history of diabetes m ellitus: Grandmother(V18.0, Z83.3) Status:Active Family history of malignant neoplasm of skin: Grandmother(V16.8, Z80.8) Status:Active Family history of lung cance r: Grandfather(V16.1, Z80.1) Status:Active Unknown Family Member Name Dates Details No pertinent family history: Mother, Father(V49.89, Z78.9) Status:Active Family history of diabetes m ellitus: Grandmother(V18.0, Z83.3) Status:Active Family history of malignant neoplasm of skin: Grandmother(V16.8, Z80.8) Status:Active Family history of lung cance r: Grandfather(V16.1, Z80.1) Status:Active Unknown Family Member Name Dates Details No pertinent family history: Mother, Father(V49.89, Z78.9) Status:Active Family history of diabetes m ellitus: Grandmother(V18.0, Z83.3) Status:Active Family history of malignant neoplasm of skin: Grandmother(V16.8, Z80.8) Status:Active Family history of lung cance r: Grandfather(V16.1, Z80.1) Status:Active Unknown Family Member Name Dates Details No pertinent family history: Mother, Father(V49.89, Z78.9) Status:Active Family history of diabetes m ellitus: Grandmother(V18.0, Z83.3) Status:Active Family history of malignant neoplasm of skin: Grandmother(V16.8, Z80.8) Status:Active Family history of lung cance r: Grandfather(V16.1, Z80.1) Status:Active Unknown Family Member Name Dates Details No pertinent family history: Mother, Father(V49.89, Z78.9) Status:Active Family history of diabetes m ellitus: Grandmother(V18.0, Z83.3) Status:Active Family history of malignant neoplasm of skin: Grandmother(V16.8, Z80.8) Status:Active Family history of lung cance r: Grandfather(V16.1, Z80.1) Status:Active Unknown Family Member Name Dates Details No pertinent family history: Mother, Father(V49.89, Z78.9) Status:Active Family history of diabetes m ellitus: Grandmother(V18.0, Z83.3) Status:Active Family history of malignant neoplasm of skin: Grandmother(V16.8, Z80.8) Status:Active Family history of lung cance r: Grandfather(V16.1, Z80.1) Status:Active Summary Purpose Reason for Referral Specialty Diagnoses / Procedures Referred By Kalin correa Referred To Contact Radiology Diagnoses Left leg pain Procedures XR tibia fibula left 2 views Omid Benites MD [address] [place] [address] Referral ID Status Reason Start Date Expiration Date Visits Requested Visits Authorized [id number] Authorized Perform Procedure 07/14/2023 07/13/2024 1 1 Chief Complaint and Reason for Visit Chief Complaint Admit Date RIB September 04, 2024 2:0 5pm Additional Source Comments <item><item><item> Privacy Markings (unrecogniz ed section and content) Section Author: Rosa Casillas PROHIBITION ON REDISCLOSURE OF CONFIDENTIAL INFORMATION This notice accompanies a disclosure of information concerning a client made to you with the consent of such client. Section Author: Rosa Casillas PROHIBITION ON REDISCLOSURE OF CONFIDENTIAL INFORMATION This notice accompanies a disclosure of information concerning a client made to you with the consent of such client. Section Author: Rosa Casillas PROHIBITION ON REDISCLOSURE OF CONFIDENTIAL INFORMATION This notice accompanies a disclosure of information concerning a client made to you with the consent of such client. INFORMATION SOURCE (unrecogn ized section and content) DATE CREATED AUTHOR 12/28/2021 [facility] DATE CREATED AUTHOR AUTHOR'S ORGANIZ ATION 02/02/2022 [facility] DATE CREATED AUTHOR AUTHOR'S ORGANIZ ATION 12/05/2022 [facility] DATE CREATED AUTHOR AUTHOR'S ORGANIZ ATION 07/19/2023 [facility] DATE CREATED AUTHOR AUTHOR'S ORGANIZ ATION 07/20/2023 [facility] DATE CREATED AUTHOR AUTHOR'S ORGANIZ ATION 04/07/2024 [facility] DATE CREATED AUTHOR AUTHOR'S ORGANIZ ATION 09/11/2024 [facility] DATE CREATED AUTHOR AUTHOR'S ORGANIZ ATION 11/26/2024 [facility] Reason for Visit (unrecogniz ed section and content) Reason Comments Follow-up New pt visit Specialty Diagnoses / Procedures Referred By Contac t Referred To Contact Radiology Diagnoses Left leg pain Procedures XR tibia fibula left 2 views Omid Benites MD [address] [place] [address] Referral ID Status Reason Start Date Expiration Date Visits Requested Visits Authorized [id number] Authorized Perform Procedure 07/14/2023 07/13/2024 1 1 Reason Comments Follow-up Reason Comments Initial OB Visit Reason Comments Wine Pasteurizer - Other PRAF Reason Comments Results Reason Comments US Specialty Diagnoses / Procedures Referred By Contac t Referred To Contact [facility] Diagnoses Supervision of high risk in second trimester with uncertain dates in second trimester Procedures OBSTETRIC ULTRASOUND WHI US PREG UTERUS AFTER 1ST TRIMEST GESTATION Ismael Arciniega APRN.CASE FINISHER [address] [place] [address] [facility] [address] [place] [address] Referral ID Status Reason Start Date Expiration Date V isits Requested Visits Authorized [id number] Closed Auto-Generate d Referral 05/26/2024 05/26/2025 1 1 Reason Onset Date Comments Care 06/21/2024 Specialty Diagnoses / Procedures Referred By Contac t Referred To Contact [facility] Diagnoses 17 weeks gestation of Supervision of high risk in second trimester UTI (urinary tract infection) in , antepartum Procedures OBSTETRIC ULTRASOUND WHI US PREG UTERUS AFTER 1ST TRIMEST GESTATION Rufina Albert MD [address] [place] [address] [address] Referral ID Status Reason Start Date Expiration Date V isits Requested Visits Authorized [id number] Closed Auto-Generate d Referral 06/21/2024 06/21/2025 1 1 Reason Onset Date Comments Care 07/12/2024 Reason Comments PRAF Specialty Diagnoses / Procedures Referred By Contac t Referred To Contact [facility] Diagnoses Supervision of high risk in second trimester Procedures OBSTETRIC ULTRASOUND WHI US PREG UTERUS AFTER 1ST TRIMEST GESTATION Cristy Jain APRN.CNM [address] [place] [address] Phone: tel: fax: [address] [address] Referral ID Status Reason Start Date Expiration Date V isits Requested Visits Authorized [id number] Closed Auto-Generate d Referral 07/12/2024 07/12/2025 2 1 Reason Onset Date Comments Results 08/04/2024 Reason Onset Date Comments Care 08/10/2024 Reason Comments OB-Abdominal pain Reason Onset Date Comments Care 08/31/2024 Reason Onset Date Comments Care 09/07/2024 Reason Onset Date Comments Care 10/07/2024 Reason Onset Date Comments Care 10/21/2024 Specialty Diagnoses / Procedures Referred By Contac t Referred To Contact [facility] Diagnoses Supervision of high risk in third trimester (HCC) 34 weeks gestation of (HCC) Uterine size-date discrepancy, third trimester (HCC) Procedures OBSTETRIC ULTRASOUND WHI US PREG UTERUS AFTER 1ST TRIMEST GESTATION Brea Mirza APRN.CNM [address] [place] [address] Phone: tel: fax:[phone] [facility] [address] [place] [address] Referral ID Status Reason Start Date Expiration Date V isits Requested Visits Authorized [id number] Closed Auto-Generate d Referral 10/21/2024 10/21/2025 5 1 Reason Onset Date Comments Care 11/02/2024 Reason Onset Date Comments Care 11/11/2024 Reason Onset Date Comments Population Health Navigation Outreach 11/12/2024 Ob/peds Reason Onset Date Comments Care 11/19/2024 Reason Onset Date Comments Care 11/23/2024 Care Teams (unrecognized sec tion and content) Stationary Engineer Apprentice Relationship Specialty Start Date End Date Omid Benites MD [address] [place] [address] PCP - Manolo HUBBARD PCP 10/08/23 Stationary Engineer Apprentice Relationship Specialty Start Date End Date Omid Benites MD [address] [place] [address] PCP - General Internal Medicine 07/17/23 Stationary Engineer Apprentice Relationship Specialty Start Date End Date Omid Benites MD [address] [place] [address] PCP - General Internal Medicine 07/17/23 Stationary Engineer Apprentice Relationship Specialty Start Date End Date Omid Benites MD [address] [place] [address] PCP - General Internal Medicine 07/17/23 Stationary Engineer Apprentice Relationship Specialty Start Date End Date Omid Benites MD [address] [place] [address] PCP - General Internal Medicine 07/17/23 Stationary Engineer Apprentice Relationship Specialty Start Date End Date Omid Benites MD [address] [place] [address] PCP - General Internal Medicine 07/17/23 Stationary Engineer Apprentice Relationship Specialty Start Date End Date Omid Benites MD [address] [place] [address] PCP - General Internal Medicine 07/17/23 Stationary Engineer Apprentice Relationship Specialty Start Date End Date Omid Benites MD [address] [place] [address] PCP - General Internal Medicine 07/17/23 Stationary Engineer Apprentice Relationship Specialty Start Date End Date Omid Benites MD [address] [place] [address] PCP - General Internal Medicine 07/17/23 Stationary Engineer Apprentice Relationship Specialty Start Date End Date Omid Benites MD [address] [place] [address] PCP - General Internal Medicine 07/17/23 Stationary Engineer Apprentice Relationship Specialty Start Date End Date Omid Benites MD [address] [place] [place] [address] PCP - General Internal Medicine 07/17/23 Team Status: Active Member Role Status Dates Dr. Omid Benites MD Primary Care Provider Activ e Team Status: Inactive Member Role Status Dates Dr. Omid Benites MD Primary Care Provider Activ e Start: September 04, 2024 End: September 04, 2024 Dr. Jeremy Resendiz DO Emergency Provider Active Start : September 04, 2024 End: September 04, 2024 Stationary Engineer Apprentice Relationship Specialty Start Date End Date Omid Benites MD [address] [place] [address] PCP - General Internal Medicine 07/17/23 Stationary Engineer Apprentice Relationship Specialty Start Date End Date Omid Benites MD [address] [place] [address] PCP - General Internal Medicine 07/17/23 Stationary Engineer Apprentice Relationship Specialty Start Date End Date Omid Benites MD [address] [place] [place] [address] PCP - General Internal Medicine 07/17/23 Stationary Engineer Apprentice Relationship Specialty Start Date End Date Omid Benites MD [address] [place] [address] PCP - General Internal Medicine 07/17/23 Stationary Engineer Apprentice Relationship Specialty Start Date End Date Omid Benites MD [address] [place] [address] PCP - General Internal Medicine 07/17/23 Stationary Engineer Apprentice Relationship Specialty Start Date End Date Omdi Benites MD [address] [place] [address] PCP - General Internal Medicine 07/17/23 Stationary Engineer Apprentice Relationship Specialty Start Date End Date Omid Benites MD [address] [place] [place] [address] PCP - General Internal Medicine 07/17/23 Stationary Engineer Apprentice Relationship Specialty Start Date End Date Omid Benites MD [address] [place] [address] PCP - General Internal Medicine 07/17/23 Stationary Engineer Apprentice Relationship Specialty Start Date End Date Omid Benites MD [address] [place] [place] [address] PCP - General Internal Medicine 07/17/23 Stationary Engineer Apprentice Relationship Specialty Start Date End Date Omid Benites MD [address] [place] [place] [address] PCP - General Internal Medicine 07/17/23 Source Comments (unrecognize d section and content) In the event this informatio n is protected by the Federal Confidentiality of Alcohol and Drug Abuse Patient Records regulations: The Federal rules restrict any use of the information to criminally investigate or prosecute any alcohol or drug abuse patient.[facility] event this information is protected by the Federal Confidentiality of Alcohol and Drug Abuse Patient Records regulations: The Federal rules restrict any use of the information to criminally investigate or prosecute any alcohol or drug abuse patient.[facility] the event this information is protected by the Federal Confidentiality of Alcohol and Drug Abuse Patient Records regulations: The Federal rules restrict any use of the information to criminally investigate or prosecute any alcohol or drug abuse patient.[facility] the event this information is protected by the Federal Confidentiality of Alcohol and Drug Abuse Patient Records regulations: The Federal rules restrict any use of the information to criminally investigate or prosecute any alcohol or drug abuse patient.[facility] the event this information is protected by the Federal Confidentiality of Alcohol and Drug Abuse Patient Records regulations: The Federal rules restrict any use of the information to criminally investigate or prosecute any alcohol or drug abuse patient.[facility] the event this information is protected by the Federal Confidentiality of Alcohol and Drug Abuse Patient Records regulations: The Federal rules restrict any use of the information to criminally investigate or prosecute any alcohol or drug abuse patient.[facility] the event this information is protected by the Federal Confidentiality of Alcohol and Drug Abuse Patient Records regulations: The Federal rules restrict any use of the information to criminally investigate or prosecute any alcohol or drug abuse patient.[facility] the event this information is protected by the Federal Confidentiality of Alcohol and Drug Abuse Patient Records regulations: The Federal rules restrict any use of the information to criminally investigate or prosecute any alcohol or drug abuse patient.[facility] the event this information is protected by the Federal Confidentiality of Alcohol and Drug Abuse Patient Records regulations: The Federal rules restrict any use of the information to criminally investigate or prosecute any alcohol or drug abuse patient.[facility] the event this information is protected by the Federal Confidentiality of Alcohol and Drug Abuse Patient Records regulations: The Federal rules restrict any use of the information to criminally investigate or prosecute any alcohol or drug abuse patient.[facility] the event this information is protected by the Federal Confidentiality of Alcohol and Drug Abuse Patient Records regulations: The Federal rules restrict any use of the information to criminally investigate or prosecute any alcohol or drug abuse patient.[facility] the event this information is protected by the Federal Confidentiality of Alcohol and Drug Abuse Patient Records regulations: The Federal rules restrict any use of the information to criminally investigate or prosecute any alcohol or drug abuse patient.[facility] HospitalIn the event this information is protected by the Federal Confidentiality of Alcohol and Drug Abuse Patient Records regulations: The Federal rules restrict any use of the information to criminally investigate or prosecute any alcohol or drug abuse patient.[facility]In the event this information is protected by the Federal Confidentiality of Alcohol and Drug Abuse Patient Records regulations: The Federal rules restrict any use of the information to criminally investigate or prosecute any alcohol or drug abuse patient.[facility]In the event this information is protected by the Federal Confidentiality of Alcohol and Drug Abuse Patient Records regulations: The Federal rules restrict any use of the information to criminally investigate or prosecute any alcohol or drug abuse patient.[facility]In the event this information is protected by the Federal Confidentiality of Alcohol and Drug Abuse Patient Records regulations: The Federal rules restrict any use of the information to criminally investigate or prosecute any alcohol or drug abuse patient.[facility]In the event this information is protected by the Federal Confidentiality of Alcohol and Drug Abuse Patient Records regulations: The Federal rules restrict any use of the information to criminally investigate or prosecute any alcohol or drug abuse patient.[facility]In the event this information is protected by the Federal Confidentiality of Alcohol and Drug Abuse Patient Records regulations: The Federal rules restrict any use of the information to criminally investigate or prosecute any alcohol or drug abuse patient.[facility]In the event this information is protected by the Federal Confidentiality of Alcohol and Drug Abuse Patient Records regulations: The Federal rules restrict any use of the information to criminally investigate or prosecute any alcohol or drug abuse patient.[facility]In the event this information is protected by the Federal Confidentiality of Alcohol and Drug Abuse Patient Records regulations: The Federal rules restrict any use of the information to criminally investigate or prosecute any alcohol or drug abuse patient.[facility]In the event this information is protected by the Federal Confidentiality of Alcohol and Drug Abuse Patient Records regulations: The Federal rules restrict any use of the information to criminally investigate or prosecute any alcohol or drug abuse patient.[facility]In the event this information is protected by the Federal Confidentiality of Alcohol and Drug Abuse Patient Records regulations: The Federal rules restrict any use of the information to criminally investigate or prosecute any alcohol or drug abuse patient.[facility] HospitalIn the event this information is protected by the Federal Confidentiality of Alcohol and Drug Abuse Patient Records regulations: The Federal rules restrict any use of the information to criminally investigate or prosecute any alcohol or drug abuse patient.[facility] HospitalIn the event this information is protected by the Federal Confidentiality of Alcohol and Drug Abuse Patient Records regulations: The Federal rules restrict any use of the information to criminally investigate or prosecute any alcohol or drug abuse patient.[facility] HospitalIn the event this information is protected by the Federal Confidentiality of Alcohol and Drug Abuse Patient Records regulations: The Federal rules restrict any use of the information to criminally investigate or prosecute any alcohol or drug abuse patient.[facility] HospitalIn the event this information is protected by the Federal Confidentiality of Alcohol and Drug Abuse Patient Records regulations: The Federal rules restrict any use of the information to criminally investigate or prosecute any alcohol or drug abuse patient.[facility] Goals (unrecognized section and content) Goals may be documented in a n alternate section FOR RECORDS PERTAINING TO PATIENTS WHO ARE OR HAVE BEEN ENROLLED IN A CHEMICAL DEPENDENCY/SUBSTANCEABUSE PROGRAM, SOME INFORMATION MAY BE OMITTED. This clinical summary was aggregated from multiple sources. Caution should be exercised in using it in the provision of clinical care. This summary normalizes information from multiple sources, and as a consequence, information in this document may materially change the coding, format and clinical context of patient data. In addition, data may be omitted in some cases. CLINICAL DECISIONS SHOULD BE BASED ON THE PRIMARY CLINICAL RECORDS. [facility]. provides no warranty or guarantee of the accuracy or completeness of information in this document.
[2024-11-26] MEDS: miSOPROStol 25 MCG TABLET VAGINAL (20:11)
[2024-11-26 20:20] LABS: Absolute Neutrophil Count 9.2 X10^3/uL (2.0-7.7); Basophil# 0.02 X10^3/uL; Basophil% 0.2 % (0-1); Eosinophil# 0.12 X10^3/uL; Hematocrit 33.3 % (37-47); Hemoglobin 11.2 g/dL (12.0-15.0); Lymphocyte % 19.2 % (19-41); Mean Corp Hgb Conc 33.6 g/dL (32-36); Mean Corpuscular Hgb 31.2 pg (27.0-32.0); Mean Corpuscular Volume 92.8 fL (81-99); Mean Platelet Vol. 9.8 fl (6.2-12.0); Monocyte# 0.63 X10^3/uL; NRBC Flagged by Analyzer 0 % (0-5); Neutrophil # 9.21 X10^3/uL (2.7-7.7); Neutrophil % 73.5 % (47-70); Platelet Count 402 K/mm3 (150-450); RBC Distribution Width SD 44.2 fl (35.1-43.9); Red Blood Count 3.59 M/mm3 (4.2-5.4); White Blood Count 12.5 K/mm3 (4.4-11.0)
[2024-11-26 20:46] LABS: Syphilis Antibodies Nonreactive (Nonreactive)
--- NOTE | 2024-11-26 20:50 | HP.PCM.OB_ITS ---
HPI - General General Date of Admission: 11/26/24 Date of Service: 11/26/24 Chief Complaint: elective induction HPI Narrative DENISE CANDELARIA, is a 34 F who presents induction of labor at 40 weeks. History of CKC for AIS. GBS negative EFW 40%. Maternal Data Information Final THA: 11/26/24 Gestational age: 40 PFSH PFSH Medical History Adenocarcinoma in situ (AIS) of uterine cervix Home Medications ?Medication ?Instructions ?Recorded ?Last Taken ?Type aspirin 81 mg tablet,delayed 81 mg PO DAILY 09/04/24 11/25/24 History release (Adult Aspirin Regimen) docosahexaenoic acid 200 mg mg PO 11/26/24 0 11/25/24 History capsule ( DHA) famotidine 20 mg tablet (Heartburn 20 mg PO DAILY PRN heartburn 11/26/24 Unknown History Prevention) ferrous sulfate 325 mg (65 mg 325 mg PO QODAY pregnanc y 11/26/24 11/25/24 History iron) tablet (Feosol) Allergy/AdvReac Type Severity Reaction Status Date / Time No Known Allergies Allergy Verified 09/04/24 14:10 Family History (Updated 11/26/24 @ 19:59 by Orly Becerra) Father Cancer Grandfather Cancer Grandmother Cancer Surgical History (Updated 11/26/24 @ 20:[address] Miguelina Herrera MD) Hx of cone biopsy of cervix History of gynecologic surgery Social History Smoking Status: Current every day smoker tobacco type: cigarettes and e- cigarettes History 1 Elective abortions Hx Para 0 Spontaneous abortions Hx # Term Pregnancies Ectopic pregnancies Hx # Pregnancies Multiple births # of living children NST FHR Rate Baby A Baseline: 130 Variability:: Moderate Accelerations:: 15 x 15 Decelerations:: None NST Reactive:: Yes FHR Category:: Category I Uterine Activity:: irregular ROS Constitutional Constitutional: Denies fatigue, fever(s) or malaise Eyes Eyes: Denies change in vision ENT HEENT: Denies dizziness or headache(s) Cardiovascular Cardiovascular: Denies chest pain, dyspnea or lightheadedness Respiratory/Chest Respiratory/Chest: Denies cough or dyspnea Gastrointestinal Gastrointestinal: Denies change in bowel habits Genitourinary Genitourinary: Denies burning urination or genital lesions Integumentary Integumentary: Denies rash Neurologic Neurologic: Denies confusion, dizziness, headache(s), numbness or weakness Vital Signs Vital Signs Vital Signs: 11/26/24 19:40 11/26/24 19:40 11/26/24 19:40 Pulse Rate 70 Blood Pressure 111/66 BP Systolic 111 BP Diastolic 66 Pulse Ox 98 Weight Weight: 71.94 kg Body Mass Index (BMI) 27.2 Physical Exam Const alert and no apparent distress General Appearance: cooperative HEENT normocephalic Resp normal respiratory effort GI soft to palpation GI Narrative: gravid, nontender, appropriate for gestational age Extremity no calf tenderness General Extremity: edema Skin no wounds Rashes: No rashes noted Psych activity/motor behavior normal Labs Labs Labs: Blood Type A POSITIVE Antibody Screen Pending Hct 33.3 % (37-47) L Hgb 11.2 g/dL (12.0-15.0) L Syphilis Total Ab Nonreactive (Nonreactive) Assessment & Plan (1) 40 weeks gestation of : (2) Elective induction of labor planned: (3) Hx of cone biopsy of cervix: COMMENT: 10/15/2021 PLAN: Plan cytotec/rice/pit GBS negative Epidural prn
[2024-11-26 21:50] VITALS: PULSE 70; O2SAT 96
[2024-11-26] MEDS: Lactated Ringers 1,000 ML 999 ML IV (21:52)
[2024-11-26 22:41] LABS: ROM Internal Control Test YES-OK TO RESULT pt. (Internal QC)
[2024-11-26 22:42] LABS: ROM Patient Test POSITIVE (Negative); Record Kit Lot#, ROM+ K3358
[2024-11-26] MEDS: Lactated Ringers 1,000 ML 50 ML IV (22:53)
[2024-11-27] VITALS (65 sets, daily range): BP systolic 86–124; BP diastolic 48–67; PULSE 53–87; RESP 14–18; TEMP 35.9–36.9; O2SAT 81–100
[2024-11-27] MEDS: fentaNYL-bupivacaine (epidural) 100 ML BAG EPIDURAL ×3 (02:15→10:41)
[2024-11-27] MEDS: Lactated Ringers 1,000 ML 200 ML IV ×3 (02:36→12:34)
--- NOTE | 2024-11-27 03:06 | PN.OBGYN_ITS ---
Subjective Subjective S/p epidural. Cervix 0.5 cm stretched to break scar tissue from CKC. 4 /90/-1 so far cytotec x 1. Cat I intermittent cat 2 tracing. Jose q 2 Objective Data Objective Data Vital Signs: Vital Signs Temp Pulse Resp BP Pulse Ox 97.9 F 61 16 120/64 97 11/27/24 02:15 11/27/24 03:01 11/27/24 02:15 11/27/24 03:01 11/27/24 02:53 Weight: 71.94 kg Body Mass Index (BMI) 27.2 Intake & Output: Intake and Output for Last 24 Hours 11/25/24 11/26/24 11/27/24 23:59 23:59 23:59 Intake Total 0 Balance Lab / Micro Data 11/26/24 19:55 Labs: Laboratory Results - last 24 hr 11/26/24 19:55: WBC 12.5 H, RBC 3.59 L, Hgb 11.2 L, Hct 33.3 L, MCV 92.8, MCH 31.2, MCHC 33.6, RDW Std Deviation 44.2 H, RDW Coeff of [place] 13.0, Plt Count 402, MPV 9.8, Immature Gran % (Auto) 1.100 H, Neut % (Auto) 73.5 H, Lymph % (Auto) 19.2, [place] % (Auto) 5.0, Eos % (Auto) 1.0, Baso % (Auto) 0.2, Absolute Neuts (auto) 9.2 H, Absolute Lymphs (auto) 2.40, Nucleated RBC % 0, Syphilis Total Ab Nonreactive, Blood Type A POSITIVE, Antibody Screen NEGATIVE 11/26/24 22:30: Vag Amniotic Fld Detect POSITIVE H NST FHR Rate Baby A Baseline: 135 Variability:: Moderate Accelerations:: 15 x 15 Decelerations:: Variable NST Reactive:: Yes FHR Category:: Category I and Category II Uterine Activity:: q2 Assessment & Plan (1) Hx of cone biopsy of cervix: COMMENT: 10/15/2021 (2) Elective induction of labor planned: (3) 40 weeks gestation of : PLAN: Plan afshin garcia
[2024-11-27 04:24] LABS: Amphetamine Urine NEGATIVE (<1000 ng/mL); Barbiturate Urine NEGATIVE (< 200 ng/mL); Benzodiazepine Urine NEGATIVE (< 200 ng/mL); Buprenorphine Urine NEGATIVE (< 200 ng/mL); Cocaine Urine NEGATIVE (< 300 ng/mL); Fentanyl, Urine NEGATIVE; Methadone Urine NEGATIVE (< 300 ng/mL); Opiates Urine NEGATIVE (< 300 ng/mL); Oxycodone, Urine NEGATIVE (< 100 ng/mL); PCP Urine NEGATIVE (< 25 ng/mL); THC Urine PRESUMPTIVE POSITIVE (< 50 ng/mL)
--- OUTSIDE RECORDS SUMMARY | 2024-11-27 07:16 | XMS RPT_ITS | CCD ---
Author Organization [facility] Care Team Providers Care Leak Detection Engineer Name Role Phone Unavailable Primary Care Provider Unavailabl e Required, No Pcp Unavailable Unavailable Fam Holt Unavailable Unavailable None, No PCP Unavailable Unavailable Unavailable Unavailable Bibi Nickie Unavailable Unavailable Nomi Shwetha Unavailable Unavailable Amarilys Sheriff Unavailable August, Perlita Unavailable Unavailable HariTod velezn Unavailable Unavailable Unavailable Primary Care Provider Unavaildebbie [...] Omid Benites MD Primary Care Provider [phone] Omid Benites MD Primary Care Provider [phone] Dr. Omid Benites MD Primary Care Provider [...] needed for pain. 50 tablet 07/17/2023 Active [id number] 200 actuat albuterol 0.09 mg/actuat metered dose [...] of this medication. Comment on above: Caution [employer] law prohibits the transfer of this drug [...] [Supervision of high risk in third trimester ([facility])] Onset: 11-19-2024 Episodic Other complications of (1 source) Uterine size-date discrepancy, third trimester; Translations: [Uterine size-date discrepancy, third trimester ([facility])] Onset: 11-03-2024 Episodic Other complications of (1 source) Other specified related conditions, third trimester; Translations: [Heartburn during in third trimester ([facility])] Onset: 09-22-2024 Episodic Other complications of (1 source) Supervision of elderly multigravida, third trimester; Translations: [AMA (advanced maternal age) multigravida 35+, third trimester ([facility])] Onset: 09-22-2024 Episodic Other complications of (2 sources) Supervision of high risk , unspecified, second trimester; Translations: [Supervision of high risk in second trimester ([facility])] Onset: 06-21-2024 Episodic Other connective tissue disease (2 sources) Pain in left lower limb; Translations: [Pain in left leg] 07-14-2023 Episodic Other gastrointestinal disorders (1 source) Heartburn; Translations: [Heartburn during in third trimester ([facility])] Onset: 09-22-2024 Episodic Other injuries and conditions [...] of ; Translations: [30 weeks gestation of ([facility])] Onset: 09-22-2024 Episodic Residual codes; unclassified (2 sources) 17 weeks gestation of ; Translations: [17 weeks gestation of ([facility])] Onset: 06-21-2024 Episodic Sprains and strains (1 [...] POST SURGICAL COMPLI CATIONS Unclassified (2 sources) 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 URINE OB DIP B/Oon 5 Glucose Ql (U) Negative Neg mg/dL [facility] Interpretation and review of laboratory results Normal [facility] Protein.monoclonal (U) [Mass/Vol] Negative Neg mg/dL [facility] Examination level ultrasound on 11-02-2024 [facility] Radiology Study observation (narrative) [facility] ROUTINE, GROUP B ST REPTOCOCCUS BY PCRon 11-02-2024 ROUTINE, GROUP B STREPTOCOCCUS BY PCR Not detected Normal [facility] Comment on above: Performed By: #### G BPCR #### [facility] CLIA [id number] [address] [place] [address] [place] CBC panel Auto (Bld)on 10-21 Erythrocyte distribution width (RBC) [Ratio] 12.5 % Normal 11.5-15.0 [facility] Comment on above: Order Comment: Speci men Type: BLOOD SPECIMENOrdering Facility: [facility] Address: [address] [place] [address] Performed By: #### 5 8410-2 ####[facility] MILLWNCLIA [id number] [place] [address] [place] Hematocrit (Bld) [Volume fraction] 32.3 % Low 36.0-46.0 [facility] Comment on above: Order Comment: Speci men Type: BLOOD SPECIMENOrdering Facility: [facility] Address: [address] [place] [address] Performed By: #### 5 8410-2 ####[facility] [id number] [place] [address] [place] Hemoglobin (Bld) [Mass/Vol] 10.9 g/dL Low 11.5-15.5 [facility] Comment on above: Order Comment: Speci men Type: BLOOD SPECIMENOrdering Facility: [facility] Address: [address] [place] [address] Performed By: #### 5 8410-2 ####[facility] [id number] [place] [address] [place] MCH (RBC) [Entitic mass] 31.5 pg Normal 26.0-34.0 [facility] Comment on above: Order Comment: Speci men Type: BLOOD SPECIMENOrdering Facility: [facility] Address: [address] [place] [address] Performed By: #### 5 8410-2 ####[facility] [id number] [place] [address] [place] MCHC (RBC) [Mass/Vol] 33.7 g/dL Normal 30.5-36.0 [facility] Comment on above: Order Comment: Speci men Type: BLOOD SPECIMENOrdering Facility: [facility] Address: [address] [place] [address] Performed By: #### 5 8410-2 ####[facility] [id number] [place] [address] [place] MCV (RBC) [Entitic vol] 93.4 fL Normal 80.0-100.0 [facility] Comment on above: Order Comment: Speci men Type: BLOOD SPECIMENOrdering Facility: [facility] Address: [address] [place] [address] Performed By: #### 5 8410-2 ####[facility] HOSPITALIsidro [id number] [place] [address] [place] Nucleated RBC (Bld) [#/Vol] 10*3/uL Normal <0.01 [facility] Comment on above: Order Comment: Speci men Type: BLOOD SPECIMENOrdering Facility: [facility] Address: [address] [place] [address] Performed By: #### 5 8410-2 ####[facility] [id number] [place] [address] [place] Platelet mean volume (Bld) [Entitic vol] 9.5 fL Normal 9.0-12.7 [facility] Comment on above: Order Comment: Speci men Type: BLOOD SPECIMENOrdering Facility: [facility] Address: [address] [place] [address] Performed By: #### 5 8410-2 ####[facility]ITALNCLIA [id number] [place] [address] [place] Platelets (Bld) [#/Vol] 473 10*3/uL High 150-400 [facility] Comment on above: Order Comment: Speci men Type: BLOOD SPECIMENOrdering Facility: [facility] Address: [address] [place] [address] Performed By: #### 5 8410-2 ####[facility]ITALNCLIA [id number] [place] [address] [place] RBC (Bld) [#/Vol] 3.46 10*6/uL Low 3.90-5.20 [facility] Comment on above: Order Comment: Speci men Type: BLOOD SPECIMENOrdering Facility: [facility] Address: [address] [place] [address] Performed By: #### 5 8410-2 ####[facility] [id number] [place] [address] [place] WBC (Bld) [#/Vol] 14.21 10*3/uL High 3.70-11.00 [facility] Comment on above: Order Comment: Speci men Type: BLOOD SPECIMENOrdering Facility: [facility] Address: [address] [place] [address] Performed By: #### 5 8410-2 ####[facility] [id number] [place] [address] [place] URINE OB DIP B/Oon 5 Glucose Ql (U) Negative Neg mg/dL [facility] Interpretation and review of laboratory results Normal [facility] Protein.monoclonal (U) [Mass/Vol] Negative Neg mg/dL [facility] URINE OB DIP B/OOrdered By: Beatriz Mendez on 10-07-2024 Glucose Ql (U) Negative Neg mg/dL [facility] Interpretation and review of laboratory results Normal [facility] Protein.monoclonal (U) [Mass/Vol] trace Neg mg/dL [facility] Bacteria Ur Culton 5 Bacteria identified Cx Nom (U) ORGANISM ID: 1 10,000 -<50,000 CFU/ml Normal urogenital cecelia Normal [facility] Comment on above: Performed By: #### 6 30-4 ####[facility]CL[facility] [id number] [place] [address] [place] CBC W Auto Differential pane l (Bld)on 09-07-2024 Basophils (Bld) [#/Vol] 0.05 10*3/uL Normal <0.11 [facility] Comment on above: Order Comment: Speci men Type: BLOOD SPECIMENOrdering Facility: [facility] Address: [address] [place] [address] Performed By: #### 5 7021-8 ####[facility] MACIEJWNCLIA [id number] [place] [address] [place] Basophils/100 WBC (Bld) 0.3 % Normal [facility] Comment on above: Order Comment: Speci men Type: BLOOD SPECIMENOrdering Facility: [facility] Address: [address] [place] [address] Performed By: #### 5 7021-8 ####[facility]ITALNCLIA [id number] [place] [address] [place] Differential cell count method Nom (Bld) Auto Normal [facility] Comment on above: Order Comment: Speci men Type: BLOOD SPECIMENOrdering Facility: [facility] Address: [address] [place] [address] Performed By: #### 5 7021-8 ####[facility]ITALNCLIA [id number] [place] [address] [place] Eosinophils (Bld) [#/Vol] 0.19 10*3/uL Normal <0.46 [facility] Comment on above: Order Comment: Speci men Type: BLOOD SPECIMENOrdering Facility: [facility] Address: [address] [place] [address] Performed By: #### 5 7021-8 ####[facility] MILLTOWNCLIA [id number] [place] [address] [place] Eosinophils/100 WBC (Bld) 1.3 % Normal [facility] Comment on above: Order Comment: Speci men Type: BLOOD SPECIMENOrdering Facility: [facility] Address: [address] [place] [address] Performed By: #### 5 7021-8 ####[facility] [id number] [place] [address] [place] Erythrocyte distribution width (RBC) [Ratio] 12.5 % Normal 11.5-15.0 [facility] Comment on above: Order Comment: Speci men Type: BLOOD SPECIMENOrdering Facility: [facility] Address: [address] [place] [address] Performed By: #### 5 7021-8 ####[facility]OSPITALMING [id number] [place] [address] [place] Hematocrit (Bld) [Volume fraction] 31.3 % Low 36.0-46.0 [facility] Comment on above: Order Comment: Speci men Type: BLOOD SPECIMENOrdering Facility: [facility] Address: [address] [place] [address] Performed By: #### 5 7021-8 ####[facility]OSPITALSTERLINGIsidro [id number] [place] [address] [place] Hemoglobin (Bld) [Mass/Vol] 10.4 g/dL Low 11.5-15.5 [facility] Comment on above: Order Comment: Speci men Type: BLOOD SPECIMENOrdering Facility: [facility] Address: [address] [place] [address] Performed By: #### 5 7021-8 ####[facility] MACIEJBIRMINGHAMMING [id number] [place] [address] [place] Immature granulocytes (Bld) [#/Vol] 0.08 10*3/uL Normal <0.10 [facility] Comment on above: Order Comment: Speci men Type: BLOOD SPECIMENOrdering Facility: [facility] Address: [address] [place] [address] Performed By: #### 5 7021-8 ####[facility]PITALNCLI [id number] [place] [address] [place] Immature granulocytes/100 WBC (Bld) 0.6 % Normal [facility] Comment on above: Order Comment: Speci men Type: BLOOD SPECIMENOrdering Facility: [facility] Address: [address] [place] [address] Performed By: #### 5 7021-8 ####[facility] [id number] [place] [address] [place] Lymphocytes (Bld) [#/Vol] 1.50 10*3/uL Normal 1.00-4.00 [facility] Comment on above: Order Comment: Speci men Type: BLOOD SPECIMENOrdering Facility: [facility] Address: [address] [place] [address] Performed By: #### 5 7021-8 ####[facility] [id number] [place] [address] [place] Lymphocytes/100 WBC (Bld) 10.4 % Normal [facility] Comment on above: Order Comment: Speci men Type: BLOOD SPECIMENOrdering Facility: [facility] Address: [address] [place] [address] Performed By: #### 5 7021-8 ####[facility] [id number] [place] [address] [place] MCH (RBC) [Entitic mass] 31.2 pg Normal 26.0-34.0 [facility] Comment on above: Order Comment: Speci men Type: BLOOD SPECIMENOrdering Facility: [facility] Address: [address] [place] [address] Performed By: #### 5 7021-8 ####[facility] [id number] [place] [address] [place] MCHC (RBC) [Mass/Vol] 33.2 g/dL Normal 30.5-36.0 [facility] Comment on above: Order Comment: Speci men Type: BLOOD SPECIMENOrdering Facility: [facility] Address: [address] [place] [address] Performed By: #### 5 7021-8 ####[facility] MACIEJBIRMINGHAMMING [id number] [place] [address] [place] MCV (RBC) [Entitic vol] 94.0 fL Normal 80.0-100.0 [facility] Comment on above: Order Comment: Speci men Type: BLOOD SPECIMENOrdering Facility: [facility] Address: [address] [place] [address] Performed By: #### 5 7021-8 ####[facility]OSPITALNCIsidro [id number] [place] [address] [place] Monocytes (Bld) [#/Vol] 0.65 10*3/uL Normal <0.87 [facility] Comment on above: Order Comment: Speci men Type: BLOOD SPECIMENOrdering Facility: [facility] Address: [address] [place] [address] Performed By: #### 5 7021-8 ####[facility] HOSPITALNCA [id number] [place] [address] [place] Monocytes/100 WBC (Bld) 4.5 % Normal [facility] Comment on above: Order Comment: Speci men Type: BLOOD SPECIMENOrdering Facility: [facility] Address: [address] [place] [address] Performed By: #### 5 7021-8 ####[facility]ITALNCLIA [id number] [place] [address] [place] Neutrophils (Bld) [#/Vol] 11.89 10*3/uL High 1.45-7.50 [facility] Comment on above: Order Comment: Speci men Type: BLOOD SPECIMENOrdering Facility: [facility] Address: [address] [place] [address] Performed By: #### 5 7021-8 ####[facility] MACIEJBIRMINGHAMSTERLINGLIA [id number] [place] [address] [place] Neutrophils/100 WBC (Bld) 82.9 % Normal [facility] Comment on above: Order Comment: Speci men Type: BLOOD SPECIMENOrdering Facility: [facility] Address: [address] [place] [address] Performed By: #### 5 7021-8 ####[facility] [id number] [place] [address] [place] Nucleated RBC (Bld) [#/Vol] 10*3/uL Normal <0.01 [facility] Comment on above: Order Comment: Speci men Type: BLOOD SPECIMENOrdering Facility: [facility] Address: [address] [place] [address] Performed By: #### 5 7021-8 ####[facility] [id number] [place] [address] [place] Nucleated RBC/100 WBC (Bld) [Ratio] 0.0 /100 WBC Normal [facility] Comment on above: Order Comment: Speci men Type: BLOOD SPECIMENOrdering Facility: [facility] Address: [address] [place] [address] Performed By: #### 5 7021-8 ####[facility]OSPITALLI [id number] [place] [address] [place] Platelet mean volume (Bld) [Entitic vol] 9.4 fL Normal 9.0-12.7 [facility] Comment on above: Order Comment: Speci men Type: BLOOD SPECIMENOrdering Facility: [facility] Address: [address] [place] [address] Performed By: #### 5 7021-8 ####[facility]PITALNCLI [id number] [place] [address] [place] Platelets (Bld) [#/Vol] 405 10*3/uL High 150-400 [facility] Comment on above: Order Comment: Speci men Type: BLOOD SPECIMENOrdering Facility: [facility] Address: [address] [place] [address] Performed By: #### 5 7021-8 ####[facility]ITALNCLIA [id number] [place] [address] [place] RBC (Bld) [#/Vol] 3.33 10*6/uL Low 3.90-5.20 [facility] Comment on above: Order Comment: Speci men Type: BLOOD SPECIMENOrdering Facility: [facility] Address: [address] [place] [address] Performed By: #### 5 7021-8 ####[facility]OSPITALNCA [id number] [place] [address] [place] WBC (Bld) [#/Vol] 14.36 10*3/uL High 3.70-11.00 [facility] Comment on above: Order Comment: Speci men Type: BLOOD SPECIMENOrdering Facility: [facility] Address: [address] [place] [address] Performed By: #### 5 7021-8 ####[facility]ITALNCLIA [id number] [place] [address] [place] Ferritin SerPl-mCncon 2024 Ferritin [Mass/Vol] 44.5 ng/mL Normal 14.7-205.1 [facility] Comment on above: Order Comment: Speci men Type: BLOOD SPECIMENOrdering Facility: [facility] Address: [address] [place] [address] Performed By: #### 5 0190-8, 2276-4 ####[facility] LABCLIA [id number] [place] [address] [place] GESTATIONAL GLUCOSE SCREEN, 1-HOUR, 50 GRAM, NON-FASTINGon 09-07-2024 Glucose [Mass/Vol] 92 mg/dL Normal 74-134 [facility] Comment on above: Order Comment: Jaye barragan Type: BLOOD SPECIMENOrdering Facility: [facility] Address: [address] [place] [address] Result Comment: Tamara [facility] Congress of Obstetricians and Gynecologists ([place]apo/Mari) guidelines state a gestational diabetes mellitus positive screen is made, in women not previously diagnosed with overt diabetes, when the 1 hr plasma glucose level is equal to or above 140 mg/dL. [facility] [employer] and [facility] [place] recommends a 135 mg/dL cutoff. Performed By: #### G LTGST ####[facility] [id number] [place] [address] [place] Iron and Iron binding capaci ty panelon 09-07-2024 Iron [Mass/Vol] 46 ug/dL Normal 41-186 [facility] Comment on above: Order Comment: Jaye barragan Type: BLOOD SPECIMENOrdering Facility: [facility] Address: [address] [place] [address] Performed By: #### 5 0190-8, 6-4 ####[facility] LABIA [id number] [place] [address] [place] Iron binding capacity [Mass/Vol] 404 ug/dL High 232-386 [facility] Comment on above: Order Comment: Jaye barragan Type: BLOOD SPECIMENOrdering Facility: [facility] Address: [address] [place] [address] Performed By: #### 5 0190-8, 6-4 ####[facility] LABIA [id number] [place] [address] [place] Iron/TIBC [Molar ratio] 11.4 % Low 15.0-57.0 [facility] Comment on above: Order Comment: Jaye barragan Type: BLOOD SPECIMENOrdering Facility: [facility] Address: [address] [place] [address] Performed By: #### 5 0190-8, 2276-4 ####[facility] LABIA [id number] [address] [place] Reagin and Treponema pallidu m IgG and IgM [Interp]on 09-07-2024 T. pallidum IgG+IgM IA Ql (S) Non-Reactive Normal Nonreactive [facility] Comment on above: Order Comment: Speci men Type: BLOOD SPECIMENOrdering Facility: [facility] Address: [address] [place] [address] Performed By: #### 7 3752-8 ####[facility] [id number] [address] [place] Reagin+T pallidum IgG+IgM Se rPl-Impon 09-07-2024 Reagin and Treponema pallidum IgG and IgM [Interp] Cannot exclude recent Treponemal infection if specimen collected within 7-10 days after appearance of suspect lesions or 2-3 weeks after an exposure. Clinical correlation is required. Normal [facility] Comment on above: Order Comment: Speci men Type: BLOOD SPECIMENOrdering Facility: [facility] Address: [address] [place] [address] Performed By: #### 7 3752-8 ####[facility] [id number] [address] OF [facility] CNPAbbie [facility] PERLITA THAKKAR ([id number]) 1990 F Date Time Provider Department 09/06/24 NURSE ACID LEVELER FRVW TAIWO OGYANIRA During your visit today, [...] Status:Closed by ISABEL GRANADOS on 09/06/24 Normal [facility] Emergency Department Summary on 09-04-2024 Emergency Department Summary [facility] Medical Records Department [address] [place] [id number] Emergency Department Summary 09/04/24 MR#: [id number] Acct: [id number] Name: PERLITA THAKKAR Rep #: [id number] : 1990 34 From: Cameron Tala[facility] [employer] SUPERVISORDori PCP: Dr. Omid Benites MD Status:DEP ER Location: ED HPI History of Present Illness Chief Complaint: Chest Other Narrative Narrative: Patient is a 34-year-old female with no significant medical history, patient is currently 28 weeks , this is her first . Patient states over the last week, she is having pain to the left upper abdomen. 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 Patient states there is pain with movement, coughing and sneezing. She states that when she puts pressure on her left upper abdomen she feels better. She is not having shortness of breath, chest pain, patient denies any abdominal pain, vaginal bleeding, she still feeling the baby move. [facility] Medical History (Updated 09/04/24 @ 15:20 by [...] 100 Oxygen Delivery Method Room Air MDM [facility] Treatment and Re-Evaluation :: Differential diagnosis includes [...] obtained. hea (more content not included)... Normal [facility] 08-31-2024 [facility] Telephone (OBGYWM) PERLITA THAKKAR ([id number]) 1990 F Date Time Provider Department 08/31/24 [...] next appointment on 09/07. Please advise. KIRSTEN Orozco Jennifer, MD 08/31/2024 10:56 AM Signed If [...] Status:Closed by BALDO CARVAJAL on 08/31/24 Normal [facility] CBC W Auto Differential pane l (Bld)on 08-04-2024 Basophils (Bld) [#/Vol] 0.03 10*3/uL Normal <0.11 [facility] Comment on above: Order Comment: Speci men Type: BLOOD SPECIMENOrdering Facility: [facility] Address: [address] [place] [address] Performed By: #### 6 30-4 #### [facility] CLIA [id number] [address] [place] [address] [place] Basophils/100 WBC (Bld) 0.2 % Normal [facility] Comment on above: Order Comment: Speci men Type: BLOOD SPECIMENOrdering Facility: [facility] Address: [address] [place] [address] Performed By: #### 6 30-4 #### [facility] CLIA [id number] [address] [place] [address] [place] Differential cell count method Nom (Bld) Auto Normal [facility] Comment on above: Order Comment: Speci men Type: BLOOD SPECIMENOrdering Facility: [facility] Address: [address] [place] [address] Performed By: #### 6 30-4 #### [facility] CLIA [id number] [address] [place] [address] [place] Eosinophils (Bld) [#/Vol] 0.17 10*3/uL Normal <0.46 [facility] Comment on above: Order Comment: Speci men Type: BLOOD SPECIMENOrdering Facility: [facility] Address: [address] [place] [address] Performed By: #### 6 30-4 #### [facility] CLIA [id number] [address] [place] [address] [place] Eosinophils/100 WBC (Bld) 1.3 % Normal [facility] Comment on above: Order Comment: Speci men Type: BLOOD SPECIMENOrdering Facility: [facility] Address: [address] [place] [address] Performed By: #### 6 30-4 #### [facility] CLIA [id number] [address] [place] [address] [place] Erythrocyte distribution width (RBC) [Ratio] 12.8 % Normal 11.5-15.0 [facility] Comment on above: Order Comment: Speci men Type: BLOOD SPECIMENOrdering Facility: [facility] Address: [address] [place] [address] Performed By: #### 6 30-4 #### [facility] CLIA [id number] [address] [place] [address] [place] Hematocrit (Bld) [Volume fraction] 32.5 % Low 36.0-46.0 [facility] Comment on above: Order Comment: Speci men Type: BLOOD SPECIMENOrdering Facility: [facility] Address: [address] [place] [address] Performed By: #### 6 30-4 #### [facility] CLIA [id number] [address] [place] [address] [place] Hemoglobin (Bld) [Mass/Vol] 11.0 g/dL Low 11.5-15.5 [facility] Comment on above: Order Comment: Speci men Type: BLOOD SPECIMENOrdering Facility: [facility] Address: [address] [place] [address] Performed By: #### 6 30-4 #### [facility] CLIA [id number] [address] [place] [address] [place] Immature granulocytes (Bld) [#/Vol] 0.18 10*3/uL High <0.10 [facility] Comment on above: Order Comment: Speci men Type: BLOOD SPECIMENOrdering Facility: [facility] Address: [address] [place] [address] Performed By: #### 6 30-4 #### [facility] CLIA [id number] [address] [place] [address] [place] Immature granulocytes/100 WBC (Bld) 1.4 % Normal [facility] Comment on above: Order Comment: Speci men Type: BLOOD SPECIMENOrdering Facility: [facility] Address: [address] [place] [address] Performed By: #### 6 30-4 #### [facility] CLIA [id number] [address] [place] [address] [place] Lymphocytes (Bld) [#/Vol] 2.41 10*3/uL Normal 1.00-4.00 [facility] Comment on above: Order Comment: Speci men Type: BLOOD SPECIMENOrdering Facility: [facility] Address: [address] [place] [address] Performed By: #### 6 30-4 #### [facility] CLIA [id number] [address] [place] [address] [place] Lymphocytes/100 WBC (Bld) 18.4 % Normal [facility] Comment on above: Order Comment: Speci men Type: BLOOD SPECIMENOrdering Facility: [facility] Address: [address] [place] [address] Performed By: #### 6 30-4 #### [facility] CLIA [id number] [address] [place] [address] [place] MCH (RBC) [Entitic mass] 31.5 pg Normal 26.0-34.0 [facility] Comment on above: Order Comment: Speci men Type: BLOOD SPECIMENOrdering Facility: [facility] Address: [address] [place] [address] Performed By: #### 6 30-4 #### [facility] CLIA [id number] [address] [place] [address] [place] MCHC (RBC) [Mass/Vol] 33.8 g/dL Normal 30.5-36.0 [facility] Comment on above: Order Comment: Speci men Type: BLOOD SPECIMENOrdering Facility: [facility] Address: [address] [place] [address] Performed By: #### 6 30-4 #### [facility] CLIA [id number] [address] [place] [address] [place] MCV (RBC) [Entitic vol] 93.1 fL Normal 80.0-100.0 [facility] Comment on above: Order Comment: Speci men Type: BLOOD SPECIMENOrdering Facility: [facility] Address: [address] [place] [address] Performed By: #### 6 30-4 #### [facility] CLIA [id number] [address] [place] [address] [place] Monocytes (Bld) [#/Vol] 0.57 10*3/uL Normal <0.87 [facility] Comment on above: Order Comment: Speci men Type: BLOOD SPECIMENOrdering Facility: [facility] Address: [address] [place] [address] Performed By: #### 6 30-4 #### [facility] CLIA [id number] [address] [place] [address] [place] Monocytes/100 WBC (Bld) 4.3 % Normal [facility] Comment on above: Order Comment: Speci men Type: BLOOD SPECIMENOrdering Facility: [facility] Address: [address] [place] [address] Performed By: #### 6 30-4 #### [facility] CLIA [id number] [address] [place] [address] [place] Neutrophils (Bld) [#/Vol] 9.75 10*3/uL High 1.45-7.50 [facility] Comment on above: Order Comment: Speci men Type: BLOOD SPECIMENOrdering Facility: [facility] Address: [address] [place] [address] Performed By: #### 6 30-4 #### [facility] CLIA [id number] [address] [place] [address] [place] Neutrophils/100 WBC (Bld) 74.4 % Normal [facility] Comment on above: Order Comment: Speci men Type: BLOOD SPECIMENOrdering Facility: [facility] Address: [address] [place] [address] Performed By: #### 6 30-4 #### [facility] CLIA [id number] [address] [place] [address] [place] Nucleated RBC (Bld) [#/Vol] 10*3/uL Normal <0.01 [facility] Comment on above: Order Comment: Speci men Type: BLOOD SPECIMENOrdering Facility: [facility] Address: [address] [place] [address] Performed By: #### 6 30-4 #### [facility] CLIA [id number] [address] [place] [address] [place] Nucleated RBC/100 WBC (Bld) [Ratio] 0.0 /100 WBC Normal [facility] Comment on above: Order Comment: Speci men Type: BLOOD SPECIMENOrdering Facility: [facility] Address: [address] [place] [address] Performed By: #### 6 30-4 #### [facility] CLIA [id number] [address] [place] [address] [place] Platelet mean volume (Bld) [Entitic vol] 9.0 fL Normal 9.0-12.7 [facility] Comment on above: Order Comment: Speci men Type: BLOOD SPECIMENOrdering Facility: [facility] Address: [address] [place] [address] Performed By: #### 6 30-4 #### [facility] CLIA [id number] [address] [place] [address] [place] Platelets (Bld) [#/Vol] 395 10*3/uL Normal 150-400 [facility] Comment on above: Order Comment: Speci men Type: BLOOD SPECIMENOrdering Facility: [facility] Address: [address] [place] [address] Performed By: #### 6 30-4 #### [facility] CLIA [id number] [address] [place] [address] [place] RBC (Bld) [#/Vol] 3.49 10*6/uL Low 3.90-5.20 [facility] Comment on above: Order Comment: Speci men Type: BLOOD SPECIMENOrdering Facility: [facility] Address: [address] [place] [address] Performed By: #### 6 30-4 #### [facility] CLIA [id number] [address] [place] [address] [place] WBC (Bld) [#/Vol] 13.11 10*3/uL High 3.70-11.00 [facility] Comment on above: Order Comment: Speci men Type: BLOOD SPECIMENOrdering Facility: [facility] Address: [address] [place] [address] Performed By: #### 6 30-4 #### [facility] CLIA [id number] [address] [place] [address] [place] Examination level ultrasound [...] Read By: Munira Gomez M.D. MATERNAL MEDICINE [facility] Radiology Study observation (narrative) [facility] Ferritin SerPl-mCncon 2024 Ferritin [Mass/Vol] 94.5 ng/mL Normal 14.7-205.1 [facility] Comment on above: Order Comment: Speci men Type: BLOOD SPECIMENOrdering Facility: [facility] Address: [address] [place] [id number] Performed By: #### 2 276-4, 09566-9 ####[facility]ORYCLIA [id number] [place] [id number] [facility] Iron and Iron binding capaci ty panelon 08-04-2024 Iron [Mass/Vol] 140 ug/dL Normal 41-186 [facility] Comment on above: Order Comment: Speci men Type: BLOOD SPECIMENOrdering Facility: [facility] Address: [address] [place] [address] Performed By: #### 2 276-4, 16971-6 ####[facility]ORYCLIA [id number] [address] Iron binding capacity [Mass/Vol] 378 ug/dL Normal 232-386 [facility] Comment on above: Order Comment: Speci men Type: BLOOD SPECIMENOrdering Facility: [facility] Address: [facility] [place] [address] Performed By: #### 2 276-4, 88690-7 ####[facility]ORYCLIA [id number] [address] Iron saturation [Mass fraction] 37.0 % Normal 15.0-57.0 [facility] Comment on above: Order Comment: Speci men Type: BLOOD SPECIMENOrdering Facility: [facility] Address: [address] [place] [address] Performed By: #### 2 276-4, 26344-2 ####[facility]ORYCLIA [id number] [address] CNPAbbie 07-13-2024 CNPN Telephone (OGFVWE) PERLITA [id number]) 1990 F Date Time Provider Department 07/13/24 NURSE ACID LEVELER FRVW FULTON OGFVWE During your visit today, we recorded [...] Status:Closed by ISABEL GRANADOS on 07/13/24 Normal [facility] Bacteria Ur Culton Bacteria identified Cx Nom (U) ORGANISM ID: 1 10,000 -<50,000 CFU/ml Normal urogenital cecelia Normal [facility] Comment on above: Performed By: #### 6 30-4 ####[facility] [id number] [place] [address] [place] Examination level ultrasound [...] 13 oz EFW by: Hadlock (HC-AC-FL) Extended Chemical Maker 5.2 mm CM 4.3 mm 23% Nicolaides [...] normal LVOT view: normal 3-vessel view: normal 0-ylxzau-jlkltwn view: normal Heart / Thorax Situs: situs [...] Read By: Munira Gomez M.D. MATERNAL MEDICINE [facility] Radiology Study observation (narrative) [facility] Examination level ultrasound on 06-21-2024 Indication [...] 7 oz EFW by: Hadlock (HC-AC-FL) Extended Chemical Maker 6.1 mm CM 3.2 mm 14% Nicolaides Extremities / Bony Struc FL / HC 0.17 44% Hadlock Other Structures FHR 141 bpm Anatomy Cranium: normal Lateral ventricles: normal Choroid plexus: normal Midline falx: normal Cavum septi pellucidi: normal Cerebellum: normal Cisterna magna: normal Lips: normal 4-chamber view: normal RVOT view: normal LVOT view: normal 3-vessel view: normal 9-uuyefr-nwzzckv view: normal Heart / Thorax Situs: situs [...] Read By: Arley Byrd M.D. MATERNAL MEDICINE [facility] Radiology Study observation (narrative) [facility] Haile 05-28-2024 CNPSydnie Telephone (OBGYWM) PERLITA THAKKAR ([id number]) 1990 F Date Time Provider Department 05/28/24 ISMAEL ARCINIEGA OBMILY During your visit today, we recorded the following information about you: Ismael Arciniega APRN.PRODUCTION LINE ASSEMBLER 05/28/2024 6:59 AM Signed Please notify patient: [...] ISMAEL ARCINIEGA Pharmacy Information Pharmacy Address Telephone [facility] [address] [place] [address] Allergies As of Date: 05/28/2024 (No Known Allergies) Date Reviewed: 05/26/2024 Reviewed by: Ismael Arciniega APRN.PRODUCTION LINE ASSEMBLER - Fully Assessed Reason for Visit: Results [...] Status:Closed by BETH SAMANIEGO on 05/28/24 [facility] CNPN Tele[facility] (OGFVWE) TEAGANPERLITA ([id number]) 1990 F Date Time Provider Department 05/27/24 MIGUELINA ESTRADA OGFVWE During your visit today, we recorded the following information about you: Miguelina Estrada RN 05/27/2024 3:20 PM Signed 1st risk assessment form submitted 06/06/2024. 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 trachomatis+N. gonorrhoea e DNA CHRIS+probe Ql (Unsp spec)on 05-26-2024 C. trachomatis rRNA CHRIS+probe Ql (Unsp spec) Not detected Normal Not detected [facility] Comment on above: Order Comment: Speci men Type: SWABOrdering Facility: [facility] Address: [address] [place] [address] Performed By: #### 3 6902-5 ####[facility]IA [id number] [address] [place] N. gonorrhoeae rRNA CHRIS+probe Ql (Unsp spec) Not detected Normal Not detected [facility] Comment on above: Order Comment: Speci men Type: SWABOrdering Facility: [facility] Address: [address] [place] [address] Performed By: #### 3 6902-5 ####[facility] LABCLIA [id number] [place] [address] [place] CARRIER SCREEN, STANDARDon 1 07-27-2023 CARRIER SCREEN RESULTS View results in Scanned Documents link when available. Normal [facility] Comment on above: Order Comment: Speci men Type: BLOOD SPECIMENOrdering Facility: [facility] Address: [address] [place] [address] Performed By: #### C RRSCN ####[facility]ADCLIA [id number] [place] [address] CBC W Auto Diff Bldon 2023 Erythrocyte distribution width (RBC) [Ratio] 12.3 % Normal 11.5-15.0 [facility] Comment on above: Order Comment: Speci men Type: BLOOD SPECIMENOrdering Facility: [facility] Address: [address] [place] [address] Performed By: #### 6 30-4 #### [facility] CLIA [id number] [address] [place] [address] [place] Performed By: #### L [id number] ####[facility] LAB[facility]IA [id number] [place] [address] [place] CBC W Auto Differential pane l (Bld)on 05-26-2024 Basophils (Bld) [#/Vol] 0.03 10*3/uL Normal <0.11 [facility] Comment on above: Order Comment: Speci men Type: BLOOD SPECIMENOrdering Facility: [facility] Address: [address] [place] [address] Performed By: #### 6 30-4 #### [facility] CLIA [id number] [address] [place] [address] [place] Basophils/100 WBC (Bld) 0.4 % Normal [facility] Comment on above: Order Comment: Speci men Type: BLOOD SPECIMENOrdering Facility: [facility] Address: [address] [place] [address] Performed By: #### 6 30-4 #### [facility] CLIA [id number] [address] [place] [address] [place] Differential cell count method Nom (Bld) Auto Normal [facility] Comment on above: Order Comment: Speci men Type: BLOOD SPECIMENOrdering Facility: [facility] Address: [address] [place] [address] Performed By: #### 6 30-4 #### [facility] CLIA [id number] [address] [place] [address] [place] Eosinophils (Bld) [#/Vol] 0.11 10*3/uL Normal <0.46 [facility] Comment on above: Order Comment: Speci men Type: BLOOD SPECIMENOrdering Facility: [facility] Address: [address] [place] [address] Performed By: #### 6 30-4 #### [facility] CLIA [id number] [address] [place] [address] [place] Eosinophils/100 WBC (Bld) 1.4 % Normal [facility] Comment on above: Order Comment: Speci men Type: BLOOD SPECIMENOrdering Facility: [facility] Address: [address] [place] [address] Performed By: #### 6 30-4 #### [facility] CLIA [id number] [address] [place] [address] [place] Hematocrit (Bld) [Volume fraction] 32.4 % Low 36.0-46.0 [facility] Comment on above: Order Comment: Speci men Type: BLOOD SPECIMENOrdering Facility: [facility] Address: [address] [place] [address] Performed By: #### 6 30-4 #### [facility] CLIA [id number] [address] [place] [address] [place] Hemoglobin (Bld) [Mass/Vol] 11.0 g/dL Low 11.5-15.5 [facility] Comment on above: Order Comment: Speci men Type: BLOOD SPECIMENOrdering Facility: [facility] Address: [address] [place] [address] Performed By: #### 6 30-4 #### [facility] CLIA [id number] [address] [place] [address] [place] Immature granulocytes (Bld) [#/Vol] 0.04 10*3/uL Normal <0.10 [facility] Comment on above: Order Comment: Speci men Type: BLOOD SPECIMENOrdering Facility: [facility] Address: [address] [place] [address] Performed By: #### 6 30-4 #### [facility] CLIA [id number] [address] [place] [address] [place] Immature granulocytes/100 WBC (Bld) 0.5 % Normal [facility] Comment on above: Order Comment: Speci men Type: BLOOD SPECIMENOrdering Facility: [facility] Address: [address] [place] [address] Performed By: #### 6 30-4 #### [facility] CLIA [id number] [address] [place] [address] [place] Lymphocytes (Bld) [#/Vol] 1.01 10*3/uL Normal 1.00-4.00 [facility] Comment on above: Order Comment: Speci men Type: BLOOD SPECIMENOrdering Facility: [facility] Address: [address] [place] [address] Performed By: #### 6 30-4 #### [facility] CLIA [id number] [address] [place] [address] [place] Lymphocytes/100 WBC (Bld) 12.5 % Normal [facility] Comment on above: Order Comment: Speci men Type: BLOOD SPECIMENOrdering Facility: [facility] Address: [address] [place] [address] Performed By: #### 6 30-4 #### [facility] CLIA [id number] [address] [place] [address] [place] MCH (RBC) [Entitic mass] 31.3 pg Normal 26.0-34.0 [facility] Comment on above: Order Comment: Speci men Type: BLOOD SPECIMENOrdering Facility: [facility] Address: [address] [place] [address] Performed By: #### 6 30-4 #### [facility] CLIA [id number] [address] [place] [address] [place] MCHC (RBC) [Mass/Vol] 34.0 g/dL Normal 30.5-36.0 [facility] Comment on above: Order Comment: Speci men Type: BLOOD SPECIMENOrdering Facility: [facility] Address: [address] [place] [address] Performed By: #### 6 30-4 #### [facility] CLIA [id number] [address] [place] [address] [place] MCV (RBC) [Entitic vol] 92.3 fL Normal 80.0-100.0 [facility] Comment on above: Order Comment: Speci men Type: BLOOD SPECIMENOrdering Facility: [facility] Address: [address] [place] [address] Performed By: #### 6 30-4 #### [facility] CLIA [id number] [address] [place] [address] [place] Monocytes (Bld) [#/Vol] 0.77 10*3/uL Normal <0.87 [facility] Comment on above: Order Comment: Speci men Type: BLOOD SPECIMENOrdering Facility: [facility] Address: [address] [place] [address] Performed By: #### 6 30-4 #### [facility] CLIA [id number] [address] [place] [address] [place] Monocytes/100 WBC (Bld) 9.6 % Normal [facility] Comment on above: Order Comment: Speci men Type: BLOOD SPECIMENOrdering Facility: [facility] Address: [address] [place] [address] Performed By: #### 6 30-4 #### [facility] CLIA [id number] [address] [place] [address] [place] Neutrophils (Bld) [#/Vol] 6.10 10*3/uL Normal 1.45-7.50 [facility] Comment on above: Order Comment: Speci men Type: BLOOD SPECIMENOrdering Facility: [facility] Address: [address] [place] [address] Performed By: #### 6 30-4 #### [facility] CLIA [id number] [address] [place] [address] [place] Neutrophils/100 WBC (Bld) 75.6 % Normal [facility] Comment on above: Order Comment: Speci men Type: BLOOD SPECIMENOrdering Facility: [facility] Address: [address] [place] [address] Performed By: #### 6 30-4 #### [facility] CLIA [id number] [address] [place] [address] [place] Nucleated RBC (Bld) [#/Vol] 10*3/uL Normal <0.01 [facility] Comment on above: Order Comment: Speci men Type: BLOOD SPECIMENOrdering Facility: [facility] Address: [address] [place] [address] Performed By: #### 6 30-4 #### [facility] CLIA [id number] [address] [place] [address] [place] Nucleated RBC/100 WBC (Bld) [Ratio] 0.0 /100 WBC Normal [facility] Comment on above: Order Comment: Speci men Type: BLOOD SPECIMENOrdering Facility: [facility] Address: [address] [place] [address] Performed By: #### 6 30-4 #### [facility] CLIA [id number] [address] [place] [address] [place] Platelet mean volume (Bld) [Entitic vol] 9.7 fL Normal 9.0-12.7 [facility] Comment on above: Order Comment: Speci men Type: BLOOD SPECIMENOrdering Facility: [facility] Address: [address] [place] [address] Performed By: #### 6 30-4 #### [facility] CLIA [id number] [address] [place] [address] [place] MARTHA Platelets (Bld) [#/Vol] 311 10*3/uL Normal 150-400 [facility] Comment on above: Order Comment: Speci men Type: BLOOD SPECIMENOrdering Facility: [facility] Address: [address] [place] [address] Performed By: #### 6 30-4 #### [facility] CLIA [id number] [address] [place] [address] [place] RBC (Bld) [#/Vol] 3.51 10*6/uL Low 3.90-5.20 [facility] Comment on above: Order Comment: Speci men Type: BLOOD SPECIMENOrdering Facility: [facility] Address: [address] [place] [address] Performed By: #### 6 30-4 #### [facility] CLIA [id number] [address] [place] [address] [place] WBC (Bld) [#/Vol] 8.06 10*3/uL Normal 3.70-11.00 [facility] Comment on above: Order Comment: Speci men Type: BLOOD SPECIMENOrdering Facility: [facility] Address: [address] [place] [address] Performed By: #### 6 30-4 #### [facility] CLIA [id number] [address] [place] [address] [place] HBV surface Ag Ser Qlon 05-09 HBV surface Ag Ql (S) Negative Normal Negative [facility] Comment on above: Order Comment: Speci men Type: BLOOD SPECIMENOrdering Facility: [facility] Address: [address] [place] [address] Performed By: #### 6 30-4 #### [facility] CLIA [id number] [address] [place] [address] [place] HCV Ab Ser Qlon 05-26-2024 HCV Ab Ql (S) Negative Normal Negative [facility] Comment on above: Order Comment: Speci men Type: BLOOD SPECIMENOrdering Facility: [facility] Address: [address] [place] [address] Result Comment: The result suggests no evidence of active infection with Hepatitis C virus. Should recent infection be suspected, repeat testing may be considered 4-6 weeks after this draw. Performed By: #### 1 6128-1 ####[facility] [id number] [place] [address] [place] HGB ELECTROPHORESIS FOR EVAL (LAB ORDER)on 05-26-2024 Hemoglobin A (Bld) [Mass fraction] 97.2 % Normal 96.2-98.0 [facility] Comment on above: Order Comment: Speci men Type: BLOOD SPECIMENOrdering Facility: [facility] Address: [address] [place] [address] Performed By: #### L [id number], HGBELEV ####[facility] [id number] [place] [address] [place] Hemoglobin A2 (Bld) [Mass fraction] 2.8 % Normal 2.0-3.1 [facility] Comment on above: Order Comment: Speci men Type: BLOOD SPECIMENOrdering Facility: [facility] Address: [address] [place] [address] Performed By: #### L [id number], HGBELEV ####[facility] [id number] [place] [address] [place] Hemoglobin Unsp Elph (Bld) [Mass fraction] No abnormal hemoglobin identified. Normal No abnormal hemoglobin identified. [facility] Comment on above: Order Comment: Speci men Type: BLOOD SPECIMENOrdering Facility: [facility] Address: [address] [place] [address] Performed By: #### L [id number], HGBELEV ####[facility] [id number] [place] [address] [place] HGB EVALUATION CASCADE INTER Mick 05-26-2024 Hemoglobin pattern (Bld) [Interp] Reviewed by Kiersten López MD Normal [facility] Comment on above: Order Comment: Speci men Type: BLOOD SPECIMENOrdering Facility: [facility] Address: [address] [place] [address] Performed By: #### L [id number], HGBELEV ####[facility] [id number] [place] [address] [place] INTERPRETATION (HGB EVAL) Normal [facility] Comment on above: Order Comment: Speci men Type: BLOOD SPECIMENOrdering Facility: [facility] Address: [address] [place] [address] Result Comment: Hemo globins were analyzed by capillary electrophoresis and CBC red cell parameters were reviewed. No abnormal hemoglobin is identified. There is a normal hemoglobin capillary electrophoresis pattern. Performed By: #### L [id number], HGBELEV ####[facility] [id number] [place] [address] [place] HIGH RISK HUMAN PAPILLOMA HANNAH (HPV), PCR FOR DETECTION AND GENOTYPINGon 05-26-2024 HPV 16 Ag Ql (Unsp spec) Not detected Normal Not detected [facility] Comment on above: Order Comment: Speci men Type: FLUID SPECIMENOrdering Facility: [facility] Address: [address] [place] [address] Performed By: #### 6 30-4 #### [facility] CLIA [id number] [address] [place] [address] [place] HPV 18 Ag Ql (Unsp spec) Not detected Normal Not detected [facility] Comment on above: Order Comment: Speci men Type: FLUID SPECIMENOrdering Facility: [facility] Address: [address] [place] [address] Performed By: #### 6 30-4 #### [facility] CLIA [id number] [address] [place] [address] [place] HPV 31+33+35+39+45+51+ 52+56+58+59+66+68 DNA CHRIS+probe Ql (Cvx) Not detected Normal Not detected [facility] Comment on above: Order Comment: Speci men Type: FLUID SPECIMENOrdering Facility: [facility] Address: [address] [place] [address] Result Comment: High Risk HPV Other Type includes HPV types 31, 33, 35, 39, 45, 51, 52, 56, 58, 59, 66 and 68. Performed By: #### 6 30-4 #### [facility] CLIA [id number] [address] [place] [address] [place] HIV 1+2 Ab IA Qlon 4 HIV 1 and 2 Ab IA.rapid Nom (S/P/Bld) Normal [facility] Comment on above: Order Comment: Speci men Type: BLOOD SPECIMENOrdering Facility: [facility] Address: [address] [place] [address] Result Comment: Test not indicated. Performed By: #### 6 30-4 #### [facility] CLIA [id number] [address] [place] [address] [place] HIV 1+2 Ab+HIV1 p24 Ag IA Ql Non-Reactive Normal Nonreactive [facility] Comment on above: Order Comment: Speci men Type: BLOOD SPECIMENOrdering Facility: [facility] Address: [address] [place] [address] Performed By: #### 6 30-4 #### [facility] CLIA [id number] [address] [place] [address] [place] HIV immunoassay testing algorithm interpretation (S/P/Bld) [Interp] Normal [facility] Comment on above: Order Comment: Speci men Type: BLOOD SPECIMENOrdering Facility: [facility] Address: [address] [place] [address] Result Comment: No e vidence of HIV-1 or HIV-2 infection. Should recent infection be suspected, repeat testing may be considered 2-3 weeks after this draw. [place] Rev. Code 3701.243(E): This information has been [...] diagnoses. Performed By: #### 6 30-4 #### [facility] CLIA [id number] [address] [place] [address] [place] HbA1c (Bld)on 05-26-2024 Average glucose Estimated from glycated hemoglobin (Bld) [Mass/Vol] 94 mg/dL Normal [facility] Comment on above: Order Comment: Speci men Type: BLOOD SPECIMENOrdering Facility: [facility] Address: [address] [place] [address] Result Comment: eAG: (Estimated average glucose) is a calculated value from HgbA1c and is cash application representative of the average blood glucose level in the last 2-3 month period. Performed By: #### 6 30-4 #### [facility] CLIA [id number] [address] [place] [address] [place] HbA1c (Bld) [Mass fraction] 4.9 % Normal 4.3-5.6 [facility] Comment on above: Order Comment: Speci men Type: BLOOD SPECIMENOrdering Facility: [facility] Address: [address] [place] [address] Result Comment: Amer ican Diabetes Association guidelines indicate that patients with HgbA1c in the range 5.7-6.4% are at increased risk for development of diabetes, and intervention by lifestyle modification may be beneficial. HgbA1c greater or equal to 6.5% is considered diagnostic of diabetes. Performed By: #### 6 30-4 #### [facility] CLIA [id number] [address] [place] [address] [place] [id number] PLUSon 05-26-2024 Cell-free DNA./Cell-sulema e DNA.total Dosage of chromosome-specifi c cfDNA (cfDNA) [Molar fraction] 29% Normal [facility] Comment on above: Order Comment: Speci men Type: BLOOD SPECIMENOrdering Facility: [facility] Address: [address] [place] [address] Performed By: #### 6 30-4 #### [facility] CLIA [id number] [address] [place] [address] [place] Chr 13+18+21+X+Y aneuploidy Dosage of chromosome-specifi c cfDNA Ql (cfDNA) Negative Normal [facility] Comment on above: Order Comment: Speci men Type: BLOOD SPECIMENOrdering Facility: [facility] Address: [address] [place] [address] Performed By: #### 6 30-4 #### [facility] CLIA [id number] [address] [place] [address] [place] Chr 21 trisomy Dosage of chromosome-specifi c cfDNA Ql (cfDNA) Negative Normal [facility] Comment on above: Order Comment: Speci men Type: BLOOD SPECIMENOrdering Facility: [facility] Address: [address] [place] [address] Performed By: #### 6 30-4 #### [facility] CLIA [id number] [address] [place] [address] [place] Chr X and Y aneuploidy risk Sequencing Ql (cfDNA) [Interp] Not detected Normal [facility] Comment on above: Order Comment: Speci men Type: BLOOD SPECIMENOrdering Facility: [facility] Address: [address] [place] [address] Result Comment: Not Detected Not Detected Performed By: #### 6 30-4 #### [facility] CLIA [id number] [address] [place] [address] [place] Citation Chandra (Reference lab test) Comment Normal [facility] Comment on above: Order Comment: Speci men Type: BLOOD SPECIMENOrdering Facility: [facility] Address: [address] [place] [address] Result Comment: 1. P gertrudis HAMMONDS, et al. Alexa Med. 2012;14(3):296-305. 2. Demarcus SOLOMON, et al. Prenat Diag. 2013;33(6):591-597. 3. Velazco C, et al. Clin Chem. 2015 Apr;61(4):608-616. 4. Sterling HAMMONDS et al. Alexa Med. 2011;13(11):913-920. 5. ACOG/SM[facility] Practice Bulletin No. 226, Mar 2020. Performed By: #### 6 30-4 #### [facility] CLIA [id number] [address] [place] [address] [place] Gestational age Estimated from conception date Maher Normal [facility] Comment on above: Order Comment: Speci men Type: BLOOD SPECIMENOrdering Facility: [facility] Address: [address] [place] [address] Performed By: #### 6 30-4 #### [facility] CLIA [id number] [address] [place] [address] OF [facility] GESTATIONALAGE AGE > OR = 9W Yes Normal [facility] Comment on above: Order Comment: Speci men Type: BLOOD SPECIMENOrdering Facility: [facility] Address: [address] [place] [address] Performed By: #### 6 30-4 #### [facility] CLIA [id number] [address] [place] [address] [place] Laboratory comment Chandra (Report) Comment Normal [facility] Comment on above: Order Comment: Speci men Type: BLOOD SPECIMENOrdering Facility: [facility] Address: [address] [place] [address] Result Comment: The MaterniT(R) 21 PLUS laboratory-developed test (LDT) analyzes circulating cell-free DNA from a maternal blood sample. This test is used for screening purposes and not diagnostic. Clinical correlation is recommended. Validation data on twin pregnancies is limited and the ability of this test to detect aneuploidy in higher multiple gestations has not yet been validated. Performed By: #### 6 30-4 #### [facility] CLIA [id number] [address] [place] [address] [place] director multimedia name Nom (Provider) Comment Normal [facility] Comment on above: Order Comment: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 Normal 74-99 [facility] Comment on above: Performed By: #### 2 4323-8 #### ELGIN QUESADA L ([id number]) [facility] ([facility]) [address] [place] [address] 42031 Potassium [Moles/Vol] 4.0 mmol/L Normal 3.5-5.3 [facility] Comment on above: Performed By: #### 2 4323-8 #### ELGIN QUESADA L (05834) [facility] ([facility]) [address] [place] [address] 78908 Protein [Mass/Vol] 6.6 g/dL Normal 6.4-8.2 [facility] Comment on above: Performed By: #### 2 4323-8 #### ELGIN QUESADA L (68897) [facility] ([facility]) [address] [place] [address] 01617 Sodium [Moles/Vol] 141 mmol/L Normal 136-145 [facility] Comment on above: Performed By: #### 2 4323-8 #### ELGIN QUESADA L ([id number]) [facility] ([facility]) [address] [place] [address] [place] [address] Urea nitrogen [Mass/Vol] 9 mg/dL Normal 6-23 [facility] Comment on above: Performed By: #### 2 4323-8 #### ELGIN Bell ([id number]) [facility] ([facility]) [address] [place] [address] 16292 Ferritinon 07-15-2023 Ferritin [Mass/Vol] 44 ng/mL Normal 8-150 [facility] Comment on above: Performed By: #### 2 276-4 #### ELGIN Bell (47326) [facility] ([facility]) [address] [place] [address] 75385 Folateon 07-15-2023 Folate [Mass/Vol] 15.6 ng/mL Normal >5.0 [facility] Comment on above: Order Comment: Low < 3.4 Borderline 3.4-5.0 Normal >5.0 Patients receiving more than 5 mg/day of biotin may have interference in test results. A sample should be taken no sooner than eight hours after previous dose. Contact the testing laboratory for additional information. Performed By: #### 2 284-8 #### ELGIN Bell (78029) [facility] ([facility]) [address] [place] [address] 06148 Iron and Iron binding capaci ty panelon 07-15-2023 Iron [Mass/Vol] 69 ug/dL Normal 35-150 [facility] Comment on above: Performed By: #### 5 0190-8 #### ELGIN Bell (98657) [facility] ([facility]) [address] [place] [address] 92618 Iron binding capacity [Mass/Vol] 310 ug/dL Normal 240-445 [facility] Comment on above: Performed By: #### 5 0190-8 #### ELGIN Bell (26587) [facility] ([facility]) [address] [place] [address] 62328 Iron binding capacity.unsaturat ed [Mass/Vol] 241 ug/dL Normal 110-370 [facility] Comment on above: Performed By: #### 5 0190-8 #### ELGIN Bell (04119) [facility] ([facility]) [address] [place] [address] Iron saturation [Mass fraction] 22 % Low 25-45 [facility] Comment on above: Performed By: #### 5 0190-8 #### ELGIN Bell (62818) [facility] ([facility]) [address] [place] [address] 61143 Lipid 1996 panelon 4 Cholesterol [Mass/Vol] 135 mg/dL Normal 0-199 [facility] Comment on above: Result Comment: Age [...] By: #### 2 4331-1 #### ELGIN Bell (43501) [facility] ([facility]) [address] [place] [address] 66676 Cholesterol in HDL [Mass/Vol] 45.3 mg/dL Normal [facility] Comment on above: Result Comment: Age Very Low Low Normal High 0-19 Y < 35 < 40 40-45 ---- 20-24 Y ---- < 40 >45 ---- >24 Y ---- < 40 40-60 >60 Performed By: #### 2 4331-1 #### ELGIN Bell (22474) [facility] ([facility]) [address] [place] [address] 31432 Cholesterol in LDL [Mass/Vol] 77 mg/dL Normal <=99 [facility] Comment on above: Result Comment: Near Borderline AGE Desirable Optimal High High Very High 0-19 Y 0 - 109 --- 110-129 >/= 130 ---- 20-24 Y 0 - 119 --- 120-159 >/= 160 ---- >24 Y 0 - 99 100-129 130-159 160-189 >/=190 Performed By: #### 2 4331-1 #### ELGIN Bell (61496) [facility] ([facility]) [address] [place] [address] 98206 Cholesterol in VLDL [Mass/Vol] 13 mg/dL Normal 0-40 [facility] Comment on above: Performed By: #### 2 4331-1 #### ELGIN Bell (27702) [facility] ([facility]) [address] [place] [address] 78433 CHOLESTEROL/HDL RATIO 3.0 Normal [facility] Comment on above: Result Comment: Ref Values Desirable < 3.4 High Risk > 5.0 Performed By: #### 2 4331-1 #### ELGIN Bell (23895) [facility] ([facility]) [address] [place] [address] 50561 NON HDL CHOLESTEROL 90 mg/dL Normal 0-149 [facility] Comment on above: Result Comment: Age Desirable Borderline High High Very High 0-19 Y 0 - 119 120 - 144 >/= 145 >/= 160 20-24 Y 0 - 149 150 - 189 >/= 190 ---- >24 Y 30 mg/dL above LDL Cholesterol goal Performed By: #### 2 4331-1 #### ELGIN Bell (17211) [facility] ([facility]) [address] [place] [address] 85763 Triglyceride [Mass/Vol] 66 mg/dL Normal 0-149 [facility] Comment on above: Result Comment: Age [...] By: #### 2 4331-1 #### ELGIN Bell (22776) [facility] ([facility]) [address] [place] [address] 72200 Methylmalonateon 07-15-2023 Methylmalonate [Moles/Vol] 0.14 umol/L Normal 0.00-0.40 [facility] Comment on above: Result Comment: INTE RPRETIVE INFORMATION: MMA Serum/Plasma, Vitamin B12 Status This test was developed and its performance characteristics determined by [facility]. It has not been cleared or approved by the [place] Food and Drug Administration. This test was performed in a CLIA certified laboratory and is intended for clinical purposes. Performed By: [facility] [address] [place] [id number] News Cameraman: Shawn Gonzalez MD, PhD CLIA Number: [id number] Performed By: #### T HYDS #### ELGIN Bell ([id number]) [facility] ([facility]) [address] [place] [id number] TSH WITH REFLEX TO FREE T4 I F ABNORMALon 07-15-2023 TSH Qn 0.37 m[IU]/L Low 0.44-3.98 [facility] Comment on above: Order Comment: TSH t esting is performed using different testing methodology at [facility] than at other [facility]. Direct result comparisons should only be made within the same method. Performed By: #### T HYDS #### ELGIN Bell ([id number]) [facility] ([facility]) [address] [place] [address] Thyroxine.freeon 07-15-2023 Free T4 [Mass/Vol] 1.13 ng/dL Normal 0.78-1.48 [facility] Comment on above: Order Comment: Thyro xine Free testing is performed using different testing methodology at [facility] than at other [facility]. Direct result comparisons should only be made within the same method. Performed By: #### 3 024-7 #### ELGIN Bell ([id number]) [facility] ([facility]) [address] [place] [address] XR TIBIA FIBULA LEFT 2 VIEWS on 07-15-2023 XR TIBIA FIBULA LEFT 2 VIEWS Interpreted By: Serjio Mcleod, STUDY: XR TIBIA FIBULA LEFT 2 VIEWS; ; 07/15/2023 10:31 am INDICATION: Signs/Symptoms:PAIN. COMPARISON: May 31, 2014 radiographs ACCESSION NUMBER(S): [id number] ORDERING CLINICIAN: OMID BENITES FINDINGS: Two views [...] Serjio Mcleod 07/16/2023 11:23 AM Dictation workstation: [id number] [facility] XR Tibia and Fibula - left 2 Viewson 07-15-2023 Radiology Study observation (narrative) [facility] Work Phone: Phone Note - Heme Onc-test r esultson 12-03-2022 Phone Note - Heme Onc-test results Phone Call Information: Patient Demographics: Name: PERLITA THAKKAR Date: 1990 Address: [address] [place] [id number] Caller Information: call to Call To: patient Primary Phone Number: [phone] Reason for Call: Reason for Calltest results [...] Updated: 03-Dec-2022 11:51 by Viry Carson (KIRSTEN) [facility] Clinic Note - Gamer Onc-Follow Up Visiton 11-22-2022 Clinic Note - Gamer Onc-Follow Up Visit Patient Visit Information: Onco- [...] use, condoms for contraception 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 Current smoker (1 ppd/10yrs). Occasional EtOH use. Denie drug use. FAMHx: Denies any family history of breast, ovary, uterine, or colon cancer Screening: -Pap as above -Mammo: NA -[place]: NA Allergies and Outpatient Medication Profile: Allergies: [...] past 30 days) Number of cigarettes per rzk07-09 Use of other tobacco/nicotine productsnone Currently living [...] 124(H) 4.1 (more content not included)... Normal [facility] Clinic Note - Intakeon 11-22 [...] M2 Pain Screening: Patient States Painno (0) Printing Assistant for intimate exam offered to patient: Patient [...] you are livingno Depression: Past 2 wks: [place] down, depressed or hopelessno Past 2 wks: [place] little interest/pleasure doing thingsno Any Thoughts of [...] 13:08) Authored: Patient Visit Information, Vital Signs, Printing Assistant, Allergies, Notification, Travel History, Falls, Spiritual/Procedural, Adv Dir, Violence, Depression, Substance, Nutrition/Learning Last Updated: 22-Nov-2022 13:08 by Kelsie Avila (CARLOS) Normal [facility] Surgical Pathology Depar tmenton 11-22-2022 [facility] Surgical Pathology Department Name PERLITA THAKKAR Pathologist: KODI REINA M.D. Date of Procedure: 11/22/2022 Date Received: 11/22/2022 Date Reported 12/02/2022 Submitting Physician: JONAS WOLFF MD Location: [facility] Copy To/Referring/Attending: MIGUELINA VILLAVICENCIO MD Other External # FINAL DIAGNOSIS A. ENDOCERVIX, CURETTAGE: -- SCANT CYTOLOGICALLY NORMAL SQUAMOUS AND GLANDULAR EPITHELIUM IN A BACKGROUND OF MUCUS WITH ABUNDANT NEUTROPHILS Electronically Signed Out By KODI REINA M.D./SXA By the signature on this report, the individual or group listed as making the Final Interpretation/Diagnosis certifies that they have reviewed this case. Diagnostic interpretation performed at [place] [address] Clinical History: AIS Specimens Submitted As: A: CERVICAL ECC Gross Description: Received in formalin on a brush, labeled with the patient's name and hospital number, is a scant amount of mucus, blood, and soft tissue aggregating to 0.8 x 0.4 x 0.1 cm. The specimen is submitted in toto in one cassette. The specimen may not survive processing. AE aey/11/27/2022 [facility] Department of Pathology [address] [place] [address] Normal [facility] Comment on above: Performed By: #### U [facility] #### [facility] Surgical Pathology Department [address] [place] [address] Phone Note - Heme Onc-test r esultson 05-27-2022 Phone Note - Heme Onc-test results Phone Call Information: Patient Demographics: Name: PERLITA THAKKAR Date: 1990 Address: [address] [place] [address] Caller Information: call to Call To: patient Primary Phone Number: [phone] Reason for Call: Reason for Calltest results [...] Updated: 27-May-2022 13:31 by Viry Carson (KIRSTEN) [facility] Clinic Note - Gamer Onc-Follow Up Visiton 05-17-2022 Clinic Note - Gamer Onc-Follow Up Visit Patient Visit Information: Onco- [...] use, condoms for contraception 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 Current smoker (1 ppd/10yrs). Occasional EtOH use. Denie drug use. FAMHx: Denies any family history of breast, ovary, uterine, or colon cancer Screening: -Pap as above -Mammo: NA -[place]: NA Allergies and Outpatient Medication Profile: Allergies: [...] past 30 days) Number of cigarettes per fca15-32 Use of other tobacco/nicotine productsnone Currently living [...] Results Surgical Pathology [Oct 26 2021 1:58PM] ([id number]) Specimens: CERVICAL COLD KNIFE CONE BIOPSY STITCH AT 12:00 /ECC (more content not included)... Normal [facility] Clinic Note - Intakeon 05-17 [...] air Pain Screening: Patient States Painno (0) Printing Assistant for intimate exam offered to patient: Patient [...] 13:24) Authored: Patient Visit Information, Vital Signs, Printing Assistant, Allergies, Notification, Travel History, Falls Last Updated: 17-May-2022 13:24 by Kelsie Avila) Normal [facility] Surgical Pathology Depar tmenton 05-17-2022 [facility] Surgical Pathology Department Name PERLITA THAKKAR Pathologist: [...] reviewed this case. Diagnostic interpretation performed at [address] [place] [address] Clinical History: History of AIS sp [facility] 10/2021 Specimens Submitted As: A: CERVIX BIOPSY [...] cassette. The specimen may not survive processing. [facility]/05/20/2022 [facility] Department of Pathology [address] [place] [address] Normal [facility] Comment on above: Performed By: #### U [facility] #### [facility] Surgical Pathology Department [address] [place] [address] CORONAVIRUS 2019 BY PCRon SARS-CoV-2 (COVID-19) RNA CHRIS+probe Ql (Unsp spec) Detected Abnormal Not Detected [facility] Comment on above: Result Comment: [...] patient management decisions. Fact sheet for providers: https://www.fda.gov/media/698211/download Fact sheet for patients: https://www.fda.gov/media/396488/download This test has received FDA Emergency Use Authorization (EUA) and has been verified by [facility] ([facility]). This test is only authorized for the duration of time that circumstances exist to justify the authorization of the emergency use of in vitro diagnostic tests for the detection of SARS-CoV-2 virus and/or diagnosis of COVID-19 infection under section 564(b)(1) of the Act, 21 U.S.C. 360bbb-3(b)(1), unless the authorization is terminated or revoked sooner. [facility] is certified under CLIA-88 as qualified to perform high complexity testing. Testing is performed in the [facility] laboratories located at [address] [place] [address]. Performed By: #### C #### [facility] Cytology [address] [place] [address] Covid 19 Resultson 2 SARS-CoV-2 (COVID-19) RNA [...] You may also be contacted by the [facility] to see if any of your close [...] or Naproxen (Aleve) can also be used. Sher-uzr-pwjbswj cough and cold medicines can be used according to the instructions on the package. Some firm-tpl-dlfxabw medicines also contain acetaminophen. Make sure you [...] water are not available, use alcohol-based hand compliance engineer. Avoid touching your eyes, nose, and mouth [...] 24 [place] (more content not included)... Normal [facility] CORONAVIRUS 2019 BY PCRon Lab Specimen Source Nasal, Nasopharyngeal Normal [facility] Comment on above: Performed By: #### C #### [facility] Cytology [address] [place] [address] [facility] [address] Provider Note - ED v3on 01-08 Provider [...] (1 PPD). Currently employed - works at [employer]. OUTPATIENT MEDICATIONS: Home Medications Review Status [...] events or other known past surgical history. 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 SG 1.025. See flowsheet. Patient states has not had anything to eat for >24 hours. VITAL SIGNS: T PRBP SpO2O2(LPM) %FiO2 Method 31-Jan-2022 10:25:[id number]/56 99 MDM MDM/ED COURSE: This note was [...] dose was >6 hours ago); no other hate-kda-ocscajw medications or home remedies for symptom management. 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 Integumentary: Enders, warm, dry, and intact. No rashes or skin discoloration appreciated. Good skin turgor. Neurologic: Alert and oriented, no gross deficits. No meningeal signs. Cognition and Speech: (more content not included)... Normal [facility] URINE CULTURE,[facility] URINE CULTURE,BACTERIAL PATIENT: PERLITA THAKKAR [place] [facility] [place]#: [id number] : [birth year] AGE: SEX: F ORDERED BY: LUCI SOLIS SOURCE: URINE COLLECTED: 01/31/22 11:10 ANTIBIOTICS AT ION.: RECEIVED : 02/01/22 00:20 SITE: Clean Catch/Voided R E S U L T S URINE CULTURE,BACTERIAL FINAL 02/01/22 16:47 NO SIGNIFICANT GROWTH. Normal [facility] Comment on above: Performed By: #### C #### [facility] Cytology [address] [facility] [address] LEADERSHIP COACH - Office Visiton 12-07 LEADERSHIP COACH - Office Visit Diagnoses/Problems Assessed Adenocarcinoma of [...] Dec 24 2021 9:46AM EST (Author) Normal [place] BASIC METABOLIC PANELon - Anion gap [Moles/Vol] 10 mmol/L Normal 10 - 20 [facility] Comment on above: Performed By: #### B MP #### [address] [address] Calcium [Mass/Vol] 8.9 mg/dL Normal 8.6 - 10.3 [facility] Comment on above: Performed By: #### B MP #### [address] [address] Chloride [Moles/Vol] 107 mmol/L Normal 98 - 107 [facility] Comment on above: Performed By: #### B MP #### [address] [address] Creatinine [Mass/Vol] 0.75 mg/dL Normal 0.50 - 1.05 [facility] Comment on above: Performed By: #### B MP #### [address] [address] eGFR FEMALE >90 Normal >90 [facility] Comment on above: Result Comment: CALC ULATIONS OF ESTIMATED GFR ARE PERFORMED USING THE 2020 CKD-EPI STUDY REFIT EQUATION WITHOUT THE RACE VARIABLE FOR THE IDMS-TRACEABLE CREATININE METHODS. https://jasn.asnjournals.org/content//ASN.973664879 8 Performed By: #### B MP #### [address] [address] Glucose [Mass/Vol] 93 mg/dL Normal 74 - 99 [facility] Comment on above: Performed By: #### B MP #### [address] [address] HCO3 (Bld) [Moles/Vol] 24 mmol/L Normal 21 - 32 [facility] Comment on above: Performed By: #### B MP #### [address] [address] Potassium [Moles/Vol] 3.9 mmol/L Normal 3.5 - 5.3 [facility] Comment on above: Result Comment: MILD HEMOLYSIS DETECTED. The result may be falsely elevated due to hemolysis or other interferents. Clinical correlation is recommended. Repeat testing may be considered. Performed By: #### B MP #### [address] [address] Sodium [Moles/Vol] 137 mmol/L Normal 136 - 145 [facility] Comment on above: Performed By: #### B MP #### [address] [address] Urea nitrogen [Mass/Vol] 9 mg/dL Normal 6 - 23 [facility] Comment on above: Performed By: #### B MP #### [address] [address] CBC AND DIFFERENTIALon 11-30 Basophils (Bld) [#/Vol] 0.10 10*3/uL Normal 0.00 - 0.10 [facility] Comment on above: Performed By: #### C BCDF #### [address] [address] Basophils/100 WBC (Bld) 0.5 % Normal 0.0 - 2.0 [facility] Comment on above: Performed By: #### C BCDF #### [address] [address] Eosinophils (Bld) [#/Vol] 0.20 10*3/uL Normal 0.00 - 0.70 [facility] Comment on above: Performed By: #### C BCDF #### [address] [address] Eosinophils/100 WBC (Bld) 1.9 % Normal 0.0 - 6.0 [facility] Comment on above: Performed By: #### C BCDF #### [address] [address] Erythrocyte distribution width (RBC) [Ratio] 12.5 % Normal 11.5 - 14.5 [facility] Comment on above: Performed By: #### C BCDF #### [address] [address] Hematocrit (Bld) [Volume fraction] 33.9 % Low 36.0 - 46.0 [facility] Comment on above: Performed By: #### C BCDF #### [address] [address] Hemoglobin (Bld) [Mass/Vol] 11.8 g/dL Low 12.0 - 16.0 [facility] Comment on above: Performed By: #### C BCDF #### [address] [address] Lymphocytes (Bld) [#/Vol] 1.40 10*3/uL Normal 1.20 - 4.80 [facility] Comment on above: Performed By: #### C BCDF #### [address] [address] Lymphocytes/100 WBC (Bld) 13.5 % Normal 13.0 - 44.0 [facility] Comment on above: Performed By: #### C BCDF #### [address] [address] MCHC (RBC) [Mass/Vol] 34.9 g/dL Normal 32.0 - 36.0 [facility] Comment on above: Performed By: #### C BCDF #### [address] [address] MCV (RBC) [Entitic vol] 89 fL Normal 80 - 100 [facility] Comment on above: Performed By: #### C BCDF #### [address] [address] Monocytes (Bld) [#/Vol] 0.60 10*3/uL Normal 0.10 - 1.00 [facility] Comment on above: Performed By: #### C BCDF #### [address] [address] Monocytes/100 WBC (Bld) 5.9 % Normal 2.0 - 10.0 [facility] Comment on above: Performed By: #### C BCDF #### [address] [address] Neutrophils (Bld) [#/Vol] 8.10 10*3/uL High 1.20 - 7.70 [facility] Comment on above: Result Comment: Perc ent differential counts (%) should be interpreted in the context of the absolute cell counts (cells/L). Performed By: #### C BCDF #### [address] [address] Neutrophils/100 WBC (Bld) 78.2 % Normal 40.0 - 80.0 [facility] Comment on above: Performed By: #### C BCDF #### [address] [address] Platelets (Bld) [#/Vol] 333 10*3/uL Normal 150 - 450 [facility] Comment on above: Performed By: #### C BCDF #### [address] [address] RBC 3.79 x10E12/L Low 4.00 - 5.20 [facility] Comment on above: Performed By: #### C BCDF #### [address] [address] WBC (Bld) [#/Vol] 10.3 10*3/uL Normal 4.4 - 11.3 [facility] Comment on above: Performed By: #### C BCDF #### [address] [address] [address] ABDOMEN AND PELVIS W IV C [facility] 11-30-2021 CT ABDOMEN AND PELVIS W IV CONTRAST Patient Name: PERLITA THAKKAR STUDY: CT ABDOMEN AND PELVIS W IV CONTRAST; 11/30/2021 3:32 pm INDICATION: Lower abdominal pain. Diarrhea. Reported cold knife cone of the cervix in October 2021. COMPARISON: CT abdomen pelvis dated 12/24/2011. ACCESSION NUMBER(S): [id number] ORDERING CLINICIAN: NICKIE GALO TECHNIQUE: CT of [...] diverticulosis. Electronically signed by: NOY SETH MD [facility] CT Abdomen and Pelvis with I V [...] (Bld) [#/Vol] 10.3 10*3/uL 4.4 - 11.3 [facility] Work Phone: Complete Blood [...] ( test) Ql (U) Negative Normal Negative [facility] Comment on above: Performed By: #### H CGU #### [place] [id number] HEPATIC FUNCTION PANELon Albumin [Mass/Vol] 4.1 g/dL Normal 3.4 - 5.0 [facility] Comment on above: Performed By: #### H EPFP ####[place] [id number] ALP [Catalytic activity/Vol] 124 U/L High 33 - 110 [facility] Comment on above: Performed By: #### H EPFP ####[address] [address] ALT [Catalytic activity/Vol] 134 U/L High 7 - 45 [facility] Comment on above: Result Comment: Altagracia ents treated with Sulfasalazine may generate falsely decreased results for ALT. Performed By: #### H EPFP ####[address] [address] AST [Catalytic activity/Vol] 72 U/L High 9 - 39 [facility] Comment on above: Result Comment: MILD HEMOLYSIS DETECTED. The result may be falsely elevated due to hemolysis or other interferents. Clinical correlation is recommended. Repeat testing may be considered. Performed By: #### H EPFP ####[address] [address] Bilirubin [Mass/Vol] 0.4 mg/dL Normal 0.0 - 1.2 [facility] Comment on above: Performed By: #### H EPFP ####[address] [address] Bilirubin.indirect [Mass/Vol] 0.1 mg/dL Normal 0.0 - 0.3 [facility] Comment on above: Result Comment: MILD HEMOLYSIS DETECTED. The result may be falsely decreased due to hemolysis or other interferents. Clinical correlation is recommended. Repeat testing may be considered. Performed By: #### H EPFP ####[place] [address] [place] [address] Protein [Mass/Vol] 6.8 g/dL Normal 6.4 - 8.2 [facility] Comment on above: Performed By: #### H EPFP ####[address] [address] Hepatic Function Panelon Albumin BCP dye [Mass/Vol] [...] [Moles/Vol] 0.7 mmol/L Normal 0.4 - 2.0 [facility] Comment on above: Result Comment: Agatha puncture immediately after or during the administration of Metamizole may lead to falsely low results. Testing should be performed immediately prior to Metamizole dosing. Performed By: #### L ACT #### [address] [address] LIPASEon 11-30-2021 Lipase [Catalytic activity/Vol] 16 U/L Normal 9 - 82 [facility] Comment on above: Result Comment: Agatha puncture immediately after or during the administration of Metamizole may lead to falsely low results. Testing should be performed immediately prior to Metamizole dosing. J-wkiwqy-f-benzoquinone imine (metabolite of Acetaminophen) will generate erroneously low results in samples for patients that have taken toxic doses of acetaminophen. Performed By: #### L IPAS #### [address] [address] Laboratory - Chemistry and C hemistry - [...] be performed immediately prior to Metamizole dosing. S-svakfh-t-benzoquinone imine (metabolite of Acetaminophen) will generate erroneously low results in samples for patients that have taken toxic doses of acetaminophen. No Panel Informationon 11-30 >90 >90 [facility] Work Phone: Comment on above: CALCULATIONS OF EDWARD MATED GFR ARE PERFORMED USING THE 2020 CKD-EPI STUDY REFIT EQUATION WITHOUT THE RACE VARIABLE FOR THE IDMS-TRACEABLE CREATININE METHODS.https://jasn.asnjournals.org/content//ASN.2 481123997 Provider Note - ED v3on 11-08 Provider [...] on October 18 for cervical cancer at [facility]. She denies any abnormal vaginal bleeding [...] made to minimize errors. Minor errors in dial marker may be present. Please call if questions.. HISTORY OF PRESENTING ILLNESS PERLITA is a 31 year old Female and was seen by me at 30-Nov-2021 12:58 for a chief complaint of abdominal pain (patient had a comb procedure october 18 at [facility] for cervical cancer. Patient developed lower [...] Reference Range: STRAW,YELLOW Appearance, Urine HAZY Specific [place], Urine 1.016 pH, Urine 5.0 Protein, Urine [...] 0.10 Basic (more content not included)... Normal [facility] Risk Screen - Adult Emergenc yon 11-30-2021 Risk Screen - Adult Emergency Preferred Language: Preferred Language: Preferred Language for Discussing Health Care (patient/designee)Khmer Advanced Directives: Advance Directive/DNRno Family Violence Adult: Abuse Screen: Are you or have you been threatened or abused physically, emotionally, or sexually by anyoneno Learning Assessment (Patient): Learning Assessment (Patient): Patient is Able to be Assessed for Learningyes Factors Influencing Readiness to Learnnone Factors that Impact Ability to Learnnone Devices/Methods Used to Communicatenone Learning Preferenceswritten material; verbal instruction Cultural Considerationsnone Developmental Considerationsnone Hinduism Considerationsnone Learning Assessment (Other Learner): Learning Assessment [...] an injured patient at a Trauma Center ([facility]/[place]): no Electronic Signatures: Karol Piña (SUPV) (Signed 30-Nov-2021 12:38) Authored: Preferred Language, Advanced Directives, Family Violence Adult, Learning Assessment (Patient), Learning Assessment (Other Learner), Pressure Injury/TB/Substance, Pressure Injury, CAGE Last Updated: 30-Nov-2021 12:38 by Karol Piña (SUPV) [facility] Triage - EDon 11-30-2021 Triage - ED Quick Triage: Are You no Are You Currently Breastfeedingno Chart Review: ARRIVAL INFORMATION Mode of Arrival: private vehicle CHIEF COMPLAINT PERLITA THAKKAR is a Female patient with a chief complaint of abdominal pain (patient had a comb procedure october 18 at [facility] for cervical cancer. Patient developed lower [...] 30-Nov-2021 12:37 by Karol Piña (SUPV) Normal [facility] UA MICROSCOPICon 11-30-2021 BACTERIA 2+ /HPF Abnormal [facility] Comment on above: Performed By: #### U [place] ####[place] [address] Mucus Ql (Urine sed) 1+ /LPF Normal [facility] Comment on above: Performed By: #### U [place]IC ####[place] [address] RBC 1 /HPF Normal 0-5 [facility] Comment on above: Performed By: #### U AMIC ####[place] [address] SQUAMOUS EPITH. CELLS 6 /HPF Normal [facility] Comment on above: Performed By: #### U AMIC ####[place] [address] WBC 3 /HPF Normal 0-5 [facility] Comment on above: Performed By: #### U AMIC ####[address] [address] URINALYSIS WITH CULTURE IF I NDICATEDon 11-30-2021 Appearance (U) HAZY Normal CLEAR [facility] Comment on above: Performed By: #### U ARFX #### [place] [address] Bilirubin Ql (U) Negative Normal NEGATIVE [facility] [facility] Comment on above: Performed By: #### U AR[facility] #### [place] [address] Color (U) Yellow Normal STRAW,YELLOW [facility] Comment on above: Performed By: #### U [place] #### [place] [address] Glucose Ql (U) Negative Normal NEGATIVE [facility] Comment on above: Performed By: #### U AR[place] #### [place] [address] Hemoglobin Ql (U) SMALL(1+) Abnormal NEGATIVE [facility] Comment on above: Performed By: #### U ARFX #### [place] [id number] Ketones Ql (U) Negative Normal NEGATIVE [facility] Comment on above: Performed By: #### U ARFX #### [place] [address] Leukocyte esterase Test strip Ql (U) LARGE(3+) Abnormal NEGATIVE [facility] Comment on above: Performed By: #### U ARFX #### [address] [address] Nitrite Ql (U) Negative Normal NEGATIVE [facility] Comment on above: Performed By: #### U ARFX #### [place] [id number] pH (U) 5.0 [pH] Normal 5.0 - 8.0 [facility] Comment on above: Performed By: #### U [facility] #### [facility] [address] Protein Ql (U) Negative Normal NEGATIVE [facility] Comment on above: Performed By: #### U ARFX #### [address] [address] Specific gravity (U) [Rel density] 1.016 Normal 1.005 - 1.035 [facility] Comment on above: Performed By: #### U ARFX #### [address] [address] Urobilinogen (U) [Mass/Vol] mg/dL Normal 0.0 - 1.9 [facility] Comment on above: Performed By: #### U ARFX #### [place] [id number] Color (U) Yellow See Below MG-OBGYN-Cr ocker [...] CULTURE,BACTERIALon URINE CULTURE,BACTERIAL PATIENT: PERLITA THAKKAR LOCATION: [facility]#: [id number] : 89 AGE: SEX: F ORDERED BY: NICKIE GALO SOURCE: URINE COLLECTED: 11/30/21 14:30 ANTIBIOTICS AT ION.: RECEIVED : 12/01/21 17:48 SITE: R E S U L T S URINE CULTURE,BACTERIAL FINAL 12/02/21 10:05 NO GROWTH Normal [facility] Comment on above: Performed By: #### U [facility] #### [facility] [address] [place] [address] Urinalysis, Microscopicon Urinalysis, Microscopic 1+ MG-OBGYN-Cr ocker [...] [IU]/mL [facility] C [address] [place] Work Phone: [phone] Comment on above: Negative: <=60 U/mLP ositive: >60 U/mL Complete Blood Count + Diffe rentialon 11-19-2021 Basophils/100 WBC (Bld) 0.5 % 0.0 - 2.0 [facility] Work Phone: [phone] Erythrocyte distribution width (RBC) [Ratio] 12.5 % See Below [facility] Work Phone: [phone] Comment on above: Reference Range: 11. 5 - 14.5 Hematocrit (Bld) [Volume fraction] 36.6 % See Below [facility] Work Phone: [phone] Comment on above: Reference Range: 36. 0 - 46.0 Hemoglobin (Bld) [Mass/Vol] 12.1 g/dL See Below [facility] Work Phone: [phone] Comment on above: Reference Range: 12. 0 - 16.0 Lymphocytes/100 WBC (Bld) 28.6 % See Below [facility] Work Phone: [phone] Comment on above: Reference Range: 13. 0 - 44.0 MCHC (RBC) [Mass/Vol] 33.0 g/dL See Below [facility] Work Phone: [phone] Comment on above: Reference Range: 32. 0 - 36.0 MCV (RBC) [Entitic vol] 91 fL 80 - 100 [facility] Work Phone: [phone] Monocytes/100 WBC (Bld) 5.5 % 2.0 - 10.0 [facility] Work Phone: [phone] Neutrophils/100 WBC (Bld) 60.5 % See Below [facility] Work Phone: [phone] Comment on above: Reference Range: 40. 0 - 80.0 Platelets (Bld) [#/Vol] 343 10*3/uL 150 - 450 [facility] Work Phone: [phone] RBC (Bld) [#/Vol] 4.02 {x10E12/L} See Below [facility] Work Phone: [phone] Comment on above: Reference Range: 4.0 0 - 5.20 WBC (Bld) [#/Vol] 8.2 10*3/uL 4.4 - 11.3 [facility] Work Phone: [phone] Complete Blood Count + Differential 0.00 {x10E9/L} See Below [facility] Work Phone: [phone] Comment on above: Reference Range: 0.0 0 - 0.10 Complete Blood Count + Differential 0.40 {x10E9/L} See Below [facility] Work Phone: [phone] Comment on above: Reference Range: 0.0 0 - 0.70 Reference Range: 0.1 0 - 1.00 Complete Blood Count + Differential 2.40 {x10E9/L} See Below [facility] Work Phone: [phone] Comment on above: Reference Range: 1.2 0 - 4.80 Complete Blood Count + Differential 5.00 {x10E9/L} See Below [facility] Work Phone: [phone] Comment on above: Reference Range: 1.2 0 - 7.70 Percent differential counts (%) should be interpreted in the context of the absolute cell counts (cells/L). Complete Blood Count + Differential 4.9 % 0.0 - 6.0 [facility] Work Phone: [phone] Complete Blood Count + Differential 0.2 {/100_WBC} [facility] Work Phone: [phone] GC + Chlamydia By Amplified Detectionon 11-19-2021 [...] trachomatis and Neisseria gonorrhoeae testing on specific sth-WAR-htgmaxlg sample types (female urine samples) have been validated by [facility]. This laboratory is certified by CLIA to perform high complexity testing. Samples from all other sites are not validated for this method. N. gonorrhoeae rRNA CHRIS+probe Ql (Unsp spec) Negative Negative [facility]N-[facility] C 1200 [employer] Work Phone: Comment on above: SOURCE: Urine The AP JAVAN Combo 2 assay is FDA-approved for Chlamydia trachomatis and Neisseria gonorrhoeae testing on female endocervical and vaginal swabs, ThinPrep liquid pap samples, male urine samples and urethral swabs. Performance characteristics for Chlamydia trachomatis and Neisseria gonorrhoeae testing on specific hio-SOQ-frmxeacf sample types (female urine samples) have been validated by [facility]. This laboratory is certified by CLIA to perform high complexity testing. Samples from all other sites are not validated for this method. HIV 1/2 ANTIGEN/ANTIBODY SCR EEN WITH REFLEX TO CONFIRMATIONon 11-19-2021 HIV 1+2 Ab Qn (S) Non-Reactive See Below QWiPS-ACID LEVELER-MA C 1200 [employer] Work Phone: Comment on above: SOURCE: Reference Ra nge: NONREACTIVE HIV Ag/Ab screen is performed using the Siemens [employer] HIV Ag/Ab Combo assay which detects the presence of HIV p24 antigen as well as antibodies to HIV-1 (Group M and O) and HIV-2..No laboratory evidence of HIV infection. If acute HIV infection is suspected, consider testing for HIV RNA by PCR (viral load). Hepatitis B Surface Antigeno n 11-19-2021 Hepatitis B Surface Antigen Non-Reactive See Below [facility] C 1200 [employer] Work Phone: Comment on above: Reference Range: [...] A [facility] [address] [place] Work Phone: [phone] Blood group antibody screen Ql Negative [facility] [address] [place] Work Phone: [phone] Rh immune globulin screen (Bld) [Interp] Positive [facility] [address] [place] Work Phone: [phone] ABO group Nom (Bld) Canceled [facility] Work Phone: [phone] Blood group antibody screen Ql Canceled [facility] Work Phone: [phone] Rh immune globulin screen (Bld) [Interp] Canceled [facility] Work Phone: [phone] Laboratory - Chemistry and C hemistry - challengeon 11-19-2021 Albumin BCP dye [Mass/Vol] 4.1 g/dL 3.4 - 5.0 [facility] [address] [place] Work Phone: [phone] ALP [Catalytic activity/Vol] 60 U/L 33 - 110 [facility] [address] [place] Work Phone: [phone] ALT With P-5'-P [Catalytic activity/Vol] 8 U/L 7 - 45 [facility] [address] [place] Work Phone: [phone] Comment on above: Patients treated wit h Sulfasalazine may generate falsely decreased results for ALT. Anion gap [Moles/Vol] 9 mmol/L below low threshold 10 - 20 [facility] [address] [place] Work Phone: [phone] AST With P-5'-P [Catalytic activity/Vol] 11 U/L 9 - 39 [facility] [address] [place] Work Phone: Bilirubin [Mass/Vol] 0.3 mg/dL 0.0 - 1.2 [facility] [address] [place] Work Phone: [phone] Calcium [Mass/Vol] 8.6 mg/dL 8.6 - 10.3 [...] still a threat. Clin. Chem. 2000; 46: 0332-7455.This test was developed and its performance characteristicsdetermined by [employer]. It has not been cleared or approvedby the Food and Drug Administration.Reference Range:Females 31 - 35y: 0.66 - 8.75Median 3.00AMH concentrations of >= 1.06 ng/mL is correlated with abetter response to ovarian stimulation, produced moreretrievable oocytes and higher odds of live accordingto Eliot edward al. Fertility and Sterility. 2010:94:1695-3616. The current AMH test method correlates withthe [...] is performed using different testing methodology at [facility] than at other [facility]. Direct result comparisons should only [...] RACE VARIABLE FOR THE IDMS-TRACEABLE CREATININE METHODS.https://jasn.asnjournals.org/content//ASN.2 073818443 SYPHILIS SCREENING WITH REFL EXon 11-19-2021 T. pallidum IgG+IgM IA Ql (S) Non-Reactive See Below [facility] [address] [place] Work Phone: Comment on above: SOURCE: Reference Ra nge: NONREACTIVENo significant level of Treponema pallidum antibody detected. Repeat testing in 2 to 4 weeks may be considered if early infection or incubating syphilis infection is suspected. TYPE + SCREENon 11-19-2021 ABO TYPE A Normal [facility] Comment on above: Performed By: #### T +S #### [address] [address] RH TYPE Positive Normal [facility] Comment on above: Performed By: #### T +S #### [address] [address] LEADERSHIP COACH - Office Visiton LEADERSHIP COACH - Office Visit Diagnoses/Problems Assessed Fertility testing [...] were answered (more content not included)... Normal [facility] Tobacco Screening.on 022 Fall risk assessment a) No falls within the last year [facility] Work Phone: Last menstrual period start date 18Oct2021 [facility] Work Phone: [phone] Tobacco use status CPHS b) No [facility] Work Phone: [phone] Cult, Urineon 11-09-2021 Bacteria identified Cx Nom (U) Abnormal [facility] Work Phone: Urinalysison 11-09-2021 Color (U) YELLOW See Below [facility] Work Phone: [phone] Comment on above: Reference Range: STR AW,YELLOW Glucose Ql (U) Negative NEGATIVE [facility] i [facility] Work Phone: [phone] Ketones Ql (U) Negative NEGATIVE [facility] Work Phone: [phone] Leukocyte esterase Test strip Ql (U) LARGE (3+) Abnormal NEGATIVE [facility] Work Phone: pH (U) 7.0 [pH] 5.0 - 8.0 [facility] Work Phone: [phone] Protein (U) [Mass/Vol] Negative NEGATIVE [facility] Work Phone: [phone] RBC (U) [#/Vol] SMALL (1+) Abnormal NEGATIVE [facility]- Ri [facility] Work Phone: [phone] Specific gravity (U) [Rel density] 1.018 1 See Below [facility] Work Phone: [phone] Comment on above: Reference Range: 1.0 05 - 1.035 Urinalysis Negative NEGATIVE [facility] Work Phone: [phone] Urinalysis <2.0 0.0 - 1.9 [facility] Work Phone: [phone] Urinalysis HAZY CLEAR [facility] Work Phone: [phone] Urinalysis, Microscopicon Urinalysis, Microscopic 1+ [facility] Work Phone: [phone] Urinalysis, Microscopic 2+ Abnormal [facility] Work Phone: [phone] Urinalysis, Microscopic 9 {/HPF} [facility] Work Phone: [phone] Urinalysis, Microscopic 2 {/HPF} 0-5 [facility] Work Phone: [phone] Urinalysis, Microscopic 5 {/HPF} 0-5 [facility] Work Phone: [phone] IO HCG, Urine Test on 09-11-2021 HCG ( test) Ql (U) Negative Normal [employer] [employer] Work Phone: No Panel Informationon 09-11 [employer] Work Phone: LEADERSHIP COACH - Procedure Visiton 0 09-11-2021 LEADERSHIP COACH - Procedure Visit Diagnoses/Problems ASCUS with positive [...] Medications Vitals Vital Signs Recorded: 11Sep2021 09:49AM [id number] Zcjxzrntc36 Height5 ft 5 in Yrhoan858 lb 0.62 oz BMI Wwvruvmczn57.31 kg/m2 BSA Calculated1.67 Results/Data IO HCG, Urine [id number] 09:51AMShwetha Mosher MEDLINE HCG LOT [id number] EXP 2023-01-06 Test NameResultFlagReference IO Urine hCGNegative [...] Sep 11 2021 10:27AM EST (Author) Normal [facility] DIGITAL DIAG MAMM BILAT WITH TOMOon 08-22-2021 DIGITAL DIAG MAMM BILAT WITH JERICHO Patient Name: PERLITA THAKKAR STUDY: Digital diagnostic mammogram bilateral with jericho; 08/22/2021 9:01 am ACCESSION NUMBER(S): [id number] ORDERING CLINICIAN: SHWETHA MOSHER INDICATION: Diagnostic mammogram. [...] Screening. Electronically signed by: SERENITY SOMMERS MD [facility] Radiologyon 08-22-2021 MG Breast Diagnostic [facility] Work [facility]: LMPon 08-17-2021 Last menstrual period start date 10Aug2021 [employer] [facility] Work Phone: Laboratory - Cytologyon 08-07 Cytology report Cyto stain.thin prep Doc (Cvx/Vag) [employer] [facility] Work Phone: LEADERSHIP COACH - Office Visiton 08-07 LEADERSHIP COACH - Office Visit Diagnoses/Problems Assessed Breast thickening [...] a 31-year-old who comes in for routine SUPERVISOR HARDBOARD exam. Patient with a significant history of [...] a 31-year-old who comes in for routine SUPERVISOR HARDBOARD exam. Patient reports that she had cervical [...] Medications Vitals Vital Signs Recorded: 17Aug2021 10:49AM [id number] Hxkcfiyvi54 Height5 ft 5 in Ofatgk676 lb 2 oz BMI Jpfkujxogl12.65 kg/m2 BSA Calculated1.68 [id number] Physical Exam Constitutional: Healthy-appearing female in no [...] Aug 17 2021 11:13AM EST (Author) Normal [facility] Provider Note - ED v3on 12-0 Provider [...] for cough SIGNIFICANT EVENTS: No documented data. LEADERSHIP COACH: Is : no Is : no PHYSICAL [...] SIGNS: T PRBP SpO2O2(LPM) %FiO2 Method 10-May-2021 12:04:[id number]/75 97 MDM MDM/ED COURSE: Rx dexamethasone and [...] call for results Electronic Signatures: Fam Holt (BPM SOLUTION ARCHITECT-PRODUCTION LINE ASSEMBLER) (Signed 10-May-2021 12:34) Authored: ED Notes, HPI, PMH, PE, Results/Vital Signs, MDM/ED Course, Clinical Impression, Attestation, Chart Review, Scores Last Updated: 11-May-2021 09:30 by Karol Shields (CARLOS II) [facility] Vital Signs Date Time Vital Sign Value Performing Clinician Facility 11-23-2024 11:19-0400 Body mass index (BMI) [Ratio] 26.77 kg/m2 Gus Way MD Work Phone: [facility] 11-23-2024 11:19-0400 Body weight 69.[address] MD Work Phone: [facility] 11-23-2024 11:19-0400 Diastolic blood pressure 58 mm[Hg] Gus Way MD Work Phone: [facility] 11-23-2024 11:19-0400 Systolic blood pressure 100 mm[Hg] Gus Way MD Work Phone: [facility] 11-19-2024 11:06-0400 Body mass index (BMI) [Ratio] 26.6 kg/m2 Cristy Jain BPM SOLUTION ARCHITECT.CNM Work Phone: [facility] 11-19-2024 11:06-0400 Body weight 68.95 kg Cristy Jain BPM SOLUTION ARCHITECT.CNM Work Phone: [facility] 11-19-2024 11:06-0400 Diastolic blood pressure 60 mm[Hg] Cristy Jain BPM SOLUTION ARCHITECT.CNM Work Phone: [facility] 11-19-2024 11:06-0400 Systolic blood pressure 98 mm[Hg] Cristy Jain BPM SOLUTION ARCHITECT.CNM Work Phone: [facility] 11-11-2024 08:03-0400 Body mass index (BMI) [Ratio] 26.77 kg/m2 Brea Mirza BPM SOLUTION ARCHITECT.CNM Work Phone: [facility] 11-11-2024 08:03-0400 Body weight 69.4 kg Brea Mirza BPM SOLUTION ARCHITECT.CNM Work Phone: [facility] 11-11-2024 08:03-0400 Diastolic blood pressure 64 mm[Hg] Brea Plotts BPM SOLUTION ARCHITECT.CNM Work Phone: [facility] 11-11-2024 08:03-0400 Systolic blood pressure 108 mm[Hg] Brea Plotts BPM SOLUTION ARCHITECT.CNM Work Phone: [facility] 11-02-2024 13:42-0400 Body mass index (BMI) [Ratio] 27.3 kg/m2 Miguelina Herrera MD Work Phone: [facility] 11-02-2024 13:42-0400 Body weight 70.76 kg Miguelina Herrera MD Work Phone: [facility] 11-02-2024 13:42-0400 Diastolic blood pressure 60 mm[Hg] Miguelina Herrera MD Work Phone: [facility] 11-02-2024 13:42-0400 Systolic blood pressure 98 mm[Hg] Miguelina Herrera MD Work Phone: [facility] 10-21-2024 07:59-0400 Body mass index (BMI) [Ratio] 26.95 kg/m2 Brea Plotts BPM SOLUTION ARCHITECT.CNM Work Phone: [facility] 10-21-2024 07:59-0400 Body weight 69.85 kg Brea Plotts BPM SOLUTION ARCHITECT.CNM Work Phone: [facility] 10-21-2024 07:59-0400 Diastolic blood pressure 68 mm[Hg] Brea Plotts BPM SOLUTION ARCHITECT.CNM Work Phone: [facility] 10-21-2024 07:59-0400 Systolic blood pressure 104 mm[Hg] Brea Plotts BPM SOLUTION ARCHITECT.CNM Work Phone: [facility] 10-07-2024 07:59-0400 Body mass index (BMI) [Ratio] 26.07 kg/m2 Bera Plotts BPM SOLUTION ARCHITECT.CNM Work Phone: [facility] 10-07-2024 07:59-0400 Body weight 67.59 kg Brea Plotts BPM SOLUTION ARCHITECT.CNM Work Phone: [facility] 10-07-2024 07:59-0400 Diastolic blood pressure 62 mm[Hg] Brea Plotts BPM SOLUTION ARCHITECT.CNM Work Phone: [facility] 10-07-2024 07:59-0400 Systolic blood pressure 102 mm[Hg] Brea Plotts BPM SOLUTION ARCHITECT.CNM Work Phone: [facility] 09-22-2024 07:50-0400 Body mass index (BMI) [Ratio] 25.72 kg/m2 Brea Plotts BPM SOLUTION ARCHITECT.CNM Work Phone: [facility] 09-22-2024 07:50-0400 Body weight 66.68 kg Brea Plotts BPM SOLUTION ARCHITECT.CNM Work Phone: [facility] 09-22-2024 07:50-0400 Diastolic blood pressure 68 mm[Hg] Brea Plotts BPM SOLUTION ARCHITECT.CNM Work Phone: [facility] 09-22-2024 07:50-0400 Systolic blood pressure 104 mm[Hg] Brea Mirza APRN.CNM Work Phone: [facility] 09-07-2024 08:16-0400 Body mass index (BMI) [Ratio] 26.07 kg/m2 Annalee Blanc MD Work Phone: [facility] 09-07-2024 08:16-0400 Body weight 67.59 kg Annalee Blanc MD Work Phone: [facility] 09-07-2024 08:16-0400 Diastolic blood pressure 64 mm[Hg] Annalee Blanc MD Work Phone: [facility] 09-07-2024 08:16-0400 Systolic blood pressure 102 mm[Hg] Annalee Blanc MD Work Phone: [facility] 09-04-2024 15:34-0400 Body temperature 98.9 [degF] Dr. Omid Benites MD Work Phone: [facility] 09-04-2024 15:34-0400 Diastolic blood pressure 69 mm[Hg] Dr. Omid Benites MD Work Phone: [facility] 09-04-2024 15:34-0400 Heart rate 92 /min Dr. Omid Benites MD Work Phone: [facility] 09-04-2024 15:34-0400 Respiratory rate 18 /min Dr. Omid Benites MD Work Phone: [facility] 09-04-2024 15:34-0400 SaO2% (BldA) [Mass fraction] 100 % Dr. Omid Benites MD Work Phone: [facility] 09-04-2024 15:34-0400 Systolic blood pressure 117 mm[Hg] Dr. Omid Benites MD Work Phone: [facility] 09-04-2024 14:10-0400 Body height 162.[address] Omid Benites MD Work Phone: [facility] 09-04-2024 14:10-0400 Body mass index (BMI) [Ratio] 25 kg/m2 Dr. Omid Benites MD Work Phone: [facility] 09-04-2024 14:10-0400 Body weight 66.[address] Omid Benites MD Work Phone: [facility] 08-31-2024 15:59-0400 Body mass index (BMI) [Ratio] 25.69 kg/m2 Gus Way MD Work Phone: [facility] 08-31-2024 15:59-0400 Body weight 66.[address] MD Work Phone: [facility] 08-31-2024 15:59-0400 Diastolic blood pressure 60 mm[Hg] Gus Way MD Work Phone: [facility] 08-31-2024 15:59-0400 Systolic blood pressure 100 mm[Hg] Gus Way MD Work Phone: [facility] 08-10-2024 08:35-0500 Body mass index (BMI) [Ratio] 25.55 kg/m2 Annalee Blanc MD Work Phone: [facility] 08-10-2024 08:35-0500 Body weight 66.22 kg Annalee Blanc MD Work Phone: [facility] 08-10-2024 08:35-0500 Diastolic blood pressure 60 mm[Hg] Annalee Blanc MD Work Phone: [facility] 08-10-2024 08:35-0500 Systolic blood pressure 104 mm[Hg] Annalee Blanc MD Work Phone: [facility] 07-12-2024 09:34-0500 Body mass index (BMI) [Ratio] 24.85 kg/m2 Cristy Jain BPM SOLUTION ARCHITECT.CNM Work Phone: [facility] 07-12-2024 09:34-0500 Body weight 64.41 kg Cristy Jain BPM SOLUTION ARCHITECT.CNM Work Phone: [facility] 07-12-2024 09:34-0500 Diastolic blood pressure 60 mm[Hg] Cristy Jain BPM SOLUTION ARCHITECT.CNM Work Phone: [facility] 07-12-2024 09:34-0500 Systolic blood pressure 114 mm[Hg] Cristy Jain BPM SOLUTION ARCHITECT.CNM Work Phone: [facility] 06-21-2024 15:59-0500 Body mass index (BMI) [Ratio] 22.75 kg/m2 Rufina Albert MD Work Phone: [facility] 06-21-2024 15:59-0500 Body weight 58.97 kg Rufina Albert MD Work Phone: [facility] 06-21-2024 15:59-0500 Diastolic blood pressure 60 mm[Hg] Rufina Albert MD Work Phone: [facility] 06-21-2024 15:59-0500 Systolic blood pressure 100 mm[Hg] Rufina Albert MD Work Phone: [facility] 05-26-2024 13:51-0500 Body height 161 cm Ismael Arciniega APRN.PRODUCTION LINE ASSEMBLER Work Phone: [facility] 05-26-2024 13:51-0500 Body mass index (BMI) [Ratio] 21.87 kg/m2 Ismael Halaura BPM SOLUTION ARCHITECT.PRODUCTION LINE ASSEMBLER Work Phone: [facility] 05-26-2024 13:51-0500 Body weight 56.7 kg Ismael Arciniega BPM SOLUTION ARCHITECT.PRODUCTION LINE ASSEMBLER Work Phone: [facility] 05-26-2024 13:51-0500 Diastolic blood pressure 60 mm[Hg] Ismael Haury BPM SOLUTION ARCHITECT.PRODUCTION LINE ASSEMBLER Work Phone: [facility] 05-26-2024 13:51-0500 Systolic blood pressure 102 mm[Hg] Ismael Arciniega GEORGI Work Phone: [facility] 04-02-2024 14:53-0400 Body height 162.6 cm Jonas Wolff MD Work Phone: [facility] 04-02-2024 14:53-0400 Body mass index (BMI) [Ratio] 21.03 kg/m2 Jonas Wolff MD Work Phone: [facility] 04-02-2024 14:53-0400 Body temperature 98.6 [degF] Jonas Wolff MD Work Phone: [facility] 04-02-2024 14:53-0400 Body weight 55.6 kg Jonas Wolff MD Work Phone: [facility] 04-02-2024 14:53-0400 Diastolic blood pressure 68 mm[Hg] Jonas Wolff MD Work Phone: [facility] 04-02-2024 14:53-0400 Heart rate 83 /min Jonas Wolff MD Work Phone: [facility] 04-02-2024 14:53-0400 Respiratory rate 18 /min Jonas Wolff MD Work Phone: [facility] 04-02-2024 14:53-0400 SaO2% (BldA) [Mass fraction] 97 % Jonas Wolff MD Work Phone: [facility] 04-02-2024 14:53-0400 Systolic blood pressure 110 mm[Hg] Jonas Wolff MD Work Phone: [facility] 07-14-2023 16:09-0500 Body height 162.6 cm Omid Benites MD Work Phone: [facility] 07-14-2023 16:09-0500 Body mass index (BMI) [Ratio] 23.17 kg/m2 Omid Benites MD Work Phone: [facility] 07-14-2023 16:09-0500 Body weight 61.24 kg Omid Benites MD Work Phone: [facility] 07-14-2023 16:09-0500 Diastolic blood pressure 74 mm[Hg] Omid Benites MD Work Phone: [facility] 07-14-2023 16:09-0500 Heart rate 84 /min Omid Benites MD Work Phone: [facility] 07-14-2023 16:09-0500 Systolic blood pressure 115 mm[Hg] Omid Benites MD Work Phone: [facility] 01-31-2022 12:25-0400 Body height 162 cm No Pcp Required [facility] 01-31-2022 12:25-0400 Body temperature 98.06 [degF] No Pcp Required [facility] 01-31-2022 12:25-0400 Diastolic blood pressure 56 mm[Hg] No Pcp Required [facility] 01-31-2022 12:25-0400 Heart rate 95 /min No Pcp Required [facility] 01-31-2022 12:25-0400 SaO2% (BldA) [Mass fraction] 99 % No Pcp Required [facility] 01-31-2022 12:25-0400 Systolic blood pressure 117 mm[Hg] No Pcp Required [facility] 11-30-2021 20:17-0400 Diastolic blood pressure 67 mm[Hg] No Pcp Required [facility] [facility] 11-30-2021 20:17-0400 Heart rate 76 /min No Pcp Required [facility] 11-30-2021 20:17-0400 Respiratory rate 18 /min No Pcp Required [facility] 11-30-2021 20:17-0400 SaO2% (BldA) [Mass fraction] 98 % No Pcp Required [facility] 11-30-2021 20:17-0400 Systolic blood pressure 115 mm[Hg] No Pcp Required [facility] 11-30-2021 14:32-0400 Body height 162.5 cm No Pcp Required [facility] 11-30-2021 14:32-0400 Body temperature 98.6 [degF] No Pcp Required [facility] 11-30-2021 14:32-0400 Body weight 57.3 kg No Pcp Required [facility] 11-15-2021 10:14-0400 Body height 165.1 cm No PCP None XV-GQIDC-Bkbiim 310 IVF Work Phone: 11-15-2021 10:14-0400 Body mass index (BMI) [Ratio] 22.3 kg/m2 No PCP None NY-KVLIW-Nzhxej 310 IVF Work Phone: 11-15-2021 10:14-0400 Body surface area Derived from formula 1.67 m2 No PCP None EX-XGJIM-Tofhve 310 IVF Work Phone: 11-15-2021 10:14-0400 Body weight 60.78 kg No PCP None DA-MQHQZ-Cooihi 310 IVF Work Phone: 11-15-2021 10:140400 0 1 No PCP None BY-IACVC-Ltcimm 310 IVF Work Phone: Comment on above: [facility] 09-11-2021 09:49-0400 Body height 165.1 cm No PCP None [facility] [address] [place] Work Phone: 09-11-2021 09:49-0400 Body mass index (BMI) [Ratio] 22.31 kg/m2 No PCP None [facility] [address] Work Phone: 09-11-2021 09:49-0400 Body surface area Derived from formula 1.67 m2 No PCP None [facility] [address] Work Phone: 09-11-2021 09:49-0400 Body weight 60.8 kg No PCP None [facility] [address] Work Phone: 09-11-2021 09:49-0400 Diastolic blood pressure 70 mm[Hg] No PCP None Don Die[facility] [place] Work Phone: 09-11-2021 09:49-0400 Systolic blood pressure 102 mm[Hg] No PCP None Don Die[facility] [place] Work Phone: 08-17-2021 10:49-0500 Body height 165.1 cm No PCP None Tammie Diehl [place] Work Phone: 08-17-2021 10:49-0500 Body mass index (BMI) [Ratio] 22.65 kg/m2 No PCP None Don Diehl [place] Work Phone: 08-17-2021 10:49-0500 Body surface area Derived from formula 1.68 m2 No PCP None Don Diehl [place] Work Phone: 08-17-2021 10:49-0500 Body weight 61.75 kg No PCP None Tammie Diehl [place] Work Phone: 08-17-2021 10:49-0500 Diastolic blood pressure 78 mm[Hg] No PCP None Don Diehl [place] Work Phone: 08-17-2021 10:49-0500 Systolic blood pressure 118 mm[Hg] No PCP None Don Diehl [place] Work Phone: 05-10-2021 14:04-0500 Body height 162.5 cm No Pcp Required [facility] 05-10-2021 14:04-0500 Body temperature 98.42 [degF] No Pcp Required [facility] 05-10-2021 14:04-0500 Diastolic blood pressure 75 mm[Hg] No Pcp Required [facility] 05-10-2021 14:04-0500 Heart rate 105 /min No Pcp Required [facility] 05-10-2021 14:04-0500 SaO2% (BldA) [Mass fraction] 97 % No Pcp Required [facility] 05-10-2021 14:04-0500 Systolic blood pressure 129 mm[Hg] No Pcp Required [facility] Encounters Encounter Date Encounter Type Care [...] Start: 11-23-2024 End: 11-23-2024 ambulatory OMID BENITES Facility:[facility] Start: 11-19-2024 End: 11-19-2024 Patient encounter procedure Cristy Jain APRN.CNM Work Phone: OB/Gynecology Comment on above: Supervision of high risk in third trimester (HCC) (Primary Dx); Anemia complicating , third trimester (HCC); 39 weeks gestation of (HCC); Tinea versicolor Start: 11-19-2024 End: 11-19-2024 ambulatory OM[facility] BENITES Facility:[facility] Start: 11-12-2024 End: 11-12-2024 ambulatory Virginia Mark MA [facility] Start: 11-12-2024 End: 11-12-2024 Patient encounter procedure Virginia Mark MA [facility] Comment on above: Population Health Na vigation [...] Start: 11-11-2024 End: 11-11-2024 ambulatory OMIDBREE MERCHANTALLAEE Facility:[facility] Start: 11-02-2024 End: 11-02-2024 Patient encounter procedure i Tech 2 Chemical Maker [facility] Maternal Medicine Comment on [...] Start: 11-02-2024 End: 11-02-2024 ambulatory OMID OCHOAE Facility:[facility] Start: 10-21-2024 End: 10-21-2024 Patient encounter procedure Brea Mirza APRN.NEREYDA Work Phone: OB/Gynecology Comment on above: Supervision of high risk in third trimester (HCC) (Primary Dx); Anemia complicating , third trimester (HCC); 34 weeks gestation of (HCC); Heartburn during in third trimester (HCC); Uterine size-date discrepancy, third trimester (HCC) Start: 10-21-2024 End: 10-21-2024 ambulatory OMID OCHOAE Facility:[facility] Start: 10-07-2024 End: 10-07-2024 Patient encounter procedure Brea Mirza BPM SOLUTION ARCHITECT.NEREYDA Work Phone: OB/Gynecology Comment on above: Supervision of high risk in third trimester (HCC) (Primary Dx); Anemia complicating , third trimester (HCC); Nausea and vomiting, unspecified vomiting type; Heartburn during in third trimester (HCC); 32 weeks gestation of (HCC) Start: 10-07-2024 ambulatory OMID BENITES Fac ility:[facility] Start: 09-22-2024 End: 09-22-2024 Patient encounter procedure Brea Mirza BPM SOLUTION ARCHITECT.CNM Work Phone: OB/Gynecology Comment on above: Supervision of high risk in third trimester (HCC) (Primary Dx); Anemia complicating , third trimester (HCC); 30 weeks gestation of (HCC); AMA (advanced maternal age) multigravida 35+, third trimester (HCC); Nausea and vomiting, unspecified vomiting type; Heartburn during in third trimester (HCC); Anemia complicating , first trimester (HCC) Start: 09-22-2024 End: 09-22-2024 ambulatory OMID BENITES Facility:[facility] Start: 09-09-2024 End: 11-09-2024 Follow-up encounter [...] Start: 09-07-2024 End: 09-07-2024 ambulatory OMID BENITES Facility:[facility] Start: 09-06-2024 End: 09-06-2024 Telephone encounter Nurse Chemical Maker Anisa Leary Work Phone: Obstetrics/Gynecology Comment on above: PRAF Start: 09-04-2024 End: 09-04-2024 Emergency department patient visit Dr. Omid Benites MD Work Phone: -Emergency Department Work Phone: Start: 08-31-2024 End: 08-31-2024 ambulatory OMID BENITES Facility:[facility] Start: 08-31-2024 End: 08-31-[address] Gus [address] MD Work Phone: OB/Gynecology Comment on above: 27 weeks gestation o f (Primary Dx); Supervision of high risk in second trimester; Rib pain on left side Start: 08-31-2024 End: 08-31-2024 Telephone encounter Miguelina Herrera MD Work Phone: OB/Gynecology Comment on above: OB-Abdominal pain Start: 08-10-2024 End: 08-10-2024 ambulatory OMID M TAVALLAEE Facility:[facility] Start: 08-10-2024 End: 08-10-2024 Patient encounter procedure Annalee Blanc MD Work Phone: OB/Gynecology Comment on above: Supervision of high risk in second trimester (Primary Dx); 24 weeks gestation of ; Screening for diabetes mellitus Start: 08-04-2024 End: 08-05-2024 Follow-up encounter Cristy Jain APRN.CNM Work Phone: OB/Gynecology Start: 08-04-2024 End: 08-04-2024 ambulatory OMID M TAVALLAEE Facility:[facility] Start: 08-04-2024 End: 08-04-2024 Patient encounter procedure Whi Tech 1 [employer] [facility] Comment on above: History of loop elec trosurgical excision procedure (LEEP) of cervix affecting in second trimester (Primary Dx); 23 weeks gestation of Start: 07-13-2024 End: 07-13-2024 Telephone encounter Nurse Chemical Maker Anisa Leary Work Phone: Obstetrics/Gynecology Comment on above: PRAF Start: 07-12-2024 End: 07-12-2024 ambulatory OMID M TAVALLAEE Facility:[facility] Start: 07-12-2024 End: 07-12-2024 Patient encounter procedure Whi Tech 1 [employer] [facility] Comment on [...] 06-21-2024 Patient encounter procedure Whi Tech 1 Chemical Maker [facility]aternal Medicine Comment on [...] , antepartum Start: 06-21-2024 End: 06-21-2024 ambulatory [facility] Facility:[facility] Start: 06-12-2024 End: 06-12-2024 Letter encounter [facility] Start: 05-28-2024 End: 05-28-2024 Telephone encounter Ismael Arciniega APRN.CNP Work Phone: OB/Gynecology Comment on above: Results Start: 05-27-2024 End: 05-27-2024 Telephone encounter Miguelina Estrada RN Obstetrics/Gynecolog y Comment on above: 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) Start: 05-26-2024 End: 05-26-2024 ambulatory [facility] Facility:[facility] Start: 05-26-2024 End: 05-26-2024 Patient encounter [...] 25 minutes Jonas Wolff MD Work Phone: [facility] Comment on above: 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); Current smoker; Positive test ([facility] Start: 04-02-2024 End: 04-02-2024 ambulatory JONAS WOLFF [facility] Start: 03-07-2024 End: 03-07-2024 Letter encounter [facility] Start: 07-17-2023 End: 07-17-2023 Emergency department patient visit OMID BENITES Facility:[facility] Start: 07-15-2023 End: 07-15-2023 Encounter for general adult medical examination without abnormal findings [facility] Start: 07-15-2023 End: 07-15-2023 Subsequent hospital visit by physician Iliana Quintana103 X-Ray [facility] Comment on above: Left leg pain Start: 07-15-2023 End: 07-15-2023 ambulatory [facility] Start: 07-14-2023 End: 07-14-2023 ambulatory [facility] Ambulatory Start: 07-14-2023 End: 07-14-2023 Encounter for general adult medical examination without abnormal findings [facility] Ambulatory Start: 07-14-2023 End: 07-14-2023 Office outpatient new 45 minutes Omid Benites MD Work Phone: [facility] Comment on above: Anemia, unspecified type (Primary Dx); Abnormal LFTs; Left leg pain; H/O fracture of tibia; Healthcare maintenance Start: 07-14-2023 End: 07-14-2023 Patient encounter status Omid Benites MD Work Phone: [facility] Work Phone: Start: 11-22-2022 ambulatory MD JONAS WOLFF Facility:[facility] Start: 11-22-2022 ambulatory MD JONAS WOLFF Facility:[facility] Start: 06-10-2022 Letter encounter Trish andrade Start: 05-17-[address] Amarilys Sheriff Facility:[facility] Start: 05-17-[address] Miguelina Villavicencio Fac ility:[facility] Start: 01-31-2022 End: 01-31-2022 Emergency department patient visit Luci Solis [facility] Start: 12-19-2021 Patient encounter procedure No PCP None [id number]-Iklrxrf 206B Imaging Work Phone: Start: 12-19-2021 Phys/qhp telephone evaluation 11-20 min No PCP None [id number]-MSE 1200 IMG Work Phone: Start: 12-19-[address] Perlita santos August Facility:[facility] Start: 11-30-2021 End: 11-30-2021 Emergency department patient visit Nickie Galo [facility] Emergency 05 Start: 11-21-2021 Chart Update No PCP None MG-OBGYN-M AC 1200 [place] Work Phone: Start: 11-19-2021 Chart Update No PCP None MG-OBGYN-R isman 310 IVF Work Phone: Start: 11-15-2021 Patient encounter procedure No PCP None DV-WBKMD-Mibemy 310 IVF Work Phone: Start: 09-17-2021 AUDIT No PCP None [facility] [address] Work Phone: Start: 08-28-2021 Chart Update No PCP None [facility] [address] Work Phone: Start: 08-22-2021 Chart Update No PCP None [facility] [address] Work Phone: Start: 05-10-2021 End: 05-10-2021 Emergency department patient visit Fam Holt [facility] Start: 09-10-2020 End: 09-10-2020 Letter encounter [facility] Start: 03-05-2020 End: 03-05-2020 Letter encounter [facility] Encounter for gynecological examination (general) (routine) without abnormal findings No PCP None [facility] [address] Work Phone: Procedures Date Procedure Procedure Detail Performing Clinician Start: 11-19-2024 Urnls dip stick/tabl et rgnt non-auto w/o micrscp Cristy Jain BPM SOLUTION ARCHITECT.CNM Work Phone: Start: 11-11-2024 Urnls dip stick/tabl et rgnt non-auto w/o micrscp Brea Plotvinay BPM SOLUTION ARCHITECT.CNM Work Phone: Start: 11-02-2024 Us preg uterus after 1st trimest 1/1st gestation Brea Frederickvinay BPM SOLUTION ARCHITECT.CNM Work Phone: Start: 10-21-2024 Urnls dip stick/tabl et rgnt non-auto w/o micrscp Brea Plotvinay BPM SOLUTION ARCHITECT.CNM Work Phone: Start: 10-07-2024 Urnls dip stick/tabl et rgnt non-auto w/o micrscp Brea Plotts BPM SOLUTION ARCHITECT.CNM Work Phone: Start: 08-04-2024 Us preg uterus after 1st trimest 1/1st gestation Cristy Jain BPM SOLUTION ARCHITECT.CNM Work Phone: Start: 07-12-2024 Us preg uterus after 1st trimest 1/1st gestation Rufina Albert MD Work Phone: Start: 06-21-2024 Us preg uterus after 1st trimest /1st gestation Ismael Arciniega BPM SOLUTION ARCHITECT.PRODUCTION LINE ASSEMBLER Work Phone: Start: 05-26-2024 Antibody screen OMID BENITES Comment on above: Order Comment: Speci men Type: BLOOD SPECIMENOrdering Facility: [facility] Address: [address] [place] [address] Performed By: #### T SPN ####CC MAIN BLOOD BANKCLIA [id number] [place] [address] [place] Start: 07-15-2023 CBC [...] above: Performed By: #### T +S #### [place] [address] Cone biopsy of cervix No PCP None Loop electrosurgical excision procedure No PCP None Comment on above: 01/10/2012; Plan of Treatment Date Care Activity Detail Author Start: 2040 Shingles (RZV) Vacci ne (1 of 2) Shingles (RZV) Vaccine (1 of 2) [facility] Start: 2040 Zoster Vaccines (1 of 2) Zoste r Vaccines (1 of 2) [facility] Start: 09-07-2034 Urine microalbumin profile [facility] Start: 05-26-2029 Screening for malign ant neoplasm of cervix Cervical Cancer Screening [facility] Start: 02-06-2029 Lipid panel Lipid Panel [facility] Start: 11-22-2025 Screening for malign ant neoplasm of cervix [facility] Start: 02-07-2025 Influenza vaccination Influenz a Vaccine (Season Ended) [facility] Start: 01-13-2025 End: 01-13-2025 Patient encounter procedure 01/13/2025 10:10 AM EDT Office Visit OB/Gynecology [address] [place] [address] Rufina Albert MD [address] [place] [address] Post OB/Gynecology Comment on above: Post Start: 12-03-2024 End: 12-03-2024 Patient encounter procedure 12/03/2024 11:10 AM EDT Office Visit OB/Gynecology [address] [place] [address] Miguelina Herrera MD [address] [place] [address] Post OB/Gynecology Comment on above: Post Start: 11-23-2024 End: 11-23-2024 Patient encounter procedure 11/23/2024 11:10 AM EDT Routine Office Visit OB/Gynecology [address] [place] [address] MD [address] [place] [address] OB OB/Gynecology Comment on above: OB Start: 11-18-2024 End: 11-18-2024 Patient encounter procedure 11/18/2024 8:30 AM EDT Routine Office Visit OB/Gynecology [address] [place] [address] Rufina Albert MD [address] [place] [address] OB Routine OB/Gynecology Comment on above: OB Routine Start: 11-11-2024 End: 11-11-2024 Patient encounter procedure 11/11/2024 8:00 AM EDT Routine Office Visit OB/Gynecology [address] [place] [address] Brea Mirza APRN.CN [address] [place] [address] OB Routine OB/Gynecology Comment on above: OB Routine Start: 11-04-2024 End: 11-04-2024 Patient encounter procedure 11/04/2024 9:00 AM EDT Routine Office Visit OB/Gynecology [address] [place] [address] MD [address] [place] [address] OB Routine OB/Gynecology Comment on above: OB Routine Start: 11-02-2024 End: 11-02-2024 Patient encounter procedure Maternal Medicine Comment on above: Growth Growth/OB Start: 10-21-2024 End: 10-21-2024 Patient encounter procedure 10/21/2024 8:00 AM EDT Routine Office Visit OB/Gynecology [address] [place] [address] Brea Mirza APRN.CN [address] [place] [address] OB Routine OB/Gynecology Comment on above: OB Routine Start: 10-07-2024 End: 01-06-2025 CBC panel - Blood by Automated count COMPLETE BLOOD COUNT Lab Routine Anemia complicating , third trimester (HCC) Expected: 10/07/2024, Expires: 01/06/2025 [facility] Work Phone: Comment on above: Expected: 10/07/2024 , Expires: 01/06/2025 Start: 10-07-2024 End: 10-07-2024 Patient encounter procedure 10/07/2024 8:00 AM EDT Routine Office Visit OB/Gynecology [address] [place] [address] Brea Mirza APRN.CNM [address] [place] [address] OB Routine OB/Gynecology Comment on above: OB Routine Start: 09-22-2024 End: 09-22-2024 Patient encounter procedure 09/22/2024 8:00 AM EDT Routine Office Visit OB/Gynecology [address] [place] [address] Brea Mirza APRN.CNM [address] [place] [address] ob OB/Gynecology Comment on above: ob Start: 09-10-2024 End: 12-10-2024 ANEMIA REFLEX PANEL ANEMIA REFLEX PANEL Lab Routine Supervision of high risk in second trimester Expected: 09/10/2024, Expires: 12/10/2024 [facility] Comment on above: Expected: 09/10/2024 , Expires: 12/10/2024 Start: 09-10-2024 End: 08-10-2025 GESTATIONAL GLUCOSE SCREEN, 1-HOUR, 50 GRAM, NON-FASTING GESTATIONAL GLUCOSE SCREEN, 1-HOUR, 50 GRAM, NON-FASTING Lab Routine Screening for diabetes mellitus Expected: 09/10/2024, Expires: 08/10/2025 [facility] Work Phone: Comment on above: Expected: 09/10/2024 , Expires: 08/10/2025 Start: 09-10-2024 End: 08-10-2025 SYPHILIS TREPONEMAL W/REFLEX SYPHILIS TREPONEMAL W/REFLEX Lab Routine Supervision of high risk in second trimester Expected: 09/10/2024, Expires: 08/10/2025 [facility] Comment on above: Expected: 09/10/2024 , Expires: 08/10/2025 Start: 09-07-2024 End: 09-07-2024 Patient encounter procedure 09/07/2024 8:40 AM EDT Routine Office Visit OB/Gynecology [address] [place] [address] Annalee Jenkins MD [address] [place] [address] Glucose Test/OB OB/Gynecology Comment on above: Glucose Test/OB Start: 09-07-2024 End: 09-07-2024 ambulatory 09/07/2024 8:30 AM EDT Results Only [facility]in[facility] [place] [facility] [address] [place] [address] Glucose Test [facility] Comment on above: Glucose Test Start: 09-04-2024 [facility] Start: 08-10-2024 End: 08-10-2024 Patient encounter procedure Maternal Medicine Comment on above: CL OB Start: 07-27-2024 End: 07-27-2024 Patient encounter procedure 07/27/2024 8:30 AM EST Routine Office Visit Maternal Medicine [address] [place] [address] CL Maternal Medicine Comment on above: CL Start: 07-12-2024 End: 10-11-2024 CBC W Auto Differential panel - Blood COMPLETE BLOOD COUNT AND DIFFERENTIAL Lab Routine Anemia complicating , first trimester Expected: 07/12/2024, Expires: 10/11/2024 [facility] Comment on above: Expected: 07/12/2024 , Expires: 10/11/2024 Start: 07-12-2024 End: 10-11-2024 Ferritin [Mass/volume] in Serum or Plasma FERRITIN Lab Routine Anemia complicating , first trimester Expected: 07/12/2024, Expires: 10/11/2024 [facility] Comment on above: Expected: 07/12/2024 , Expires: 10/11/2024 Start: 07-12-2024 End: 10-11-2024 Iron and Iron binding capacity panel - Serum or Plasma IRON AND TIBC Lab Routine Anemia complicating , first trimester Expected: 07/12/2024, Expires: 10/11/2024 [facility] Comment on above: Expected: 07/12/2024 , Expires: 10/11/2024 Start: 07-12-2024 End: 07-12-2024 Patient encounter procedure Maternal Medicine Comment on above: follow up anatomy OB Start: 06-24-2024 End: 06-24-2024 Patient encounter procedure 06/24/2024 10:00 AM EST Routine Office Visit OB/Gynecology [address] [place], [place] [id number] Ana Cee MD [address] [place], [place] [address] ob LMP ?? referrred from [facility] pt has paperwork OB/Gynecology Comment on above: ob LMP ?? referrred from [facility] pt has paperwork Start: 06-21-2024 End: 06-21-2024 Patient encounter procedure Maternal Medicine Comment on above: Early anatomy anatomy/OB anatomy/OB - needs u rine ANGELA Start: 06-21-2024 End: 09-20-2024 Bacteria identified in Urine by Culture BACTERIAL CULTURE, URINE Microbiology Routine 17 weeks gestation of Supervision of high risk in second trimester UTI (urinary tract infection) in , antepartum Expected: 06/21/2024, Expires: 09/20/2024 [facility] Work Phone: Comment on above: Expected: 06/21/2024 , Expires: 09/20/2024 Start: 06-21-2024 End: 06-21-2025 OBSTETRIC ULTRASOUND WHI OBSTETRIC ULTRASOUND WHI Anc Imaging Routine 17 weeks gestation of Supervision of high risk in second trimester UTI (urinary tract infection) in , antepartum Expected: 06/21/2024, Expires: 06/21/2025 [facility] Comment on above: Expected: 06/21/2024 , Expires: 06/21/2025 Start: 05-26-2024 End: 08-25-2024 ANEMIA REFLEX PANEL [facility] Work Phone: Comment on above: Expected: 05/26/2024 , Expires: 08/25/2024 Start: 05-26-2024 End: 08-25-2024 CARRIER SCREEN, STANDARD [facility] Comment on above: Expected: 05/26/2024 , Expires: 08/25/2024 Start: 05-26-2024 End: 08-25-2024 Chromosome 21 trisomy [Presence] in Blood or Tissue by Cytogenetics [facility] Comment on above: Expected: 05/26/2024 , Expires: 08/25/2024 Start: 05-26-2024 End: 08-25-2024 Hemoglobin A1c in Blood [facility] Comment on above: Expected: 05/26/2024 , Expires: 08/25/2024 Start: 05-26-2024 End: 08-25-2024 HEMOGLOBIN EVALUATION CASCADE [facility] Comment on above: Expected: 05/26/2024 , Expires: 08/25/2024 Start: 05-26-2024 End: 08-25-2024 Hepatitis B virus surface Ag [Presence] in Serum [facility] Comment on above: Expected: 05/26/2024 , Expires: 08/25/2024 Start: 05-26-2024 End: 08-25-2024 Hepatitis C virus Ab [Presence] in Serum [facility] Comment on above: Expected: 05/26/2024 , Expires: 08/25/2024 Start: 05-26-2024 End: 08-25-2024 HIV 1+2 Ab [Presence] in Serum or Plasma by Immunoassay [facility] Comment on above: Expected: 05/26/2024 , Expires: 08/25/2024 Start: 05-26-2024 End: 05-26-2025 OBSTETRIC ULTRASOUND WHI OBSTETRIC ULTRASOUND WHI Anc Imaging Routine Supervision of high risk in second trimester with uncertain dates in second trimester Expected: 05/26/2024, Expires: 05/26/2025 [facility] Comment on above: Expected: 05/26/2024 , Expires: 05/26/2025 Start: 05-26-2024 End: 08-25-2024 RUBELLA IGG ANTIBODY [facility] Comment on above: Expected: 05/26/2024 , Expires: 08/25/2024 Start: 05-26-2024 End: 08-25-2024 SYPHILIS TREPONEMAL W/REFLEX [facility] Comment on above: Expected: 05/26/2024 , Expires: 08/25/2024 Start: 05-26-2024 End: 08-25-2024 Thyrotropin [Units/volume] in Serum or Plasma [facility] Comment on above: Expected: 05/26/2024 , Expires: 08/25/2024 Start: 05-26-2024 End: 08-25-2024 TYPE + SCREEN [facility] Comment on above: Expected: 05/26/2024 , Expires: 08/25/2024 Start: 04-02-2024 End: 04-02-2025 US Pelvis US pelvis Imaging Routine Positive test ([facility]) Expected: 04/02/2024, Expires: 04/02/2025 [facility] Service Area Work Phone: Comment on above: Expected: 04/02/2024 , Expires: 04/02/2025 Start: 02-08-2024 COVID-19 Vaccine ( season) COVID-19 Vaccine ( season) [facility] Start: 02-08-2024 COVID-19 Vaccine ( season) COVID-19 Vaccine ( season) [facility] Start: 02-08-2024 Covid-19 Vaccine ( season) Covid-19 Vaccine () [facility] Start: 02-08-2024 Influenza vaccination Influenza Vacc ine (#1) [facility] Start: 07-23-2023 End: 07-23-2023 Patient encounter procedure 07/23/2023 5:00 PM EST Office Visit [facility] [address] [place] [id number] Omid Benites MD [address] [place] [address] [facility] Start: 07-18-2023 End: 07-18-2023 Patient encounter procedure 07/18/2023 2:40 PM EST Office Visit [facility] [address] [place] [address] [facility] Start: 07-14-2023 End: 07-14-2024 CBC W Auto Differential panel - Blood CBC and Auto Differential Lab Routine Anemia, unspecified type Abnormal LFTs Left leg pain H/O fracture of tibia Healthcare maintenance Expected: 07/14/2023 (Approximate), Expires: 07/14/2024 [facility] Work Phone: Comment on above: Expected: 07/14/2023 (Approximate), Expires: 07/14/2024 Start: 07-14-2023 End: 07-14-2024 Cobalamin (Vitamin B12) [Mass/volume] in Serum or Plasma Vitamin B12 Lab Routine Anemia, unspecified type Expected: 07/14/2023 (Approximate), Expires: 07/14/2024 [facility] Work Phone: Comment on above: Expected: 07/14/2023 (Approximate), Expires: 07/14/2024 Start: 07-14-2023 End: 07-14-2024 Comprehensive metabolic 2000 panel - Serum or Plasma Comprehensive Metabolic Panel Lab Routine Anemia, unspecified type Abnormal LFTs Left leg pain H/O fracture of tibia Expected: 07/14/2023 (Approximate), Expires: 07/14/2024 [facility] Service Area Work Phone: Comment on above: Expected: 07/14/2023 (Approximate), Expires: 07/14/2024 Start: 07-14-2023 End: 07-14-2024 Ferritin [Mass/volume] in Serum or Plasma Ferritin Lab Routine Anemia, unspecified type Expected: 07/14/2023 (Approximate), Expires: 07/14/2024 [facility] Work Phone: Comment on above: Expected: 07/14/2023 (Approximate), Expires: 07/14/2024 Start: 07-14-2023 End: 07-14-2024 Folate [Mass/volume] in Serum or Plasma Folate Lab Routine Anemia, unspecified type Expected: 07/14/2023 (Approximate), Expires: 07/14/2024 [facility] Work Phone: Comment on above: Expected: 07/14/2023 (Approximate), Expires: 07/14/2024 Start: 07-14-2023 End: 07-14-2024 Iron and Iron binding capacity panel - Serum or Plasma Iron and TIBC Lab Routine Anemia, unspecified type Expected: 07/14/2023 (Approximate), Expires: 07/14/2024 [facility] Work Phone: Comment on above: Expected: 07/14/2023 (Approximate), Expires: 07/14/2024 Start: 07-14-2023 End: 07-14-2024 Lipid 1996 panel - Serum or Plasma Lipid Panel Lab Routine Healthcare maintenance Expected: 07/14/2023 (Approximate), Expires: 07/14/2024 [facility] Work Phone: Comment on above: Expected: 07/14/2023 (Approximate), Expires: 07/14/2024 Start: 07-14-2023 End: 07-14-2024 Methylmalonate [Moles/volume] in Serum or Plasma Methylmalonic Acid Lab Routine Anemia, unspecified type Expected: 07/14/2023 (Approximate), Expires: 07/14/2024 [facility] Work Phone: Comment on above: Expected: 07/14/2023 (Approximate), Expires: 07/14/2024 Start: 07-14-2023 End: 07-14-2024 TSH with reflex to Free T4 if abnormal TSH with reflex to Free T4 if abnormal Lab Routine Anemia, unspecified type Expected: 07/14/2023 (Approximate), Expires: 07/14/2024 [facility] Work Phone: Comment on above: Expected: 07/14/2023 (Approximate), Expires: 07/14/2024 Start: 07-14-2023 End: 07-14-2024 XR Tibia and Fibula - left 2 Views XR tibia fibula left 2 views Imaging Routine Left leg pain Expected: 07/14/2023, Expires: 07/14/2024 [facility] Work Phone: Comment on above: Expected: 07/14/2023 , Expires: 07/14/2024 Start: 02-07-2023 Influenza vaccination Influenza Vacc ine (#1) [facility] Start: 08-19-2022 Patient encounter procedure [facility] Start: 05-17-2022 Patient encounter procedure [facility] Start: 03-09-2022 Influenza vaccination Influenza Vacc ine (#1) [facility] Start: 12-19-2021 Patient encounter procedure [facility] Start: 03-09-2020 Influenza vaccination Influenza Vacc ine (#1) [facility] Start: 2017 HPV Vaccine (optiona l start 27-45 years) HPV Vaccine (optional start 27-[address]) [facility] Start: 2012 DTaP/Tdap/Td Vaccine s (1 - Tdap) DTaP/Tdap/Td Vaccines (1 - Tdap) [facility] Start: 2011 Screening for malign ant neoplasm of cervix [facility] Start: 2009 Hepatitis A (HAV) Vaccine (optional start 19+ years) Hepatitis A (HAV) Vaccine (optional start 19+ years) [facility] Start: 2009 Hepatitis B vaccination Hepati tis B (HBV) Vaccine (1 of 3 - 19+ 3-dose series) [facility] Start: 2009 Hepatitis B Vaccine (1 of 3 - 19+ 3-dose series) Hepatitis B Vaccine (1 of 3 - 19+ 3-dose series) [facility] Start: 2009 Hepatitis B Vaccines (1 of 3 - 19+ 3-dose series) Hepatitis B Vaccines (1 of 3 - 19+ 3-dose series) [facility] Start: 2009 Pneumococcal vaccination Pneum ococcal Vaccine (1 of 2 - PCV) [facility] Start: 2009 Urine microalbumin profile DTaP,Tdap,Td Vaccine (1 - Tdap) [facility] Start: 2008 Anxiety Screening Anxiety Screening [facility] Start: 2008 Depression Screening Depression Scre ening [facility] Start: 2008 Hepatitis C antibody , confirmatory test Hepatitis C Antibody [facility] Start: 2008 Hepatitis C screening [facility] Start: 2008 HIV screening HIV Screening [facility] Start: 2008 Tetanus + diphtheria + acellular pertussis vaccine (product) Tdap Booster [facility] Start: 2005 HIV screening HIV Test [facility] Start: 2003 Varicella vaccination Varicell a Vaccines (1 of 2 - 13+ 2-dose series) [facility] Start: 02-22-2002 Hepatitis B Vaccine (2 of 3 - 3-dose series) Hepatitis B Vaccine (2 of 3 - 3-dose series) [facility] Start: 1996 Pneumococcal Vaccine : Pediatrics (0 to 5 Years) and At-Risk Patients (6 to 64 Years) (1 - PCV) Pneumococcal Vaccine: Pediatrics (0 to 5 Years) and At-Risk Patients (6 to 64 Years) (1 - PCV) [facility] Start: 1996 Pneumococcal Vaccine : Pediatrics (0 to 5 Years) and At-Risk Patients (6 to 64 Years) (1 of 2 - PCV) Pneumococcal Vaccine: Pediatrics (0 to 5 Years) and At-Risk Patients (6 to 64 Years) (1 of 2 - PCV) [facility] Start: 1991 MMR Vaccines (1 of 1 - Standard series) MMR Vaccines (1 of 1 - Standard series) [facility] Start: 1991 Varicella vaccination Varicell a Vaccines (1 of 2 - 2-dose childhood series) [facility] Start: 1990 COVID-19 Vaccine (#1) COVID-19 Vacci ne (#1) [facility] Start: 1990 Hepatitis B Vaccines (1 of 3 - 3-dose series) Hepatitis B Vaccines (1 of 3 - 3-dose series) [facility] Start: 1990 Lipid panel Lipid Panel [facility] Start: 1990 Yearly Adult Physical Yearly Adult P hysical [facility] Bacteria identified in Urine by Culture URINE CULTURE Microbiology Routine Supervision of high risk in second trimester with uncertain dates in second trimester 05/26/2024 2:44 PM [facility] Bacteria identified in Urine by Culture BACTERIAL CULTURE, URINE Microbiology Routine Supervision of high risk in second trimester 07/12/2024 9:54 AM [facility] Chlamydia trachomatis+Neisseria gonorrhoeae DNA [Presence] in Unspecified specimen by CHRIS with probe detection GONORRHEA/CHLAMYDIA NAAT Lab Routine Supervision of high risk in second trimester with uncertain dates in second trimester 05/26/2024 2:44 PM [facility] End: 10-05-2024 OBSTETRIC ULTRASOUND WHI OBSTETRIC ULTRASOUND WHI Anc Imaging Routine Supervision of high risk in second trimester Every other week for 2 Occurrences starting 07/12/2024 until 10/05/2024 [facility] Work Phone: Comment on above: Every other week for 2 Occurrences starting 07/12/2024 until 10/05/2024 End: 04-19-2025 OBSTETRIC ULTRASOUND WHI OBSTETRIC ULTRASOUND WHI Anc Imaging Routine Supervision of high risk in third trimester ([facility]) 34 weeks gestation of ([facility]) Uterine size-date discrepancy, third trimester ([facility]) Once per month for 5 Occurrences starting 10/21/2024 until 04/19/2025 [facility] Work Phone: Comment on above: Once per month for 5 Occurrences starting 10/21/2024 until 04/19/2025 PAP TEST PAP TEST Lab Hallie stewart Supervision of high risk in second trimester with uncertain dates in second trimester 05/26/2024 2:44 PM [facility] Patient Education ED Muscle Stra in, Abdomen [facility] Work Phone: Patient referral [facility] Work Phone: ROUTINE, GR OUP B STREPTOCOCCUS BY PCR ROUTINE, GROUP B STREPTOCOCCUS BY PCR Microbiology Routine Supervision of high risk in third trimester (HCC) Ordered: 11/02/2024 [facility] Comment on above: Ordered: 11/02/2024 URINE OB DIP B/O URINE OB DIP B/ O Lab Routine Supervision of high risk in third trimester (HCC) Anemia complicating , third trimester ([facility]) Heartburn during in third trimester (HCC) Uterine size-date discrepancy, third trimester ([facility]) AMA (advanced maternal age) multigravida 35+, third trimester ([facility]) 36 weeks gestation of (HCC) Ordered: 11/02/2024 [facility] Work Phone: Comment on above: Ordered: 11/02/2024 URINE OB DIP B/O URINE OB DIP B/ O Lab Routine Supervision of high risk in third trimester (HCC) Anemia complicating , third trimester (HCC) 39 weeks gestation of (HCC) Tinea versicolor AMA (advanced maternal age) multigravida 35+, third trimester (HCC) Ordered: 11/23/2024 [facility] Work Phone: Comment on above: Ordered: 11/23/2024 Immunizations Immunization Date Immunization Notes Care Provider Fa cheryl 09-07-2024 tetanus toxoid, redu margie diphtheria toxoid, and acellular pertussis vaccine, adsorbed Annalee Blanc MD Work Phone: [facility] Payers Date Payer Category Payer Self-pay 2024 Private Health Insurance [id number] 2024 Medicaid [id number] 2024 Unknown [id number] 2024 Managed Care (Private) [facility] [id number] 2024 Unknown [id number] 2023 Unknown [id number] 2023 Unknown 2023 Unknown [id number] 2014 Commercial Managed C [facility] [id number] 2014 Private Health Insurance [facility] HMO/POS [id number] 2014-Present HMO [id number] 2014 Private Health Insurance [id number] 1990 Unknown [id number]. 356 1990 Unknown [id number]. 356 1990 Unknown [id number]. 356 1990 Unknown [id number] [id number]. 356 1990 Unknown [id number]. 356 1990 Unknown [id number]. 1244 1990 Unknown [id number]. 1244 1990 Unknown [id number]. 1245 1990 Unknown [id number] [id number]. 124 1990 Unknown [id number]. 1245 Private Health Insurance KIRT PERES [id number] Unknown [id number] Unknown [id number] 462 Social History Date Type Detail Facility Start: 10-04-2014 End: 11-01-2014 Tobacco smoking status NHIS Former sm[facility] tobacco use [facility] Start: 11-01-2014 End: 05-26-2024 Cigarettes smoked current (pack per day) - Reported [facility] Comment on above: 1/2 pack per day; Start: 11-01-2014 End: 05-26-2024 Tobacco use and exposure Never used [facility] Start: 10-04-2014 Tobacco [facility] 1990 [facility] Tobacco smoking consumption unknown [facility] History of tobacco use Current smoker [facility] Start: 07-14-2023 End: 05-26-2024 Tobacco smoking status [facility] Smokes tobacco daily [facility] Work Phone: History of tobacco use Passive smoker [facility] Work Phone: Start: 07-14-2023 End: 04-02-2024 Alcohol intake Current drinker of alcohol (finding) [facility] Work Phone: Start: 07-14-2023 End: 05-26-2024 Gender identity Not on file [facility] Work Phone: Start: 07-04-2023 End: 04-02-2024 Exposure to SARS-CoV-2 (event) Not sure [facility] Start: 05-26-2024 End: 11-23-2024 Alcoholic beverage intake Ex-drinker (finding) [facility] National Score (1-100), lower number is lower risk 64 [facility] Start: 03-05-2024 [facility] Start: 05-31-2014 End: 09-04-2024 Sex Female (finding) [facility] Start: 09-04-2024 [facility] tobacco smoker [facility] Start: 1990 Sex Assigned At Female W [facility] Medical Equipment Procedure Code Equipment Code Equipment Origin al Text Equipment Identifier Dates Nail 10 X 315mm Cannulated Tibial Proximal Bend Expert Ti 04.034.443s - [id number] Start: 05-31-2014 Screw 5.0 X 54mm Self-Tapping Full Thread Locking T25 Star T 04.005.544 - [id number] Start: 05-31-2014 Screw 5.0 X 68mm Self-Tapping Full Thread Locking T25 Star T 04.005.558 - [id number] Start: 05-31-2014 Screw 5.0 X 74mm Self-Tapping Full Thread Locking T25 Star T 04.005.564 - [id number] Start: 05-31-2014 Screw 5.0 X 44mm Self-Tapping Full Thread Locking T25 Star T 04.005.534 - [id number] Start: 05-31-2014 Screw 5.0 X 40mm Self-Tapping Full Thread Locking T25 Star T 04.005.530 - [id number] Start: 05-31-2014 Goals Date Patient Goal Desired Activity /State Personal health goal Functional Status Date Assessment Result Facility 05-31-2014 Are you deaf, or do you have serious difficulty hearing No 05/31/2014 8:38 PM Miguelina Thrasher RN No [facility] 05-31-2014 Are you blind, or do you have serious difficulty seeing, even when wearing glasses No 05/31/2014 8:38 PM Miguelina Thrasher RN No [facility] 05-31-2014 Do you have serious difficulty walking or climbing stairs No 05/31/2014 8:38 PM Miguelina Thrasher RN No [facility] 05-31-2014 Do you have difficul ty dressing or bathing No 05/31/2014 8:38 PM Miguelina Thrasher RN No [facility] 05-31-2014 Because of a physica l, mental, or emotional condition, do you have difficulty doing errands alone such as visiting a physician's office or shopping No 05/31/2014 8:38 PM Miguelina Thrasher, RN No [facility] Mental Status Date Assessment Result Facility 09-04-2024 Cognitive function Voice/Name [facility] Work Phone: 05-31-2014 Because of a physica l, mental, or emotional condition, do you have serious difficulty concentrating, remembering, or making decisions No 05/31/2014 8:38 PM Miguelina Thrasher, KIRSTEN No [facility] Clinical Notes 11-15-2021 to 11-23-2024 Quick [...] Way MD Date: 11/23/2024 Time: 11:38 AM [facility] 11-23-2024 Miscellaneous Notes Attending Note I [...] was discussed with the patient or authorized cash application representative. The patient or authorized cash application representative has agreed to proceed with the sensitive examination. A/P: Perlita Thakkar is a 34 year old at 39w4d ASSESSMENT/PLAN: 1. Supervision of high risk in third trimester ([facility]) - ICD9: V23.9, ICD10: O09.93 (primary diagnosis) GBS negative Desires induction at 40 weeks if no spontaneous labor - URINE OB DIP B/O 2. Anemia complicating , third trimester ([facility]) - ICD9: 648.23, 285.9, ICD10: O99.013 Last hgb 10/21 10.9 On oral iron - URINE OB DIP B/O 3. 39 weeks gestation of ([facility]) - ICD9: V22.2, ICD10: Z3A.39 - URINE OB DIP B/O 6. AMA (advanced maternal age) multigravida 35+, third trimester ([facility]) - ICD9: 659.63, ICD10: O09.523 - URINE OB DIP B/O Ismael Foote MD 11/23/2024 11:25 AM documented in this encounter [facility] 11-23-2024 Progress note Formatting of t [...] was discussed with the patient or authorized cash application representative. The patient or authorized cash application representative has agreed to proceed with the sensitive examination. A/P: Perlita Thakkar is a 34 year old at 39w4d ASSESSMENT/PLAN: 1. Supervision of high risk in third trimester ([facility]) - ICD9: V23.9, ICD10: O09.93 (primary diagnosis) GBS negative Desires induction at 40 weeks if no spontaneous labor - URINE OB DIP B/O 2. Anemia complicating , third trimester ([facility]) - ICD9: 648.23, 285.9, ICD10: O99.013 Last hgb 10/21 10.9 On oral iron - URINE OB DIP B/O 3. 39 weeks gestation of ([facility]) - ICD9: V22.2, ICD10: Z3A.39 - URINE OB DIP B/O 6. AMA (advanced maternal age) multigravida 35+, third trimester ([facility]) - ICD9: 659.63, ICD10: O09.523 - URINE OB DIP B/O Ismael Foote MD 11/23/2024 11:25 AM [facility] Work Phone: 11-23-2024 Instructions Anais Guerrero MA - 11/23/2024 11:12 AM EDT SEQUENTIAL SCREENINGS The [facility] offers sequential screenings for women who [...] It will require an appointment with our refrigeration service technician. This is not an ultrasound performed [...] the above symptoms, contact our office at [phone] and ask to speak with a nurse. After hours, you can call doctors registry at [phone] OR call [facility] at [phone] and ask to have the doctor concaver paged. If you consider this an emergency, dial [phone]- or go to your nearest emergency department. NEED HELP? Are you dealing with a violent or abusive relationship? Are you a victim of rape or sexual assult? Call [facility] ([place]) 24 hour Crisis Hotline: 651.490.8307 or 193-880-3987. MANUAL Your Guide to a Healthy manual is now on-line. Visit [email or web address] ancyGuide to download your free copy documented in this encounter [facility] 11-19-2024 Miscellaneous Notes ANDREY-S: Perlita Thakkar [...] Rash to abdomen, chest, shoulders, upper back. Enders/white patches, not raised ASSESSMENT/PLAN: 1. Supervision of [...] Cristy Jain APRN.CNM documented in this encounter [facility] 11-19-2024 Progress note Formatting of t [...] Rash to abdomen, chest, shoulders, upper back. Enders/white patches, not raised ASSESSMENT/PLAN: 1. Supervision of [...] RTO in 1 weeks Cristy Jain APRN.CNM [facility] 11-19-2024 Instructions Cristy Jain APRN.CNM - [...] the above symptoms, contact our office at [phone] and ask to speak with a nurse. After hours, you can call doctors registry at [phone] OR call [facility] at [phone] and ask to have the doctor concaver paged. If you consider this an emergency, dial 9-1-1 or go to your nearest emergency department. NEED HELP? Are you dealing with a violent or abusive relationship? Are you a victim of rape or sexual assult? Call [facility] ([facility] 24 hour Crisis Hotline: 971.419.3288 or 018-833-3396. MANUAL Your Guide to a Healthy manual is now on-line. Visit [email or web address] ancyGuide to download your free copy Tinea versicolor Tinea versicolor is a common fungal infection of the skin. The fungus interferes with the normal pigmentation of the skin, resulting in small, discolored patches. These patches may be sanitation supervisor or darker in color than the surrounding skin and most commonly affect the trunk and shoulders. Tinea versicolor (TIN-ee-uh psy-mh-HUX-ur), occurs most frequently in teens and young [...] neck and upper arms, which may appear sanitation supervisor or darker than usual Mild itching Scaling [...] you to a specialist in skin disorders (project superintendent). What you can do Preparing a list [...] versicolor is severe or doesn't respond to mpce-tjp-slmvypg antifungal medicine, you may need a prescription-strength [...] of tinea versicolor, you can apply an prrg-fsx-hrzzutg antifungal lotion, cream, ointment or shampoo. Most [...] 5 Books in 1. Santhosh Tao.: [place] VenJuvovimal; 2015. https://www.Niblitz. Accessed August 15, 2014. 2.Jose Antonio KIMBROUGH et al., eds. Yeast infections: Candidiasis, tinea (pityriasis) versicolor and malassezia (pityrosporum) folliculitis. In: Ade's Dermatology in General Medicine. 8th ed. [place] [employer]ugg; 2011. http://www.Yunait. Accessed August 15, 2014. 3.Lucas Gonzalez et al. Interventions for the treatment of pityriasis versicolor. Vero Database of Systematic Reviews. http://ovidsp.R[employer].ovid.com/sp-3.1 4.0b/ovidweb.cgi. Accessed August 15, 2014. 4.AskMayoExpert. Superficial fungal infections. [facility].: [facility] Research; 2011. 5.Tinea versicolor. [place] Academy [employer] Dermatology. www.aad.org/hwnroajzcpa-d-vg-z/d laftavq-xbb-vvoyjcurth/q---t/tin ea-versicolor. Accessed August 15, 2014. 6.Tinea versicolor. The hereO Manual Professional Edition. http://www.[employer].PSC Info Group/prof essional/dermatologic_disorders/ fungal_skin_infections/tinea_ver sicolor.html. Accessed August 15, 2014. [...] treatment is completed. documented in this encounter [facility] 11-18-2024 Note HNO ID: [id number] Author: VIRGINIA MARK MA Service: ? Author Type: Grounds Foreman Type: Progress Notes Filed: 11/18/2024 15:16 Note Text: POPULATION HEALTH NAVIGATION OUTREACH Action/FYI Rn Advanced updated per [facility] response. Reason for Outreach Medicaid OB/Peds Care Gaps due: N/A Patient Contacted: Spoke to patient/parent/or legal guardian Patient identified by name and : Yes Medicaid OB/Peds actions taken: /Rn Advanced added Navigation Signature: Virginia Durand MA November 18, 2024 3:14 PM [facility] 11-12-2024 Note HNO ID: [id number] Author: VIRGINIA MARK MA Service: ? Author Type: Grounds Foreman Type: Progress Notes Filed: 11/12/2024 14:35 Note [...] Durand MA November 12, 2024 12:55 PM [facility] 11-12-2024 History of Present illness Narrative POPULATION [...] 2024 12:55 PM documented in this encounter [facility] 11-12-2024 Note Patient Outreach (MARY TEEAV) TEAGANPERLITA Jose ([id number]) 1990 F Date Time Provider Department 11/12/24 [...] PM Signed POPULATION HEALTH NAVIGATION OUTREACH Action/FYI Rn Advanced updated per response. Reason for Outreach Medicaid OB/Peds Care Gaps due: N/A Patient Contacted: Spoke to patient/parent/or legal guardian Patient identified by name and : Yes Medicaid OB/Peds actions taken: /Rn Advanced added Navigation Signature: Virginia Durand MA November [...] Encounter Status:Closed by VIRGINIA MARK on 11/12/24 [facility] 11-11-2024 Progress note Formatting of t his [...] office - RTO weekly visits Brea Plotts, BPM SOLUTION ARCHITECT.CNM [facility] 11-11-2024 Miscellaneous Notes S: Perlita Thakkar [...] Brea Mirza APRN.CNM documented in this encounter [facility] 11-11-2024 Instructions Fam Krause MA - 11/11/2024 7:59 AM EDT SEQUENTIAL SCREENINGS [facility] offers sequential screenings for women who [...] It will require an appointment with our refrigeration service technician. This is not an ultrasound performed [...] the above symptoms, contact our office at [phone] and ask to speak with a nurse. After hours, you can call doctors registry at [phone] OR call [facility] at [phone] and ask to have the doctor concaver paged. If you consider this an emergency, dial [phone] or go to your nearest emergency department. NEED HELP? Are you dealing with a violent or abusive relationship? Are you a victim of rape or sexual assult? Call [facility] ([place]) 24 hour Crisis Hotline: 207.464.1926 or 839-103-6831. MANUAL Your Guide to a Healthy manual is now on-line. Visit [email or web address] ancyGuide to download your free copy documented in this encounter [facility] 11-02-2024 Progress note Formatting of t [...] Supervision of high risk in third trimester ([facility]) - ICD9: V23.9, ICD10: O09.93 (primary diagnosis) - URINE OB DIP B/O - ROUTINE, GROUP B STREPTOCOCCUS BY PCR 2. Anemia complicating , third trimester ([facility]) - ICD9: 648.23, 285.9, ICD10: O99.013 Taking oral iron - URINE OB DIP B/O 3. Heartburn during in third trimester ([facility]) - ICD9: 646.83, 787.1, ICD10: O26.893, R12 pepcid - URINE OB DIP B/O 4. Uterine size-date discrepancy, third trimester ([facility]) - ICD9: 649.63, ICD10: O26.843 EFW 40% - URINE OB DIP B/O 5. AMA (advanced maternal age) multigravida 35+, third trimester ([facility]) - ICD9: 659.63, ICD10: O09.523 - URINE OB DIP B/O 6. 36 weeks gestation of ([facility]) - ICD9: V22.2, ICD10: Z3A.36 GBS today - URINE OB DIP B/O Miguelina Herrera MD [facility] 11-02-2024 Miscellaneous Notes S: Perlita Thakkar [...] Supervision of high risk in third trimester ([facility]) - ICD9: V23.9, ICD10: O09.93 (primary diagnosis) - URINE OB DIP B/O - ROUTINE, GROUP B STREPTOCOCCUS BY PCR 2. Anemia complicating , third trimester ([facility]) - ICD9: 648.23, 285.9, ICD10: O99.013 Taking oral iron - URINE OB DIP B/O 3. Heartburn during in third trimester ([facility]) - ICD9: 646.83, 787.1, ICD10: O26.893, R12 pepcid - URINE OB DIP B/O 4. Uterine size-date discrepancy, third trimester ([facility]) - ICD9: 649.63, ICD10: O26.843 EFW 40% - URINE OB DIP B/O 5. AMA (advanced maternal age) multigravida 35+, third trimester ([facility]) - ICD9: 659.63, ICD10: O09.523 - URINE OB DIP B/O 6. 36 weeks gestation of ([facility]) - ICD9: V22.2, ICD10: Z3A.36 GBS today - URINE OB DIP B/O Miguelina Herrera MD documented in this encounter [facility] 11-02-2024 Note Indication Evaluation of growth. [...] 4 oz EFW by: Hadlock (HC-AC-FL) Extended Chemical Maker 2.0 mm Extremities / Bony Struc FL [...] 11/02/2024 1:14 PM EDT SEQUENTIAL SCREENINGS The [facility] offers sequential screenings for women who [...] It will require an appointment with our refrigeration service technician. This is not an ultrasound performed [...] the above symptoms, contact our office at [phone] and ask to speak with a nurse. After hours, you can call doctors registry at [phone] OR call [facility] at [phone] and ask to have the doctor concaver paged. If you consider this an emergency, dial 9-9-6 or go to your nearest emergency department. NEED HELP? Are you dealing with a violent or abusive relationship? Are you a victim of rape or sexual assult? Call [facility] ([place]) 24 hour Crisis Hotline: 702.654.3754 or 640-464-2109. MANUAL Your Guide to a Healthy manual is now on-line. Visit [email or web address]/[email or web address] ancyGuide to download your free copy documented in this encounter [facility] 10-21-2024 Progress note Formatting of t [...] reviewed RTO 2 weeks Brea Mirza APRN.CNM [facility] 10-21-2024 Miscellaneous Notes S: Perlita Thakkar [...] Brea Mirza APRN.CNM documented in this encounter [facility] 10-21-2024 Instructions Anais Guerrero MA - 10/21/2024 7:51 AM EDT SEQUENTIAL SCREENINGS The [facility] offers sequential screenings for women who [...] It will require an appointment with our refrigeration service technician. This is not an ultrasound performed [...] the above symptoms, contact our office at [phone] and ask to speak with a nurse. After hours, you can call doctors registry at [phone] OR call [facility] at [phone] and ask to have the doctor concaver paged. If you consider this an emergency, dial 2-2-1 or go to your nearest emergency department. NEED HELP? Are you dealing with a violent or abusive relationship? Are you a victim of rape or sexual assult? Call [facility] ([place]) 24 hour Crisis Hotline: 592.624.7135 or 233-578-3686. MANUAL Your Guide to a Healthy manual is now on-line. Visit [email or web address] ancyGuide to download your free copy documented in this encounter [facility] 10-07-2024 Beatriz Aguilera LPN - 10/07/2024 7:58 AM EDT SEQUENTIAL SCREENINGS The [facility] offers sequential screenings for women who [...] It will require an appointment with our refrigeration service technician. This is not an ultrasound performed [...] the above symptoms, contact our office at [phone] and ask to speak with a nurse. After hours, you can call doctors registry at [phone] OR call [facility] at [phone] and ask to have the doctor concaver paged. If you consider this an emergency, dial 91-6 or go to your nearest emergency department. NEED HELP? Are you dealing with a violent or abusive relationship? Are you a victim of rape or sexual assult? Call [facility] ([place]) 24 hour Crisis Hotline: 754.491.1587 or 555-254-2812. MANUAL Your Guide to a Healthy manual is now on-line. Visit [email or web address]/HealthyPregn ancyGuide to download your free copy documented in this encounter [facility] 10-07-2024 Progress note Formatting of t [...] or sooner if needed Brea Mirza APRN.CNM [facility] 10-07-2024 Miscellaneous Notes S: Perlita Thakkar [...] Brea Mirza APRN.CNM documented in this encounter [facility] 09-22-2024 Progress note Formatting of t [...] - RTO 2 weeks Brea Mirza APRN.CNM [facility] 09-22-2024 Miscellaneous Notes S: Perlita Thakkar [...] Brea Mirza APRN.CNM documented in this encounter [facility] 09-07-2024 Note HNO ID: [id number] Author: ANNALEE JENKINS MD Service: ? Author [...] reviewed RTO 2 wks Annalee Srinivasan MD [facility] 09-07-2024 History of Present illness Narrative DM-Pt [...] severely ill: Yes Patient denies history of Guillain-Mansfield Syndrome (a severe paralytic illness): Yes Tdap Adacel injection was given without incident. See immunizations for details of immunizations administered today. VIS sheet provided: Yes Provider Jayashree was present in office at time of injection. Jalil Carmen MA documented in this encounter [facility] 09-07-2024 Note HNO ID: [id number] Author: JALIL CARMEN MA Service: ? Author Type: Grounds Foreman Type: Progress Notes Filed: 09/07/2024 08:49 Note [...] severely ill: Yes Patient denies history of Guillain-Mansfield Syndrome (a severe paralytic illness): Yes Tdap Adacel injection was given without incident. See immunizations for details of immunizations administered today. VIS sheet provided: Yes Provider Jayashree was present in office at time of injection. Jalil Carmen MA [facility] 09-07-2024 Instructions Jalil Carmen MA - 09/07/2024 8:12 AM EDT SEQUENTIAL SCREENINGS The [facility] offers sequential screenings for women who [...] It will require an appointment with our refrigeration service technician. This is not an ultrasound performed [...] the above symptoms, contact our office at [phone] and ask to speak with a nurse. After hours, you can call doctors registry at [phone] OR call [facility] at [phone] and ask to have the doctor concaver paged. If you consider this an emergency, dial 9--1 or go to your nearest emergency department. NEED HELP? Are you dealing with a violent or abusive relationship? Are you a victim of rape or sexual assult? Call [facility] ([place]) 24 hour Crisis Hotline: 890.161.5625 or 418-239-1627. MANUAL Your Guide to a Healthy manual is now on-line. Visit [email or web address] ancyGuide to download your free copy documented in this encounter [facility] 09-06-2024 Telephone encounter Note 3rd risk assessment form submitted 09/06/24 Isabel Granados RN [facility] 09-06-2024 Miscellaneous Notes 3rd risk assessment form submitted 09/06/24 Isabel Granados RN documented in this encounter [facility] 08-31-2024 Progress note Formatting of t [...] week labs and visit Gus Way M.D. [facility] 08-31-2024 Miscellaneous Notes RR- VB No. [...] Gus Way M.D. documented in this encounter [facility] 08-31-2024 Instructions Virginia Ocampo MA - 08/31/2024 3:58 PM EDT SEQUENTIAL SCREENINGS The [facility] offers sequential screenings for women who [...] It will require an appointment with our refrigeration service technician. This is not an ultrasound performed [...] the above symptoms, contact our office at [phone] and ask to speak with a nurse. After hours, you can call doctors registry at [phone] OR call [facility] at [phone] and ask to have the doctor concaver paged. If you consider this an emergency, dial 4-5-5 or go to your nearest emergency department. NEED HELP? Are you dealing with a violent or abusive relationship? Are you a victim of rape or sexual assult? Call [facility] ([facility] 24 hour Crisis Hotline: 603.620.1136 or 773-191-3970. MANUAL Your Guide to a Healthy manual is now on-line. Visit [email or web address] ancyGuide to download your free copy documented in this encounter [facility] 08-31-2024 Telephone encounter Note This RN spoke to and no open appointment spots available today. Therefore, approved for Pt to be placed on RR schedule at 4pm today. Pt notified and scheduled. Advised Pt that if she begins with severe abdominal pain, vaginal bleeding, decreased movement to call office/or go to ER. Pt voiced understanding. Baldo Carvajal RN [facility] 08-31-2024 Miscellaneous Notes This RN spoke [...] Fe Hoffmann RN documented in this encounter [facility] 08-31-2024 Telephone encounter Note If she is having that much pain she needs to be seen [facility] Work Phone: 08-31-2024 Telephone encounter Note Patient [...] on 09/07. Please advise. Fe Hoffmann RN [facility] 08-10-2024 Progress note Formatting of t his [...] Future rto 4 WEEKS Annalee Srinivasan MD [facility] Work Phone: 08-10-2024 Miscellaneous Notes DM-Pt doing [...] Annalee Srinivasan MD documented in this encounter [facility] 08-10-2024 Instructions Jalil Carmen MA - 08/10/2024 8:28 AM EST SEQUENTIAL SCREENINGS The [facility] offers sequential screenings for women who [...] It will require an appointment with our refrigeration service technician. This is not an ultrasound performed [...] the above symptoms, contact our office at [phone] and ask to speak with a nurse. After hours, you can call doctors registry at [phone] OR call [facility] at [phone] and ask to have the doctor concaver paged. If you consider this an emergency, dial -3 or go to your nearest emergency department. NEED HELP? Are you dealing with a violent or abusive relationship? Are you a victim of rape or sexual assult? Call [facility] ([facility] 24 hour Crisis Hotline: 788.493.5387 or 779-797-9545. MANUAL Your Guide to a Healthy manual is now on-line. Visit [email or web address]/HealthyPregn ancyGuide to download your free copy documented in this encounter [facility] 08-05-2024 Telephone encounter Note Patient notified and u/s canceled. Beth Samaniego RN [facility] 08-05-2024 Miscellaneous Notes Patient notified and u/s canceled. Beth Samaniego RN Left message to call office ----- Message from Cristy Jain APRN.NEREYDA sent at 08/04/2024 4:49 PM EST ----- US normal, no further follow up needed. Can cancel her next CL. Thank you. Cristy Jain APRN.CNM documented in this encounter [facility] 08-04-2024 Telephone encounter Note Left message to call office [facility] 08-04-2024 Telephone encounter Note ----- Message from Cristy Jain APRN.NEREYDA sent at 08/04/2024 4:49 PM EST ----- US normal, no further follow up needed. Can cancel her next CL. Thank you. Cristy Jain APRN.CNM [facility] 07-13-2024 Telephone encounter Note 2nd risk assessment form submitted 07/13/24 Isabel Granados RN [facility] 07-13-2024 Miscellaneous Notes 2nd risk assessment form submitted 07/13/24 Isabel Granados RN documented in this encounter [facility] 07-12-2024 Progress note Formatting of t [...] RTO in 4 weeks Cristy Jain APRN.CNM [facility] 07-12-2024 Miscellaneous Notes ANDREY-S: Perlita Thakkar [...] Cristy Jain APRN.CNM documented in this encounter [facility] 07-12-2024 Fam Le MA - 07/12/2024 9:34 AM EST SEQUENTIAL SCREENINGS The [facility] offers sequential screenings for women who [...] It will require an appointment with our refrigeration service technician. This is not an ultrasound performed [...] the above symptoms, contact our office at [phone] and ask to speak with a nurse. After hours, you can call doctors registry at [phone] OR call [facility] at [phone] and ask to have the doctor concaver paged. If you consider this an emergency, dial 9-1-3 or go to your nearest emergency department. NEED HELP? Are you dealing with a violent or abusive relationship? Are you a victim of rape or sexual assult? Call [facility] ([place]) 24 hour Crisis Hotline: 797.291.4082 or 240-793-6710. MANUAL Your Guide to a Healthy manual is now on-line. Visit [email or web address]/HealthyPregn ancyGuide to download your free copy documented in this encounter [facility] 06-21-2024 Progress note Formatting of t [...] - RTO 4 wks Rufina Albert DO [facility] 06-21-2024 Miscellaneous Notes SW- Nausea improving. No pain, vb, lof PE: Gen- NAD, well appearing See flowsheet A/p 17 wk gestation - Anatomy US today and final report pending. Follow up anatomy US ordered - UTI: Completed antibiotic course. Order placed for urine CFC - Encouraged to quit vaping - RTO 4 wks Rufina Albert DO documented in this encounter [facility] 06-21-2024 Instructions Virginia Ocampo MA - 06/21/2024 3:49 PM EST SEQUENTIAL SCREENINGS The [facility] offers sequential screenings for women who [...] It will require an appointment with our refrigeration service technician. This is not an ultrasound performed [...] the above symptoms, contact our office at [phone] and ask to speak with a nurse. After hours, you can call doctors registry at [phone] OR call [facility] at [phone] and ask to have the doctor concaver paged. If you consider this an emergency, dial 9-1 or go to your nearest emergency department. NEED HELP? Are you dealing with a violent or abusive relationship? Are you a victim of rape or sexual assult? Call [facility] ([place]) 24 hour Crisis Hotline: 203.552.4315 or 807-236-1790. MANUAL Your Guide to a Healthy manual is now on-line. Visit [email or web address]/HealthyPregn ancyGuide to download your free copy documented in this encounter [facility] 05-28-2024 Telephone encounter Note Patient notified. Beth Samaniego RN The following approved medication requests have been transmitted electronically. Requested Prescriptions Signed Prescriptions Disp Refills cephALEXin (KEFLEX) 500 mg capsule 28 capsule 0 Sig: Take 1 capsule by mouth four times daily for 7 days. Authorizing Provider: ISMAEL RACINIEGA Pharmacy Information [place] [address] [facility] 05-28-2024 Miscellaneous Notes Patient notified. Beth Samaniego RN The following approved medication requests have been transmitted electronically. Requested Prescriptions Signed Prescriptions Disp Refills cephALEXin (KEFLEX) 500 mg capsule 28 capsule 0 Sig: Take 1 capsule by mouth four times daily for 7 days. Authorizing Provider: ISMAEL ARCINIEGA Pharmacy Information [place] [address] Please notify patient: + UTI Rx for Keflex sent Push fluids To notify if symptoms worsening/not improving Ismael Arciniega APRN.CNP documented in this encounter [facility] 05-28-2024 Telephone encounter Note Please notify patient: + UTI Rx for Keflex sent Push fluids To notify if symptoms worsening/not improving Ismael Arciniega APRN.CNP [facility] 05-27-2024 Telephone encounter Note 1st risk assessment form submitted 06/06/2024. Miguelina Estrada RN [facility] 05-27-2024 Miscellaneous Notes 1st risk assessment form submitted 06/06/2024. Miguelina Estrada RN documented in this encounter [facility] 05-26-2024 Instructions Ismael Arciniega APRN.PRODUCTION LINE ASSEMBLER - 05/26/2024 1:30 PM EST Please select the following link to access the [facility] Your Guide to a Healthy . [email or web address] e MORNING SICKNESS IN by Candy Harding M.D. for [employer] As you may already know, morning sickness can often be more appropriately called evening sickness or ictfz-jkarub-on-the-day sickness. While there are the alina few, [...] often available at drugstores or travel stores. Jennifer root is used for nausea in many [...] medication, Doxylamine, is currently marketed as an dcdf-rip-cgzgijx sleeping pill. Ask your practitioner if creating a vitamin B6/Doxylamine combination with oipp-xkz-qdbhvfx medications would be safe for you. Prescription [...] smoke. (This information is provided by the [facility] and is not intended to replace the medical advice of your doctor or health care provider. Please consult your health care provider for advice about a specific medical condition. For additional written health information, please call the Cancer Answer Line at [facility] Cancer [place] Friday - Friday 8-4:30 for assistance: [phone]. Or visit [email or web address]/health/) [facility] s Smoking Cessation Program The [facility] Smoking Cessation Program is a comprehensive, multifaceted program that can be tailored to your individual needs. We offer a variety of services designed to help you throughout the process, including office visits, distance health visits (virtual or telephone), and the eCoach program or pharmacy consultations. To schedule, call [phone] Appointments: An office visit: This is a [...] You will need to sign up for Pick1hart prior to your virtual visit. Telephone visits [...] spray Bupropion SR Varenicline (Chantix ) The [place] [employer] Society (ACS) has a section devoted to quitting tobacco with information on where to get help, interactive tools, the relationship of tobacco and cancer, how to keep your kids smoke-free, smoke-free communities and the ACS s annual [place] Smokeout. Visit this link for more info: https://www.cancer.org/cancer/ri sk-prevention/tobacco/guide-quit ting-smoking.html The [place] [employer] Association has tools, tips, support and fact sheets to help you stop smoking or to help a loved one quit. There s also more information about [place] From Smoking , the program we use in our smoking classes at [facility]. Visit this link for more info: https://www.lung.org/quit-smokin g/owdw-rcdvvmg-svmv-smoking The National Cancer [place] s site, Smokefree.gov, has an abundance of free and accurate resources to encourage smokers to stop: Smokefree apps for your smartphone offer individualized guidance once you input your information You can sign up for the SmokefreeWhitepagesT text messaging program, which sends you daily [...] The main active chemical in marijuana is znhgw-2-mlkrotwqdnrltltuaiyc (THC), which is what causes you to [...] smoke. Most professional organizations such as the [place] Academy of Pediatrics, the Academy of Medicine, and the [place] College of Obstetricians and Gynecologists advise that [...] . For more information, please see the Periscope fact sheet Paternal Exposures and at https://QuarterSpot.org/fact-sh eets/ovuzteop-wrqwomsdu-lntincuq y/pdf/. documented in this encounter [facility] 05-26-2024 Note HNO ID: [id number] Author: ISMAEL ARCINIEGA APRN.CLAUDETTE Service: ? Author Type: Nurse Practitioner Type: Progress Notes Filed: 05/26/2024 14:28 Note Text: Printing Assistant offered: Patient declines. INITIAL OB ASSESSMENT HPI: [...] stiffness, Joint swelling (more content not included)... [facility] 05-26-2024 History of Present illness Narrative Printing Assistant offered: Patient declines. INITIAL OB ASSESSMENT HPI: [...] discussed with the Patient or Patient's Authorized Circle Shear Operator. As applicable, any other physician, advance practice provider, medical student, or other health professional student that will be observing or involved in the sensitive examination for educational or training purposes was discussed with the Patient or Authorized Circle Shear Operator. The Patient or Authorized Circle Shear Operator has agreed to proceed with the sensitive [...] Your guide to a health and the Teacher Learning Disabled. Discussed hemoglobin electrophoresis. Patient: Accepts Reviewed midwifery and breast surgeon services that are available. 2) Screening: Hemoglobin [...] (28-30 weeks): [] Consent [] Contraception [] Rn Advanced [] TeamBirth handout Third trimester (36-40 weeks): [] GBS [] Presentation - [] Scheduled [] yes - Hibiclens, pre-op instructions, CBC, T&S ordered [] no [] H&P [] Preferences worksheet [] Scanned in EMR Late Care Affecting in Second Trimester - 05/26/2024 Comment: Had ultrasound at [facility] - [facility] based on ultrasound at [facility] 11/26/24. Will obtain early anatomy. ~ 13w5d today. Ismael Arciniega APRN.PRODUCTION LINE ASSEMBLER History of Loop Electrosurgical Excision Procedure (Leep) [...] notify if prescription is needed. 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 Current smoker (1 ppd/10yrs). Occasional EtOH use. Denie drug use. FAMHx: Denies any family history of breast, ovary, uterine, or colon cancer Screening: -Pap as above -Mammo: NA -[place]: NA Objective BSA: 1.58 meters squared BP [...] schedule with OBGYN closer to home in [place] Prem Oliveira MD See with Dr. Wolff [...] Jonas Wolff MD documented in this encounter [facility] Work Phone: 07-14-2023 History of Present illness [...] PROCEDURE REFERRAL, . documented in this encounter [facility] Work Phone: 11-22-2022 Note 24 Date of Procedure: 11/22/2022 Pathologist: [facility], Cytology Date Reported: 12/02/2022 Date Received: 11/22/2022 [...] Reference Range: Negative QC review performed at [facility], [address] [place] [address] Testing for high-risk (HR) type of human [...] verified by the Molecular Diagnostic Laboratory at [facility]. The lab is certified under the Clinical Laboratory Amendments of 1988 (CLIA 88) as qualified to perform high complexity clinical laboratory testing. This specimen has been analyzed by the HeTexted Imaging System (Dextrys, YPlan.), an automated imaging and review system, which assists the laboratory in evaluating cells on ThinPrep Pap tests. Following automated imaging, selected quevedo from every slide were reviewed by a agent producer and/or pathologist. Electronically Signed Out By [facility], Cytology//CRR/JMD By the signature on this report, the individual or group listed as making the Final Interpretation/Diagnosis certifies that they have reviewed this case. Diagnostic interpretation performed at [facility] [address] [place] [address] Educational Note: Cervical cytology is a screening [...] Source of Specimen A: THINPREP PAP CERVICAL [facility] Department of Pathology [id number] [place] [address] Center Comment on above: Performed By: #### C #### [facility] Cytology [id number] [facility] [address] 05-17-2022 Note 75 Date of Procedure: 05/17/2022 Pathologist: [facility], Cytology Date Reported: 05/27/2022 Date Received: 05/17/2022 [...] Reference Range: Negative QC review performed at [facility], [address] [place] [address] Testing for high-risk (HR) type of human [...] verified by the Molecular Diagnostic Laboratory at [facility]. The lab is certified under the Clinical Laboratory Amendments of 1988 (CLIA 88) as qualified to perform high complexity clinical laboratory testing. This specimen has been analyzed by the ThinPrep Imaging System ([employer] an automated imaging and review system, which assists the laboratory in evaluating cells on ThinPrep Pap tests. Following automated imaging, selected quevedo from every slide were reviewed by a agent producer and/or pathologist. Electronically Signed Out By [facility], Cytology//IK/JMD By the signature on this report, the individual or group listed as making the Final Interpretation/Diagnosis certifies that they have reviewed this case. Diagnostic interpretation performed at [facility] [address] [facility]. [place] [id number] Educational Note: Cervical cytology is a screening [...] Source of Specimen A: THINPREP PAP CERVICAL [facility] Department of Pathology [id number] [place] [address] Comment on above: Performed By: #### C #### [facility] Cytology [id number] [place], [place] [id number] 11-15-2021 Chief complaint Narrative - Reported An interactive audio and video telecommunication system which permits real time communications between the patient (at the originating site) and provider (at the distant site) was utilized to provide this telehealth service.31 yr old for Egg Preservation consult referred by Dr. Dennis.Last pap abnormallast mammogram -2021 [id number] 310 IVF Work Phone: 11-15-2021 History of Present illness Narrative :30JIM THAKKAR , 31 year is contacted for an (audio-visual, or audio only) Telehealth visit.Today's visit was provided through telemedicine conferencing: Using [employer] platform.Consent:The concept of telemedicine has been described [...] is referred today by Dr. Stern with [facility] to discuss fertility preservation options. 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 She does report smoking 1/2 pack of cigarettes per day now since starting Ch[employer]ix, but she reports that she previously smoked greater than 1 pack a day for over 16 years. Patient reports that she occasionally drinks alcohol and does not use any illicit drugs or supplements.Family history: Patient reports having a family history significant for diabetes and endometriosis [id number] 310 IVF Work Phone: Chief complaint Narrative - Reported An interactive audio and video telecommunication system which permits real time communications between the patient (at the originating site) and provider (at the distant site) was utilized to provide this telehealth service.MFM consult at the request of Dr. Saul and Dr. 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 Saul and Dr. 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 [id number] 1200 IMG Work Phone: Evaluation note Diagnosis Anemia, unspecified type- Primary Abnormal LFTs Left leg pain Pain in soft tissues of limb H/O fracture of tibia Healthcare maintenance documented in this encounter [facility] Work Phone: Evaluation note* Diagnosis Left leg pain Pain in soft tissues of limb documented in this encounter [facility] Work Phone: Evaluation note* Diagnosis Adenocarcinoma in situ- Primary Current smoker Positive test ([facility]) examination or test, positive result documented in this encounter [facility] Work Phone: Evaluation note* Diagnosis Supervision of high risk in second trimester- Primary Unspecified high-risk with uncertain dates in second trimester Late care affecting in second trimester History of loop electrosurgical excision procedure (LEEP) of cervix affecting in second trimester Nausea and vomiting during Marijuana use during Current every day nicotine vaping [facility] Diagnosis UTI (urinary tract infection) in , antepartum- Primary Infections of genitourinary tract antepartum [facility]* Diagnosis History of loop electrosurgical excision procedure (LEEP) of cervix affecting in second trimester- Primary Supervision of high risk in second trimester Unspecified high-risk with uncertain dates in second trimester 17 weeks gestation of state, incidental documented in this encounter [facility] note* Diagnosis Supervision of high risk in second trimester- Primary Unspecified high-risk 17 weeks gestation of state, incidental UTI (urinary tract infection) in , antepartum Infections of genitourinary tract antepartum [facility]* Diagnosis Encounter for anatomic survey- Primary 20 weeks gestation of state, incidental History of loop electrosurgical excision procedure (LEEP) of cervix affecting in second trimester documented in this encounter [facility] note* Diagnosis Supervision of high risk in second trimester- Primary Unspecified high-risk 20 weeks gestation of state, incidental Anemia complicating , first trimester Current every day nicotine vaping Marijuana use during UTI (urinary tract infection) in , antepartum Infections of genitourinary tract antepartum History of loop electrosurgical excision procedure (LEEP) of cervix affecting in second trimester [facility]* Diagnosis History of loop electrosurgical excision procedure (LEEP) of cervix affecting in second trimester- Primary 23 weeks gestation of state, incidental documented in this encounter [facility] note* Diagnosis Supervision of high risk in second trimester- Primary Unspecified high-risk 24 weeks gestation of state, incidental Screening for diabetes mellitus documented in this encounter [facility] note* Diagnosis 27 weeks gestation of - Primary state, incidental Supervision of high risk in second trimester Unspecified high-risk Rib pain on left side Chest pain, unspecified documented in this encounter [facility] noteNo assessment information [facility]WAult[facility] Work Phone: Evaluation note* Diagnosis Supervision [...] Continue PO iron documented in this encounter [facility] note* Diagnosis Supervision of high risk in third trimester (HCC)- Primary Unspecified high-risk Anemia complicating , third trimester ([facility]) Need for vaccination Need for prophylactic vaccination and inoculation against unspecified single disease 28 weeks gestation of ([facility]) state, incidental Supervision of high risk in third trimester (HCC)- Primary Unspecified high-risk Anemia complicating , third trimester (HCC) 30 weeks gestation of ([facility]) state, incidental AMA (advanced maternal age) multigravida 35+, third trimester ([facility]) Nausea and vomiting, unspecified vomiting type Heartburn during in third trimester (HCC) Anemia complicating , first trimester (HCC) documented in this encounter [facility] note* Diagnosis Supervision of high risk in third trimester (HCC)- Primary Unspecified high-risk Anemia complicating , third trimester (HCC) Need for vaccination Need for prophylactic vaccination and inoculation against unspecified single disease 28 weeks gestation of ([facility]) state, incidental Supervision of high risk in third trimester (HCC)- Primary Unspecified high-risk Anemia complicating , third trimester ([facility]) Nausea and vomiting, unspecified vomiting type Heartburn during in third trimester (HCC) 32 weeks gestation of ([facility]) state, incidental documented in this encounter [facility] note* Diagnosis Supervision of high risk in [...] third trimester (HCC) [facility]* Diagnosis Supervision of high risk in third trimester (HCC)- Primary Unspecified high-risk Anemia complicating , third trimester (HCC) Need for vaccination Need for prophylactic vaccination and inoculation against unspecified single disease 28 weeks gestation of (HCC) state, incidental Encounter for ultrasound to check growth ([facility])- Primary Encounter for routine screening for malformation using ultrasonics Uterine size-date discrepancy, third trimester (HCC) 36 weeks gestation of ([facility]) state, incidental [facility]* Diagnosis Supervision of high risk in third trimester (HCC)- Primary Unspecified high-risk Anemia complicating , third trimester (HCC) Need for vaccination Need for prophylactic vaccination and inoculation against unspecified single disease 28 weeks gestation of ([facility]) state, incidental Supervision of high risk in third trimester (HCC)- Primary Unspecified high-risk Anemia complicating , third trimester (HCC) Heartburn during in third trimester (HCC) Uterine size-date discrepancy, third trimester (HCC) AMA (advanced maternal age) multigravida 35+, third trimester (HCC) 36 weeks gestation of ([facility]) state, incidental [facility]* Diagnosis Supervision of high risk in third trimester (HCC)- Primary Unspecified high-risk Anemia complicating , third trimester (HCC) Need for vaccination Need for prophylactic vaccination and inoculation against unspecified single disease 28 weeks gestation of (HCC) state, incidental Uterine size-date discrepancy, third trimester (HCC)- Primary 37 weeks gestation of ([facility]) state, incidental Supervision of high risk in third trimester (HCC) Unspecified high-risk Anemia complicating , third trimester (HCC) Heartburn during in third trimester (HCC) AMA (advanced maternal age) multigravida 35+, third trimester (HCC) [facility]* Diagnosis Supervision of high risk [...] versicolor Pityriasis versicolor [facility]* Diagnosis Supervision of high risk [...] third trimester (HCC) documented in this [facility] NarrativePerlita is a [...] childbearing. She is not currently in a relationship.[id number] 1200 IMG Work Phone: Hospital Discharge instructions Additional Instructions We believe you have a abdominal wall muscle strain. Please continue to perform gentle stretching, usual warm compress, Tylenol.[facility] Work Phone: Reason for referral (narrative)* Diagnostic Procedure Only (Routine) - Authorized Specialty Diagnoses / Procedures Referred By Kalin correa [facility] Diagnoses Supervision of high risk in second trimester with uncertain dates in second trimester Procedures OBSTETRIC ULTRASOUND WHI US PREG UTERUS AFTER 1ST TRIMEST GESTATION Ismael Arciniega APRN.CNP [address] [place] [address] [place] [address] [place] [address] Referral ID Status Reason Start Date Expiration Date Visits Requested Visits Authorized [id number] Authorized Auto-Generat ed Referral 05/26/[address] [facility] for referral (narrative)* Diagnostic Procedure Only (Routine) - Authorized Specialty Diagnoses / Procedures Referred By Contac t Referred To Contact [facility] Diagnoses 17 weeks gestation of Supervision of high risk in second trimester UTI (urinary tract infection) in , antepartum Procedures OBSTETRIC ULTRASOUND WHI US PREG UTERUS AFTER 1ST TRIMEST GESTATION Rufina Albert MD [address] [place] [address] [place] [address] [place] [address] Referral ID Status Reason Start Date Expiration Date Visits Requested Visits Authorized [id number] Authorized Auto-Generat ed Referral 06/21/2024 06/21/[address] [facility] for referral (narrative)* Diagnostic Procedure Only (Routine) - Authorized Specialty Diagnoses / Procedures Referred By Contac t Referred To Contact [facility] Diagnoses Supervision of high risk in second trimester Procedures OBSTETRIC ULTRASOUND WHI US PREG UTERUS AFTER 1ST TRIMEST GESTATION Cristy Jain APRN.CNM [address] [place] [address] [place] [address] [place] [address] Referral ID Status Reason Start Date Expiration Date Visits Requested Visits Authorized [id number] Authorized Auto-Generat ed Referral 07/12/2024 07/12/[address] [facility] for referral (narrative)No reason for referral information availableWAultman Hospital Work Phone: Advance Directives No Advanced Directives Records FoundLatest Code Status on File Code Status Date Activated Date Inactivated Comments Full Code 05/31/2014 8:41 PM 06/02/2014 12:52 PM Date Activated Date Inactivated Comments 05/31/2014 8:41 PM 06/02/2014 12:52 PM Advance Directive Response Recorded Date/ Time Living Will No September 04, 2024 2:17pm Do you have a Healthcare Power of Job Specification Writer? No September 04, 2024 2:17pm Family History [...] MD [address] [place] [address] Referral ID Status Reason Start Date Expiration Date Visits Requested Visits Authorized [id number] Authorized Perform Procedure 07/14/2023 07/13/2024 1 1 [...] DATE CREATED AUTHOR AUTHOR'S ORGANIZ ATION 02/02/2022 [facility] DATE CREATED AUTHOR AUTHOR'S ORGANIZ ATION 12/05/2022 [facility] DATE CREATED AUTHOR AUTHOR'S ORGANIZ ATION 07/19/2023 [facility] DATE CREATED AUTHOR AUTHOR'S ORGANIZ ATION 07/20/2023 [facility] DATE CREATED AUTHOR AUTHOR'S ORGANIZ ATION 04/07/2024 [facility] DATE CREATED AUTHOR AUTHOR'S ORGANIZ ATION 09/11/2024 [facility] DATE CREATED AUTHOR AUTHOR'S ORGANIZ ATION 11/26/2024 [facility] Reason for Visit (unrecogniz ed section and content) Reason Comments Follow-up New pt visit Specialty Diagnoses / Procedures Referred By Contac t Referred To Contact Radiology Diagnoses Left leg pain Procedures XR tibia fibula left 2 views Omid Benites MD [address] [place] [address] Referral ID Status Reason Start Date Expiration Date Visits Requested Visits Authorized [id number] Authorized Perform Procedure 07/14/2023 07/13/2024 1 1 Reason Comments Follow-up Reason Comments Initial OB Visit Reason Comments 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 Diagnoses Supervision of high risk in second trimester with uncertain dates in second trimester Procedures OBSTETRIC ULTRASOUND WHI US PREG UTERUS AFTER 1ST TRIMEST GESTATION Ismael Arciniega APRN.PRODUCTION LINE ASSEMBLER [address] [place] [address] [facility] [address] [place] [address] Referral ID Status Reason Start Date Expiration Date V isits Requested Visits Authorized [id number] Closed Auto-Generate d Referral 05/26/2024 05/26/2025 1 1 Reason Onset Date Comments Care 06/21/2024 Specialty Diagnoses / Procedures Referred By Contac t Referred To Contact [facility] Diagnoses 17 weeks gestation of Supervision of high risk in second trimester UTI (urinary tract infection) in , antepartum Procedures OBSTETRIC ULTRASOUND WHI US PREG UTERUS AFTER 1ST TRIMEST GESTATION Rufina Albert MD [address] [place] [address] [address] Referral ID Status Reason Start Date Expiration Date V isits Requested Visits Authorized [id number] Closed Auto-Generate d Referral 06/21/2024 06/21/2025 1 1 Reason Onset Date Comments Care 07/12/2024 Reason Comments PRAF Specialty Diagnoses / Procedures Referred By Contac t Referred To Contact [facility] Diagnoses Supervision of high risk in second trimester Procedures OBSTETRIC ULTRASOUND WHI US PREG UTERUS AFTER 1ST TRIMEST GESTATION Cristy Jain APRN.CNM [address] [place] [address] Phone: tel: fax: [address] [address] Referral ID Status Reason Start Date Expiration Date V isits Requested Visits Authorized [id number] Closed Auto-Generate d Referral 07/12/2024 07/12/2025 2 1 Reason Onset Date Comments Results 08/04/2024 Reason Onset Date Comments Care 08/10/2024 Reason Comments OB-Abdominal pain Reason Onset Date Comments Care 08/31/2024 Reason Onset Date Comments Care 09/07/2024 Reason Onset Date Comments Care 10/07/2024 Reason Onset Date Comments Care 10/21/2024 Specialty Diagnoses / Procedures Referred By Contac t Referred To Contact [facility] Diagnoses Supervision of high risk in third trimester (HCC) 34 weeks gestation of (HCC) Uterine size-date discrepancy, third trimester (HCC) Procedures OBSTETRIC ULTRASOUND WHI US PREG UTERUS AFTER 1ST TRIMEST GESTATION Brea Mirza APRN.CNM [address] [place] [address] Phone: tel: fax:[phone] [facility] [address] [place] [address] Referral ID Status Reason Start Date Expiration Date V isits Requested Visits Authorized [id number] Closed Auto-Generate d Referral 10/21/2024 10/21/2025 5 1 Reason Onset Date Comments Care 11/02/2024 Reason Onset Date Comments Care 11/11/2024 Reason Onset Date Comments Population Health Navigation Outreach 11/12/2024 Ob/peds Reason Onset Date Comments Care 11/19/2024 Reason Onset Date Comments Care 11/23/2024 Care Teams (unrecognized sec tion and content) Leak Detection Engineer Relationship Specialty Start Date End Date Omid Benites MD [address] [place] [address] PCP - Manolo [facility]ARD PCP 10/08/23 Leak Detection Engineer Relationship Specialty Start Date End Date Omid Benites MD [address] [place] [address] PCP - General Internal Medicine 07/17/23 Leak Detection Engineer Relationship Specialty Start Date End Date Omid Benites MD [address] [place] [address] PCP - General Internal Medicine 07/17/23 Leak Detection Engineer Relationship Specialty Start Date End Date Omid Benites MD [address] [place] [address] PCP - General Internal Medicine 07/17/23 Leak Detection Engineer Relationship Specialty Start Date End Date Omid Benites MD [address] [place] [address] PCP - General Internal Medicine 07/17/23 Leak Detection Engineer Relationship Specialty Start Date End Date Omid Benites MD [address] [place] [address] PCP - General Internal Medicine 07/17/23 Leak Detection Engineer Relationship Specialty Start Date End Date Omid Benites MD [address] [place] [address] PCP - General Internal Medicine 07/17/23 Leak Detection Engineer Relationship Specialty Start Date End Date Omid Benites MD [address] [place] [address] PCP - General Internal Medicine 07/17/23 Leak Detection Engineer Relationship Specialty Start Date End Date Omid Benites MD [address] [place] [address] PCP - General Internal Medicine 07/17/23 Leak Detection Engineer Relationship Specialty Start Date End Date Omid Benites MD [address] [place] [address] PCP - General Internal Medicine 07/17/23 Leak Detection Engineer Relationship Specialty Start Date End Date Omid Benites MD [address] [place] [address] PCP - General Internal Medicine 07/17/23 Team Status: Active Member Role Status Dates Dr. Omid Benites MD Primary Care Provider Activ e Team Status: Inactive Member Role Status Dates Dr. Omid Benites MD Primary Care Provider Activ e Start: September 04, 2024 End: September 04, 2024 Dr. Jeremy Resendiz DO Emergency Provider Active Start : September 04, 2024 End: September 04, 2024 Leak Detection Engineer Relationship Specialty Start Date End Date Omid Benites MD [address] [place] [place] [address] PCP - General Internal Medicine 07/17/23 Leak Detection Engineer Relationship Specialty Start Date End Date Omid Benites MD [address] [place] [address] PCP - General Internal Medicine 07/17/23 Leak Detection Engineer Relationship Specialty Start Date End Date Omid Benites MD [address] [place] [address] PCP - General Internal Medicine 07/17/23 Leak Detection Engineer Relationship Specialty Start Date End Date Omid Benites MD [address] [place] [address] PCP - General Internal Medicine 07/17/23 Leak Detection Engineer Relationship Specialty Start Date End Date Omid Benites MD [address] [place] [address] PCP - General Internal Medicine 07/17/23 Leak Detection Engineer Relationship Specialty Start Date End Date Omid Benites MD [address] [place] [address] PCP - General Internal Medicine 07/17/23 Leak Detection Engineer Relationship Specialty Start Date End Date Omid Benites MD [address] [place] [address] PCP - General Internal Medicine 07/17/23 Leak Detection Engineer Relationship Specialty Start Date End Date Omid Benites MD [address] [place] [address] PCP - General Internal Medicine 07/17/23 Leak Detection Engineer Relationship Specialty Start Date End Date Omid Benites MD [address] [place] [address] PCP - General Internal Medicine 07/17/23 Leak Detection Engineer Relationship Specialty Start Date End Date Omid Benites MD [address] [place] [address] PCP - General Internal Medicine 07/17/23 Source Comments (unrecognize d section and content) In the event this informatio n is protected by the Federal Confidentiality of Alcohol and Drug Abuse Patient Records regulations: The Federal rules restrict any use of the information to criminally investigate or prosecute any alcohol or drug abuse patient.[facility] the event this information is protected by the Federal Confidentiality of Alcohol and Drug Abuse Patient Records regulations: The Federal rules restrict any use of the information to criminally investigate or prosecute any alcohol or drug abuse patient.[facility] Hospital[facility] the event this information is protected by the Federal Confidentiality of Alcohol and Drug Abuse Patient Records regulations: The Federal rules restrict any use of the information to criminally investigate or prosecute any alcohol or drug abuse patient.[facility] Hospital[facility] the event this information is protected by the Federal Confidentiality of Alcohol and Drug Abuse Patient Records regulations: The Federal rules restrict any use of the information to criminally investigate or prosecute any alcohol or drug abuse patient.[facility] Hospital[facility] the event this information is protected by the Federal Confidentiality of Alcohol and Drug Abuse Patient Records regulations: The Federal rules restrict any use of the information to criminally investigate or prosecute any alcohol or drug abuse patient.[facility] HospitalIn the event this information is protected by the Federal Confidentiality of Alcohol and Drug Abuse Patient Records regulations: The Federal rules restrict any use of the information to criminally investigate or prosecute any alcohol or drug abuse patient.[facility] HospitalIn the event this information is protected by the Federal Confidentiality of Alcohol and Drug Abuse Patient Records regulations: The Federal rules restrict any use of the information to criminally investigate or prosecute any alcohol or drug abuse patient.[facility] HospitalIn the event this information is protected by the Federal Confidentiality of Alcohol and Drug Abuse Patient Records regulations: The Federal rules restrict any use of the information to criminally investigate or prosecute any alcohol or drug abuse patient.[facility] HospitalIn the event this information is protected by the Federal Confidentiality of Alcohol and Drug Abuse Patient Records regulations: The Federal rules restrict any use of the information to criminally investigate or prosecute any alcohol or drug abuse patient.[facility] HospitalIn the event this information is protected by the Federal Confidentiality of Alcohol and Drug Abuse Patient Records regulations: The Federal rules restrict any use of the information to criminally investigate or prosecute any alcohol or drug abuse patient.[facility] HospitalIn the event this information is protected by the Federal Confidentiality of Alcohol and Drug Abuse Patient Records regulations: The Federal rules restrict any use of the information to criminally investigate or prosecute any alcohol or drug abuse patient.[facility] HospitalIn the event this information is protected by the Federal Confidentiality of Alcohol and Drug Abuse Patient Records regulations: The Federal rules restrict any use of the information to criminally investigate or prosecute any alcohol or drug abuse patient.[facility] HospitalIn the event this information is protected by the Federal Confidentiality of Alcohol and Drug Abuse Patient Records regulations: The Federal rules restrict any use of the information to criminally investigate or prosecute any alcohol or drug abuse patient.[facility] HospitalIn the event this information is protected by the Federal Confidentiality of Alcohol and Drug Abuse Patient Records regulations: The Federal rules restrict any use of the information to criminally investigate or prosecute any alcohol or drug abuse patient.[facility] HospitalIn the event this information is protected by the Federal Confidentiality of Alcohol and Drug Abuse Patient Records regulations: The Federal rules restrict any use of the information to criminally investigate or prosecute any alcohol or drug abuse patient.[facility] HospitalIn the event this information is protected by the Federal Confidentiality of Alcohol and Drug Abuse Patient Records regulations: The Federal rules restrict any use of the information to criminally investigate or prosecute any alcohol or drug abuse patient.[facility] HospitalIn the event this information is protected by the Federal Confidentiality of Alcohol and Drug Abuse Patient Records regulations: The Federal rules restrict any use of the information to criminally investigate or prosecute any alcohol or drug abuse patient.[facility] HospitalIn the event this information is protected by the Federal Confidentiality of Alcohol and Drug Abuse Patient Records regulations: The Federal rules restrict any use of the information to criminally investigate or prosecute any alcohol or drug abuse patient.[facility] HospitalIn the event this information is protected by the Federal Confidentiality of Alcohol and Drug Abuse Patient Records regulations: The Federal rules restrict any use of the information to criminally investigate or prosecute any alcohol or drug abuse patient.[facility] HospitalIn the event this information is protected by the Federal Confidentiality of Alcohol and Drug Abuse Patient Records regulations: The Federal rules restrict any use of the information to criminally investigate or prosecute any alcohol or drug abuse patient.[facility] HospitalIn the event this information is protected by the Federal Confidentiality of Alcohol and Drug Abuse Patient Records regulations: The Federal rules restrict any use of the information to criminally investigate or prosecute any alcohol or drug abuse patient.[facility] HospitalIn the event this information is protected by the Federal Confidentiality of Alcohol and Drug Abuse Patient Records regulations: The Federal rules restrict any use of the information to criminally investigate or prosecute any alcohol or drug abuse patient.[facility] HospitalIn the event this information is protected by the Federal Confidentiality of Alcohol and Drug Abuse Patient Records regulations: The Federal rules restrict any use of the information to criminally investigate or prosecute any alcohol or drug abuse patient.[facility] HospitalIn the event this information is protected by the Federal Confidentiality of Alcohol and Drug Abuse Patient Records regulations: The Federal rules restrict any use of the information to criminally investigate or prosecute any alcohol or drug abuse patient.[facility] HospitalIn the event this information is protected by the Federal Confidentiality of Alcohol and Drug Abuse Patient Records regulations: The Federal rules restrict any use of the information to criminally investigate or prosecute any alcohol or drug abuse patient.[facility] HospitalIn the event this information is protected by the Federal Confidentiality of Alcohol and Drug Abuse Patient Records regulations: The Federal rules restrict any use of the information to criminally investigate or prosecute any alcohol or drug abuse patient.[facility] Goals (unrecognized section and content) Goals [...] BE BASED ON THE PRIMARY CLINICAL RECORDS. [facility]. provides no warranty or guarantee of the accuracy or completeness of information in this document.
[2024-11-27] MEDS: Ondansetron 4 MG/2 ML Vial IV (07:44)
[2024-11-27] MEDS: Oxytocin 15 Units/NS 250ml 15 UNITS/250 ML IV.SOLN 2 UNITS IV (08:53)
--- NOTE | 2024-11-27 15:10 | EX.PCM.OBVAG ---
Assessment & Plan (1) Hx of cone biopsy of cervix: COMMENT: 10/15/2021 (2) Elective induction of labor planned: (3) 40 weeks gestation of : (4) (spontaneous vaginal delivery): Maternal Data Information Final THA: 11/26/24 Gestational age: 40 Vaginal Delivery Maternal Presentation Maternal Presentation: Elective Induction Maternal Presentation: Induction of labor at 40 weeks with hx of LEEP and CKC for AIS Type of Induction: Pitocin and Cytotec Vaginal Delivery Information Procedure Performed: Spontaneous Vaginal Delivery Surgeon/Practitioner: Miguelina Herrera Date of Procedure: 11/27/24 Pre-Procedure Diagnosis: term Post-Procedure Diagnosis: same Type of anesthesia: Epidural Estimated Blood Loss: 100 cc Time of Delivery: 15:02 Findings Description of procedure: Induction of labor with Cytotec x 1. SROM after 2 hours. Once epidural was placed cervical scar tissue was stretched. Cervix changed from 0.5 to 4 cm. Patient continued to contract every 2 minutes. Pitocin was eventually started and patient progressed to complete. She pushed for 30 minutes and delivered OA over an intact peritoneum. The was a hand under the chin. The anterior and posterior shoulders delivered easily. There was a cord around the left foot. The cried upon delivery and was placed on the maternal abdomen. The cord was cut after one minute. The placenta delivered with gentle traction. There ceballos no lacerations. All sponge and instrument counts ts were correct. Presentation: Vertex and CATHI Amniotic Membrane Rupture Type: Spontaneous Amniotic Fluid Description: Clear Placental Delivery Description: Spontaneous Placenta Disposition: [facility] Specimen collected: No Cord Vessel Description: 3 Vessels Cord Entanglement: Other (around left foot) Nuchal Cord Compression: Without compression A Gender: Female (1 minute): 8 (5 minute): 9 Delayed Cord Clamping: Yes Tube Winder Hand tool and gauge inspector: No Post Vaginal Deli Medications given after delivery: IV Pitocin Episiotomy Description: None Laceration: None Complication Complications: No
[2024-11-27] MEDS: Oxytocin 15 Units/NS 250ml 15 UNITS/250 ML IV.SOLN 83 UNITS IV (15:35)
[2024-11-28] VITALS (7 sets, daily range): BP systolic 97–124; BP diastolic 53–65; PULSE 59–72; RESP 14–16; TEMP 36.4–36.7; O2SAT 98–100
[2024-11-28] MEDS: Ibuprofen 600 MG Tablet PO (05:04)
--- NOTE | 2024-11-28 09:24 | PCM.PN.OB ---
Subjective Subjective Doing well. Ambulating and voiding without difficulty. Mild lochia. Breast feeding. Objective Data Objective Data Vital Signs: Vital Signs Temp Pulse Resp BP Pulse Ox O2 Del Method 97.6 F L 63 16 110/53 L 100 Room Air 11/28/24 08:28 11/28/24 08:28 11/28/24 08:28 11/28/24 08:28 11/28/24 08:28 11/28/24 08:28 Oxygen Delivery Method Room Air Weight: 71.94 kg Body Mass Index (BMI) 27.2 Intake & Output: Intake and Output for Last 24 Hours 11/26/24 11/27/24 11/28/24 23:59 23:59 23:59 Intake Total 4949.37 / 4949.37 Output Total 1400 / 1999 1100 / 1100 Balance 3549.37 / 2949.37 -1100 / -1100 Lab / Micro Data 11/26/24 19:55 ROS Constitutional Constitutional: Denies headache(s) Cardiovascular Cardiovascular: Denies chest pain or dyspnea Gastrointestinal Gastrointestinal: Denies nausea or vomiting Genitourinary Genitourinary: Denies dysuria Physical Exam Const alert and no apparent distress General Appearance: cooperative and comfortable Eyes PERRL and EOMs intact bilaterally Resp normal respiratory effort GI soft to palpation and non-tender Narrative: Fundus firm, below umbilicus. Uterus Palpation: uterus fundus firm ( below umbilicus) Extremity normal to inspection and full ROM Neuro oriented x3 and CN's II-XII intact bilaterally Psych mental status grossly normal Assessment & Plan (1) (spontaneous vaginal delivery): (2) Hx of cone biopsy of cervix: COMMENT: 10/15/2021 PLAN: Plan Discharge home
--- NOTE | 2024-11-28 10:03 | PCM.DC.SUM ---
Providers Date of Admission: 11/26/24 Date of Discharge: 11/28/24 Primary Care Physician: Dr. Omid Grijalva MD Reason For Visit: VAGINAL DELIVERY Diagnosis Discharge Diagnosis (1) (spontaneous vaginal delivery): Status: Acute Code(s): O80 - Encounter for full-term uncomplicated delivery (2) Hx of cone biopsy of cervix: Status: Acute Code(s): Z98.890 - Other specified postprocedural states Plan Discharge home Medications at Discharge Home Medications docosahexaenoic acid 200 mg capsule ( DHA) mg PO 11/26/24 famotidine 20 mg tablet (Heartburn Prevention) 20 mg PO DAILY PRN heartburn 11/26/24 ferrous sulfate 325 mg (65 mg iron) tablet (Feosol) 325 mg PO QODAY 11/26/24 ibuprofen 600 mg tablet 600 mg PO Q6H PRN PRN Pain Score 1-10 #30 tabs 11/28/24 Hospital Course Operations None Procedures None Summary of Care Provided Minutes Spent on Discharge: 20 Hospital Course: Cytotec induction of labor. breast feeding. Physical Exam Const alert, oriented x3 and no apparent distress General Appearance: cooperative and comfortable Eyes PERRL and EOMs intact bilaterally Resp normal respiratory effort GI soft to palpation and non-tender Uterus Palpation: uterus fundus firm ( below umbilicus) Extremity normal to inspection and full ROM Neuro oriented x3 and CN's II-XII intact bilaterally Psych mental status grossly normal Weight / BMI Weight Weight: 71.94 kg Body Mass Index (BMI) 27.2 ABG / Lab / Microbiology Data 11/26/24 19:55 D/C Instructions May resume sexual activity in: 6 weeks DC O2, CPAP, BIPAP Needs Home O2 Discharge instructions: No Please Follow Up With: Guadalupe Ramos MD When: Follow up with our office in 1-2 and 6 weeks or as needed. [phone] Meaningful Use Info Meaningful Use Meaningful Use Diagnoses (Choose all that apply): None applicable Ischemic Stroke Statin Dosing Therapy Reference: STATIN DOSE THERAPY REFERENCE: * Patients > 75 years receive moderate or high dose statin therapy. * Patients 75 years or YOUNGER should receive HIGH intensity statin dose unless contraindicated. You will be required to document reason for non-treatment if statin daily dose does not meet guidelines. HIGH DOSE STATIN THERAPY DAILY Atorvastatin > than or = to 40 mg Rosuvastatin > than or = to 20 mg Amlodipine + Atorvastatin > than or = to 2.5/40 mg Ezetimibe + Simvastatin 10/80 mg Simvastatin 80mg Discharge Plan Admission Admit Date/Time: 11/26/24 19:15 Primary Reason for Your Visit: labor and delivery Attending Provider: Miguelina Herrera Primary Care Provider: Omid Grijalva Discharge Orders/Prescriptions Prescriptions: New ibuprofen 600 mg Tablet 600 mg PO Q6H PRN PRN (Reason: Pain Score 1-10) Qty: 30 0RF Continued ferrous sulfate [Feosol] 325 mg (65 mg iron) tablet 325 mg PO QODAY DHA 200 mg capsule PO famotidine [Heartburn Prevention] 20 mg tablet 20 mg PO DAILY PRN (Reason: heartburn) Discontinued aspirin [Adult Aspirin Regimen] 81 mg tablet,delayed release (DR/EC) 81 mg PO DAILY Referrals / Follow Up: Omid Grijalva MD [Primary Care Provider] - Disposition Disposition (needs filled in before D/C Order can be placed): Home, Self Care
--- NOTE | 2024-11-28 10:45 | CASEMGMT ---
Social Work Assessment Labor and Delivery Unit Patient Address: [address] [place] [address], [address], [place] [id number] Phone number: [phone] Date of Referral: 11/28/24 Time of Referral: 01:30 Referred By: Miguelina Herrera Date of Intervention: 11/28/24 Time of Intervention: 10:43 Reason for Referral: Positive THC use in and on admission. History obtained from: Medical records, mother of baby (MOB) and father of baby (FOB).? Household composition: MOB, FOB (Christopholaf ?Aric? Ramos, age 39), their daughter Rasheeda Beasley, born on 11/27/24, the MOB?s 13-year-old nephew Cleveland, and the FOB?s 14-year-old daughter Crispin. It should be noted that Practice Manager also observed the spelling of last name to be Cordell. ?The FOB has 4 other children who are not living with him. Patient's parent/guardian status: MOB and FOB have been together for almost one and a half years and are not . ??MOB denied any previous or current issues of domestic violence and described a positive relationship with the FOB. Medical History: : 1, Para, now 1. MOB received care through [facility] beginning at 13 weeks and 5 days, and visits were observed to be routine. Apgars: 8 and 9. Weight: 5lbs, 14oz. Certified Technician: Dr. Joiner. ?s medical history includes drug exposure. Educational Status: MOB and FOB denied any issues with reading, writing or learning comprehension. MOB and FOB both reported they earned their High School Diploma. ? Financial Status: MOB and FOB reported that their income is sufficient to meet the needs of their family at this time. 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 MOB reported she is taking 6 weeks of maternity leave. Supplies: MOB reported she has all the supplies she needs for baby at this time including but not limited to: Car seat, bassinet, crib, diapers, bottles, breast pump and clothing. Childcare/Caregiver(s): MOB stated both she and the FOB will share childcare responsibilities and after the MOB returns to work, ?s maternal grandmother (MGM) will care for . Transportation: Both MOB and FOB are licensed drivers and have a reliable vehicle to get baby to and from all medical appointments. MOB and FOB denied any issues/barriers to transportation at this time. Programs/Agencies Involved: SHELLIE is connected with [facility] and is on Medicaid and WIC. MOB reported she is planning on re-applying for food stamps. Children Services/Legal Issues: MOB and FOB denied any history of Children Services or legal involvement. Behavioral Health Issues:? Mental Health History: ?MOB and FOB both denied any history of mental health. ?Substance Use History: MOB admitted to using THC throughout her and was positive for THC during and on admission. MOB also admitted to smoking a pack of cigarettes a day while and also vaped. MOB stated she plans on quitting marijuana and cigarette use but still plans on vaping. Practice Manager provided verbal education as well as written education on marijuana use and . FOB denied any previous or current drug or alcohol abuse. Family History:? MOB reported her father was a drug addict with crystal meth being his drug of choice. MOB stated her father served time in group home that was drug related and is now . ?MOB and FOB denied any family history of mental health on either side. ?Drug Screens: MOB: Presumptive positive for Cannabinoids. : Presumptive positive for cannabinoids and Fentanyl (Presumptive positive for fentanyl not suspected to drug abuse by the MOB, rather, this was given to the MOB just prior to delivery). Meconium results are pending. ? Family/Social Stressors:?? Denied. Support Systems:? MOB identified her biggest support as the FOB, her mother and siblings, as well as FOB?s mother and siblings. Depression/Shaken Baby/Safe Sleeping: Practice Manager provided verbal and written education on PPD, risk factors for PPD, Safe Sleeping and Shaken Baby.? MOB and FOB both verbalized an understanding.??? ASSESSMENT: MOB and FOB provided consent to social work visit. Upon arrival, the MOB was sitting upright in the hospital bed, the FOB was laying down on a couch at MOB?s bedside and FOB?s daughterCrispin was in a nearby chair holding . MOB was verbally engaged, the FOB looked at his phone or the TV during much of the assessment and only spoke when he was asked questions and at times had to be alerted by the MOB that Practice Manager was talking to him.? MOB and FOB were cooperative and Practice Manager observed positive interaction between Teegan and .? Teegan was observed being very gentle and attentive to and talked about how cute was. At the end of the assessment, Practice Manager requested to speak with the MOB alone and rather than the FOB and Teegan leaving the room, the MOB had them stay in the room and asked to walk with Practice Manager down the arrieta as she stated she needed to walk.? MOB denied any history or current DV, unmanaged mental health issues with either herself or with the FOB and also denied any other substance abuse issues either with herself or the FOB. Practice Manager did disclose to the MOB her mandated responsibility to report drug exposure to Children Services which the MOB verbalized she understood. Safe Plan of Care for related to substance use: Practice Manager provided verbal and written education regarding substance abuse which included but not limited to , supervision, exposure and access. MOB reported it is her intention to refrain from continued use of marijuana. MOB reported if she does use that she will not use while caring for , while driving with and will keep any drugs and/or paraphernalia out our reach for all minors in the household. PLAN: For MOB and baby to be discharged when medically ready. Per mandated protocol, Practice Manager will make a referral to Children Services. ??No other services requested or indicated.? Miguelina Horner, EARLY CHILDHOOD EDUCATION WORKER, CALL OR CONTACT CENTRE MANAGER
--- NOTE | 2024-11-28 15:50 | CASEMGMT ---
Social Work: deck worker made phone contact with Pretty Evelia with [facility]. Accounting Generalist made a referral regarding THC use during . Miguelina Horner, SEAT MENDER, FIRESTOPPER TECHNICIAN
--- NOTE | 2024-12-11 20:59 | CASEMGMT ---
Social Work: Network Director received written correspondence from [facility] dated 11/29/24 indicating that the referral that was made to them has been accepted for assessment/investigation. Miguelina Horner, LINUX UNIX ADMINISTRATOR, SUPERVISOR ENDLESS TRACK VEHICLE
== END 2024-11-28 17:20 | disposition home or self-care (01) | DRG 807 ==
PROVIDERS: Admitting Provider Obstetrics & Gynecology; PCP Internal Medicine; Referring Provider Obstetrics & Gynecology; Visit Provider Obstetrics & Gynecology
DX: O48.0 Post-term pregnancy (principal); Z37.0 Single live birth; F17.210 Nicotine dependence, cigarettes, uncomplicated; O99.334 Smoking (tobacco) complicating childbirth; Z3A.40 40 weeks gestation of pregnancy; Z85.41 Personal history of malignant neoplasm of cervix uteri; Z79.82 Long term (current) use of aspirin
CPT/HCPCS: 59025; 59050; 80307; 84112; 85025; 86780; 86850; 86900; 86901; 99221; G0378; J2405